=== PATIENT | female | born 1970 | race Caucasian/White ===

== ENCOUNTER 2022-11-05 11:02 | Emergency (ER) | payer OTHER, SELFPAY ==
[2022-11-05 11:03] VITALS: BP 196/99; PULSE 92; RESP 18; TEMP 36.4; O2SAT 97; BMI 34.9
--- NOTE | 2022-11-05 11:55 | CT_ITS ---
INDICATION: abdominal pain X 5 DAYS EXAMINATION: CT ABDOMEN AND PELVIS WITH CONTRAST - CT Abdomen And Pelvis W/ Contrast Injection TECHNIQUE: Helically acquired images were obtained of the abdomen and pelvis following IV contrast. A radiation dose optimization technique was used for this scan. IV Contrast dosage and agent: 100 cc of [id number]-370 Oral contrast: None. COMPARISON: None. FINDINGS: LOWER CHEST: Lung bases are clear. No cardiomegaly or pericardial effusion. LIVER: The liver is diffusely low in attenuation consistent with fatty infiltration. There is hepatomegaly. GALLBLADDER AND BILIARY TREE: There are surgical clips within the gallbladder fossa consistent with prior cholecystectomy. No intra- or extrahepatic biliary ductal dilation. PANCREAS: No focal cystic or solid mass. SPLEEN: Normal size without focal cystic or solid mass. ADRENAL GLANDS: No nodules. KIDNEYS AND URETERS: Normal renal size and position. There is a nonobstructing 11 mm left renal calculus. No hydronephrosis. PERITONEUM: No ascites or free air. No other fluid collection. BOWEL: No stomach or bowel distension. No focal inflammatory change. There are surgical clips within the right lower quadrant suggestive of prior cholecystectomy. LYMPH NODES: No enlarged mesenteric or retroperitoneal lymph nodes. VESSELS: Aorta is non-dilated. URINARY BLADDER: Unremarkable. REPRODUCTIVE ORGANS: No pelvic masses. ABDOMINAL WALL: No discrete abdominal or pelvic wall hernia. BONES: There are degenerative changes of the lumbar spine. There is a levoscoliosis of the thoracolumbar spine. CT/Abdomen/Pelvis W IV Cont ONLY IMPRESSION: Fatty infiltration of the liver associated with hepatomegaly. Nonobstructing 11 mm left renal calculus. Electronically Signed: Shanel Montano MD at 12:37 EST ,
[2022-11-05 12:16] LABS: Absolute Lymphocyte Count 3.76 X10^3/uL (0.83-4.51); Basophil# 0.04 X10^3/uL; Basophil% 0.4 % (0-1); Eosinophil# 0.26 X10^3/uL; Eosinophils% 2.4 % (0-5); Hematocrit 43.1 % (37-47); Hemoglobin 14.4 g/dL (12.0-15.0); Lymphocyte # 3.76 X10^3/ul (0.83-4.51); Mean Corp Hgb Conc 33.4 g/dL (32-36); Mean Corpuscular Hgb 29.3 pg (27.0-32.0); Mean Corpuscular Volume 87.8 fL (81-99); Mean Platelet Vol. 9.5 fl (6.2-12.0); Monocyte# 0.65 X10^3/uL; Monocyte% 6.1 % (0-10); NRBC Flagged by Analyzer 0 % (0-5); Neutrophil # 5.99 X10^3/uL (2.7-7.7); Neutrophil % 55.7 % (47-70); Platelet Count 476 K/mm3 (150-450); RBC Distribution Width CV 12.9 % (11.6-14.6); RBC Distribution Width SD 41.8 fl (35.1-43.9); Red Blood Count 4.91 M/mm3 (4.2-5.4); White Blood Count 10.7 K/mm3 (4.4-11.0)
[2022-11-05] MEDS: Mag Hydrox/Al Hydrox/Simeth 30 ML UDC PO (12:27)
[2022-11-05] MEDS: Dicyclomine 10 MG Capsule 20 MG PO (12:27)
[2022-11-05 12:34] LABS: ALB/GLOB Ratio 1.1 RATIO (0.9-2.4); AST(SGOT) 27 U/L (15-37); Alanine Aminotransfer ALT/SGPT 46 U/L (13-56); Albumin, Serum 4.4 g/dL (3.2-5.0); Alkaline Phosphatase 71 U/L (45-117); Anion Gap 7 (5-15); BUN 10 mg/dL (7-18); BUN/Creat Ratio 16.1 RATIO (10-20); Chloride 106 mmol/L (98-107); Creatinine, Serum 0.62 mg/dL (0.55-1.02); EST Glomerular Filtration Rate 107 mL/min (>60); Est Glom Filt Rate - Afr Amer 129 mL/min (>60); Estimated Creatinine Clearance 102.05 ml/min; Globulin 4.1 g/dL (2.2-4.2); Glucose 125 mg/dL (74-106); Lipase 259 U/L (73-393); Protein, Total 8.5 g/dL (6.4-8.2); Sodium Level 139 mmol/L (136-145)
--- NOTE | 2022-11-05 12:49 | EX.ED.DYSGE1 ---
HPI <ERIC Morales - Last Filed: 11/05/22 13:40> History of Present Illness Chief Complaint: Abd Pain Narrative Narrative: Patient is a 52-year-old female with history of anxiety, depression, hypertension, diabetes, GERD who presents to the emerged department with 5 days of generalized abdominal pain. Patient's the pain comes and goes. She states is all started after she had fried pork chops, fried potatoes. Patient is the pain is worse at nighttime. She feels bloated, has increased gas. She denies any vomiting. Denies any fever or chills. Patient says the pain in her lower abdomen can sometimes stretch across the abdomen, around the umbilical area. She does state to have black stools however she did take Pepto-Bismol every night this week. Patient denies any other blood in stool or vomit. PFSH <ERIC Morales - Last Filed: 11/05/22 13:40> [facility] Medical History Acute sinusitis, unspecified Home Medications desvenlafaxine succinate 25 mg tablet,extended release 24 hr 25 mg PO 03/26/21 [History Last Taken Unknown] desvenlafaxine succinate 50 mg tablet,extended release 24 hr 50 mg PO 03/26/21 [History Last Taken Unknown] lisinopril 20 mg tablet 20 mg PO 03/26/21 [History Last Taken Unknown] metformin 1,000 mg tablet 1,000 mg PO 03/26/21 [History Last Taken Unknown] multivit with xlmcmjyx-jvng-TL-lutein 8 mg iron-400 mcg-300 mcg tablet (Centrum Silver Women) 1 tab PO DAILY 03/26/21 [History Last Taken Unknown] pantoprazole 40 mg tablet,delayed release 40 mg PO 03/26/21 [History Last Taken Unknown] dicyclomine 20 mg tablet 20 mg PO TID #20 tabs 11/05/22 [Rx Last Taken Unknown] ondansetron 4 mg disintegrating tablet 4 mg PO Q8H PRN PRN Nausea #10 tabs 11/05/22 [Rx Last Taken Unknown] Allergy/AdvReac Type Severity Reaction Status Date / Time acetaminophen Allergy anxiety Verified 11/05/22 11:05 [From Darvocet-N] levofloxacin [From Levaquin] Allergy unknown Verified 11/05/22 11:05 moxifloxacin [From Avelox] Allergy flu-like Verified 11/05/22 11:05 symptoms propoxyphene Allergy anxiety Verified 11/05/22 11:05 [From Darvocet-N] Family History Other Diabetes Heart disease Social History Smoking Status: Never smoker alcohol intake: never ROS <ERIC Morales - Last Filed: 11/05/22 13:40> ROS ED ROS Narrative Constitutional: Negative for fever, chills, weight loss, weakness Eyes: Negative for vision loss, vision change, double vision ENT: Negative for any sore throat, ear pain, congestion Cardiovascular: Negative for any chest pain, tightness, palpitations Respiratory: Negative for any cough, sputum production, hemoptysis, dyspnea, dyspnea on exertion, orthopnea Gastrointestinal: Negative for any avomiting, diarrhea, constipation, blood in stool, blood in vomit. Positive for abdominal pain, cramping, bloating, nausea : Negative for any urinary frequency, dysuria, retention, blood in urine Muscle skeletal: Negative for any muscle joint pain, stiffness, myalgias, arthralgias, neck pain, back pain Neurological: Negative for any headache, syncope, numbness or tingling, dizziness Skin: Negative for any rashes, lumps, itching, abrasions, lacerations Psychiatric: Negative for any depression, anxiety, stress, suicidal ideation, homicidal ideation Hematologic: Negative for any easy bruising, excessive bruising, easy bleeding Allergies: Negative for any eczema, hives, rash EXAM <ERIC Morales - Last Filed: 11/05/22 13:40> Physical Exam Narrative Exam Narrative: Vital signs reviewed. HEET: Head normocephalic atraumatic, TMs clear bilaterally. Posterior pharynx is clear, moist mucous membranes. Nares clear bilaterally. Pupils are equal round reactive to light. Negative for any hematoma, septal hematoma. Neck: Supple with no lymphadenopathy or tenderness. No signs of meningismus, negative jolt sign. Cardiac: Regular rate and rhythm no murmurs gallops or rubs, equal peripheral pulses bilaterally. Respiratory: Lungs clear to auscultation bilaterally. No chest tenderness. Abdomen: Soft, nontender, nondistended. No abdominal bruit or pulsatile masses. No hepatosplenomegaly Extremities: No peripheral edema, no signs of gross trauma or deformity. Active full range of motion of all extremities. Neuro: Cranial nerves II through XII intact, no focal neurological deficits. Skin: Clean dry and intact with no rash, purpura, petechiae, vesicles or pustules. Backs/flank: No CVA tenderness, no midline spinal tenderness, no deformity. Psych: Normal mood and affect. No SI, HI or acute psychosis. Const Vital Signs: 11/05/22 11:03 Temperature 97.5 F L Temperature Source Temporal Pulse Rate 92 Respiratory Rate 18 Blood Pressure 196/99 H Blood Pressure Mean 131 Pulse Ox 97 Oxygen Delivery Method Room Air Positive well nourished and well developed General Appearance ED: well developed HEENT Reports moist mucous membranes and dry mucous membranes Mouth ED: Yes dry mucous membranes Mouth: dry mucous membranes <Dr. Red Castrejon MD - Last Filed: 11/05/22 13:35> Physical Exam Const Vital Signs: 11/05/22 11:03 Temperature 97.5 F L Temperature Source Temporal Pulse Rate 92 Respiratory Rate 18 Blood Pressure 196/99 H Blood Pressure Mean 131 Pulse Ox 97 Oxygen Delivery Method Room Air MDM <ERIC Moralse - Last Filed: 11/05/22 13:40> MDM Lab Data Labs: Laboratory Results - last 24 hr 11/05/22 11/05/22 11:15 11:15 WBC 10.7 RBC 4.91 Hgb 14.4 Hct 43.1 MCV 87.8 MCH 29.3 MCHC 33.4 RDW Std Deviation 41.8 RDW Coeff of Brennan 12.9 Plt Count 476 H MPV 9.5 Immature Gran % (Auto) 0.400 Neut % (Auto) 55.7 Lymph % (Auto) 35.0 [place] % (Auto) 6.1 Eos % (Auto) 2.4 Baso % (Auto) 0.4 Absolute Neuts (auto) 6.0 Absolute Lymphs (auto) 3.76 Nucleated RBC % 0 Sodium 139 Potassium 4.0 Chloride 106 Carbon Dioxide 26.0 Anion Gap 7 BUN 10 Creatinine 0.62 Estim Creat Clear Calc 102.05 Est GFR (MDRD) Af Amer 129 Est GFR (MDRD) Non-Af 107 BUN/Creatinine Ratio 16.1 Glucose 125 H Calcium 10.0 Total Bilirubin 0.40 AST 27 ALT 46 Alkaline Phosphatase 71 Total Protein 8.5 H Albumin 4.4 Globulin 4.1 Albumin/Globulin Ratio 1.1 Lipase 259 Radiography Diagnostic Testing: Clinical Impression(s) from Imaging Studies Abdomen/Pelvis CT 11/05/22 11:55 IMPRESSION: Fatty infiltration of the liver associated with hepatomegaly. Nonobstructing 11 mm left renal calculus. Electronically Signed: Shanel Montano MD at 12:37 EST , Treatment and Re-Evaluation Narrative: All radiologic examinations were read, reviewed by the emergency department attending. From these reads, a plan of care will be put in place. Patient's generalized well-appearing, patient's slightly hypertensive however she states that this has happened before secondary to her being nervous. Patient states to have a slight headache, she is concerned because she did start taking Ambien 2 weeks ago and she is not sure if this is a side effect. Patient did have a full work-up for abdominal pain, concerning for any acute appendicitis, hernia, diverticulitis. Patient's physical examination of her abdomen was grossly unremarkable. Negative for any Chase sign. Patient's laboratory studies showed a normal CBC, chemistries were unremarkable, lipase was within normal limits. Patient CT scan of the abdomen pelvis with IV contrast showed hepatomegaly however an axial finding of nonobstructing 11 mm left renal calculus. Patient was offered analgesia, however she states that at this time her pain was under control, she denies any nausea or vomiting. Patient was given GI cocktail as well as p.o. Bentyl. On reassessment, the patient was feeling much better. Patient's vital signs normalized. Patient will be diagnosed with abdominal pain, uncertain etiology. Patient does have an umbilical hernia, she will see the surgeon of her choice. We on her discharge instructions. I was able speak to the patient's who is also at bedside. Patient is happy with the plan of care, she will be given Zofran, Bentyl for home. She instructed return for any worsening symptoms. <Dr. Red Castrejon MD - Last Filed: 11/05/22 13:35> [facility] Narrative Medical decision making narrative: I have personally performed a face to face assessment of the patient and have reviewed the MARIZOL Note. I performed a substantive portion of the visit including all aspects of the following. My parker findings include: History is [52 female complaining of periumbilical abdominal discomfort. Is been intermittent for some time. She has had a prior cholecystectomy and appendectomy. Prior hernia repair. Hysterectomy. Pain comes and goes. No nausea or vomiting. No dysuria. No fever.] Exam is [well-appearing middle-aged female. Vital signs stable afebrile. H EENT exam unremarkable. Lungs clear. Heart regular rhythm no murmur. Abdomen soft, nondistended, minimally tender. No peritoneal signs. She laid flat in bed she has a periumbilical or umbilical hernia that spontaneously resolves. It is neither incarcerated or strangulated. Biard she has no peritoneal signs. She has a prior scar from having umbilical hernia repair. Moving all 4 extremities. Nontender no edema. Neurologic exam normal.] Medical Decision Making [evaluated this patient with her [employer]. She has paramedical abdominal pain. CBC, CMP are unremarkable. CT shows incidental kidney stone in the left kidney. Clinically I think this is a recurrent umbilical hernia. She wants to follow-up with Dr. Inocente bullard of general surgery.] Other additions or changes: [None] Lab Data Attestation: I reviewed the patient's lab results. Lab results narrative: CBC unremarkable. CMP unremarkable. Lipase normal at 259. Labs: Laboratory Results - last 24 hr 11/05/22 11/05/22 11:15 11:15 WBC 10.7 RBC 4.91 Hgb 14.4 Hct 43.1 MCV 87.8 MCH 29.3 MCHC 33.4 RDW Std Deviation 41.8 RDW Coeff of Brennan 12.9 Plt Count 476 H MPV 9.5 Immature Gran % (Auto) 0.400 Neut % (Auto) 55.7 Lymph % (Auto) 35.0 [place] % (Auto) 6.1 Eos % (Auto) 2.4 Baso % (Auto) 0.4 Absolute Neuts (auto) 6.0 Absolute Lymphs (auto) 3.76 Nucleated RBC % 0 Sodium 139 Potassium 4.0 Chloride 106 Carbon Dioxide 26.0 Anion Gap 7 BUN 10 Creatinine 0.62 Estim Creat Clear Calc 102.05 Est GFR (MDRD) Af Amer 129 Est GFR (MDRD) Non-Af 107 BUN/Creatinine Ratio 16.1 Glucose 125 H Calcium 10.0 Total Bilirubin 0.40 AST 27 ALT 46 Alkaline Phosphatase 71 Total Protein 8.5 H Albumin 4.4 Globulin 4.1 Albumin/Globulin Ratio 1.1 Lipase 259 Radiography Diagnostic Testing: Clinical Impression(s) from Imaging Studies Abdomen/Pelvis CT 11/05/22 11:55 IMPRESSION: Fatty infiltration of the liver associated with hepatomegaly. Nonobstructing 11 mm left renal calculus. Electronically Signed: Shanel Montano MD at 12:37 EST , Discharge Plan Triage Chief Complaint: Abd Pain ED Midlevel Provider: Evan Francis ED Provider: Red Castrejon Dx/Rx/DC Orders Clinical Impression: Abdominal pain, Hernia, umbilical Instructions: Abdominal Pain, ED Hernia (Adult) Prescriptions: New dicyclomine 20 mg tablet 20 mg PO TID Qty: 20 0RF ondansetron 4 mg tablet,disintegrating 4 mg PO Q8H PRN PRN (Reason: Nausea) Qty: 10 0RF No Action desvenlafaxine succinate 25 mg tablet extended release 24 hr 25 mg PO Label Comments: TAKE 1 TABLET BY MOUTH ONCE DAILY WITH A 50 MG TABLET desvenlafaxine succinate 50 mg tablet extended release 24 hr 50 mg PO Label Comments: TAKE 1 TABLET BY MOUTH ONCE DAILY pantoprazole 40 mg tablet,delayed release (DR/EC) 40 mg PO lisinopril 20 mg tablet 20 mg PO Label Comments: TAKE 1 TABLET BY MOUTH ONCE DAILY metformin 1,000 mg tablet 1,000 mg PO Label Comments: TAKE 1 TABLET BY MOUTH TWICE DAILY Centrum Silver Women 8 mg iron-400 mcg-300 mcg tablet 1 tab PO DAILY Primary Care Provider: Jose Celestin Referrals: Inocente Saab MD [Med Staff - Active Staff] - Jose Celestin MD [Primary Care Provider] - Activity Restrictions/Additional Instructions: Please keep a food diary to see if you are sensitive any foods. Please follow-up with your PCP. Follow-up with surgery. Disposition Disposition: Home, Self Care
== END 2022-11-05 14:14 | disposition home or self-care (01) ==
PROVIDERS: Nurse Practitioner; Emergency Provider Emergency Medicine; PCP Family Medicine; Visit Provider Emergency Medicine
DX: K42.9 Umbilical hernia without obstruction or gangrene (principal); E11.9 Type 2 diabetes mellitus without complications; N20.0 Calculus of kidney; I10 Essential (primary) hypertension; Z90.49 Acquired absence of other specified parts of digestive tract; Z79.84 Long term (current) use of oral hypoglycemic drugs; Z79.899 Other long term (current) drug therapy
CPT/HCPCS: 74177; 80053; 83690; 85025; 99284; Q9967; A4216

== ENCOUNTER 2022-12-23 12:49 | Day surgery (SDC) | payer OTHER, SELFPAY ==
--- NOTE | 2022-12-23 12:54 | RAD_ITS ---
HISTORY: PRE-OP. TECHNIQUE: XR Abdomen 1 View. COMPARISON: CT 11/05/2022. FINDINGS: BOWEL GAS PATTERN: No dilated small bowel loops identified. Moderate stool throughout the colon. Right lower quadrant surgical clips. FREE AIR: Not assessed on supine view. CALCIFICATIONS: Pelvic phleboliths observed. 7 mm left upper pole calculus again seen. BONES: Mild scoliosis again noted. RAD/Abdomen Single View IMPRESSION: Left nephrolithiasis. Electronically Signed: Maylin Barker MD at 12:58 EDT ,
[2022-12-23 13:24] VITALS: BP 120/72; PULSE 90; RESP 16; TEMP 36.1; O2SAT 96; BMI 34.6
[2022-12-23] MEDS: Lactated Ringers 1,000 ML 15 ML IV (13:28)
[2022-12-23 13:55] LABS: Bedside Glucose 116 mg/dL (74-106)
[2022-12-23] MEDS: Cefazolin 2 GM in 0.9% Normal Saline 100 ML IV (15:53)
--- NOTE | 2022-12-23 16:30 | PCM.HP.STD ---
HPI - General General Chief Complaint: Left kidney stone HPI Narrative RUBA PORTILLO, is a 52 F who presents for a left extracorporeal shockwave lithotripsy [facility] Medical History (Updated 12/23/22 @ 16:[address] Jose Luis Cheung MD) Acid reflux Acute insomnia Acute sinusitis, unspecified Anxiety Depression Diabetes Elevated liver enzymes Gastric reflux Gastritis Hiatal hernia High cholesterol History of hiatal hernia HTN (hypertension) Kidney stone MRSA infection NAFLD (nonalcoholic fatty liver disease) Post-menopausal Restless legs Wears glasses Home Medications desvenlafaxine succinate 50 mg tablet,extended release 24 hr 100 mg PO DAILY 03/26/21 [History Last Taken Unknown] lisinopril 20 mg tablet 20 mg PO DAILY 03/26/21 [History Last Taken Unknown] metformin 1,000 mg tablet 1,000 mg PO BID 03/26/21 [History Last Taken Unknown] multivit with nlikxstj-dssj-YR-lutein 8 mg iron-400 mcg-300 mcg tablet (Centrum Silver Women) 1 tab PO DAILY 03/26/21 [History Last Taken Unknown] pantoprazole 40 mg tablet,delayed release 40 mg PO DAILY 03/26/21 [History Last Taken Unknown] atorvastatin 20 mg tablet 20 mg PO QHS 11/15/22 [History Last Taken Unknown] loratadine 10 mg tablet (Claritin) 10 mg PO DAILY 11/15/22 [History Last Taken Unknown] oxycodone 5 mg capsule 5 mg PO Q6H PRN pain 7 days #14 caps 12/23/22 [Rx Last Taken Unknown] Allergy/AdvReac Type Severity Reaction Status Date / Time acetaminophen Allergy anxiety Verified 12/16/22 08:21 [From Darvocet-N] levofloxacin [From Levaquin] Allergy unknown Verified 12/16/22 08:21 moxifloxacin [From Avelox] Allergy flu-like Verified 12/16/22 08:21 symptoms propoxyphene Allergy anxiety Verified 12/16/22 08:21 [From Darvocet-N] Family History Father Diabetes Heart disease Hypertension Kidney disease CVA (cerebral vascular accident) Mother Cancer bladder Thyroid disorder Brother Hypertension Surgical History H/O umbilical hernia repair H/O ventral hernia repair History of tonsillectomy S/P appendectomy S/P section S/P hysterectomy S/P laparoscopic cholecystectomy S/P sinus surgery Social History Smoking Status: Never smoker alcohol intake: never Vital Signs Vital Signs Vital Signs: 12/23/22 13:24 12/23/22 13:24 Temperature 96.9 F L Temperature Source Temporal Pulse Rate 90 Respiratory Rate 16 Respiratory Pattern Normal Blood Pressure 120/72 Blood Pressure Mean 88 Blood Pressure Source Monitor Blood Pressure Position Semi-Fowlers Blood Pressure Location Right Arm Pulse Ox 96 Oxygen Delivery Method Room Air Weight Weight: 100.2 kg Body Mass Index (BMI) 34.6 Results Lab / Micro Data Labs: Laboratory Results - last 24 hr 12/23/22 13:19: POC Glucose 116 H
--- NOTE | 2022-12-23 16:31 | DCINST_ITS ---
Discharge Instructions Diet Discharge Diet: No restrictions Dressing / Incision Call your doctor if your incision/area has: Continuous Slow Oozing, Increased Pain/ Swelling, Increased Redness and Foul Smelling Discharge Call your doctor if you observe: Fever of 101 or Higher, Numbness or Tingling, Shortness of breath, Dizziness, Calf discomfort and Uncontrolled pain Follow Up Care Please Follow Up With: Jose Luis Cheung MD Test Results: Test results from this visit will be discussed in further detail at your follow- up appointment, if applicable. Discharge Plan Admission Primary Reason for Your Visit: left ESWL Attending Provider: Jose Luis Cheung Primary Care Provider: oJse Celestin Discharge Orders/Prescriptions Prescriptions: New oxycodone 5 mg capsule 5 mg PO Q6H PRN (Reason: pain) 7 Days Qty: 14 0RF Continued desvenlafaxine succinate 50 mg tablet extended release 24 hr 100 mg PO DAILY Label Comments: TAKE 1 TABLET BY MOUTH ONCE DAILY pantoprazole 40 mg tablet,delayed release (DR/EC) 40 mg PO DAILY lisinopril 20 mg tablet 20 mg PO DAILY Label Comments: TAKE 1 TABLET BY MOUTH ONCE DAILY metformin 1,000 mg tablet 1,000 mg PO BID Label Comments: TAKE 1 TABLET BY MOUTH TWICE DAILY Centrum Silver Women 8 mg iron-400 mcg-300 mcg tablet 1 tab PO DAILY atorvastatin 20 mg tablet 20 mg PO QHS loratadine [Claritin] 10 mg tablet 10 mg PO DAILY Referrals / Follow Up: Jose Celestin MD [Primary Care Provider] - Disposition Disposition (needs filled in before D/C Order can be placed): Home, Self Care
--- NOTE | 2022-12-23 16:31 | PCM.OPRPT ---
Report of Operation Date of Procedure: 12/23/22 Pre-Operative Diagnosis: Left kidney stone Post-Operative Diagnosis: Same Surgery/Procedure Performed:: Left extracorporeal shockwave lithotripsy Description of Surgical Findings:: Patient presents to the hospital for treatment of a kidney stone with shockwave lithotripsy. In the preoperative area and x-ray was done to confirm the location of the stone. The x-ray was reviewed and the stone location was reviewed. In the preoperative setting I spoke with the patient regarding the treatment of the stone how the treatment would be conducted and the expectations after surgery. The patient understands there is a risk of bleeding and infection. Also discussed the very rare risk of hematoma or damage to the kidney. We also discussed the risk that the shockwave machine will fail to break the stone adequately and that the patient may need other surgical procedures. We also discussed the possibility that the patient may need a stent after the procedure. After reviewing the procedure with the patient, the patient is signed the consent form all the patient's questions were addressed and was taken back to the operating room for treatment of a kidney stone. Patient was taken back to the operating room, patient was identified by the nursing staff, we identified the side of the treatment and the patient side of treatment had been marked by my initials. The patient underwent general anesthetic and was placed supine on the lithotripter table. We then used fluoroscopy to identify the stone on the Left side. We then positioned the patient under the lithotripter and we used triangulation technique to identify the location of the stone and then we made sure that the stone was engaged in the F2 focal point of F2 Donier lithoprior machine. Once the patient was positioned appropriately and the stone was identified and placed in the F2 focal point of the lithotripter machine we then proceeded with shockwave lithotripsy. In the beginning the shockwave was delivered at a rate of 90 shocks per minute, we monitor the EKG for any ectopy. The power was slowly increased to 5 kV and subsequently at the 7 kV. We then proceeded with the treatment we move the therapy had around during the treatment to make sure the stone stayed in the F2 focal point during the entire treatment and after 3000 shockwaves were delivered to the stone under fluoroscopic guidance the treatment was completed. The patient was given instructions to call the office to make an a follow-up appointment with an xray to evaluate the success of the treatment, pateint understands that its possible the stones may need another procedure.At this point the patient's anesthetic was reversed patient was extubated and taken back to the PACU in stable condition. Surgeon: Jose Luis Cheung Type of Anesthesia: General Drains: none Admit VTE Documentation VTE Present on Admission: No VTE Mechan Device Prophylaxis: SCD's VTE Pharm Prophylaxis ordered?: No
[2022-12-23 16:37] VITALS: BP 120/72; BP 122/72; PULSE 114; RESP 16; TEMP 36.3; O2SAT 94
[2022-12-23 16:45] VITALS: BP 111/66; BP 120/72; PULSE 104; RESP 16; O2SAT 94
[2022-12-23 17:00] VITALS: BP 108/66; BP 120/72; PULSE 92; RESP 16; TEMP 36.6; O2SAT 95
[2022-12-23 18:10] VITALS: BP 120/72; BP 126/86; PULSE 83; RESP 18; TEMP 36.3; O2SAT 98
== END 2022-12-23 18:18 | disposition home or self-care (01) ==
LOC: SDC 12:52 → AC 12:53
PROVIDERS: PCP Family Medicine; Referring Provider Urology; Visit Provider Urology
PROC: (CPT 50590; principal; 2022-12-23 14:50)
DX: N20.0 Calculus of kidney (principal); E11.9 Type 2 diabetes mellitus without complications; I10 Essential (primary) hypertension; E78.00 Pure hypercholesterolemia, unspecified; K21.9 Gastro-esophageal reflux disease without esophagitis; Z79.84 Long term (current) use of oral hypoglycemic drugs; Z79.899 Other long term (current) drug therapy
CPT/HCPCS: 00873; 74018; 82962; J7120; J2405

== ENCOUNTER → 2023-01-18 | Outpatient (CLI) | payer OTHER, SELFPAY ==
--- NOTE | 2023-01-18 09:35 | RAD_ITS ---
INDICATION: KIDNEY STONE EXAMINATION/TECHNIQUE: X-RAY - XR Abdomen 1 View COMPARISON: Abdominal x-ray 12/23/2022, CT abdomen and pelvis 11/05/2022. FINDINGS: The bowel gas pattern is normal. There is no bowel obstruction. The approximately 8 mm calculus at the upper pole left kidney is very faintly visualized and appears grossly unchanged. There is a large amount of overlying stool and bowel gas. Phleboliths in the pelvis. Surgical clips right upper abdomen. RAD/Abdomen Single View IMPRESSION: Left renal calculus faintly visualized and likely unchanged. Electronically Signed: Rachana Neil MD at 6:56 EDT ,
== END | disposition home or self-care (01) ==
LOC: RAD 09:31
PROVIDERS: PCP Family Medicine; Referring Provider Urology; Visit Provider Urology
DX: N20.0 Calculus of kidney (principal)
CPT/HCPCS: 74018

== ENCOUNTER → 2023-02-10 | Outpatient (CLI) | payer OTHER, SELFPAY ==
[2023-02-10 10:36] LABS: Absolute Lymphocyte Count 2.95 X10^3/uL (0.83-4.51); Absolute Neutrophil Count 3.5 X10^3/uL (2.0-7.7); Basophil# 0.03 X10^3/uL; Basophil% 0.4 % (0-1); Eosinophil# 0.56 X10^3/uL; Eosinophils% 7.5 % (0-5); Hematocrit 43.2 % (37-47); Hemoglobin 14.2 g/dL (12.0-15.0); Lymphocyte # 2.95 X10^3/ul (0.83-4.51); Lymphocyte % 39.8 % (19-41); Mean Corp Hgb Conc 32.9 g/dL (32-36); Mean Corpuscular Hgb 29.3 pg (27.0-32.0); Mean Corpuscular Volume 89.3 fL (81-99); Mean Platelet Vol. 9.2 fl (6.2-12.0); Monocyte# 0.36 X10^3/uL; Monocyte% 4.9 % (0-10); NRBC Flagged by Analyzer 0 % (0-5); Neutrophil # 3.51 X10^3/uL (2.7-7.7); Neutrophil % 47.3 % (47-70); Platelet Count 421 K/mm3 (150-450); RBC Distribution Width CV 12.5 % (11.6-14.6); RBC Distribution Width SD 40.9 fl (35.1-43.9); Red Blood Count 4.84 M/mm3 (4.2-5.4); White Blood Count 7.4 K/mm3 (4.4-11.0)
[2023-02-10 10:40] LABS: Erythrocyte Sedimentation Rate 22 mm/hr (0-30)
[2023-02-10 11:14] LABS: ALB/GLOB Ratio 1.1 RATIO (0.9-2.4); AST(SGOT) 26 U/L (15-37); Alanine Aminotransfer ALT/SGPT 42 U/L (13-56); Albumin, Serum 4.3 g/dL (3.2-5.0); Alkaline Phosphatase 67 U/L (45-117); Anion Gap 7 (5-15); BUN 9 mg/dL (7-18); BUN/Creat Ratio 13.7 RATIO (10-20); CRP < 2.90 mg/L (0.0-3.0); Calcium,Total 9.2 mg/dL (8.5-10.1); Chloride 106 mmol/L (98-107); Creatinine, Serum 0.66 mg/dL (0.55-1.02); EST Glomerular Filtration Rate 100 mL/min (>60); Est Glom Filt Rate - Afr Amer 121 mL/min (>60); Globulin 3.9 g/dL (2.2-4.2); Glucose 99 mg/dL (74-106); Potassium 3.7 mmol/L (3.5-5.1); Protein, Total 8.2 g/dL (6.4-8.2); Sodium Level 139 mmol/L (136-145)
[2023-02-13 15:08] LABS: Anti-Centromere B Ab <0.2 AI (0.0-0.9); Anti-Chromatin <0.2 AI (0.0-0.9); Anti-Jo <0.2 AI (0.0-0.9); Anti-Scleroderma-70 AB <0.2 AI (0.0-0.9); Anti-dsDNA Ab <1 IU/mL (0-9); Cytoplasmic Ab (C-ANCA) <1:20 titer (Neg:<1:20); Endomysial Antibody IgA Negative (Negative); Immunoglobulin A 229 mg/dL (87-352); Perinuclear Ab (P-ANCA) <1:20 titer (Neg:<1:20); RNP Ab 0.3 AI (0.0-0.9); SJOGREN'S Anti-SS-A test < 0.2 AI (0.0-0.9); SJOGREN'S Anti-SS-B test < 0.2 AI (0.0-0.9); Smith Ab <0.2 AI (0.0-0.9); t-Transglutaminase IgA <2 U/mL (0-3)
== END | disposition home or self-care (01) ==
LOC: LAB 09:49
PROVIDERS: PCP Family Medicine; Referring Provider Nurse Practitioner Adult Health; Visit Provider Nurse Practitioner Adult Health
DX: K21.9 Gastro-esophageal reflux disease without esophagitis (principal); K76.0 Fatty (change of) liver, not elsewhere classified; R11.2 Nausea with vomiting, unspecified; R14.0 Abdominal distension (gaseous)
CPT/HCPCS: 36415; 80053; 82784; 83516; 85025; 85652; 86140; 86225; 86235; 86255; 86256

== ENCOUNTER → 2023-02-13 | Outpatient (CLI) | payer OTHER, SELFPAY ==
[2023-02-16 22:07] LABS: Pancreatic Elastase, Fecal 436 (>200)
== END | disposition home or self-care (01) ==
LOC: LABSPEC 11:51
PROVIDERS: PCP Family Medicine; Referring Provider Nurse Practitioner Adult Health; Visit Provider Nurse Practitioner Adult Health
DX: R11.0 Nausea (principal); R11.2 Nausea with vomiting, unspecified
CPT/HCPCS: 82653

== ENCOUNTER → 2023-02-16 | Outpatient (CLI) | payer OTHER, SELFPAY ==
--- NOTE | 2023-02-16 09:51 | US_ITS ---
STUDY: ABDOMINAL ULTRASOUND - ELASTOGRAPHY REASON FOR VISIT: Female, 52 years old. Fatty infiltration of liver. TECHNIQUE: Liver stiffness measurements were obtained on a [employer] RS 85 ultrasound machine using a CA 1-7 probe following the SRU guidelines. 3 measurements were obtained using a 2-D-SWE method. TheIQR/M was 24 % suggesting a quality data set. TECHNICAL QUALITY: Adequate. COMPARISON: None. FINDINGS: Liver: There is no demonstrated mass lesion. Median liver stiffness measured 8.4 kPa. Abdomen: There is no demonstrated mass lesion. US/Elastography Parenchyma/Organ IMPRESSION: Liver stiffness measures 8.4 kPa compatible with F2-F3 (Mild to moderate liver fibrosis) Metavir score. Electronically Signed: Aldair Almazan MD at 9:42 EDT ,
--- NOTE | 2023-02-16 09:51 | US_ITS ---
STUDY: ABDOMINAL ULTRASOUND - RIGHT UPPER QUADRANT REASON FOR VISIT: Female, 52 years old fatty liver, n/v/bloating -- RUQ TECHNIQUE: Ultrasound evaluation of the right upper quadrant was performed with real-time and static whiteside-scale imaging. TECHNICAL QUALITY: Adequate. COMPARISON: None. FINDINGS: Liver: The liver measures 16.2 cm. There is increased echogenicity consistent with fatty infiltration. The bile ducts are within normal limits. There is hepatic color flow. The direction of portal flow is hepatopetal. There is no demonstrated mass lesion. Gallbladder: The patient is status post cholecystectomy. Common Bile Duct (C.B.D.): The common bile duct measures 6.9 mm. Pancreas: Normal size of the head, body and tail of the pancreas. There is increased echogenicity of the pancreas. There is no demonstrated pancreatic mass or cyst. Right Kidney: Normal size of the right kidney. The right kidney measures 12.6 cm x 5.6 cm x 4.3 cm. Normal renal cortex. The right cortex measures 1.1 cm. There is no demonstrated renal mass or cyst. There is no right hydronephrosis. US/Abdomen Limited IMPRESSION: Fatty infiltration of the liver. Status post cholecystectomy. Electronically Signed: Aldair Almazan MD at 9:37 EDT ,
== END | disposition home or self-care (01) ==
LOC: US 09:50
PROVIDERS: PCP Family Medicine; Referring Provider Nurse Practitioner Adult Health; Visit Provider Nurse Practitioner Adult Health
DX: K76.0 Fatty (change of) liver, not elsewhere classified (principal); R11.2 Nausea with vomiting, unspecified; K21.9 Gastro-esophageal reflux disease without esophagitis
CPT/HCPCS: 76705; 76981

== ENCOUNTER → 2023-03-03 | Outpatient (CLI) | payer OTHER, SELFPAY ==
[2023-03-03 11:44] LABS: Prothrombin Time (Protime)PT. 12.8 SECONDS (11.7-14.9)
[2023-03-03 11:55] LABS: Ammonia < 10.0 umol/L (11-32)
[2023-03-03 11:59] LABS: Ferritin 108 ng/mL (8-252); LDH 217 U/L (84-246)
[2023-03-03 12:23] LABS: HIV - WCH Non-Reactive (Nonreactive)
[2023-03-04 17:07] LABS: Anti-Mitochondrial AB <20.0 Units (0.0-20.0)
== END | disposition home or self-care (01) ==
LOC: LAB 11:09
PROVIDERS: PCP Family Medicine; Referring Provider Nurse Practitioner Adult Health; Visit Provider Nurse Practitioner Adult Health
DX: K76.0 Fatty (change of) liver, not elsewhere classified (principal)
CPT/HCPCS: 36415; 80074; 82105; 82140; 82164; 82390; 82525; 82728; 83010; 83516; 83615; 85610; 86703

== ENCOUNTER 2023-04-27 06:40 | Day surgery (SDC) | payer OTHER, SELFPAY ==
[2023-04-27 07:07] VITALS: BP 118/82; PULSE 92; RESP 18; TEMP 36.7; O2SAT 96; BMI 31.7
[2023-04-27] MEDS: Lactated Ringers 1,000 ML 15 ML IV (07:11)
[2023-04-27 07:31] LABS: Bedside Glucose 119 mg/dL (74-106)
--- NOTE | 2023-04-27 07:45 | EGD_PTH ---
PATIENT: RUBA PORTILLO LOC: EN U#:[id number] AGE/SX: 53/F ROOM: RE04/27/[address]: Dr. Mehdi Mcwilliams DO : 1970 BED: DIS: 04/27/2023 SPEC #: [id number] RECD: 04/27/23 12:57 STATUS: CELIO PEDRO #: [id number] ALEISHA: 04/27/23 07:[address]: Mehdi Mcwilliams DEPT: SURGICAL PATHOLOGY RECD BY: Naomie Jacobs ENTERED: 04/27/23 13:37 SP TYPE: EGD [facility] DR: Dr. Jose Celestin MD Tissues: Esophagus, NOS Procedures: Surgery Specimen Level IV HEADER OPERATION: EGD ([facility] [place]), biopsy PRE-OP DIAGNOSIS: Nausea, vomiting, fatty liver, gastric reflux, bloating, upper abdominal pain TISSUE SUBMITTED: Random esophagus biopsy MICROSCOPIC DIAGNOSIS Esophagus, random biopsy: Fragments of squamous epithelium with changes consistent with eosinophilic esophagitis. See comment. SRINIVAS:humberto 04/28/2023 COMMENT Increased number of eosinophils (up to 20 per high power field) are noted consistent with eosinophilic esophagitis. Correlation with clinical, endoscopic findings and appropriate follow up are necessary. MICROSCOPIC DESCRIPTION Slides are reviewed. GROSS DESCRIPTION Received in fixative is one container labeled with the patient's name and designated random esophagus biopsy. The specimen consists of multiple irregular fragments of light olivera soft tissue that in aggregate measure 1.0 x 0.3 x 0.1 cm. The specimen is totally submitted in one cassette. / SRINIVAS:humberto 04/27/2023 TC:5 CPT: 72418
--- NOTE | 2023-04-27 08:08 | HP.PCM_ITS ---
History and Physical Date of Admission: 04/27/23 Chief Complaint: abd pain, fatty liver Details: RUBA PORTILLO, is a 52 F who presents to the office today to establish with GI for episodes of abdominal pain, gas, bloating, vomiting that wake her up, then diarrhea in the morning. Started in 08/2023, first time was sudden vomiting at work. Next time occurred 4 nights in a row, went to [facility] ED on ED 11/05/22. CT showed fatty liver w/ hepatomegaly. Thinks the abd pain is due to gas, better with simethicone. Lots of belching. Pepto bismol helps. Feels relief after vomiting. Had more heartburn at onset. Now more bothered by egg burps. Worse with greasy foods, spicy foods, soda. Had 4 episodes in 12/2022--had both vomiting and diarrhea then. No hematemesis, hematochezia, melena. She reports fatigue. Started semaglutide at the end of 10/2022, now is constipated, taking fiber gummies and stool softener. Has decreased appetite, gets full more quickly. Has lost 13 lbs. 12/2018 colonoscopy: normal 12/2018 egd: hiatal hernia, gastritis, bilious staining in the stomach, esophagitis; she has been on pantoprazole 40 mg daily since then ROS Const Constitutional: Positive for fatigue ENT ENT: No difficulty swallowing Gastro GI: Positive for abdominal pain, bloating, change in bowel habits, constipation, excessive flatus, nausea/dyspepsia and vomiting; No belching, change in stool character, coffee ground emesis, cramping, diarrhea, heartburn, difficulty swallowing, feeling full early, incontinent of stools, Vomiting blood/hematemesis, Blood in stool, loose stools, Black,tarry stools, pain with swallowing or other Musc Musculoskeletal: No joint pain Skin Skin: No yellowing of the eye or itchy eyes Psych Psychiatric: Positive for anxiety and No depression Endo Endocrine: Positive for fatigue Aller/Imm Allergy/Immunologic: No itchy eyes Yao/Lymp Hematologic/Lymphatic: No easy bleeding or easy bruising Exam Const General: cooperative and comfortable Nutritional Appearance: obese Orientation: alert, awake and oriented x3 HENMT Head: normal to inspection Eyes Sclera: sclerae normal Resp Effort & Inspection: normal respiratory effort GI Inspection: normal to inspection Palpation: soft, no hepatosplenomegaly, no masses and tender in the epigastrum Skin General: no rashes or lesions noted Psych Mood: euthymic mood Quality Reporting Tobacco Screening ([facility] 138) Smoking Status: Never smoker Assessment and Plan Assessment and Plan (1) Nausea and vomiting: Status: Chronic Plan: 52 yr old female with episodic abd pain/gas/bloat/vomiting/diarrhea, acid reflux, fatty liver DDx includes EPI, PUD, H pylori, gastritis, bile reflux, gastroparesis Continue PPI Trial of one wk of doxycycline for SIBO type sxs EGD Labs including fecal elastase RUQ US and liver elastography Depending on degree of liver stiffness may get more labs (2) Fatty liver: Status: Chronic (3) Gastric reflux: Status: Chronic (4) Bloating: Status: Chronic (5) Upper abdominal pain: Status: Chronic Orders: Orders Abdomen Limited Today K21.9 - Gastro-esophageal reflux disease without esophagitis, K76.0 - Fatty (change of) liver, not elsewhere classified, R11.2 - Nausea with vomiting, unspecified Elastography Parenchyma/Organ Today K21.9 - Gastro-esophageal reflux disease without esophagitis, K76.0 - Fatty (change of) liver, not elsewhere classified, R11.2 - Nausea with vomiting, unspecified CBC W/Diff, Automated Today K21.9 - Gastro-esophageal reflux disease without esophagitis, K76.0 - Fatty (change of) liver, not elsewhere classified, R11.2 - Nausea with vomiting, unspecified, R14.0 - Abdominal distension (gaseous) Comprehensive Metabolic Profil Today K21.9 - Gastro-esophageal reflux disease without esophagitis, K76.0 - Fatty (change of) liver, not elsewhere classified, R11.2 - Nausea with vomiting, unspecified, R14.0 - Abdominal distension (gaseous) CRP Today K21.9 - Gastro-esophageal reflux disease without esophagitis, K76.0 - Fatty (change of) liver, not elsewhere classified, R11.2 - Nausea with vomiting, unspecified, R14.0 - Abdominal distension (gaseous) Erythrocyte Sed Rate Today K21.9 - Gastro-esophageal reflux disease without esophagitis, K76.0 - Fatty (change of) liver, not elsewhere classified, R11.2 - Nausea with vomiting, unspecified, R14.0 - Abdominal distension (gaseous) Celiac Disease Profile Today K21.9 - Gastro-esophageal reflux disease without esophagitis, K76.0 - Fatty (change of) liver, not elsewhere classified, R11.2 - Nausea with vomiting, unspecified, R14.0 - Abdominal distension (gaseous) DOLLY Comprehensive Panel Today K21.9 - Gastro-esophageal reflux disease without e sophagitis, K76.0 - Fatty (change of) liver, not elsewhere classified, R11.2 - Nausea with vomiting, unspecified, R14.0 - Abdominal distension (gaseous) ANCA Today K21.9 - Gastro-esophageal reflux disease without esophagitis, K76.0 - Fatty (change of) liver, not elsewhere classified, R11.2 - Nausea with vomiting, unspecified, R14.0 - Abdominal distension (gaseous) Pancreatic Elastase, Fecal Today R10.10 - Upper abdominal pain, unspecified, R11.2 - Nausea with vomiting, unspecified Medications: New doxycycline hyclate 100 mg PO BID 14 caps 0RF Discontinued oxycodone Discontinued Reason: Pt no longer taking 5 mg PO Q6H 7 days PRN 14 caps 0RF pain N20.0 - Calculus of kidney oxycodone-acetaminophen 5-325 mg (Endocet) Discontinued Reason: Order Completed 1 TAB PO Q6H 7 days PRN 20 tabs 0RF pain N20.0 - Calculus of kidney I have examined the patient and the H&P has been reviewed. There are no clinical changes since date of exam.
[2023-04-27 08:25] VITALS: BP 110/68; BP 118/82; PULSE 86; RESP 18; TEMP 36.8; O2SAT 94
--- NOTE | 2023-04-27 08:26 | OP.CCLET_ITS ---
04/27/2023 Jose Celestin [address] [place] [address] [place] [address] Re : Upper GI endoscopy procedure for Staci Thomas Dear Dr. Celestin This procedure was performed on April. My impressions and recommendations are as follows: Impressions : - Esophageal mucosal changes suggestive of eosinophilic esophagitis. Biopsied. - A large amount of a phytobezoar in the stomach. - No gross lesions in the first portion of the duodenum. Recommendations : - Discharge patient to home. - Resume previous diet. - Continue present medications. - Gastric emptying study My findings are described in the full procedure note, which is enclosed. If I can be of further assistance, please feel free to contact me at . Sincerely, Mehdi Mcwilliams, 04/27/2023 8:25:20 AM This report has been signed electronically.
--- NOTE | 2023-04-27 08:26 | OP.EGD_ITS ---
Patient Name: Staci Thomas Procedure Date: 04/27/2023 8:07 AM Date of : 1970 Age: 53 Procedure: Upper GI endoscopy Indications: Epigastric abdominal pain, Dyspepsia, Heartburn Providers: Mehdi Mcwilliams DO Referring MD: Mehdi Mcwilliams DO Medicines: Monitored Anesthesia Care Patient Profile: This is a 53 year old female. Refer to note in patient chart for documentation of history and physical. Patient has symptoms of chronic epigastric abdominal pain, chronic dyspepsia and chronic nausea. Complications: No immediate complications. Procedure: Pre-Anesthesia Assessment: - Prior to the procedure, a History and Physical was performed, and patient medications and allergies were reviewed. The risks and benefits of the procedure and the sedation options and risks were discussed with the patient. All questions were answered and informed consent was obtained. Patient identification and proposed procedure were verified by the physician in the pre-procedure area. Mental Status Examination: alert and oriented. Airway Examination: normal oropharyngeal airway and neck mobility. Respiratory Examination: clear to auscultation. CV Examination: normal. Prophylactic Antibiotics: The patient does not require prophylactic antibiotics. Prior Anticoagulants: The patient has taken no previous anticoagulant or antiplatelet agents. ASA Grade Assessment: II - A patient with mild systemic disease. After reviewing the risks and benefits, the patient was deemed in satisfactory condition to undergo the procedure. The anesthesia plan was to use monitored anesthesia care (MAC). Immediately prior to administration of medications, the patient was re-assessed for adequacy to receive sedatives. The heart rate, respiratory rate, oxygen saturations, blood pressure, adequacy of pulmonary ventilation, and response to care were monitored throughout the procedure. The physical status of the patient was re-assessed after the procedure. After obtaining informed consent, the endoscope was passed under direct vision. Throughout the procedure, the patient's blood pressure, pulse, and oxygen saturations were monitored continuously. The Endoscope was introduced through the mouth, and advanced to the second part of duodenum. The upper GI endoscopy was accomplished without difficulty. The patient tolerated the procedure well. Scope In: 8:16:00 AM Scope Out: 8:18:35 AM Total Procedure Duration Time 0 hours 2 minutes 35 seconds Findings: Mucosal changes including ringed esophagus, longitudinal furrows and small-caliber esophagus were found in the proximal esophagus, in the mid esophagus and in the distal esophagus. Biopsies were obtained from the proximal and distal esophagus with cold forceps for histology of suspected eosinophilic esophagitis. Verification of patient identification for the specimen was done. Estimated blood loss was minimal. A large amount of a phytobezoar was found in the gastric body. No gross lesions were noted in the first portion of the duodenum. Impression: - Esophageal mucosal changes suggestive of eosinophilic esophagitis. Biopsied. - A large amount of a phytobezoar in the stomach. - No gross lesions in the first portion of the duodenum. Recommendation: - Discharge patient to home. - Resume previous diet. - Continue present medications. - Gastric emptying study Procedure Code(s): --- Professional --- 02828, Esophagogastroduodenoscopy, flexible, transoral; with biopsy, single or multiple CPT copyright 2017 [employer]. All rights reserved. The codes documented in this report are preliminary and upon plant utilities engineer review may be revised to meet current compliance requirements. Mehdi Mcwilliams DO 04/27/2023 8:25:20 AM This report has been signed electronically. Number of Addenda: 0 Note Initiated On: 04/27/2023 8:07 AM
[2023-04-27 08:30] VITALS: BP 102/69; BP 118/82; PULSE 83; RESP 18; O2SAT 95
[2023-04-27 08:35] VITALS: BP 104/66; BP 118/82; PULSE 86; RESP 18; O2SAT 92
[2023-04-27 08:40] VITALS: BP 105/69; BP 118/82; PULSE 77; RESP 18; TEMP 36.8; O2SAT 93
[2023-04-27 08:57] VITALS: BP 118/82
--- NOTE | 2023-04-27 10:07 | SUR.PHASEII ---
called and left a message for the pt abou the gastric emptying study that dr jain ordered for her to have done outpatient.
== END 2023-04-27 09:22 | disposition home or self-care (01) ==
LOC: EN 06:40 → AC 06:44
PROVIDERS: PCP Family Medicine; Referring Provider Internal Medicine Gastroenterology; Visit Provider Internal Medicine Gastroenterology
PROC: 0DJ08ZZ Inspection of Upper Intestinal Tract, Via Natural or Artificial Opening Endoscopic (ICD-10-PCS; CPT 43235; principal; 2023-04-27 07:40)
DX: K21.00 Gastro-esophageal reflux disease with esophagitis, without bleeding (principal); E11.9 Type 2 diabetes mellitus without complications; K76.0 Fatty (change of) liver, not elsewhere classified; G89.29 Other chronic pain; R14.0 Abdominal distension (gaseous); E66.9 Obesity, unspecified; Z68.31 Body mass index [BMI] 31.0-31.9, adult; I10 Essential (primary) hypertension; E78.00 Pure hypercholesterolemia, unspecified; Z90.49 Acquired absence of other specified parts of digestive tract; Z79.85 Long-term (current) use of injectable non-insulin antidiabetic drugs; Z79.899 Other long term (current) drug therapy
CPT/HCPCS: 43239; 82962; 88305; J7120; J2405

== ENCOUNTER → 2023-05-08 | Outpatient (CLI) | payer OTHER, SELFPAY ==
[2023-05-08 13:14] LABS: Mucous, Urine 0 SEEN /hpf (<or=2+); Squamous Epithelial Cells - UA 0 SEEN /hpf (5-10)
[2023-05-08 15:06] LABS: Color, Urine Yellow (Yellow); Glucose, Dipstick Normal (Normal); Ketone-Dipstick 5 mg/dl (Negative); Leukocyte Esterase-Dipstick 500 /ul (Negative); Nitrite-Dipstick Negative (Negative); Occult Blood-Urine 50 /ul (Negative); Protein-Dipstick 30 mg/dl (Negative); Urine Bilirubin Dipstick Negative (Negative); Urine Clarity Sl. Cloudy (Clear); Urine Urobilinogen Normal (Normal); Urine pH 6.5 (5.0 - 8.0)
[2023-05-08 15:15] LABS: Bacteria 1+ /hpf (None Seen); Red Blood Cells-Urine 0-5 SEEN /hpf (0-5); White Blood Cells 25-50 SEEN /hpf (0-5)
== END | disposition home or self-care (01) ==
PROVIDERS: PCP Family Medicine; Referring Provider Nurse Practitioner Family; Visit Provider Nurse Practitioner Family
DX: R30.0 Dysuria (principal)
CPT/HCPCS: 81001; 87077; 87086; 87088; 87186

== ENCOUNTER → 2023-05-11 | Outpatient (CLI) | payer OTHER, SELFPAY ==
--- NOTE | 2023-05-11 11:37 | NM_ITS ---
CLINICAL: 53-year-old female with history of abdominal pain and nausea. SEMI-SOLID PHASE 99m Tc SULFUR COLLOID GASTRIC EMPTYING STUDY COMPARISON: None available FINDINGS: The patient was administered 1.0 mCi of 99m Tc sulfur colloid mixed with oatmeal and consumed per os. Image acquisitions in the anterior-posterior projections were obtained for 60 minutes. There is prompt visualization of the stomach. There is no gastroesophageal reflux identified. The T ? raw data emptying was calculated to be 32.05 minutes, (Normal: 12-56 minutes). NM/Gastric Emptying Study IMPRESSION: 1. NORMAL 99m Tc sulfur colloid semi-solid phase (oatmeal) gastric emptying imaging examination. A. There is normal and preserved semi-solid phase gastric emptying compared to normal controls. (Serafin et al, J Nucl Med Tech 38: 186, 2010). Electronically Signed: David Haley, at 22:37 EDT ,
== END | disposition home or self-care (01) ==
LOC: NM 11:37
PROVIDERS: PCP Family Medicine; Referring Provider Internal Medicine Gastroenterology; Visit Provider Internal Medicine Gastroenterology
DX: R10.9 Unspecified abdominal pain (principal); R11.0 Nausea
CPT/HCPCS: 78264; A9541

== ENCOUNTER → 2023-05-23 | Outpatient (CLI) | payer OTHER, SELFPAY ==
[2023-05-27 00:06] LABS: Beef <0.10 kU/L (Class 0); Chocolate <0.10 kU/L (Class 0); Corn <0.10 kU/L (Class 0); Egg, Whole <0.10 kU/L (Class 0); Milk (Cow) <0.10 kU/L (Class 0); Peanut <0.10 kU/L (Class 0); Pork <0.10 kU/L (Class 0); Soybean <0.10 kU/L (Class 0); Wheat <0.10 kU/L (Class 0)
== END | disposition home or self-care (01) ==
LOC: LAB 14:00
PROVIDERS: PCP Family Medicine; Referring Provider Internal Medicine Gastroenterology; Visit Provider Internal Medicine Gastroenterology
DX: K20.0 Eosinophilic esophagitis (principal)
CPT/HCPCS: 36415; 86003; 86005

== ENCOUNTER → 2023-07-11 | Outpatient (CLI) | payer OTHER, SELFPAY ==
--- NOTE | 2023-07-11 09:13 | US_ITS ---
STUDY: ABDOMINAL ULTRASOUND - RIGHT UPPER QUADRANT REASON FOR VISIT: Female, 53 years old fatty liver TECHNIQUE: Ultrasound evaluation of the right upper quadrant was performed with real-time and static whiteside-scale imaging. TECHNICAL QUALITY: Adequate. COMPARISON: Comparison is made with prior study dated February 16, 2023. FINDINGS: Liver: The liver measures 15.8 cm. There is increased echogenicity consistent with fatty infiltration. The bile ducts are within normal limits. There is hepatic color flow. The direction of portal flow is hepatopetal. There is no demonstrated mass lesion. Gallbladder: The patient is status post cholecystectomy. Common Bile Duct (C.B.D.): The common bile duct measures 5.8 mm. Pancreas: Normal size of the head, body and tail of the pancreas. There is increased echogenicity of the pancreas. There is no demonstrated pancreatic mass or cyst. Right Kidney: Normal size of the right kidney. The right kidney measures 12.6 cm x 4.9 cm x 4 cm. Normal renal cortex. The right cortex measures 1.3 cm. There is no demonstrated renal mass or cyst. There is no right hydronephrosis. IMPRESSION: Fatty infiltration of the liver. Electronically Signed: Aldair Almazan MD at 9:58 EDT , STUDY: ABDOMINAL ULTRASOUND - ELASTOGRAPHY REASON FOR VISIT: Female, 53 years old. Fatty infiltration of the liver. TECHNIQUE: Liver stiffness measurements were obtained on a [employer] 85 ultrasound machine using a CA 1-7 probe following the SRU guidelines. 3 measurements were obtained using a 2-D-SWE method. TheIQR/M was 18% suggesting a quality data set. TECHNICAL QUALITY: Adequate. COMPARISON: Comparison is made with prior study dated February 16, 2023. FINDINGS: Liver: There is no demonstrated mass lesion. Median liver stiffness measured 8.4 kPa. Abdomen: There is no demonstrated mass lesion. US/Elastography Parenchyma/Organ IMPRESSION: Liver stiffness measures 8.4 kPa compatible with F2-F3 (Mild to moderate liver fibrosis) Metavir score. Electronically Signed: Aldair Almazan MD at 10:00 EDT ,
--- NOTE | 2023-07-11 09:18 | US_ITS ---
STUDY: ABDOMINAL ULTRASOUND - RIGHT UPPER QUADRANT REASON FOR VISIT: Female, 53 years old fatty liver TECHNIQUE: Ultrasound evaluation of the right upper quadrant was performed with real-time and static whiteside-scale imaging. TECHNICAL QUALITY: Adequate. COMPARISON: Comparison is made with prior study dated February 16, 2023. FINDINGS: Liver: The liver measures 15.8 cm. There is increased echogenicity consistent with fatty infiltration. The bile ducts are within normal limits. There is hepatic color flow. The direction of portal flow is hepatopetal. There is no demonstrated mass lesion. Gallbladder: The patient is status post cholecystectomy. Common Bile Duct (C.B.D.): The common bile duct measures 5.8 mm. Pancreas: Normal size of the head, body and tail of the pancreas. There is increased echogenicity of the pancreas. There is no demonstrated pancreatic mass or cyst. Right Kidney: Normal size of the right kidney. The right kidney measures 12.6 cm x 4.9 cm x 4 cm. Normal renal cortex. The right cortex measures 1.3 cm. There is no demonstrated renal mass or cyst. There is no right hydronephrosis. IMPRESSION: Fatty infiltration of the liver. Electronically Signed: Aldair Almazan MD at 9:58 EDT , STUDY: ABDOMINAL ULTRASOUND - ELASTOGRAPHY REASON FOR VISIT: Female, 53 years old. Fatty infiltration of the liver. TECHNIQUE: Liver stiffness measurements were obtained on a [employer] 85 ultrasound machine using a CA 1-7 probe following the SRU guidelines. 3 measurements were obtained using a 2-D-SWE method. TheIQR/M was 18% suggesting a quality data set. TECHNICAL QUALITY: Adequate. COMPARISON: Comparison is made with prior study dated February 16, 2023. FINDINGS: Liver: There is no demonstrated mass lesion. Median liver stiffness measured 8.4 kPa. Abdomen: There is no demonstrated mass lesion. US/Abdomen Limited IMPRESSION: Liver stiffness measures 8.4 kPa compatible with F2-F3 (Mild to moderate liver fibrosis) Metavir score. Electronically Signed: Aldair Almazan MD at 10:00 EDT ,
== END | disposition home or self-care (01) ==
LOC: US 09:11
PROVIDERS: PCP Family Medicine; Referring Provider Internal Medicine Gastroenterology; Visit Provider Internal Medicine Gastroenterology
DX: K20.0 Eosinophilic esophagitis (principal); K76.0 Fatty (change of) liver, not elsewhere classified
CPT/HCPCS: 76705; 76981

== ENCOUNTER → 2024-03-12 | Outpatient (CLI) | payer OTHER, SELFPAY ==
--- NOTE | 2024-03-12 10:04 | US_ITS ---
STUDY: ABDOMINAL ULTRASOUND - RIGHT UPPER QUADRANT; ELASTOGRAPHY REASON FOR VISIT: Female, 53 years old. Fatty infiltration of the liver. NAFL DRigo TECHNIQUE: Ultrasound evaluation of the right upper quadrant was performed with real-time and static whiteside-scale imaging. Point quantification shear wave elastography was performed ([employer]). TECHNICAL QUALITY: Adequate. COMPARISON: Comparison is made with prior study July 11, 2023. FINDINGS: Liver: The liver measures 17.1 cm. There is increased echogenicity consistent with fatty infiltration. The bile ducts are within normal limits. There is hepatic color flow. The direction of portal flow is hepatopetal. There is no demonstrated mass lesion. Median liver stiffness measured 7.9 kPa. Gallbladder: The patient is status post cholecystectomy. Common Bile Duct (C.B.D.): The common bile duct measures 8 mm. Pancreas: There is normal echogenicity of the visualized pancreas. There is no demonstrated pancreatic mass or cyst. Right Kidney: Normal size of the right kidney. The right kidney measures 12 cm x 4.9 cm x 4.6 cm. Normal renal cortex. The right cortex measures 1.1 cm. There is no demonstrated renal mass or cyst. There is no right hydronephrosis. US/ABD Limited w/ Elastography IMPRESSION: 1. Liver stiffness measures 7.9 kPa compatible with F2-F3 (Mild to moderate liver fibrosis) Metavir score. 2. Fatty infiltration of the liver. Electronically Signed: Aldair Almazan MD at 13:37 EDT ,
[2024-03-12 11:37] LABS: Absolute Lymphocyte Count 3.01 X10^3/uL (0.83-4.51); Absolute Neutrophil Count 2.9 X10^3/uL (2.0-7.7); Basophil# 0.04 X10^3/uL; Basophil% 0.6 % (0-1); Eosinophil# 0.31 X10^3/uL; Eosinophils% 4.7 % (0-5); Hematocrit 41.4 % (37-47); Hemoglobin 13.2 g/dL (12.0-15.0); Lymphocyte # 3.01 X10^3/ul (0.83-4.51); Lymphocyte % 45.6 % (19-41); Mean Corp Hgb Conc 31.9 g/dL (32-36); Mean Corpuscular Hgb 28.8 pg (27.0-32.0); Mean Corpuscular Volume 90.2 fL (81-99); Mean Platelet Vol. 9.1 fl (6.2-12.0); Monocyte# 0.37 X10^3/uL; Monocyte% 5.6 % (0-10); NRBC Flagged by Analyzer 0 % (0-5); Neutrophil # 2.85 X10^3/uL (2.7-7.7); Neutrophil % 43.2 % (47-70); Platelet Count 414 K/mm3 (150-450); RBC Distribution Width SD 42.3 fl (35.1-43.9); Red Blood Count 4.59 M/mm3 (4.2-5.4); White Blood Count 6.6 K/mm3 (4.4-11.0)
[2024-03-12 11:44] LABS: Prothrombin Time (Protime)PT. 13.2 SECONDS (11.7-14.9)
[2024-03-12 12:08] LABS: ALB/GLOB Ratio 1.1 RATIO (0.9-2.4); AST(SGOT) 18 U/L (15-37); Alanine Aminotransfer ALT/SGPT 23 U/L (13-56); Albumin, Serum 4.1 g/dL (3.2-5.0); Alkaline Phosphatase 56 U/L (45-117); Anion Gap 4 (5-15); BUN 10 mg/dL (7-18); BUN/Creat Ratio 14.9 RATIO (10-20); Calcium,Total 9.6 mg/dL (8.5-10.1); Chloride 105 mmol/L (98-107); Creatinine, Serum 0.67 mg/dL (0.55-1.02); EST Glomerular Filtration Rate 97 mL/min (>60); Est Glom Filt Rate - Afr Amer 118 mL/min (>60); Globulin 3.7 g/dL (2.2-4.2); Glucose 101 mg/dL (74-106); Potassium 4.5 mmol/L (3.5-5.1); Protein, Total 7.8 g/dL (6.4-8.2); Sodium Level 138 mmol/L (136-145)
== END | disposition home or self-care (01) ==
PROVIDERS: PCP Family Medicine; Referring Provider Internal Medicine Gastroenterology; Visit Provider Internal Medicine Gastroenterology
DX: K76.0 Fatty (change of) liver, not elsewhere classified (principal); R11.2 Nausea with vomiting, unspecified
CPT/HCPCS: 36415; 76705; 76981; 80053; 85025; 85610

== ENCOUNTER → 2024-06-10 | Outpatient (CLI) | payer OTHER, SELFPAY | END | disposition home or self-care (01) | PROVIDERS: PCP Family Medicine; Referring Provider Nurse Practitioner Family; Visit Provider Nurse Practitioner Family | DX: R30.0 Dysuria (principal) | CPT/HCPCS: 87086; 87088; 87186 ==

== ENCOUNTER → 2024-08-27 | Outpatient (CLI) | payer OTHER, SELFPAY ==
--- NOTE | 2024-08-27 09:00 | US_ITS ---
STUDY: ABDOMINAL ULTRASOUND - RIGHT UPPER QUADRANT; ELASTOGRAPHY REASON FOR VISIT: Female, 54 years old. Fatty infiltration of the liver. TECHNIQUE: Ultrasound evaluation of the right upper quadrant was performed with real-time and static whiteside-scale imaging. Point quantification shear wave elastography was performed ([employer]). TECHNICAL QUALITY: Adequate. COMPARISON: Comparison is made with prior study dated March 12, 2024. FINDINGS: Liver: The liver measures 15.4 cm. There is increased echogenicity consistent with fatty infiltration. The bile ducts are within normal limits. There is hepatic color flow. The direction of portal flow is hepatopetal. There is no demonstrated mass lesion. Median liver stiffness measured 8.5 kPa. Gallbladder: The patient is status post cholecystectomy. Common Bile Duct (C.B.D.): The common bile duct measures 7 mm. Pancreas: There is normal echogenicity of the visualized pancreas. There is no demonstrated pancreatic mass or cyst. Right Kidney: Normal size of the right kidney. The right kidney measures 11.5 cm x 5.5 cm x 3.6 cm. Normal renal cortex. The right cortex measures 1.2 cm. There is no demonstrated renal mass or cyst. There is no right hydronephrosis. US/ABD Limited w/ Elastography IMPRESSION: 1. Liver stiffness measures 8.5 kPa compatible with F2-F3 (Mild to moderate liver fibrosis) Metavir score. 2. Fatty infiltration of liver. 3. Status post cholecystectomy. Electronically Signed: Aldair Almazan MD at 14:08 EST ,
== END | disposition home or self-care (01) ==
PROVIDERS: PCP Family Medicine; Referring Provider Internal Medicine Gastroenterology; Visit Provider Internal Medicine Gastroenterology
DX: K76.0 Fatty (change of) liver, not elsewhere classified (principal)
CPT/HCPCS: 76705; 76981

== ENCOUNTER 2025-03-05 20:18 | Emergency (ER) | payer OTHER, SELFPAY ==
[2025-03-05 20:20] VITALS: BP 121/91; PULSE 94; RESP 18; TEMP 36.6; O2SAT 98
--- NOTE | 2025-03-05 20:22 | EKG12_ITS ---
Test Reason : N/V Blood Pressure : */* mmHG Vent. Rate : 80 BPM Atrial Rate : 80 BPM P-R Int : 138 ms QRS Dur : 88 ms QT Int : 370 ms P-R-T Axes : 60 64 67 degrees QTcB Int : 426 ms Normal sinus rhythm Normal ECG Confirmed by Segundo Jett ([id number]), television news video editor MACK ZELAYA ([id number]) on 03/06/2025 10:19:32 AM Referred By: Confirmed By: Segundo Jett
[2025-03-05 21:20] VITALS: O2SAT 100
[2025-03-05 21:28] VITALS: BMI 28.0
[2025-03-05 21:54] LABS: Absolute Lymphocyte Count 2.02 X10^3/uL (0.83-4.51); Basophil# 0.03 X10^3/uL; Basophil% 0.3 % (0-1); Eosinophil# 0.06 X10^3/uL; Eosinophils% 0.6 % (0-5); Hematocrit 41.2 % (37-47); Hemoglobin 13.7 g/dL (12.0-15.0); Lymphocyte # 2.02 X10^3/ul (0.83-4.51); Mean Corp Hgb Conc 33.3 g/dL (32-36); Mean Corpuscular Hgb 29.5 pg (27.0-32.0); Mean Corpuscular Volume 88.6 fL (81-99); Mean Platelet Vol. 9.1 fl (6.2-12.0); Monocyte# 0.48 X10^3/uL; Monocyte% 4.5 % (0-10); NRBC Flagged by Analyzer 0 % (0-5); Neutrophil # 7.98 X10^3/uL (2.7-7.7); Neutrophil % 75.2 % (47-70); Platelet Count 448 K/mm3 (150-450); RBC Distribution Width CV 12.3 % (11.6-14.6); RBC Distribution Width SD 39.4 fl (35.1-43.9); Red Blood Count 4.65 M/mm3 (4.2-5.4); White Blood Count 10.6 K/mm3 (4.4-11.0)
--- NOTE | 2025-03-05 22:09 | EDS_ITS ---
HPI History of Present Illness Chief Complaint: Dizziness Narrative Narrative: 54-year-old female past medical history of hypertension, hypercholesterolemia, prediabetes on semaglutide for a year and a half recently increased her dose, presents with lightheadedness that she has had intermittently for the last week. She states that it started last , approximately 7 days ago. On Monday, 4 days ago she was dizzy, then again on Monday. Early this morning at around midnight she experienced near syncope, and lightheadedness. No prodromal chest pain. She also started having nausea and vomiting. She has vomited at least 7 times today without any blood in her emesis. No diarrhea. No abdominal pain. She states that her lightheadedness is getting worse. [facility] Medical History Wears glasses MRSA infection Post-menopausal Depression Restless legs History of hiatal hernia Gastric reflux Elevated liver enzymes Kidney stone Gastritis Hiatal hernia Acute insomnia Anxiety NAFLD (nonalcoholic fatty liver disease) Diabetes Acid reflux HTN (hypertension) High cholesterol Acute sinusitis, unspecified Home Medications ?Medication ?Instructions ?Recorded ?Last Taken ?Type desvenlafaxine succinate 50 mg 100 mg PO DAILY 1 Unknown History tablet,extended release 24 hr lisinopril 20 mg tablet 20 mg PO DAILY 03/26/21 Unkn own History yahbomel-quwv-epja 8 mg-folic 400 1 tab PO DAILY 03/26 Unknown History mcg-K 50 mcg-lutein 300 mcg tablet (Centrum Silver Women) atorvastatin 20 mg tablet 20 mg PO QHS 11/15/22 Unknow n History loratadine 10 mg tablet (Claritin) 10 mg PO DAILY 10/27 10/17 Unknown History pantoprazole 40 mg tablet,delayed 40 mg PO BID #60 tab s 05/19/23 Unknown Rx release metformin 1,000 mg tablet 1,000 mg PO BID 12/15/23 Unk nown History ursodiol 250 mg tablet 250 mg PO BID #120 tabs 09/26 12/17 Unknown Rx semaglutide 2.5 mg/mL subcutaneous mg subcut QWEEK 09/18 Unknown History solution Allergy/AdvReac Type Severity Reaction Status Date / Time levofloxacin (From Levaquin) Allergy unknown Verified 03/05/25 20:20 moxifloxacin (From Avelox) Allergy flu-like Verified 03/05/25 20:20 symptoms propoxyphene (From Allergy anxiety Verified 03/05/25 20:20 Darvocet-N) Family History Father Diabetes Heart disease Hypertension Kidney disease CVA (cerebral vascular accident) Mother Cancer bladder Thyroid disorder Brother Hypertension Surgical History Hx of lithotripsy S/P hysterectomy S/P sinus surgery History of tonsillectomy H/O ventral hernia repair S/P appendectomy S/P laparoscopic cholecystectomy H/O umbilical hernia repair S/P section Social History Smoking Status: Never smoker alcohol intake: never ROS ROS ED ROS Narrative Review of systems positive for lightheadedness, nausea and vomiting. No fevers or chills. No abdominal pain. No diarrhea. Mild headache. No paresthesias, no exacerbating or alleviating factors. EXAM Physical Exam Narrative Exam Narrative: Afebrile. Vital signs noted. Nontoxic-appearing. Cardiovascular examination reveals a regular rate and rhythm. Lungs are clear to auscultation bilaterally. Abdomen is soft and nontender without guarding or rebound. Positive bowel sounds. Neurological examination is nonfocal, nonlateralizing. Awake, alert, oriented x 3. Const Vital Signs: 03/05/25 20:20 03/05/25 21:20 03/05/25 22:23 Temperature 97.9 F Temperature Source Oral Pulse Rate 94 Pulse Rate [Lying] 78 Pulse Rate [Sitting (for 1 minute prior to obtaining)] 74 Pulse Rate [Standing (for 1 minute prior to obtaining)] 91 Respiratory Rate 18 Blood Pressure 121/91 H Blood Pressure [Lying] 129/77 H Blood Pressure [Sitting (for 1 minute prior to obtaining)] 143/88 H Blood Pressure [Standing (for 1 minute prior to obtaining)] 134/95 H Blood Pressure Mean 101 Blood Pressure Mean [Lying] 94 Blood Pressure Mean [Sitting (for 1 minute prior to obtaining)] 106 Blood Pressure Mean [Standing (for 1 minute prior to obtaining)] 108 Pulse Ox 98 100 Oxygen Delivery Method Room Air Room Air 03/05/25 22:23 03/06/25 00:00 Temperature Temperature Source Pulse Rate 72 85 Pulse Rate [Lying] Pulse Rate [Sitting (for 1 minute prior to obtaining)] Pulse Rate [Standing (for 1 minute prior to obtaining)] Respiratory Rate 17 15 Blood Pressure 129/77 H 131/83 H Blood Pressure [Lying] Blood Pressure [Sitting (for 1 minute prior to obtaining)] Blood Pressure [Standing (for 1 minute prior to obtaining)] Blood Pressure Mean 94 99 Blood Pressure Mean [Lying] Blood Pressure Mean [Sitting (for 1 minute prior to obtaining)] Blood Pressure Mean [Standing (for 1 minute prior to obtaining)] Pulse Ox 99 100 Oxygen Delivery Method Room Air Room Air MDM MDM MDM Narrative Medical decision making narrative: Differential diagnosis includes but not limited to pancreatitis versus intravascular volume depletion versus dehydration. I have low suspicion for TIA or stroke based on the history and physical as it does not support this. Additionally she has been lightheaded all week. EKG was obtained and interpreted by myself independently as normal sinus rhythm at 80 bpm without ectopy or acute ST changes. No STEMI. Patient was bolused IV fluids and orthostatics obtained. Basic laboratory work was obtained per protocol. I did add a lipase because of her vomiting but she has a nontender abdomen. She may also be having side effects from her semaglutide injection as she recently upped the dosage. She states that she had had symptoms like these previously, but not as bad especially with the nausea and vomiting. I reviewed her laboratory work and she has normal white count of 10.6 with hemoglobin 13.7, hematocrit 41.2, platelet count 448. Anion gap slightly elevated at 16 which I think is nonspecific, glucose 123, BUN of 15 and creatinine low at 0.63, no profound dehydration. Lipase normal 36 so I doubt p ancreatitis. Sodium and potassium and chloride are normal. P.o. glucose of 95. Her orthostatics were negative, but she was symptomatic especially when lying flat to sitting up. She states that she told the RN her headache resolved, but now it returned. She will be bolused 500 mL and given Zofran and meclizine and a p.o. challenge. She states that she still have a headache, and when she went to sit up was dizzy but it improved as she ambulated. I obtained a CT of the brain and reviewed the radiology report, there is no acute process. Upon repeat examination, she still states that she has a headache. I do not feel that she requires observation or admission after discussion with the patient and her family. I feel she can follow-up with her primary care provider. This may be more side effects from semaglutide. Return instructions to the emergency department were reviewed. Disposition is discharged home in stable condition. History & Record Review Discussion w/independent historian: Patient and Family Lab Data Attestation: I reviewed the patient's lab results. Labs: Laboratory Results - last 24 hr 03/05/25 03/05/25 21:41 23:05 WBC 10.6 RBC 4.65 Hgb 13.7 Hct 41.2 MCV 88.6 MCH 29.5 MCHC 33.3 RDW Std Deviation 39.4 RDW Coeff of Brennan 12.3 Plt Count 448 MPV 9.1 Immature Gran % (Auto) 0.400 Neut % (Auto) 75.2 H Lymph % (Auto) 19.0 [place] % (Auto) 4.5 Eos % (Auto) 0.6 Baso % (Auto) 0.3 Absolute Neuts (auto) 8.0 H Absolute Lymphs (auto) 2.02 Nucleated RBC % 0 Sodium 142 Potassium 3.8 Chloride 102 Carbon Dioxide 23.7 Anion Gap 16 H BUN 15 Creatinine 0.63 L Estim Creat Clear Calc 110.73 Est GFR (MDRD) Non-Af 105 BUN/Creatinine Ratio 23.5 H Glucose 123 H Calcium 10.2 Lipase 36 POC Glucose 95 Radiography Diagnostic Testing: Clinical Impression(s) from Imaging Studies Brain CT 03/06/25 00:31 IMPRESSION: Normal unenhanced CT scan of the brain. Mild chronic mucosal inflammatory changes of the ethmoid air cells. [facility] Discharge Plan Triage Chief Complaint: Dizziness Other Complaint: Nausea/Vomiting ED Provider: Tutu Clifford Dx/Rx/DC Orders Clinical Impression: Lightheadedness, Headache, Nausea and vomiting Instructions: ED Dizziness, Uncertain Cause, ED Pain, Acute, Uncertain Cause, ED Near-Fainting, Uncertain Cause, ED Vomiting (Adult) Prescriptions: No Action desvenlafaxine succinate 50 mg tablet extended release 24 hr 100 mg PO DAILY Patient Comments: TAKE 1 TABLET BY MOUTH ONCE DAILY lisinopril 20 mg tablet 20 mg PO DAILY Patient Comments: TAKE 1 TABLET BY MOUTH ONCE DAILY Edy Silver Women 8 mg iron-400 mcg-300 mcg tablet 1 tab PO DAILY atorvastatin 20 mg tablet 20 mg PO QHS loratadine [Claritin] 10 mg tablet 10 mg PO DAILY metformin 1,000 mg tablet 1,000 mg PO BID semaglutide 2.5 mg/mL solution subcut QWEEK Rx Instructions: 100units pantoprazole 40 mg tablet,delayed release (DR/EC) 40 mg PO BID Qty: 60 2RF ursodiol 250 mg tablet 250 mg PO BID Qty: 120 2RF Primary Care Provider: Jose Celestin Referrals: Jose Celestin MD [Primary Care Provider] - 3-5 Days if not improving Activity Restrictions/Additional Instructions: Sit up and stand up slowly. Drink plenty of oral fluids. Return with new or worsening symptoms. Print Language: Tamazight Disposition Disposition: Home, Self Care
[2025-03-05 22:13] LABS: Anion Gap 16 (5-15); BUN 15 mg/dL (4-19); BUN/Creat Ratio 23.5 RATIO (10-20); Calcium,Total 10.2 mg/dL (7.6-11.0); Carbon Dioxide 23.7 mmol/L (21.0-32.0); Chloride 102 mmol/L (98-108); Creatinine, Serum 0.63 mg/dL (0.70-1.20); EST Glomerular Filtration Rate 105 (>60); Estimated Creatinine Clearance 110.73 ml/min (50-250); Glucose 123 mg/dL (70-99); Potassium 3.8 mmol/L (3.3-5.1); Sodium Level 142 mmol/L (133-145)
[2025-03-05] MEDS: 0.9% Normal Saline (1000mL) 1,000 ML 999 ML IV (22:22)
[2025-03-05 22:23] VITALS: BP 129/77; BP 134/95; BP 143/88; PULSE 72; PULSE 74; PULSE 78; PULSE 91; RESP 17; O2SAT 99
--- OUTSIDE RECORDS SUMMARY | 2025-03-05 22:26 | XMS RPT_ITS | CCD ---
Author Organization [facility] Providers Care Franchise Consultant Name Role Phone Dr. Pollo Bobo Primary Care Provider Dr. Pollo Bobo Referring Provider Dr. Inocente Saab Attending Provider [phone] Brenda BLISTER PACK OPERATOR, BLISTER PACK OPERATOR-C Zoraida Steen Attending Provider Dr. Pollo Bobo Primary Care Provider Dr. Pollo Bobo Referring Provider Dr. Mehdi Mcwilliams Attending Provider Dr. Mehdi Mcwilliams Referring Provider FriendDr. Harding Other Provider Olvin BLISTER PACK OPERATOR, BLISTER PACK OPERATOR-C Pollo Villanueva Attending Provider Dr. Pollo Bobo Primary Care Provider Dr. Pollo Bobo Referring Provider Pollo Bobo MD Unavailable Dr. Mehdi Mcwilliams Unavailable Skye GUO, Dr. Amaya ([facility]) Unavailable Physical Therapy, Hernando Baez Unavailable Dr. Neil Marquez MD Unavailable Dr. Ramin Lamas MD Unavailable Mayte Fortune MD Unavailable Sal PAULN, Angi Unavailable Matias Wise MD Unavailable Evelina PAULN, Rajwinder Unavailable Unavailable Rajan PAULN, Maya Smith Unavailable Unavailable Florence WILSNO, Chela Cassidy Unavailable Mariaa Linares Unavailable Unavailable Justin WILSON, Elissa Pineda Unavailable Alicia PRICE ANALYST, Maribel Cam Unavailable Unavailab Arlin Estevez Unavailable Unavailable Vess PRICE ANALYST, Laureano L Unavailable Unavailable Wengerd PRICE ANALYST, Tabitha Unavailable Unavailabl e Chastity PRICE ANALYST, Debra N Unavailable Unavaila ble Zaugg PRICE ANALYST, Heike Unavailable Unavailable Unavailable Unavailable POLLO BOBO Attending Unavailable VACCARIELLO, POLLO Admitting Unavailable VACCARIELLO, POLLO Primary Care Unavailable VACCARIELLO, POLLO Consulting Unavailable PROVIDER, UNKNOWN Consulting Unavailable PROVIDER, UNKNOWN Consulting Unavailable PROVIDER, UNKNOWN Consulting Unavailable VACCUGO, POLLO Attending Unavailable VACCARIDIANA, POLLO Admitting Unavailable VACCARIELLO, POLLO Primary Care Unavailable VACCARIDIANA, POLLO Consulting Unavailable PROVIDER, UNKNOWN Consulting Unavailable PROVIDER, UNKNOWN Consulting Unavailable PROVIDER, UNKNOWN Consulting Unavailable Unavailable Unavailable Dr. Pollo Bobo MD Primary Care Provider Dr. Pollo Bobo MD Referring Provider Friend DO, Dr. Harding Attending Provider Ramon Gonzalez Attending Provider [phone] Vaccirmaello, Pollo Primary Care Unavailable FriendMehdi Referring Unavailable FriendMehdi Attending Unavailable Vaccariello, Pollo Primary Care Unavailable Vaccariello, Pollo Referring Unavailable Ramon Gonzalez Attending Unavailable FriendMehdi Attending Unavailable Vaccariello, Pollo Primary Care Unavailable Vaccariello, Pollo Referring Unavailable FriendMehdi Attending Unavailable Vaccariello, Pollo Primary Care Unavailable Vaccariello, Pollo Referring Unavailable FriendMehdi Attending Unavailable Vaccariello, Pollo Primary Care Unavailable Friend, Mehdi Referring Unavailable Roof BLISTER PACK OPERATOR, Pollo Villanueva Attending Unavailable Vaccariello, Pollo Primary Care Unavailable Vaccariello, Pollo Referring Unavailable Vaccariello, Pollo Primary Care Unavailable Vaccariello, Pollo Referring Unavailable Friend, Mehdi Attending Unavailable Roof BLISTER PACK OPERATOR, Pollo Villanueva Referring Unavailable Roof BLISTER PACK OPERATOR, Pollo Villanueva Attending Unavailable Vaccariello, Pollo Primary Care Unavailable Allergies Allergy Classification Reported Allergen(s) Allergy Type Date of Onset Reaction(s) Facility acetaminophen / propoxyphene (2 sources) acetaminophen / [facility]yphene [facility] [employer] NSAIDs (2 sources) Etodolac Drug Allergy [facility] [employer] Quinolones (antibiotic) (4 sources) moxifloxacin Drug Allergy [facility], [employer] (1 source) Acetaminophen Drug Allergy 3 anxiety [facility] (20 sources) levoFLOXacin Drug Allergy 3 unknown [facility] (20 sources) moxifloxacin Drug Allergy 3 flu-like symptoms [facility] (12 sources) Propoxyphene Drug Allergy 3 anxiety [facility] (20 sources) acetaminophen / propoxyphene Drug Allergy [place] [employer] [facility] [employer] (20 sources) Etodolac Drug [facility]ergy [facility] [employer] [facility], [employer] (20 sources) Demerol *ANALGESICS - OPIOID* [place] [employer] [facility] [employer], [employer] (1 source) Iodine Drug Allergy [facility] (1 source) levoFLOXacin Drug Allergy [facility] (1 source) Meperidine Drug Allergy [facility] (1 source) moxifloxacin Drug Allergy [facility] (1 source) Propoxyphene Drug Allergy [facility] (1 source) levoFLOXacin Drug Allergy 4 [facility] (1 source) moxifloxacin Drug Allergy 4 [facility] (1 source) Propoxyphene Drug Allergy 4 [facility] Medications Current Medications Medication Drug Class(es) Dates Sig (Normalized) Sig (Original) alpha Tocopherol (3 sources) vitamin E ; 900units daily amoxicillin 500 mg oral tablet (20 sources) Penicillin-class Antibacterial Start: 02-04-2025 take 1 tablet by mouth three times daily Amoxicillin 500 mg tablet Active 500 mg PO THREE TIMES A DAY February 04, 2025 12:00am Start: 08-15-2023 End: 08-25-2023 take 1 capsule by mouth three times daily Amoxicillin 500 mg capsule Discontinued 500 mg PO THREE TIMES A DAY 30 August 15, 2023 1:00am August 24, 2023 1:00am August 25, 2023 1:05am Start: 03-26-2021 End: 04-05-2021 take 2 capsules by mouth twice daily Amoxicillin 500 mg capsule Discontinued 1000 mg PO TWICE A DAY 40 March 26, 2021 12:00am April 04, 2021 12:00am April 05, 2021 12:01am Start: 03-26-2021 End: 04-05-2021 take 1000 mg by mouth twice daily Amoxicillin Discontinued 1000 MG PO TWICE A DAY 40 March 26, 2021 12:00am April 05, 2021 12:01am Start: 09-01-2018 End: 09-20-2018 take 1 tablet by mouth twice daily Amoxicillin 875 MG Oral Tablet ; 1 (one) Tablet bid for 0 days Quantity: 20 {Tablet} Refills: 0 Ordered: 20-Sep-2018 ASHVIN Huang Start: 01-Sep-2018 End: 20-Sep-2018 Status: Inactive Start: 01-26-2016 End: 02-05-2016 take 2 tablets by mouth once daily AMOXICILLIN, 500MG (Oral Tablet) ; 2 (two) Tablet once daily for 10 days Quantity: 20 {Tablet} Refills: 0 Ordered: 26-Jan-2016 Start: 26-Jan-2016 End: 05-Feb-2016 Status: Inactive atorvastatin 20 mg oral tablet (20 sources) HMG-CoA Reductase Inhibitor Start: 11-15-2022 atorvastatin 20 mg tablet ; 1 (one) Tablet daily for 0 days Quantity: 90 {Tablet} Refills: 3 Ordered: 25-Apr-2024 MD Pollo Bobo Start: 25-Apr-2024 24 hr desvenlafaxine succinate 100 mg extended release oral tablet (20 sources) Serotonin and Norepinephrine Reuptake Inhibitor Start: 02-12-2024 desvenlafaxine succinate ER 100 mg tablet,extended release 24 hr ; 1 (one) Tablet daily for 0 days Quantity: 90 {Tablet} Refills: 3 Ordered: 05-Sep-2024 ASHVIN Huang Start: 05-Sep-2024 Start: 08-10-2023 desvenlafaxine succinate ER 100 mg tablet,extended release 24 hr ; 1 (one) Tablet daily for 0 days Quantity: 90 {Tablet} Refills: 1 Ordered: 10-Aug-2023 MD Pollo Bobo Start: 10-Aug-2023 Start: 03-26-2021 take 1 tablet by bakari th once daily Desvenlafaxine Succinate 50 mg tablet extended release 24 hr Active 100 mg PO DAILY March 26, 2021 12:00am Start: 03-26-2021 End: 11-15-2022 take 1 tablet by mouth once daily Pristiq 25 MG Oral Tablet Extended Release 24 Hour ; 1 (one) Tablet daily with a 50mg tablet for 0 days Quantity: 30 {Tablet} Refills: 5 Ordered: 11-Aug-2021 MD Pollo Bobo Start: 02-Aug-2021 End: 11-Aug-2021 Status: Inactive Start: 03-26-2021 End: 11-15-2022 take 1 tablet by mouth every twenty-four hours Desvenlafaxine Succinate 25 mg tablet extended release 24 hr Discontinued 25 mg PO March 26, 2021 12:00am November 15, 2022 2:13pm Start: 02-08-2021 End: 08-11-2021 take 1 tablet by mouth once daily Pristiq 50 MG Oral Tablet Extended Release 24 Hour ; 1 (one) Tablet ER 24HR daily for 0 days Quantity: 90 {Tablet} Refills: 3 Ordered: 11-Aug-2021 MD Pollo Bobo Start: 08-Feb-2021 End: 11-Aug-2021 Status: Inactive doxycycline hyclate 100 mg oral capsule (16 sources) Tetracycline-class Drug Start: 02-10-2023 take 100 mg by mouth twice daily Doxycycline Hyclate Active 100 MG PO TWICE A DAY February 10, 2023 12:00am Start: 11-12-2021 End: 11-22-2021 take 1 capsule by mouth twice daily Doxycycline Hyclate 100 mg capsule Discontinued 100 mg PO TWICE A DAY 14 07November 12, 2021 1:00am November 21, 2021 1:00am November 22, 2021 1:03am lisinopril 20 mg oral tablet (20 sources) Angiotensin Converting Enzyme Inhibitor Start: 03-26-2021 lisinopriL 20 mg tablet ; 1 (one) Tablet daily for 0 days Quantity: 90 {Tablet} Refills: 3 Ordered: 05-Sep-2024 ASHVIN Huang Angi Start: 05-Sep-2024 loratadine 10 mg oral tablet (20 sources) Start: 11-15-2022 take 1 tablet by mouth once daily Loratadine (Claritin) 10 mg tablet Active 10 mg PO DAILY November 15, 2022 1:00am Claritin metFORMIN hydrochloride 1000 mg oral tablet (20 sources) Biguanide Start: 07-05-2023 metFORMIN 1,00 0 mg tablet ; 1 (one) Tablet bid for 0 days Quantity: 180 {Tablet} Refills: 3 Ordered: 18-Jul-2024 MD Pollo Bobo Start: 18-Jul-2024 Start: 03-26-2021 take 1000 mg by mout h twice daily Metformin Active 1000 MG PO TWICE A DAY March 26, 2021 12:00am MULTIPLE VITAMINS (Oral Tablet) (20 sources) take 1 tablet by mouth once daily MULTIPLE VITAMINS (Oral Tablet) ; 1 daily Frtlrxis-Drv-Tmli-Fa-Lut ein (Centrum Silver Women) 8 mg iron-400 mcg-300 mcg tablet (6 sources) Start: 03-26-2021 take 1 tablet by mouth once daily Cveygiit-Soa-Diks-Fa-Orquidea tein (Centrum Silver Women) 8 mg iron-400 mcg-300 mcg tablet Active 1 TABLET PO DAILY March 26, 2021 12:00am Start: 03-26-2021 take 1 tablet by bakari th once daily Akfwmger-Rwy-Rsqu-Fa-Lutein (Centrum Cathryn feroz Women) 8 mg iron-400 mcg-300 mcg tablet Active 1 TABLET PO DAILY March 25, 2021 11:00pm Ohkrdlbo-Mcb-Jfhj-Fa-Vit K-L ut (Centrum Silver Women) 8 mg iron-400 mcg-300 mcg tablet (6 sources) Start: 03-26-2021 Avrisigm-Pkj-L monse-Fa-Vit K-Lut (Centrum Silver Women) 8 mg iron-400 mcg-300 mcg tablet Active 1 {tbl} PO DAILY March 26, 2021 12:00am Start: 03-26-2021 take 1 tablet by bakari th once daily Jrlscvzh-Cfd-Lypd-Fa-Vit K-Lut (Centrum Silver Women) 8 mg iron-400 mcg-300 mcg tablet Active 1 TABLET PO DAILY March 26, 2021 12:00am ondansetron 4 mg disintegrating oral tablet (1 source) Serotonin-3 Receptor Antagonist Start: 11-05-2022 take 4 mg by mouth every eight hours as needed Ondansetron Active 4 MG PO EVERY 8 HOURS NEEDED November 05, 2022 12:00am pantoprazole 40 mg delayed release oral tablet (20 sources) Proton Pump Inhibitor Start: 02-06-2025 pantoprazole 40 mg tablet,delayed release ; 1 (one) Tablet daily for 0 days Quantity: 90 {Tablet} Refills: 1 Ordered: 06-Feb-2025 MD Pollo Bobo Start: 06-Feb-2025 Start: 08-19-2024 pantoprazole 4 0 mg tablet,delayed release ; 1 (one) Tablet daily for 0 days Quantity: 90 {Tablet} Refills: 1 Ordered: 19-Aug-2024 MD Pollo Bobo Start: 19-Aug-2024 Start: 08-10-2023 pantoprazole 4 0 mg tablet,delayed release ; 1 (one) Tablet daily for 0 days Quantity: 90 {Tablet} Refills: 1 Ordered: 12-Feb-2024 MD Pollo Bobo Start: 12-Feb-2024 Start: 05-19-2023 take 1 tablet by bakari twice daily Pantoprazole 40 mg tablet,delayed release (DR/EC) Active 40 mg PO TWICE A DAY 60 May 19, 2023 2:07pm Start: 03-26-2021 End: 05-19-2023 take 1 tablet by mouth once daily Pantoprazole 40 mg tablet,delayed release (DR/EC) Discontinued 40 mg PO DAILY March 26, 2021 12:00am May 19, 2023 2:09pm Saccharomyces boulardii (20 sources) Probiotic semaglutide (3 sources) semaglutide (sariah ght loss) Comments: compounding pharmacy Comment on above: compounding pharmacy semaglutide (weight loss) 1 mg/0.5 mL subcutaneous pen injector (20 sources) Start: 025 inject 1 mL by subcutaneous injection every week semaglutide (weight loss) 1 mg/0.5 mL subcutaneous pen injector ; 1mg milligrams per week for 0 days Quantity: 2 {Each} Refills: 3 Ordered: 19-Dec-2024 MD Pollo Bobo Start: 19-Dec-2024 Comments: Substitute: Semaglutide/Cyanoco balamine 1mg/0.5mg per mL patient to give1 mg weekly dispense 2 2.5 ml vialsok to convert mg to ML per protocol Start: 08-16-2024 inject 0.75 mg by subcutaneous injection every week semaglutide (weight loss) 1 mg/0.5 mL subcutaneous pen injector ; 75 milligrams per week for 0 days Quantity: 2 {Each} Refills: 3 Ordered: 16-Aug-2024 MD Pollo Bobo Start: 16-Aug-2024 Comments: Substitute: Semaglutide/Cyanocobalamine 1mg/0.5mg per mL patient to give 0.75mg weekly dispense 2 2.5 ml vialsok to convert mg to ML per protocol Start: 04-05-2024 inject 0.75 mg by subcutaneous injection every week, then inject 1 mL by subcutaneous injection once semaglutide (weight loss) 1 mg/0.5 mL subcutaneous pen injector ; 75 milligrams per week for 0 days Quantity: 4 {Each} Refills: 3 Ordered: 05-Apr-2024 MD Pollo Bobo Start: 05-Apr-2024 Comments: Substitute: Semaglutide/Cyanocobalamine 1mg/0.5mg per mL patient to give 0.75mg weekly 1ml vialok to convert mg to ML per protocol Start: 03-14-2024 semaglutide (w eight loss) 1 mg/0.5 mL subcutaneous pen injector ; 18 units per week for 0 days Quantity: 3 {Each} Refills: 3 Ordered: 14-Mar-2024 MD Pollo Bobo Start: 14-Mar-2024 Comments: Substitute: Semaglutide/Cyanocobalamine 1mg/0.5mg per mL patient to give 0.8ml weekly 1ml vial Start: 03-13-2024 inject 1 mL by subcutaneous injection every week, then inject 0.8 mL by subcutaneous injection every week semaglutide (weight loss) 1 mg/0.5 mL subcutaneous pen injector ; 18 units per week for 0 days Quantity: 3 {Each} Refills: 3 Ordered: 13-Mar-2024 MD Pollo Bobo Start: 13-Mar-2024 Comments: Substitute: Semaglutide/Cyanocobalamine 1mg/0.5mg per mL patient to give 0.8ml weekly Start: 02-29-2024 inject 1 mL by subcutaneous injection every week, then inject 0.8 mL by subcutaneous injection every week semaglutide (weight loss) 1 mg/0.5 mL subcutaneous pen injector ; 18 units per week for 0 days Quantity: 3 {Each} Refills: 3 Ordered: 29-Feb-2024 HUMBERTO HuangN Angi Start: 29-Feb-2024 Comments: Substitute: Semaglutide/Cyanocobalamine 1mg/0.5mg per mL OR 5mg/0.5mg per mL, patient to give 0.8ml weekly Comment on above: Substitute: Semaglutide/Cyanocobalamine 1mg/0.5mg per mL OR 5mg/0.5mg per mL, patient to give 0.8ml weekly Substitute: Semaglut tahir/Cyanocobalamine 1mg/0.5mg per mL patient to give 0.8ml weekly Substitute: Semaglut tahir/Cyanocobalamine 1mg/0.5mg per mL patient to give 0.8ml weekly 1ml vial Substitute: Semaglut tahir/Cyanocobalamine 1mg/0.5mg per mL patient to give 0.75mg weekly 1ml vialok to convert mg to ML per protocol Substitute: Semaglut tahir/Cyanocobalamine 1mg/0.5mg per mL patient to give 0.75mg weekly dispense 2 2.5 ml vialsok to convert mg to ML per protocol Substitute: Semaglut tahir/Cyanocobalamine 1mg/0.5mg per mL patient to give1 mg weekly dispense 2 2.5 ml vialsok to convert mg to ML per protocol ursodiol 250 mg oral tablet (4 sources) Bile Acid Start: 025 take 1 tablet by mouth twice daily Ursodiol 250 mg tablet Active 250 mg PO TWICE A DAY October 17, 2024 1:00am Completed/Discontinued Medications Medication Drug Class(es) Dates Sig (Normalized) Sig (Original) acetaminophen 325 mg / oxyCODONE hydrochloride 5 mg oral tablet (10 sources) Opioid Agonist Start: 12-25-2022 End: 02-10-2023 Oxycodone-Acetami nophen (Endocet) 5-325 mg tablet Discontinued 1 {tbl} PO EVERY 6 HOURS as needed for pain 20 December 25, 2022 February 10, 2023 9:10am [id number] 200 actuat albuterol 0.09 mg/actuat metered dose inhaler (20 sources) beta2-Adrenergic Agonist Start: 07-11-2016 End: 02-12-2018 take 2 puff(s) by inhalation every four to six hours as needed Ventolin HFA 108 (90 Base) MCG/ACT Inhalation Aerosol Solution ; 2 (two) puffs puffs every 4-6 hours as needed for 0 days Quantity: 1 {Inhaler} Refills: 0 Ordered: 12-Feb-2018 ASHVIN Huang Start: 11-Jul-2016 End: 12-Feb-2018 Status: Inactive Comments: Medication taken as needed. Comment on above: Medication taken as needed. ALPRAZolam 1 mg oral tablet (20 sources) Benzodiazepine Start: 05-05-2016 End: 02-07-2019 take 0.5-1 tablets by mouth three times daily as needed Xanax 1 MG Oral Tablet ; 1/2 to 1 Tablet three times daily, as needed for 0 days Quantity: 60 {Tablet} Refills: 3 Ordered: 07-Feb-2019 ASHVIN Monzon Start: 05-May-2016 End: 07-Feb-2019 Status: Inactive Comments: Medication taken as needed. oarrs 11/23/15 Comment on above: Medication taken as needed. oarrs 11/23/15 amoxicillin 875 mg / clavulanate 125 mg oral tablet (20 sources) Penicillin-class Antibacterial Start: 08-31-2021 End: 09-10-2021 Amoxicillin-Pot Clavulanate (Augmentin) 875-125 mg tablet Discontinued 1 {tbl} PO Q12H 14 07August 31, 2021 1:00am September 09, 2021 1:00am September 10, 2021 1:02am Start: 04-02-2021 End: 04-12-2021 Amoxicillin-Pot Clavulanate (Augmentin) 875-125 mg tablet Discontinued 1 {tbl} PO Q12H 14 07April 02, 2021 12:00am April 11, 2021 12:00am April 12, 2021 12:01am Start: 09-20-2018 End: 10-10-2018 take 1 tablet by mouth twice daily Amoxicillin-Pot Clavulanate 875-125 MG Oral Tablet ; 1 (one) Tablet two times daily for 0 days Quantity: 20 {Tablet} Refills: 0 Ordered: 10-Oct-2018 ASHVIN Huang Start: 20-Sep-2018 End: 10-Oct-2018 Status: Inactive Start: 03-17-2015 End: 06-11-2015 take 1 tablet by mouth twice daily AUGMENTIN, 875-125MG (Oral Tablet) ; 1 Tablet bid for 0 days Quantity: 20 {Tablet} Refills: 0 Ordered: 11-Jun-2015 ASHVIN Monzon Laureano L Start: 17-Mar-2015 End: 11-Jun-2015 Status: Inactive azithromycin 250 mg oral tablet (20 sources) Macrolide Antimicrobial Start: 06-21-2019 End: 10-24-2019 Zithromax Z-Beau 250 MG Oral Tablet ; 2 (two) Tabs day one, then one daily for 4 days for 0 days Quantity: 1 {Package} Refills: 0 Ordered: 24-Oct-2019 ASHVIN Huang Start: 21-Jun-2019 End: 24-Oct-2019 Status: Inactive Calcium Carbonate (20 sources) Calcium Status: Inactive cephalexin 500 mg oral capsule (20 sources) Cephalosporin Antibacterial Start: 10-19-2017 End: 11-10-2017 take 1 capsule by mouth three times daily Cephalexin 500 MG Oral Capsule ; 1 Capsule three times daily for 0 days Quantity: 30 {Capsule} Refills: 0 Ordered: 10-Nov-2017 ASHVIN Huang Start: 19-Oct-2017 End: 10-Nov-2017 Status: Inactive citalopram 10 mg oral tablet (20 sources) Serotonin Reuptake Inhibitor Start: 10-24-2012 End: 11-28-2012 take 1 tablet by mouth once daily CELEXA, 10MG (Oral Tablet) ; 1 Tablet daily for 0 days Quantity: 90 {Tablet} Refills: 1 Ordered: 28-Nov-2012 ASHVIN Huang Start: 24-Oct-2012 End: 28-Nov-2012 Status: Inactive Comments: wm Comment on above: wm codeine phosphate 2 mg/ml / promethazine hydrochloride 1.25 mg/ml oral solution (20 sources) Opioid Agonist, Phenothiazine Start: 09-06-2013 End: 07-08-2014 PROMETHAZINE-CODE INE, 6.25-10MG/5ML (Oral Syrup) ; 1-2 teaspoon(s) qhs for 0 days Quantity: 120 {Milliliter} Refills: 1 Ordered: 08-Jul-2014 ASHVIN Huang Start: 06-Sep-2013 End: 08-Jul-2014 Status: Inactive desipramine hydrochloride 50 mg oral tablet (20 sources) Tricyclic Antidepressant Start: 08-22-2022 End: 10-10-2022 take 1 tablet by mouth once daily at bedtime Desipramine HCl 50 MG Oral Tablet ; 1 (one) Tablet qhs for 0 days Quantity: 30 {Tablet} Refills: 5 Ordered: 10-Oct-2022 ASHVIN Huang Start: 22-Aug-2022 End: 10-Oct-2022 Status: Discontinued dicyclomine hydrochloride 20 mg oral tablet (20 sources) Anticholinergic Start: 11-07-2022 End: 04-14-2023 dicyclomine 20 mg tablet ; 1 Tablet three times daily for 7 days Quantity: 21 {Tablet} Refills: 1 Ordered: 14-Apr-2023 ASHVIN Huang Start: 07-Nov-2022 End: 14-Apr-2023 Status: Inactive Start: 11-05-2022 take 20 mg by mouth three times daily Dicyclomine Active 20 MG PO THREE TIMES A DAY November 05, 2022 12:00am escitalopram 20 mg oral tablet (20 sources) Serotonin Reuptake Inhibitor Start: 04-25-2013 End: 07-05-2013 take 1 tablet by mouth once daily LEXAPRO, 20MG (Oral Tablet) ; 1 Tablet daily for 0 days Quantity: 30 {Tablet} Refills: 3 Ordered: 05-Jul-2013 ASHVIN Huang Start: 25-Apr-2013 End: 05-Jul-2013 Status: Inactive Start: 11-28-2012 End: 06-18-2013 take 1 tablet by mouth once daily LEXAPRO, 10MG (Oral Tablet) ; 1 Tablet daily for 0 days Quantity: 30 {Tablet} Refills: 3 Ordered: 18-Jun-2013 ASHVIN Huang Start: 28-Nov-2012 End: 18-Jun-2013 Status: Inactive famotidine 20 mg oral tablet (20 sources) Histamine-2 Receptor Antagonist take 1 tablet by mouth once daily before mealtime Pepcid AC Maximum Strength 20 MG Oral Tablet ; 1 daily (20 MG) Status: Inactive FLUoxetine 20 mg oral capsule (20 sources) Serotonin Reuptake Inhibitor Start: 3 End: 3 FLUoxetine 20 mg capsule ; 1 (one) capsule daily for 0 days Quantity: 90 {Capsule} Refills: 3 Ordered: 10-Aug-2023 ASHVIN Huang Start: 05-Jul-2023 End: 10-Aug-2023 Status: Discontinued Start: 08-12-2015 End: 07-11-2016 take 1 capsule by mouth once daily FLUoxetine HCl 20 MG Oral Capsule ; 1 Capsule daily for 0 days Quantity: 30 {Capsule} Refills: 11 Ordered: 11-Jul-2016 ASHVIN León Start: 12-Aug-2015 End: 11-Jul-2016 Status: Inactive furosemide 20 mg oral tablet (20 sources) Loop Diuretic Start: 12-24-2014 End: 01-26-2016 take 1 tablet by mouth once daily LASIX, 20MG (Oral Tablet) ; 1 Tablet daily for 0 days Quantity: 30 {Tablet} Refills: 5 Ordered: 26-Jan-2016 ASHVIN Haywood Start: 24-Dec-2014 End: 26-Jan-2016 Status: Inactive methylPREDNISolone 4 mg oral tablet (12 sources) Corticosteroid Start: 04-02-2021 End: 04-07-2021 take 1 tablet by mouth once Methylprednisolone (Medrol (Beau)) 4 mg tablets,dose pack Discontinued 4 mg PO per package directions 21 April 02, 2021 12:00am April 06, 2021 12:00am April 07, 2021 12:01am nitrofurantoin, macrocrystals 25 mg / nitrofurantoin, monohydrate 75 mg oral capsule (6 sources) Nitrofuran Antibacterial Start: 06-09-2024 End: 06-16-2024 take 1 capsule by mouth every twelve hours at mealtime Nitrofurantoin Monohyd/M-Cryst (Macrobid) 100 mg capsule Discontinued 100 mg PO Q12H 14 7 June 09, 2024 1:33pm June 15, 2024 12:00am June 16, 2024 12:05am must administer with a meal/food Start: 05-07-2023 End: 05-14-2023 take 1 capsule by mouth every twelve hours at mealtime Nitrofurantoin Monohyd/M-Cryst (Macrobid) 100 mg capsule Discontinued 100 mg PO Q12H 14 7 May 07, 2023 12:00am May 13, 2023 12:00am May 14, 2023 12:03am must administer with a meal/food omeprazole 40 mg delayed release oral capsule (20 sources) Proton Pump Inhibitor Start: 08-10-2020 End: 02-10-2021 take 1 capsule by mouth once daily Omeprazole 40 MG Oral Capsule Delayed Release ; 1 (one) Capsule daily for 0 days Quantity: 30 {Capsule} Refills: 5 Ordered: 10-Feb-2021 ASHVIN Huang Start: 10-Aug-2020 End: 10-Feb-2021 Status: Inactive oxyCODONE hydrochloride 5 mg oral capsule (11 sources) Opioid Agonist Start: 12-23-2022 End: 02-10-2023 take 1 capsule by mouth every six hours as needed for pain Oxycodone 5 mg capsule Discontinued 5 mg PO EVERY 6 HOURS as needed for pain 14 7 December 23, 2022 February 10, 2023 9:10am phenazopyridine hydrochloride 100 mg oral tablet (6 sources) Start: 06-09-2024 End: 06-12-2024 take 1 tablet by mouth three times daily as needed for pain Phenazopyridine (Pyridium) 100 mg tablet Discontinued 100 mg PO THREE TIMES A DAY as needed for pain 9 3 June 09, 2024 1:33pm June 11, 2024 12:00am June 12, 2024 12:04am Start: 05-07-2023 End: 12-15-2023 take 1 tablet by mouth three times daily as needed for pain Phenazopyridine (Pyridium) 100 mg tablet Discontinued 100 mg PO THREE TIMES A DAY as needed for pain 14 May 07, 2023 12:00am December 15, 2023 2:54pm Semaglutide (6 sources) Start: 04-24-2023 End: 05-07-2023 Semaglutide (Ozempic) 0.25 m g or 0.5 mg (2 mg/3 mL) pen injector Discontinued 0.25 mg SC EVERY WEEK April 24, 2023 12:00am May 07, 2023 1:41pm for 4 weeks Start: 04-24-2023 End: 05-07-2023 Semaglutide (Ozempic) 0.25 m g or 0.5 mg (2 mg/3 mL) pen injector Discontinued 0.25 MG SC EVERY WEEK April 24, 2023 12:00am May 07, 2023 1:41pm for 4 weeks Start: 04-24-2023 Semaglutide (O zempic) 0.25 mg or 0.5 mg (2 mg/3 mL) pen injector Active 0.25 MG SC EVERY WEEK April 24, 2023 12:00am for 4 weeks semaglutide (weight loss) 2.4 mg/0.75 mL subcutaneous pen injector (20 sources) Start: 03-09-2023 End: 07-05-2023 semaglutide (weight loss) 2.4 mg/0.75 mL subcutaneous pen injector ; for 0 days Refills: 0 Ordered: 05-Jul-2023 MD Pollo Bobo Start: 09-Mar-2023 End: 05-Jul-2023 Status: Inactive Comments: 2.65/ml 80 units titrating to 100units from compounding pharmacy Comment on above: 2.65/ml 80 units tit rating to 100units from compounding pharmacy sertraline 50 mg oral tablet (20 sources) Serotonin Reuptake Inhibitor Start: 07-16-2012 End: 10-24-2012 take 1 tablet by mouth once daily SERTRALINE HCL, 50MG (Oral Tablet) ; 1 Tablet daily for 0 days Quantity: 30 {Tablet} Refills: 4 Ordered: 24-Oct-2012 ASHVIN Huang Start: 16-Jul-2012 End: 24-Oct-2012 Status: Inactive sucralfate 1000 mg oral tablet (20 sources) Aluminum Complex Start: 08-22-2022 End: 04-14-2023 sucralfate 1 gram tablet ; 1 (one) Tablet qid for 0 days Quantity: 120 {Tablet} Refills: 3 Ordered: 14-Apr-2023 ASHVIN Huang Start: 22-Aug-2022 End: 14-Apr-2023 Status: Inactive sulfamethoxazole 800 mg / trimethoprim 160 mg oral tablet (20 sources) Dihydrofolate Reductase Inhibitor Antibacterial, Sulfonamide Antimicrobial Start: 09-17-2012 End: 10-01-2012 take 1 tablet by mouth twice daily BACTRIM DS, 800-160MG (Oral Tablet) ; 1 Tab two times daily for 14 days Quantity: 28 {Tab} Refills: 0 Ordered: 17-Sep-2012 STEVE Henriquez Start: 17-Sep-2012 End: 01-Oct-2012 Status: Inactive terconazole 8 mg/ml vaginal cream (20 sources) Azole Antifungal Start: 06-11-2015 End: 01-26-2016 TERCONAZOLE, 0.8% (Vaginal Cream) ; 1 (one) Applicatorful qhs x 3 for 0 days Quantity: 30 {Gram} Refills: 0 Ordered: 26-Jan-2016 ASHVIN Haywood Start: 11-Jun-2015 End: 26-Jan-2016 Status: Inactive zolpidem tartrate 5 mg oral tablet (20 sources) gamma-Aminobutyric Acid-ergic Agonist Start: 10-10-2022 End: 04-14-2023 Ambien 5 mg tablet ; 1 (one) Tablet qhs prn for 0 days Quantity: 30 {Tablet} Refills: 1 Ordered: 14-Apr-2023 ASHVIN Huang Start: 10-Oct-2022 End: 14-Apr-2023 Status: Inactive Start: 05-27-2011 End: 06-29-2012 take 1 tablet by mouth once daily at bedtime as needed AMBIEN, 10MG (Oral Tablet) ; 1 Tablet qhs, prn for 0 days Quantity: 30 {Tablet} Refills: 3 Ordered: 29-Jun-2012 ASHVIN Huang Start: 27-May-2011 End: 29-Jun-2012 Status: Inactive Problems Active Problems Problem Classification Problem Date Documented Da te Episodic/Chronic Abdominal hernia (20 sources) Umbilical hernia; Translations: [Umbilical hernia without obstruction or gangrene] 11-05-2022 Episodic Comment on above: going to Dr Carr tta Abdominal pain (20 sources) Abdominal pain; Translations: [Unspecified abdominal pain] 11-05-2022 Episodic Adjustment disorders (20 sources) Mixed anxiety and depressive disorder; Translations: [Adjustment disorder with mixed anxiety and depressed mood] 08-25-2023 Chronic Administrative/social admission (20 sources) Issue of repeat prescriptions 03-17-2015 Episodic Anxiety disorders (20 sources) Anxiety; Translations: [Anxiety disorder, unspecified] 08-25-2023 Chronic Comment on above: desvenlafaxine Calculus of urinary tract (20 sources) Kidney stone; Translations: [Calculus of kidney] 12-23-2022 Episodic Comment on above: 11 non onbstructing stone left side Chronic obstructive pulmonary disease and bronchiectasis (20 sources) Bronchitis; Translations: [Bronchitis, not specified as acute or chronic] 07-11-2016 Episodic Diabetes mellitus with complications (20 sources) Type 2 diabetes mellitus; Translations: [Type 2 diabetes mellitus with other specified complication] 08-25-2023 Chronic Comment on above: HLD HLD on metformin Diabetes mellitus without complication (20 sources) Diabetes mellitus; Translations: [Type 2 diabetes mellitus without complications] 11-15-2022 Chronic Comment on above: metformin Diabetes mellitus without complication (20 sources) Prediabetes; Translations: [Prediabetes] 07-02-2019 Episodic Disorders of lipid metabolism (20 sources) Hypercholesterolemia; Translations: [Pure hypercholesterolemia, unspecified] 11-15-2022 Chronic Comment on above: atorvastatin Esophageal disorders (20 sources) Gastroesophageal reflux disease; Translations: [Gastro-esophageal reflux disease without esophagitis] 11-15-2022 Chronic Essential hypertension (20 sources) Hypertensive disorder; Translations: [Essential (primary) hypertension] 12-16-2022 Chronic Comment on above: lisinopril CONTROLLED ON MED Gastritis and duodenitis (20 sources) Gastritis; Translations: [Gastritis, unspecified, without bleeding] 08-25-2023 Episodic Comment on above: pantoprazole Headache; including migraine (12 sources) Headache; Translations: [Headache] 08-31-2021 Episodic Immunizations and screening for infectious disease (20 sources) Requires diphtheria, tetanus and pertussis vaccination; Translations: [Encounter for immunization] 11-13-2017 Episodic Nausea and vomiting (20 sources) Nausea and vomiting; Translations: [Nausea with vomiting, unspecified] 02-10-2023 Episodic Other aftercare (20 sources) Post-discharge follow-up; Translations: [Encounter for follow-up examination after completed treatment for conditions other than malignant neoplasm] 11-18-2022 Episodic Other aftercare (20 sources) Drug indicated; Translations: [Other overlock operator (current) drug therapy] 2011 Episodic Other circulatory disease (20 sources) Elevated blood-pressure reading without diagnosis of hypertension; Translations: [Elevated blood-pressure reading, without diagnosis of hypertension] 11-13-2017 Episodic Other connective tissue disease (11 sources) Diastasis recti; Translations: [Separation of muscle (nontraumatic), other site] 11-15-2022 Episodic Other connective tissue disease (4 sources) Separation of muscle (nontraumatic), other site; Translations: [Diastasis of muscle] 11-15-2022 Episodic Other connective tissue disease (20 sources) Lateral epicondylitis of right humerus; Translations: [Lateral epicondylitis, right elbow] 09-16-2016 Episodic Other female genital disorders (20 sources) Pruritus of vagina; Translations: [Other specified noninflammatory disorders of vagina] 06-11-2015 Episodic Other gastrointestinal disorders (11 sources) Abdominal bloating; Translations: [Abdominal distension (gaseous)] 02-10-2023 Episodic Other gastrointestinal disorders (8 sources) Abdominal distension (gaseous); Translations: [Flatulence, eructation, and gas pain] 02-10-2023 Episodic Other liver diseases (20 sources) Steatosis of liver; Translations: [Fatty (change of) liver, not elsewhere classified] 02-10-2023 Chronic Comment on above: seen on 11/05/22 CT s can Friend Other liver diseases (20 sources) Fatty (change of) liver, not elsewhere classified; Translations: [Other chronic nonalcoholic liver disease] Onset: 02-10-2023 Chronic Other liver diseases (20 sources) Elevated liver enzymes level; Translations: [Abnormal levels of other serum enzymes] 08-25-2023 Episodic Other non-traumatic joint disorders (20 sources) Hip pain; Translations: [Pain in left hip] 06-11-2015 Episodic Other non-traumatic joint disorders (20 sources) Pain in elbow; Translations: [Pain in left elbow] 10-02-2012 Episodic Other nutritional; endocrine; and metabolic disorders (20 sources) Body mass index 30+ - obesity; Translations: [Obesity, unspecified] 08-25-2023 Chronic Other nutritional; endocrine; and metabolic disorders (17 sources) Overweight in adulthood with body mass index of 25 or more but less than 30; Translations: [Body mass index (BMI) 29.0-29.9, adult] 09-05-2024 Episodic Other screening for suspected conditions (not mental disorders or infectious disease) (20 sources) Patient encounter status; Translations: [Encounter for other screening for malignant neoplasm of breast] 04-08-2020 Episodic Other skin disorders (20 sources) Actinic keratosis; Translations: [Actinic keratosis] 09-16-2016 Episodic Other skin disorders (20 sources) Other symptoms involving skin and integumentary tissues 04-25-2013 Episodic Other upper respiratory infections (20 sources) Sinusitis; Translations: [Chronic sinusitis, unspecified] 06-21-2019 Chronic Other upper respiratory infections (20 sources) Acute sinusitis; Translations: [Acute sinusitis, unspecified] 04-02-2021 Episodic Residual codes; unclassified (10 sources) Past history of procedure; Translations: [Other specified postprocedural states] 02-10-2023 Episodic Residual codes; unclassified (20 sources) Vaccination not done; Translations: [Immunization not carried out for unspecified reason] 08-25-2023 Episodic Residual codes; unclassified (20 sources) History of hernia repair; Translations: [Other specified postprocedural states] 08-25-2023 Episodic Residual codes; unclassified (20 sources) Up-to-date with immunizations; Translations: [Personal history of other drug therapy] 08-25-2023 Episodic Residual codes; unclassified (20 sources) Influenza vaccination declined; Translations: [Immunization not carried out because of patient refusal] 08-25-2023 Episodic Residual codes; unclassified (20 sources) Insomnia; Translations: [Insomnia, unspecified] 08-25-2023 Episodic Residual codes; unclassified (20 sources) Non-smoker; Translations: [Other specified health status] 08-25-2023 Episodic Residual codes; unclassified (20 sources) Cancer cervix screening - not needed; Translations: [Procedure and treatment not carried out for other reasons] 08-25-2023 Episodic Residual codes; unclassified (20 sources) Edema; Translations: [Edema, unspecified] 04-25-2013 Episodic Spondylosis; intervertebral disc disorders; other back problems (20 sources) Low back pain; Translations: [Lumbago] 06-11-2015 Episodic Sprains and strains (20 sources) Strain of knee; Translations: [Strain of unspecified muscle(s) and tendon(s) at lower leg level, right leg, initial encounter] 06-10-2021 Episodic Superficial injury; contusion (20 sources) Insect bite, nonvenomous, of elbow, forearm, and wrist, infected 09-12-2012 Episodic Unclassified (20 sources) deliveries 10-10-2022 Comment on above: 2. Unclassified (20 sources) Number of Children 10-10-2022 Comment on above: 2. Unclassified (20 sources) Number of Pregnancies 10-10-2022 Comment on above: 2. Unclassified (20 sources) Follow up for multiple chronic conditions - The patient is here for follow-up of diabetes (pre), obesity, depression and other condition(s) (anxiety). The patient always takes the prescribed medications. No side effects noted. The patient has an active lifestyle but no regular exercise program. The patient's out of office blood pressure checks occur occasionally. Note for Multiple chronic conditions follow-up: -She was asking to wean off Pristiq and go back on Prozac. She tried it for a few weeks and decided she needed to continue Pristiq. She had side effects from Prozac. She states Ozempic injections caused parastalsis as a side effect earlier this year. She has resumed them and no side effects so far. 08-25-2023 Unclassified (20 sources) Follow up for multiple chronic conditions - The patient is here for follow-up of diabetes (pre), obesity, depression and other condition(s) (anxiety). The patient always takes the prescribed medications. No side effects noted. The patient has an active lifestyle but no regular exercise program. The patient's out of office blood pressure checks occur occasionally. Note for Multiple chronic conditions follow-up: -She is asking to wean off Pristiq and go back on Prozac.She states Ozempic injections caused parastalsis as a side effect. 07-05-2023 Unclassified (20 sources) Follow up for multiple chronic conditions - The patient is here for follow-up of diabetes (pre), obesity, depression and other condition(s) (anxiety). The patient always takes the prescribed medications. No side effects noted. The patient has an active lifestyle but no regular exercise program. The patient's out of office blood pressure checks occur occasionally. The patient states that weight is unchanged. 04-14-2023 Unclassified (20 sources) Follow up for multiple chronic conditions - The patient is here for follow-up of diabetes (pre), obesity, depression and other condition(s) (anxiety). The patient always takes the prescribed medications. No side effects noted. The patient has an active lifestyle but no regular exercise program. The patient's out of office blood pressure checks occur occasionally. The patient states that weight has decreased and in general mood has improved. 03-09-2023 Unclassified (20 sources) Well adult female - The patient feels well with minor complaints, has decreased energy level and is sleeping poorly. The patient takes supplemental vitamins. The patient exercises 3 - 4 times per week. The patient sleeps 8 hours per night. Note for Well adult female: -Declines flu vaccine. 10-10-2022 Unclassified (20 sources) [ADDITIONAL REASON] Follow up for multiple chronic conditions - The patient is here for follow-up of diabetes (pre), obesity, depression and other condition(s) (anxiety). The patient always takes the prescribed medications. No side effects noted. The patient has an active lifestyle but no regular exercise program. The patient's out of office blood pressure checks occur occasionally. The patient states that in general mood has improved. 10-10-2022 Unclassified (20 sources) Follow up for multiple chronic conditions - The patient is here for follow-up of diabetes (pre), obesity, depression and other condition(s) (anxiety). The patient always takes the prescribed medications. No side effects noted. The patient has an active lifestyle but no regular exercise program. The patient's out of office blood pressure checks occur occasionally. The patient states that in general mood has improved. 02-09-2022 Unclassified (20 sources) Well adult female - The patient feels well with no complaints, has good energy level and is sleeping well. The patient takes supplemental vitamins. The patient exercises 3 - 4 times per week. The patient sleeps 8 hours per night. Note for Well adult female: -Declines flu vaccine. 08-11-2021 Unclassified (20 sources) [ADDITIONAL REASON] Follow up for multiple chronic conditions - The patient is here for follow-up of diabetes (pre), obesity, depression and other condition(s) (anxiety). The patient always takes the prescribed medications. No side effects noted. The patient has an active lifestyle but no regular exercise program. The patient's out of office blood pressure checks occur occasionally (recent home reading 119 systolic). The patient states that in general mood has improved. 08-11-2021 Unclassified (20 sources) Follow up for multiple chronic conditions - The patient is here for follow-up of diabetes (pre), obesity, depression and other condition(s) (anxiety). The patient always takes the prescribed medications. No side effects noted. The patient has an active lifestyle but no regular exercise program. The patient's out of office blood pressure checks occur occasionally (recent home reading 119 systolic). The patient states that in general mood has improved. Note for Multiple chronic conditions follow-up: -States she is feeling better and sleeping better since bp is controlled.She has returned to work at [employer]. 02-08-2021 Unclassified (20 sources) [ADDITIONAL REASON] Abdominal pain - The onset of the abdominal pain has been gradual and has been occurring in a persistent pattern for months. The course has been increasing. The pain is described as a moderate burning and dull ache. The pain is located in the right upper quadrant. Note for Abdominal pain: -Thinks she has scar tissue from surgeries in 1986. 08-10-2020 Unclassified (20 sources) [ADDITIONAL REASON] Follow up for multiple chronic conditions - The patient is here for follow-up of diabetes (pre), obesity, depression and other condition(s) (anxiety). The patient always takes the prescribed medications. No side effects noted. The patient has an active lifestyle but no regular exercise program. The patient's out of office blood pressure checks occur occasionally (recent home reading 119 systolic). The patient states that in general mood has improved. Note for Multiple chronic conditions follow-up: -States she is feeling better and sleeping better since bp is controlled. 08-10-2020 Unclassified (20 sources) Follow up for multiple chronic conditions - The patient is here for follow-up of diabetes (pre), obesity, depression and other condition(s) (anxiety). The patient always takes the prescribed medications. No side effects noted. The patient has an active lifestyle but no regular exercise program. The patient's out of office blood pressure checks occur occasionally (recent home reading 119 systolic). The patient states that in general mood has improved. Note for Multiple chronic conditions follow-up: -States she is feeling better and sleeping better since bp is controlled. 04-08-2020 Unclassified (20 sources) Follow up for multiple chronic conditions - The patient is here for follow-up of diabetes (pre), obesity, depression and other condition(s) (anxiety). The patient always takes the prescribed medications. No side effects noted. The patient has an active lifestyle but no regular exercise program. The patient's out of office blood pressure checks occur occasionally. The patient states that in general mood has improved. Note for Multiple chronic conditions follow-up: -She feels she needs to start bp med now. 10-24-2019 Unclassified (20 sources) Follow up for multiple chronic conditions - The patient is here for follow-up of diabetes (pre), obesity, depression and other condition(s) (anxiety). The patient always takes the prescribed medications. No side effects noted. The patient has an active lifestyle but no regular exercise program. The patient's out of office blood pressure checks occur occasionally. The patient states that weight has increased and in general mood has improved. 07-02-2019 Unclassified (20 sources) Well adult female - The patient feels well with no complaints, has good energy level and is sleeping well. The patient takes supplemental vitamins. The patient exercises 3 - 4 times per week. The patient sleeps 8 hours per night. Note for Well adult female: -Recent derm visitContinues with Dr Lamas and will have endoscopy and colonoscopy next week. 01-17-2019 Unclassified (20 sources) [ADDITIONAL REASON] Follow up for multiple chronic conditions - The patient is here for follow-up of diabetes (pre), obesity, depression and other condition(s) (anxiety). The patient always takes the prescribed medications. No side effects noted. The patient has an active lifestyle but no regular exercise program. The patient's out of office blood pressure checks occur occasionally. The patient states that weight is unchanged and in general mood has improved. 01-17-2019 Unclassified (20 sources) Follow up for multiple chronic conditions - The patient is here for follow-up of diabetes (pre), obesity, depression and other condition(s) (anxiety). The patient always takes the prescribed medications. No side effects noted. The patient has an active lifestyle but no regular exercise program. The patient's out of office blood pressure checks occur occasionally. The patient states that weight is unchanged and in general mood has improved. Note for Multiple chronic conditions follow-up: -Declines flu vaccine. 07-02-2018 Unclassified (20 sources) Follow up for multiple chronic conditions - The patient is here for follow-up of diabetes (pre), obesity, depression and other condition(s) (anxiety). The patient always takes the prescribed medications. No side effects noted. The patient has an active lifestyle but no regular exercise program (is planning to join [employer]). The patient's out of office blood pressure checks occur occasionally. The patient states that weight is unchanged and in general mood has improved. Note for Multiple chronic conditions follow-up: -Pristiq is working well for her. She needs the Xanax rarely. Tolerates the metformin well. She plans to visit the eye dr wren. Had derm visit in December and is going to have annual skin survey with Dr Marquez. Uses [id number]. 02-12-2018 Unclassified (20 sources) Follow up for multiple chronic conditions - The patient is here for follow-up of diabetes (pre), obesity, depression and other condition(s) (anxiety). The patient always takes the prescribed medications. No side effects noted. The patient engages in regular exercise program 1-3 times per week. The patient's out of office blood pressure checks occur occasionally. The patient states that depression has worsened. Note for Multiple chronic conditions follow-up: -Pristiq is working well for her. She needs the Xanax rarely. Tolerates the metformin well. Declines flu vaccine. 08-14-2017 Unclassified (20 sources) Follow up for multiple chronic conditions - The patient is here for follow-up of depression and other condition(s) (anxiety). The patient always takes the prescribed medications. No side effects noted. The patient engages in regular exercise program 1-3 times per week. The patient's glucose levels are monitored several time(s) per day (has own monitor ). The patient states that depression has worsened. Note for Multiple chronic conditions follow-up: -Pristiq is working well for her. She needs the Xanax rarely. Tolerates the metformin well. Home fasting glucoses reported at 105 and 2 hr pp often 120. 05-17-2017 Unclassified (20 sources) Follow up for multiple chronic conditions - The patient is here for follow-up of depression and other condition(s) (anxiety). The patient always takes the prescribed medications. No side effects noted. The patient engages in regular exercise program 1-3 times per week. The patient's glucose levels are monitored several time(s) per day (has own monitor ). The patient states that depression has worsened. Note for Multiple chronic conditions follow-up: -Pristiq is working well for her. She needs the Xanax rarely. Tolerates the metformin well. 01-09-2017 Unclassified (20 sources) Follow up for multiple chronic conditions - The patient is here for follow-up of depression and other condition(s) (anxiety). The patient always takes the prescribed medications. No side effects noted. The patient states that depression has worsened. Note for Multiple chronic conditions follow-up: -She would like to try Pristiq. 05-13-2016 Unclassified (20 sources) Follow up for multiple chronic conditions - The patient is here for follow-up of depression and other condition(s) (anxiety). The patient always takes the prescribed medications. No side effects noted. The patient engages in regular exercise program 3-5 times per week. The patient states that weight has decreased and in general mood has improved. The patient states that the disease has moderate impact on relationships. 09-11-2014 Unclassified (20 sources) Follow up for multiple chronic conditions - The patient is here for follow-up of depression. The patient always takes the prescribed medications. No side effects noted (just weaned off of lexapro onto fluoxetine. Tolerating well so far.). The patient has an active lifestyle but no regular exercise program. Note for Multiple chronic conditions follow-up: -Her grandfather just and she has that this weekend. 07-05-2013 Unclassified (20 sources) Follow up for multiple chronic conditions - The patient is here for follow-up of depression. The patient always takes the prescribed medications. Side effects noted (constipation, abdominal bloating). The patient has an active lifestyle but no regular exercise program. Note for Multiple chronic conditions follow-up: -Cites she is under stress right now. Raising 2 teens alone is tough. Working at [employer] is hard. Her parents both have worsening health issues. She takes Xanax at times and also wants to report that on her rx given last fall she had 2 refills that were unused and in December when she asked for refill. 01-23-2013 Unclassified (4 sources) [ADDITIONAL REASON] Well adult female - The patient feels well with minor complaints, has decreased energy level and is sleeping poorly. The patient takes supplemental vitamins. The patient exercises 3 - 4 times per week. The patient sleeps 8 hours per night. Note for Well adult female: -Declines flu vaccine. 10-10-2022 Unclassified (20 sources) [ADDITIONAL REASON] Well adult female - The patient feels well with no complaints, has good energy level and is sleeping well. The patient takes supplemental vitamins. The patient exercises 3 - 4 times per week. The patient sleeps 8 hours per night. Note for Well adult female: -Declines flu vaccine. 08-10-2020 Unclassified (20 sources) Follow up for multiple chronic conditions - The patient is here for follow-up of diabetes (pre), obesity, depression and other condition(s) (anxiety). The patient always takes the prescribed medications. No side effects noted. The patient has an active lifestyle but no regular exercise program. The patient's out of office blood pressure checks occur occasionally. Note for Multiple chronic conditions follow-up: -Recent urology follow up showed small kidney stones. Dr Mcwilliams will do a liver ultrasound. Zenon is not giving side effects. 01-18-2024 Unclassified (8 sources) Follow up for multiple chronic conditions - The patient is here for follow-up of diabetes (pre), obesity, depression and other condition(s) (anxiety). The patient always takes the prescribed medications. No side effects noted. The patient has an active lifestyle but no regular exercise program. The patient's out of office blood pressure checks occur occasionally (recent home reading 119 systolic). The patient states that in general mood has improved. 08-11-2021 Unclassified (9 sources) Follow up for multiple chronic conditions - The patient is here for follow-up of diabetes (pre), obesity, depression and other condition(s) (anxiety). The patient always takes the prescribed medications. No side effects noted. The patient has an active lifestyle but no regular exercise program. The patient's out of office blood pressure checks occur occasionally. The patient states that weight is unchanged and in general mood has improved. 01-17-2019 Unclassified (9 sources) [ADDITIONAL REASON] Well adult female - The patient feels well with no complaints, has good energy level and is sleeping well. The patient takes supplemental vitamins. The patient exercises 3 - 4 times per week. The patient sleeps 8 hours per night. Note for Well adult female: -Recent derm visitContinues with Dr Lamas and will have endoscopy and colonoscopy next week. 01-17-2019 Unclassified (5 sources) Abdominal pain - The onset of the abdominal pain has been gradual and has been occurring in a persistent pattern for months. The course has been increasing. The pain is described as a moderate burning and dull ache. The pain is located in the right upper quadrant. Note for Abdominal pain: -Thinks she has scar tissue from surgeries in 1986. 08-10-2020 Unclassified (20 sources) Follow up for multiple chronic conditions - The patient is here for follow-up of diabetes (pre), obesity, depression and other condition(s) (anxiety). The patient always takes the prescribed medications. No side effects noted. The patient has an active lifestyle but no regular exercise program. The patient's out of office blood pressure checks occur occasionally. Note for Multiple chronic conditions follow-up: -Will see Dr Mcwilliams in 04-25-2024 Unclassified (1 source) [ADDITIONAL REASON] Follow up for multiple chronic conditions - The patient is here for follow-up of diabetes (pre), obesity, depression and other condition(s) (anxiety). The patient always takes the prescribed medications. No side effects noted. The patient has an active lifestyle but no regular exercise program. The patient's out of office blood pressure checks occur occasionally. 09-05-2024 Unclassified (6 sources) Well adult female - The patient feels well with no complaints, has good energy level and is sleeping well. The patient takes supplemental vitamins. The patient does not exercise. The patient sleeps 8 hours per night. Note for Well adult female: -Declines flu vaccine. 09-05-2024 Unclassified (6 sources) [ADDITIONAL REASON] Follow up for multiple chronic conditions - The patient is here for follow-up of diabetes (pre), obesity, depression and other condition(s) (anxiety). The patient always takes the prescribed medications. No side effects noted. The patient has an active lifestyle but no regular exercise program. The patient's glucose levels are monitored several time(s) per week and out of office blood pressure checks occur frequently. 09-05-2024 Unclassified (4 sources) Follow up for multiple chronic conditions - The patient is here for follow-up of diabetes (pre), obesity, depression and other condition(s) (anxiety). The patient always takes the prescribed medications. No side effects noted. The patient has an active lifestyle but no regular exercise program. The patient's glucose levels are monitored several time(s) per week and out of office blood pressure checks occur frequently. 09-05-2024 Unclassified (1 source) [ADDITIONAL REASON] Well adult female - The patient feels well with no complaints, has good energy level and is sleeping well. The patient takes supplemental vitamins. The patient does not exercise. The patient sleeps 8 hours per night. Note for Well adult female: -Declines flu vaccine. 09-05-2024 Urinary tract infections (9 sources) Urinary tract infectious disease; Translations: [Urinary tract infection, site not specified] 05-07-2023 Episodic Past or Other Problems Problem Classification Problem Date Documented Date Episodic/Chronic Genitourinary symptoms and ill-defined conditions (1 source) Dysuria; Translations: [Dysuria] Onset: Episodic Mood disorders (20 sources) Mood disorders 08-22-2022 Unclassified (20 sources) Follow up from hospital stay - Name of Hospital: [facility]. Date of Admission: 11/05/22. Note for Follow up from hospital stay: -Evaluated for abdominal pain. Found to have suspected reoccuring umbilical hernia treated with dicyclomine and referral to general surgery. She also had incidental finding of nonobstructing kidney stone on left side and a fatty liver infiltration.She saw the surgeon and he said the CT showed no hernia but she has diastasis recti. 11-18-2022 Unclassified (20 sources) Follow up from hospital stay - Name of Hospital: [facility]. Date of Admission: 11/05/22. Note for Follow up from hospital stay: -Evaluated for abdominal pain. Found to have suspected reoccuring umbilical hernia treated with dicyclomine and referral to general surgery. She also had incidental finding of nonobstructing kidney stone on left side and a fatty liver infiltration. 11-16-2022 Unclassified (20 sources) [ADDITIONAL REASON] Abdominal pain - Note for Abdominal pain: -gastritis seems worse. Has some nausea and a 2 week episode of constipation. Asking to increase meds. 08-22-2022 Unclassified (20 sources) Knee pain - The onset of the knee pain has been sudden and has been occurring in a persistent pattern for 1 week. The knee pain is moderate in the right knee. The knee pain is characterized as a sharp stabbing. The knee pain is described as being located in the entire knee. The knee pain is aggravated by physical activity and prolonged standing. The knee pain is relieved by rest. Note for Knee pain: -thought it was sciatica at first. Has a lump behind the knee. Some swelling in the leg. 06-10-2021 Unclassified (20 sources) Follow up diagnostic procedure results - Diagnostic tests performed on : (01/21/2019) include other (endoscopy with Dr.Leon Lamas). Current symptoms include other (heartburn). Note for Diagnostic procedure results follow-up: patient had a colonoscopy and endoscopy. Was advised that she has a hiatal hernia, esophagitis, and gastritis and to followup with her family doctor for medicationshe has been using OTC Pepcid AC maximum strength and continues with heartburn. 02-07-2019 Unclassified (20 sources) Abdominal pain - The onset of the abdominal pain has been sudden and has been occurring in a persistent pattern for 5 days. The pain is described as a mild dull ache and pressure sensation. The pain is located in the periumbilical area. Note for Abdominal pain: -Noticed discomfort while working out on an ab workout machine with 10lbs weight. She felt a tugging sensation and after she sat up she felt like her abdomen was bloated. She continues to have discomfort and some increased heartburn. Her repairs were in 1995 and 2000. 11-19-2018 Unclassified (20 sources) Cold Symptoms - Symptoms include nasal congestion, scratchy throat, productive cough and general malaise, but do not include fever. The onset was gradual 10 day(s) ago. The symptoms occur constantly. The patient describes this as worsening. The patient is not currently being treated for this problem. Risk factors do not include smoking. Medical history includes recurrent sinusitis. 09-01-2018 Unclassified (20 sources) Well adult female - The patient feels well with no complaints, has good energy level and is sleeping well. The patient takes supplemental vitamins. The patient does not exercise. The patient sleeps 8 hours per night. 11-13-2017 Unclassified (20 sources) Cold Symptoms - Symptoms include sneezing, nasal congestion, non-purulent sputum, ear fullness (mainly right ear.), sore throat, dry cough, wheezing (slightly SOB and wheezing which just started yesterday. PO 97%.), general malaise, headache and facial pain, but do not include fever (but ran low grade when first started. Highest 99.2). The onset was gradual 1 week(s) ago. The patient describes this as worsening. Current treatment includes non-prescription cold medication (Saline nasal spray, Afrin, Sudafed and Ibuprofen and VICKS under nose.). Risk factors do not include smoking. Note for Upper respiratory infection: No one else at home sick. reviewed by [facility] 09-23-2016 Unclassified (20 sources) Well adult female - The patient feels well with no complaints, has good energy level and is sleeping well. The patient takes supplemental vitamins. The patient does not exercise. The patient sleeps 6 hours per night. 09-16-2016 Unclassified (20 sources) [ADDITIONAL REASON] Arm pain - The pain is in the right arm. The onset of the pain has been gradual and has been occurring in a persistent pattern for months. The course has been constant. The pain is described as moderate. Note for Pain: -Tried BenGay and ibuprofen. Reports some weakness. 09-16-2016 Unclassified (20 sources) [ADDITIONAL REASON] Skin lesion - The skin lesion appeared gradually and has been occurring for months. It has been increasing in size. The lesion is characterized as crusty and raised above the skin. The lesion is located on the face. 09-16-2016 Unclassified (20 sources) Cold Symptoms - Symptoms include nasal congestion, runny nose, ear fullness, sore throat, dry cough, productive cough, general malaise, headache and facial pain. The onset was gradual 3 week(s) ago. The symptoms occur constantly. The patient describes this as moderate in severity and worsening. Current treatment includes non-prescription cold medication, cough suppressants and NSAIDs. Risk factors do not include smoking. The patient has not been exposed to secondhand smoke. Medical history includes seasonal allergies. Note for Upper respiratory infection: Patient was seen 5 weeks ago by Elissa Anderson PA-C and was treated with Zithromax and an inhaler. Symptoms improved, but have since returned and worsened in the past week. 08-13-2016 Unclassified (20 sources) Cold Symptoms - Symptoms include productive cough (yellow; chest congestion), fever (never checked but felt feverish) and headache, but do not include nasal congestion, runny nose, ear pain, sore throat, chills or general malaise. The onset was gradual week(s) ago (wk and half). The symptoms occur constantly. The patient describes this as moderate in severity and unchanged. Current treatment includes non-prescription cold medication and acetaminophen (this am). Medical history includes seasonal allergies, recurrent sinusitis and tonsillectomy, but patient denies history of recurrent strep pharyngitis, asthma or recurrent ear infections. Note for Upper respiratory infection: Initially started with sinus symptoms/allergies - was taking advil cold and sinus, elevating head of bed, and taking cough drops. + exp at work. Symptoms moved into chest and now having chest tightness and some wheezing. 07-11-2016 Unclassified (20 sources) Cold Symptoms - Symptoms include sore throat, fever, chills, general malaise and headache, but do not include nasal congestion, runny nose, ear pain or dry cough. The onset was gradual 4 day(s) ago. The symptoms occur constantly. The patient describes this as moderate in severity and worsening. Current treatment includes rest, allergy medications, acetaminophen and NSAIDs. Risk factors do not include smoking. The patient has not been exposed to secondhand smoke. Medical history includes seasonal allergies and tonsillectomy. 01-26-2016 Unclassified (20 sources) low back pain - started in left hip on Monday, no known injury, lower abdominal cramping. Started with symptoms similar to a yeast infection and treated with 3 days of OTC med. She has some burning with urination, some vaginal itching. 06-11-2015 Unclassified (20 sources) Cold Symptoms - Symptoms include nasal congestion (with PND), scratchy throat, dry cough (at night), general malaise (swollen glands), headache and facial pain (teeth hurt). The onset was gradual 1 week(s) ago. The symptoms occur constantly. The patient describes this as moderate in severity. Current treatment includes non-prescription cold medication (Advil cold & sinus), cough suppressants (phenergan with codeine), an oral decongestant and saline nasal spray/drops. Risk factors do not include smoking. Medical history includes seasonal allergies and recurrent sinusitis. 09-06-2013 Unclassified (20 sources) high blood pressure, headache, vertigo and swelling - Pt is here today for elevated blood pressure, vertigo, nausea x 1-2 days. Blood pressure yesterday at work was 172/92. Pt also c/o bilateral feet and lower leg edema x 2-3 weeks. Pt also c/o insomnia for several weeks and uses xanax at hs which sometimes helps. Pt. has had increased stress recently with the of her father and a long time pet. Pt. has cut down on salt intake and is exercising daily. No c/o s.o.b. with swelling. Also has new random bruising 04-25-2013 Unclassified (20 sources) re-check mrsa of elbow - Patient was treated with bactrim for mrsa of the left elbow. After 10 days of the atb, she was having a rash on her chest, flushing, tunnel vision and her heart would race. Medication d/c due to possible reaction. Was advised to watch the area and report if it worsened or didn't get better. She has felt fatigued, her arm is sore again and so is the elbow where mrsa is at. No drainage from the area and she has not noted a fever. But just isn't feeling well and wants to be sure infection cleared up and no further atb needed.Has been keeping elbow wrapped to limit exposure. 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 No cold or cough symptoms. 10-02-2012 Unclassified (20 sources) bug bite - states that she was in bed and felt a bite - she looked and found at black, larger than usualy stink bug of sorts but it had red dots all over the back - son killed for her. However area has been increasing in pain, redness, and warmth - no drainage; this occurred 4 days agoAfebrile, but is generally feeling ill today 09-12-2012 Unclassified (20 sources) Well adult female - The patient feels well with minor complaints (weight changes, appetite changes, depression, anxiety, trouble sleeping, increased stress, increased urinary frequency, urinary dribbling. ), has good energy level and is sleeping poorly. Most recent Pap smear : (vaginal cuff 2010). Date of last mammogram : (2008). Date of most recent influenza vaccine : (declines flu vaccine). Last Tetanus booster: Date: (td in 2004, considering tdap booster). The patient takes supplemental vitamins. 06-29-2012 Unclassified (20 sources) [ADDITIONAL REASON] Cold Symptoms - Symptoms include nasal congestion, scratchy throat, dry cough and general malaise, but do not include ear pain or fever. The onset was gradual 1 week(s) ago. The symptoms occur constantly. The patient describes this as worsening. Current treatment includes allergy medications. Risk factors do not include smoking. The patient has been exposed to an individual with similar symptoms. Medical history includes seasonal allergies and asthma. Note for Upper respiratory infection: This note has been reviewed and approved in it's entirety by me. 06-29-2012 Unclassified (20 sources) Cold Symptoms - Symptoms include nasal congestion, runny nose, purulent discharge, sore throat, productive cough, fever, general malaise, headache and facial pain, but do not include sneezing, ear pain, wheezing or chills. The onset was gradual 10 day(s) ago. The symptoms occur constantly. The patient describes this as moderate in severity. Current treatment includes non-prescription cold medication, acetaminophen and NSAIDs. The patient has been exposed to an individual with an upper respiratory infection. Medical History includes seasonal allergies, recurrent sinusitis and tonsillectomyPatient denies history of recurrent strep pharyngitis, asthma or recurrent ear infections. Note for Cold Symptoms: Pt c/o teeth pain 09-01-2011 Unclassified (20 sources) Well adult female - The patient feels well with minor complaints, has good energy level and is sleeping poorly (uses xanax). Last Tetanus booster: Date: (td 2004). The patient has a balanced diet and takes supplemental vitamins. Patient sleeps 7 hours per night. 05-29-2011 Unclassified (20 sources) Cold Symptoms - Symptoms include sneezing, nasal congestion, scratchy throat, hoarseness, productive cough, fever (low grade), general malaise, headache and facial pain, but do not include ear pain. The onset was gradual 2 week(s) ago. The patient describes this as moderate in severity and worsening. Current treatment includes rest and cough suppressants. Risk factors do not include smoking. The patient has not been exposed to none. Medical History dose not include seasonal allergies or recurrent sinusitis. 06-28-2010 Unclassified (9 sources) Cold Symptoms - Symptoms include nasal congestion, scratchy throat, dry cough and general malaise, but do not include ear pain or fever. The onset was gradual 1 week(s) ago. The symptoms occur constantly. The patient describes this as worsening. Current treatment includes allergy medications. Risk factors do not include smoking. The patient has been exposed to an individual with similar symptoms. Medical history includes seasonal allergies and asthma. Note for Upper respiratory infection: This note has been reviewed and approved in it's entirety by me. 06-29-2012 Unclassified (9 sources) [ADDITIONAL REASON] Well adult female - The patient feels well with minor complaints (weight changes, appetite changes, depression, anxiety, trouble sleeping, increased stress, increased urinary frequency, urinary dribbling. ), has good energy level and is sleeping poorly. Most recent Pap smear : (vaginal cuff 2010). Date of last mammogram : (2008). Date of most recent influenza vaccine : (declines flu vaccine). Last Tetanus booster: Date: (td in 2004, considering tdap booster). The patient takes supplemental vitamins. 06-29-2012 Unclassified (6 sources) Skin lesion - The skin lesion appeared gradually and has been occurring for months. It has been increasing in size. The lesion is characterized as crusty and raised above the skin. The lesion is located on the face. 09-16-2016 Unclassified (8 sources) [ADDITIONAL REASON] Well adult female - The patient feels well with no complaints, has good energy level and is sleeping well. The patient takes supplemental vitamins. The patient does not exercise. The patient sleeps 6 hours per night. 09-16-2016 Unclassified (11 sources) Abdominal pain - Note for Abdominal pain: -gastritis seems worse. Has some nausea and a 2 week episode of constipation. Asking to increase meds. 08-22-2022 Unclassified (2 sources) Arm pain - The pain is in the right arm. The onset of the pain has been gradual and has been occurring in a persistent pattern for months. The course has been constant. The pain is described as moderate. Note for Pain: -Tried BenGay and ibuprofen. Reports some weakness. 09-16-2016 Results Test Name Value Interpretation Reference Range Facility Urgent Care Visit Reporton 0 02-04-2025 Urgent Care Visit Report [facility] [address] , [address] [place] [address] OFFICE VISIT Date of Service: 02/04/25 MR#: [id number] Acct: [id number] Name: STACI PORTILLO Rep #: [id number] : 1970 Provider: ALEC Driver Age/Sex: 54/F Location: [email or web address] Status: Signed Intake Vital Signs 06/09/24 13:21 02/04/25 11:21 Height 5 ft 7 in Weight: 190 lb BMI 29.7 BP 123/84 H 124/68 H Blood Pressure Location Lt brachial Position Sitting Sitting Respiration 14 Pulse 81 78 Pulse Source Monitor Temp 98.2 F 98.1 F Temp Source Temporal Oral Pulse Oximetry (%) 98 98 Oxygen Delivery Method room air room air Intake Visit Reasons: CONGESTION/COUGH Accompanied by: Self Allergies levofloxacin (From Levaquin) Allergy (Verified 06/09/24 13:10) unknown moxifloxacin (From Avelox) Allergy (Verified 06/09/24 13:10) flu-like symptoms propoxyphene (From Darvocet-N) Allergy (Verified 06/09/24 13:10) anxiety Nurse's Note: Patient has congestion, cough and yesterday she was coughing up thick mucus. Patient states this has been going on for 2 weeks. Patient states she is also tired. [facility] Medical History Wears glasses MRSA infection Post-menopausal Depression Restless legs History of hiatal hernia Gastric reflux Elevated liver enzymes Kidney stone Gastritis Hiatal hernia Acute insomnia Anxiety NAFLD (nonalcoholic fatty liver disease) Diabetes Acid reflux HTN (hypertension) High cholesterol Acute sinusitis, unspecified Surgical History Hx of lithotripsy S/P hysterectomy S/P sinus surgery History of tonsillectomy H/O ventral hernia repair S/P appendectomy S/P laparoscopic cholecystectomy H/O umbilical hernia repair S/P section Family History Father Diabetes Heart disease Hypertension Kidney disease CVA (cerebral vascular accident) Mother Cancer bladder Thyroid disorder Brother Hypertension Social History Smoking Status: Never smoker alcohol intake: never HPI HPI Details: STACI PORTILLO, is a 54 F who presents to the office today [facility] with progressively worsening right facial pressure/congestion - with new purulent postnasal drip and nausea (over the last 72 hours) - with symptoms beginning day after returning home from vacation from [place] 2 weeks ago. No complaints of chills, myalgias, fatigue, runny nose, or nausea/vomiting/diarrhe a. No complaints of chest pain/shortness of breath/dyspnea on exertion. No close contacts with similar complaints. Nonsmoker. No other associated symptoms and no other alleviating/aggravating factors. ROS Const Constitutional: No other (as above) Exam Const General: cooperative, healthy appearing and no acute distress Nutritional Appearance: average body habitus Orientation: alert, awake and oriented x3 HENMT Head: normal to inspection Ears: hearing grossly normal bilaterally, external ears normal, TM's normal bilaterally and EAC's normal Nose: external nose normal, nares normal, septum normal and no nasal discharge Face and sinus: normal facial exam, right maxillary sinus palpable tender (with right maxillary fullness to palpation) and face symmetric Mouth: oral mucosae normal, lip normal, tongue normal and oropharynx normal Throat: posterior oropharynx normal, tonsils normal, uvula midline and postnasal drainage (Purulent) Eyes General: appearance normal, both eyes and all related structures Neck Neck: normal visual inspection, full ROM, no meningeal signs, supple and lymphadenopathy (R>L anterior cervical lymph node swelling/tender to palpation) Neck mass: No Thyroid: thyroid normal Chest Chest palpation inspection: normal inspection of the chest Resp Effort Inspection: normal respiratory effort and able to speak in complete sentences Auscultation: Bilateral: Clear to Auscultation Cardio Palpation: normal PMI Rate: regular rate Rhythm: regular rhythm Heart Sounds: S1 normal, S2 normal, no gallops, no murmurs and no rubs Pulses: radial pulses present GI Inspection: normal to inspection Skin General: no rashes or lesions noted Neuro General: patient alert, patient awake and patient oriented x3 Cognition: normal cognition Speech: speech normal Psych Appearance: grossly normal Mental Status: mental status grossly normal Mood: congruent mood Affect: normal affect Speech and Movement: speech and movement normal Attitude: cooperative Diagnoses Acute maxillary sinusitis, unspecified J01.00 Assessment an (more content not included)... Normal [facility] - Hematology and Cell countson 12-19-2024 HbA1c (Bld) [Mass fraction] 5.5 % Normal 4.6 - 7.1 % [facility], [facility].; [facility] Gastroenterology Visit Repor ton 10-10-2024 Gastroenterology Visit Report [place] [facility] Gastroenterology [address] [place] [address] OFFICE VISIT Date of Service: 10/10/24 MR#: [id number] Acct: [id number] Name: STACI PORTILLO Yasemin Rep #: [id number] : 1970 Provider: Mehdi Mcwilliams DO Age/Sex: 54/F [place] [facility] Status: Signed Intake Vital Signs 06/09/24 13:21 Height 5 ft 7 in Weight: 190 lb BMI 29.7 BP 123/84 H Blood Pressure Location Lt brachial Position Sitting Respiration 14 Pulse 81 Pulse Source Monitor Temp 98.2 F Temp Source Temporal Pulse Oximetry (%) 98 Oxygen Delivery Method room air Intake Visit Reasons: Go over results Chief Complaint: SINUS INFECTION Allergies levofloxacin (From Levaquin) Allergy (Verified 06/09/24 13:10) unknown moxifloxacin (From Avelox) Allergy (Verified 06/09/24 13:10) flu-like symptoms propoxyphene (From Darvocet-N) Allergy (Verified 06/09/24 13:10) anxiety Medications ???Medication ???Instructions ???Recorded ???Confirmed ???Type desvenlafaxine succinate 50 mg 100 mg PO DAILY 03/26/21 10/10/24 History tablet,extended release 24 hr lisinopril 20 mg tablet 20 mg PO DAILY 03/26/21 10/10/24 History flkqlmgu-ewjm-lpjf 8 mg-folic 400 1 tab PO DAILY 03/26/21 10/10/24 History mcg-K 50 mcg-lutein 300 mcg tablet (Centrum Silver Women) atorvastatin 20 mg tablet 20 mg PO QHS 11/15/22 10/10/24 History loratadine 10 mg tablet (Claritin) 10 mg PO DAILY 11/15/22 10/10/24 History pantoprazole 40 mg tablet,delayed 40 mg PO BID #60 tabs 05/19/23 10/10/24 Rx release metformin 1,000 mg tablet 1,000 mg PO BID 12/15/23 10/10/24 History PFSH Medical History Wears glasses MRSA infection Post-menopausal Depression Restless legs History of hiatal hernia Gastric reflux Elevated liver enzymes Kidney stone Gastritis Hiatal hernia Acute insomnia Anxiety NAFLD (nonalcoholic fatty liver disease) Diabetes Acid reflux HTN (hypertension) High cholesterol Acute sinusitis, unspecified Surgical History Hx of lithotripsy S/P hysterectomy S/P sinus surgery History of tonsillectomy H/O ventral hernia repair S/P appendectomy S/P laparoscopic cholecystectomy H/O umbilical hernia repair S/P section Family History Father Diabetes Heart disease Hypertension Kidney disease CVA (cerebral vascular accident) Mother Cancer bladder Thyroid disorder Brother Hypertension Social History Smoking Status: Never smoker alcohol intake: never HPI HPI Chief Complaint: SINUS INFECTION Details: STACI PORTILLO, is a 54 F who presents to the office today for follow up. Prior workup: ? Colonoscopy [facility] 01.21.19 advanced past IC junction without visual abnormality. ? EGD [facility] 09.09.20 hiatal hernia; bilious staining; gastritis. *BGI established 02.10.23 with abdominal pain, gas, bloating and emesis that wake her from sleep with morning loose stools. BM run toward constipation since start of semaglutide . Start doxycycline. ? Biochemical 02.10.23 ESR, CMP, CRP, ANCA, DOLLY comp, celiac without pertinent abnormality ? Stool elastase WNL ? US/elastography 02.16.23 hepatic measurement 16.2 with fatty infiltration, stiffness 8.4kPa; increased pancreatic echogenicity; s/p cholecystectomy ? Biochemical 03.03.23 AFP, ammonia, CAMRYN, AMA, ASM, coag, ceruloplasmin, copper, ferritin, haptoglobin, hepatitis, HIV, LDH without pertinent abnormality ? EGD 04.27.23 mucosal changes of EOE, eosinophils >20/field; large phytobezoar of gastric body. ? GET 05.04.23 32.05 minutes (12-56) Contact 05.17.23 with results. Recommend RAST. Still having dysphagia; increase PPI to BID ? Biochemical RAST WNL OV 06.23.23 symptoms have resolved with stop of semaglutide and particular attention to food. ? US/elastography 07.13.23 hepatic measurement 15.8cm with fatty infiltration, stiffness 8.4kPa Contact, VM 08.04.23 with results; reports RUQ discomfort every few months. OV 12.15.23 No acute concerns. Continued dietary changes and exercise with improvement. Lost 25 lb over last 6 months. US and elastography 03.16.24 hepatic measurement 17.1cm with fatty infiltrati (more content not included)... Normal [facility] - Chemistry and C hemistry - challengeon 08-29-2024 Albumin [Mass/Vol] 4.5 g/dL Normal 3.6 - 5.1 g/dL [facility], [facility].; [place] [employer] [facility], [facility]. Albumin/Globulin [Mass ratio] 1.7 {ratio} Normal 1.0 - 2.5 [facility], [facility].; [place] [employer], [employer]. ALP [Catalytic activity/Vol] 43 U/L Normal 37 - 153 U/L [facility].; [place] [employer], [employer]. ALT [Catalytic activity/Vol] 10 U/L Normal 6 - 29 U/L [place] [employer] [facility].; [place] [employer], [employer]. AST [Catalytic activity/Vol] 13 U/L Normal 10 - 35 U/L [place] [employer] [facility], [facility].; [employer], [employer]. Bilirubin [Mass/Vol] 0.4 mg/dL Normal 0.2 - 1 .2 mg/dL [place] [employer] [facility], [facility].; [place] [employer], [employer]. Calcium [Mass/Vol] 9.6 mg/dL Normal 8.6 - 10. 4 mg/dL [place] [employer] [facility], [facility].; [place] [employer], [employer]. Chloride [Moles/Vol] 102 mmol/L Normal 98 - 11 0 mmol/L [facility], [facility].; [employer], [employer]. Cholesterol [Mass/Vol] 179 mg/dL Normal [facility], [facility].; [place] [employer] Cholesterol in HDL [Mass/Vol] 60 mg/dL Normal [place] [employer] [facility], [facility].; [place] [employer], [employer]. Cholesterol in LDL [Mass/Vol] 96 mg/dL Normal [place] [employer].; [place] [employer], [employer]. CO2 [Moles/Vol] 29 mmol/L Normal 20 - 32 mmol/L [facility].; [place] [employer] [facility], [facility]. Creatinine (U) [Mass/Vol] 177 mg/dL Normal 20 - 275 mg/dL [facility].; [place] [employer] [facility], [facility]. Creatinine [Mass/Vol] 0.58 mg/dL Normal 0.50 - 1.03 mg/dL [facility].; [facility], [facility]. GFR/1.73 sq M.predicted among non-blacks MDRD (S/P/Bld) [Vol rate/Area] 107 mL/min/{1.73_m2} Normal [facility].; [place] [employer] [facility], [facility]. Glucose [Mass/Vol] 91 mg/dL Normal 65 - 99 mg/dL [facility].; [place] [employer], [facility]. Potassium [Moles/Vol] 4.3 mmol/L Normal 3.5 - 5.3 mmol/L [facility].; [place] [employer], [employer]. Protein [Mass/Vol] 7.2 g/dL Normal 6.1 - 8.1 g/dL [facility].; [place] [employer], [employer]. Sodium [Moles/Vol] 139 mmol/L Normal 135 - 146 mmol/L [facility].; [place] [employer], [employer]. Triglyceride [Mass/Vol] 131 mg/dL Normal [facility].; [place] [employer], [facility]. Urea nitrogen [Mass/Vol] 9 mg/dL Normal 7 - 25 mg/dL [facility].; [place] [employer]. Laboratory - Hematology and Cell countson 08-29-2024 Basophils (Bld) [#/Vol] 0.058 10*3/uL Normal 0 - 200 {cells/uL} [place] [employer] [facility].; [place] [employer], [employer]. Basophils/100 WBC (Bld) 0.9 % Normal [facility].; [place] [employer], [employer]. Eosinophils (Bld) [#/Vol] 0.41 10*3/uL Normal 15 - 500 {cells/uL} [place] [employer].; [place] [employer]. Eosinophils/100 WBC (Bld) 6.4 % Normal [facility].; [place] [employer], [facility]. Erythrocyte distribution width (RBC) [Ratio] 12.5 % Normal 11.0 - 15.0 % [facility].; [place] [employer] [facility], [facility]. HbA1c (Bld) [Mass fraction] 5.6 % Normal [facility].; [place] [employer], [facility]. Hematocrit (Bld) [Volume fraction] 40.5 % Normal 35.0 - 45.0 % [facility].; [place] [employer], [facility]. Hemoglobin (Bld) [Mass/Vol] 13.4 g/dL Normal 11.7 - 15.5 g/dL [facility].; [place] [employer], [facility]. Lymphocytes (Bld) [#/Vol] 2.707 10*3/uL Normal 850 - 3900 {cells/uL} [facility].; [place] [employer], [facility]. Lymphocytes/100 WBC (Bld) 42.3 % Normal [facility].; [place] [employer] [facility]. MCH (RBC) [Entitic mass] 29.5 pg Normal 27.0 - 33.0 pg [place] [employer] [facility].; [place] [employer], [facility]. MCHC (RBC) [Mass/Vol] 33.1 g/dL Normal 32.0 - 36.0 g/dL [facility].; [place] [employer], [facility]. MCV (RBC) [Entitic vol] 89.2 fL Normal 80.0 - 100.0 fL [place] [employer] [facility].; [place] [employer] [facility]. Monocytes (Bld) [#/Vol] 0.339 10*3/uL Normal 200 - 950 {cells/uL} [place] [employer] [facility].; [place] [employer], [facility]. Monocytes/100 WBC (Bld) 5.3 % Normal [facility].; [place] [employer], [facility]. Neutrophils (Bld) [#/Vol] 2.886 10*3/uL Normal 1500 - 7800 {cells/uL} [place] [employer], [facility].; [place] [employer], [employer]. Neutrophils/100 WBC (Bld) 45.1 % Normal [place] [employer] [facility].; [facility]. Platelet mean volume (Bld) [Entitic vol] 9.5 fL Normal 7.5 - 12.5 fL [place] [employer] [facility].; [place] [employer] [facility]. Platelets (Bld) [#/Vol] 431 10*3/uL Abnormal 140 - 400 [facility].; [place] [employer]. RBC (Bld) [#/Vol] 4.54 10*6/uL Normal 3.80 - 5.1 0 {Million/uL} [place] [employer] [facility].; [place] [employer]. WBC (Bld) [#/Vol] 6.4 10*3/uL Normal 3.8 - 10.8 [place] [employer].; [place] [employer] No Panel Informationon 08-29 ALBUMIN, URINE 2.2 mg/dL Normal [facility].; [place] [employer] [facility]. ALBUMIN/CREATININE RATIO, RANDOM URINE 12 {mg/g_creat} Normal [facility].; [place] [employer]. BUN/CREATININE RATIO SEE NOTE: Normal 6 - 22 [facility].; [place] [employer]. CHOL/HDLC RATIO 3.0 Normal [place] [employer] [facility].; [place] [employer]. GLOBULIN 2.7 Normal 1.9 - 3.[address] [place] [employer] [address].; [place] [employer]. NON HDL CHOLESTEROL 119 Normal [facility] [employer] [facility].; [employer]. ABD Limited w/ Elastographyo n 08-27-2024 ABD Limited w/ Elastography [facility] Imaging Services [address] [place] [id number] ABD Limited w/ Elastography MR#: [id number] Acct: [id number] Name: STACI PORTILLO Rep #: [id number] : 1970 F 54 From: Aldair wolfe MD PCP: Dr. Pollo Bobo MD Status: REG CL Study: ABD Limited w/ Elastography Date of Exam: 12/16 Exam# [id number] Ordering Dr: [place] [id number] STUDY: ABDOMINAL ULTRASOUND - RIGHT UPPER QUADRANT; ELASTOGRAPHY REASON FOR VISIT: Female, 54 years old. Fatty infiltration of the liver. TECHNIQUE: Ultrasound evaluation of the right upper quadrant was performed with real-time and static whiteside-scale imaging. Point quantification shear wave elastography was performed ([employer]). TECHNICAL QUALITY: Adequate. COMPARISON: Comparison is made with prior study dated March 12, 2024. FINDINGS: Liver: The liver measures 15.4 cm. There is increased echogenicity consistent with fatty infiltration. The bile ducts are within normal limits. There is hepatic color flow. The direction of portal flow is hepatopetal. There is no demonstrated mass lesion. Median liver stiffness measured 8.5 kPa. Gallbladder: The patient is status post cholecystectomy. Common Bile Duct (C.B.D.): The common bile duct measures 7 mm. Pancreas: There is normal echogenicity of the visualized pancreas. There is no demonstrated pancreatic mass or cyst. Right Kidney: Normal size of the right kidney. The right kidney measures 11.5 cm x 5.5 cm x 3.6 cm. Normal renal cortex. The right cortex measures 1.2 cm. There is no demonstrated renal mass or cyst. There is no right hydronephrosis. US/ABD Limited w/ Elastography IMPRESSION: 1. Liver stiffness measures 8.5 kPa compatible with F2-F3 (Mild to moderate liver fibrosis) Metavir score. 2. Fatty infiltration of liver. 3. Status post cholecystectomy. Electronically Signed: Aldair Almazan MD at 14:08 EST , CC: Dr. Pollo Bobo MD; Mehdi Mcwilliams, Sat Tutor: Signed Normal [facility] Urine Cultureon 06-12-2024 [facility] Presumptive E. coli [place] Count >100,000 Presumptive E. coli: REACTION Ampicillin Islt ITZEL 8 S Ampicillin+Sulbac Islt ITZEL <=2 S ceFAZolin Islt ITZEL <=4 S Cefepime Islt ITZEL <=0.12 S cefTRIAXone Islt ITZEL <=0.25 S Ciprofloxacin Islt ITZEL <=0.25 S Ertapenem Islt ITZEL <=0.12 S B-Lactamase Extended Susc Islt NEG Gentamicin Islt ITZEL <=1 S Imipenem Islt ITZEL <=0.25 S levoFLOXacin Islt ITZEL <=0.12 S Nitrofurantoin Islt ITZEL <=16 S Pip+Tazo Islt ITZEL <=4 S Tobramycin Islt ITZEL <=1 S TMP SMX Islt ITZEL <=20 S Normal [facility] Comment on above: Performed By: #### M [id number] #### [facility] [address] [place], [address] Urgent Care Visit Reporton 0 06-09-2024 Urgent Care Visit Report [facility] [address], [address] [place], [place] [address] OFFICE VISIT Date of Service: 06/09/24 MR#: [id number] Acct: [id number] Name: STACI PORTILLO Rep #: [id number] : 1970 Provider: ERIC edwards Age/Sex: 54/F Location[place] [facility] Status: Signed Intake Vital Signs 08/15/23 09:28 06/09/24 13:21 Height 5 ft 7 in 5 ft 7 in Weight: 201 lb 190 lb BMI 31.4 29.7 BP 134/87 H 123/84 H Blood Pressure Location Lt brachial Lt brachial Position Sitting Sitting Respiration 16 14 Pulse 94 81 Pulse Source Monitor Monitor Temp 98.2 F 98.2 F Temp Source Temporal Temporal Pulse Oximetry (%) 95 98 Oxygen Delivery Method room air room air Intake Visit Reasons: CONCERN FOR UTI 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 Is patient in pain?: No Allergies levofloxacin (From Levaquin) Allergy (Verified 06/09/24 13:10) unknown moxifloxacin (From Avelox) Allergy (Verified 06/09/24 13:10) flu-like symptoms propoxyphene (From Darvocet-N) Allergy (Verified 06/09/24 13:10) anxiety Medications ???Medication ???Instructions ???Recorded ???Confirmed ???Type desvenlafaxine succinate 50 mg 100 mg PO DAILY 03/26/21 06/09/24 History tablet,extended release 24 hr lisinopril 20 mg tablet 20 mg PO DAILY 03/26/21 06/09/24 History buqmdxph-hzjo-xpwj 8 mg-folic 400 1 tab PO DAILY 03/26/21 06/09/24 History mcg-K 50 mcg-lutein 300 mcg tablet (Centrum Silver Women) atorvastatin 20 mg tablet 20 mg PO QHS 11/15/22 06/09/24 History loratadine 10 mg tablet (Claritin) 10 mg PO DAILY 11/15/22 06/09/24 History pantoprazole 40 mg tablet,delayed 40 mg PO BID #60 tabs 05/19/23 06/09/24 Rx release metformin 1,000 mg tablet 1,000 mg PO BID 12/15/23 06/09/24 History nitrofurantoin 100 mg PO Q12H 7 days #14 caps 06/09/24 06/09/24 Rx monohydrate/macrocrysta ls 100 mg capsule (Macrobid) phenazopyridine 100 mg tablet 100 mg PO TID PRN pain 3 days #9 06/09/24 06/09/24 Rx (Pyridium) tabs Nurse's Note: States she is having urinary frequency, and dysuria. Started about a week ago. Thinks it's getting a little worse. States she started to feel a little nauseated last night. Has been using ibuprofen which didn't help much. Doesn't get them too frequentl. [facility] Medical History Wears glasses MRSA infection Post-menopausal Depression Restless legs History of hiatal hernia Gastric reflux Elevated liver enzymes Kidney stone Gastritis Hiatal hernia Acute insomnia Anxiety NAFLD (nonalcoholic fatty liver disease) Diabetes Acid reflux HTN (hypertension) High cholesterol Acute sinusitis, unspecified Surgical History Hx of lithotripsy S/P hysterectomy S/P sinus surgery History of tonsillectomy H/O ventral hernia repair S/P appendectomy S/P laparoscopic cholecystectomy H/O umbilical hernia repair S/P section Family History Father Diabetes Heart disease Hypertension Kidney disease CVA (cerebral vascular accident) Mother Cancer bladder Thyroid disorder Brother Hypertension Social History Smoking Status: Never smoker alcohol intake: never HPI HPI Details: STACI PORTILLO, is a 54 F who presents to the office today for concerns for possible urinary tract infection. She states over the last week she has noted urinary frequency and dysuria. She feels this to be worsening. She does acknowledge some nausea last evening. She has been using ibuprofen to assist, with little relief. ROS Const Constitutional: No body ache, chills, excessive sweating, fatigue, fever(s), frequent falls, headache(s), snoring, weakness, sleep problems or change in appetite Eyes Eyes: No blurry vision, change in vision, eye pain or Light sensitivity ENT ENT: No abnormal hearing, ear or mastoid pain, tinnitus, nasal congestion, headache(s), neck pain or sore throat Resp Respiratory: No cough, shortness of breath, snoring or wheezing Cardio Cardiology: No chest pain at rest, chest pain with exertion, excessive sweating, shortness of breath, dyspnea on exertion, lightheadedness, orthopnea or palpitations Gastro GI: No abdominal pain, change in bowel habits, constipation, cramping, diarrhea, nausea/dyspepsia or vomiting Genitourinary-Female: Positive for burning urination, painful urination and urinary frequency; No urinary incontinence, abnormal vaginal bleeding or pelvic pain Musc Musculoskeletal: No abnormal gait, joint pain, back pain, limited range of motion, neck pain or numbness Skin Skin: No dry skin, redness, lesions, itch (more content not included)... Normal [facility] Gastroenterology Visit Repor ton 06-04-2024 Gastroenterology Visit Report [place] [facility] Gastroenterology [address] [place] [address] OFFICE VISIT Date of Service: 06/04/24 MR#: [id number] Acct: [id number] Name: STACI PORTILLO Rep #: [id number] : 1970 Provider: Mehdi Mcwilliams DO Age/Sex: 54/F [place] [facility] Status: Signed Intake Vital Signs 08/15/23 09:28 Height 5 ft 7 in Weight: 201 lb BMI 31.4 BP 134/87 H Blood Pressure Location Lt brachial Position Sitting Respiration 16 Pulse 94 Pulse Source Monitor Temp 98.2 F Temp Source Temporal Pulse Oximetry (%) 95 Oxygen Delivery Method room air Intake Visit Reasons: 6 M FU Allergies levofloxacin (From Levaquin) Allergy (Verified 12/15/23 14:54) unknown moxifloxacin (From Avelox) Allergy (Verified 12/15/23 14:54) flu-like symptoms propoxyphene (From Darvocet-N) Allergy (Verified 12/15/23 14:54) anxiety Medications ???Medication ???Instructions ???Recorded ???Confirmed ???Type desvenlafaxine succinate 50 mg 100 mg PO DAILY 03/26/21 06/04/24 History tablet,extended release 24 hr lisinopril 20 mg tablet 20 mg PO DAILY 03/26/21 06/04/24 History avsylybb-wppd-ljct 8 mg-folic 400 1 tab PO DAILY 03/26/21 06/04/24 History mcg-K 50 mcg-lutein 300 mcg tablet (Centrum Silver Women) atorvastatin 20 mg tablet 20 mg PO QHS 11/15/22 06/04/24 History loratadine 10 mg tablet (Claritin) 10 mg PO DAILY 11/15/22 06/04/24 History pantoprazole 40 mg tablet,delayed 40 mg PO BID #60 tabs 05/19/23 06/04/24 Rx release metformin 1,000 mg tablet 1,000 mg PO BID 12/15/23 06/04/24 History PFSH Medical History Acid reflux Acute insomnia Acute sinusitis, unspecified Anxiety Depression Diabetes Elevated liver enzymes Gastric reflux Gastritis Hiatal hernia High cholesterol History of hiatal hernia HTN (hypertension) Kidney stone MRSA infection NAFLD (nonalcoholic fatty liver disease) Post-menopausal Restless legs Wears glasses Surgical History H/O umbilical hernia repair H/O ventral hernia repair History of tonsillectomy Hx of lithotripsy S/P appendectomy S/P section S/P hysterectomy S/P laparoscopic cholecystectomy S/P sinus surgery Family History Father Diabetes Heart disease Hypertension Kidney disease CVA (cerebral vascular accident) Mother Cancer bladder Thyroid disorder Brother Hypertension Social History Smoking Status: Never smoker alcohol intake: never HPI HPI Details: STACI PORTILLO, is a 54 F who presents to the office today for follow up. Prior workup: ? Colonoscopy [facility] 01.21.19 advanced past IC junction without visual abnormality. ? EGD [facility] 09.09.20 hiatal hernia; bilious staining; gastritis. *BGI established 02.10.23 with abdominal pain, gas, bloating and emesis that wake her from sleep with morning loose stools. BM run toward constipation since start of semaglutide . Start doxycycline. ? Biochemical 02.10.23 ESR, CMP, CRP, ANCA, DOLLY comp, celiac without pertinent abnormality ? Stool elastase WNL ? US/elastography 02.16.23 hepatic measurement 16.2 with fatty infiltration, stiffness 8.4kPa; increased pancreatic echogenicity; s/p cholecystectomy ? Biochemical 03.03.23 AFP, ammonia, CAMRYN, AMA, ASM, coag, ceruloplasmin, copper, ferritin, haptoglobin, hepatitis, HIV, LDH without pertinent abnormality ? EGD 04.27.23 mucosal changes of EOE, eosinophils >20/field; large phytobezoar of gastric body. ? GET 05.04.23 32.05 minutes (12-56) Contact 05.17.23 with results. Recommend RAST. Still having dysphagia; increase PPI to BID ? Biochemical RAST WNL OV 06.23.23 symptoms have resolved with stop of semaglutide and particular attention to food. ? US/elastography 07.13.23 hepatic measurement 15.8cm with fatty infiltration, stiffness 8.4kPa Contact, 08.04.23 with results; reports RUQ discomfort every few months. OV 12.15.23 No acute concerns. Continued dietary changes and exercise with improvement. Lost 25 lb over last 6 months. US and elastography 03.16.24 hepatic measurement 17.1cm with fatty infiltration, stiffness measures 7.9kPa. OV 06.04.24 pt reports that she is feeling well overall and denies GI symptoms of concern (more content not included)... Normal [facility] - Hematology and Cell countson 04-25-2024 HbA1c (Bld) [Mass fraction] 5.6 % Normal 4.6 - 7.1 % [facility] ABD Limited w/ Elastographyo n 03-12-2024 ABD Limited w/ Elastography [facility] Imaging Services [address] [place] [address] ABD Limited w/ Elastography MR#: [id number] Acct: [id number] Name: STACI PORTILLO Rep #: [id number] : 1970 F 53 From: Aldair wolfe MD PCP: Dr. Pollo Bobo MD Status: REG CLI Study: ABD Limited w/ Elastography Date of Exam: 02/23 05/18 Exam# [id number] Ordering Dr: [place] [id number] STUDY: ABDOMINAL ULTRASOUND - RIGHT UPPER QUADRANT; ELASTOGRAPHY REASON FOR VISIT: Female, 53 years old. Fatty infiltration of the liver. NAFL D. TECHNIQUE: Ultrasound evaluation of the right upper quadrant was performed with real-time and static whiteside-scale imaging. Point quantification shear wave elastography was performed ([employer]). TECHNICAL QUALITY: Adequate. COMPARISON: Comparison is made with prior study July 11, 2023. FINDINGS: Liver: The liver measures 17.1 cm. There is increased echogenicity consistent with fatty infiltration. The bile ducts are within normal limits. There is hepatic color flow. The direction of portal flow is hepatopetal. There is no demonstrated mass lesion. Median liver stiffness measured 7.9 kPa. Gallbladder: The patient is status post cholecystectomy. Common Bile Duct (C.B.D.): The common bile duct measures 8 mm. Pancreas: There is normal echogenicity of the visualized pancreas. There is no demonstrated pancreatic mass or cyst. Right Kidney: Normal size of the right kidney. The right kidney measures 12 cm x 4.9 cm x 4.6 cm. Normal renal cortex. The right cortex measures 1.1 cm. There is no demonstrated renal mass or cyst. There is no right hydronephrosis. US/ABD Limited w/ Elastography IMPRESSION: 1. Liver stiffness measures 7.9 kPa compatible with F2-F3 (Mild to moderate liver fibrosis) Metavir score. 2. Fatty infiltration of the liver. Electronically Signed: Aldair Almazan MD at 13:37 EDT , CC: Dr. Pollo Bobo MD; Mehdi Mcwilliams, Sat Tutor: Signed Normal [facility] CBC W/Diff, Automatedon 02-23 Absolute Lymph 3.01 X10 3/uL Normal 0.83-4.51 [facility] Comment on above: Performed By: #### L 300.3900, L100.0100, L500.4050 #### [facility] [address] [place], [address] Absolute Neut 2.9 X10 3/uL Normal 2.0-7.7 [facility] Comment on above: Performed By: #### L 300.3900, L100.0100, L500.4050 #### [facility] [address] [place], [address] Basophils/100 WBC (Bld) 0.6 % Normal 0-1 [facility] Comment on above: Performed By: #### L 300.3900, L100.0100, L500.4050 #### [facility] [address] [place], [address] Eosinophils/100 WBC (Bld) 4.7 % Normal 0-5 [facility] Comment on above: Performed By: #### L 300.3900, L100.0100, L500.4050 #### [facility] [address] [place], [address] Erythrocyte distribution width (RBC) [Ratio] 13.0 % Normal 11.6-14.6 [facility] Comment on above: Performed By: #### L 300.3900, L100.0100, L500.4050 #### [facility] [address] [place], [address] Hematocrit (Bld) [Volume fraction] 41.4 % Normal 37-47 [facility] Comment on above: Performed By: #### L 300.3900, L100.0100, L500.4050 #### [facility] [address] [place], [address] Hemoglobin (Bld) [Mass/Vol] 13.2 g/dL Normal 12.0-15.0 [facility] Comment on above: Performed By: #### L 300.3900, L100.0100, L500.4050 #### [facility] [address] [place], [address] IG% 0.300 Normal 0.0-0.9 [facility] Comment on above: Result Comment: IG% - Immature Granulocytes (promyelocytes, myelocytes and metamyelocytes) > 1% indicates that a LEFT SHIFT is Present. Performed By: #### L 300.3900, L100.0100, L500.4050 #### [facility] [address] [place], [address] Lymphocytes/100 WBC (Bld) 45.6 % High 19-41 [facility] Comment on above: Performed By: #### L 300.3900, L100.0100, L500.4050 #### [facility] [address] [place], [address] MCH (RBC) [Entitic mass] 28.8 pg Normal 27.0-32.0 [facility] Comment on above: Performed By: #### L 300.3900, L100.0100, L500.4050 #### [facility] [address] [place], [address] MCHC (RBC) [Mass/Vol] 31.9 g/dL Low 32-36 [facility] Comment on above: Performed By: #### L 300.3900, L100.0100, L500.4050 #### [facility] [address] [place], [address] MCV (RBC) [Entitic vol] 90.2 fL Normal 81-99 [facility] Comment on above: Performed By: #### L 300.3900, L100.0100, L500.4050 #### [facility] [address] [place], [address] Monocytes/100 WBC (Bld) 5.6 % Normal 0-10 [facility] Comment on above: Performed By: #### L 300.3900, L100.0100, L500.4050 #### [facility] [address] [place], [address] Neutrophils/100 WBC (Bld) 43.2 % Low 47-70 [facility] Comment on above: Performed By: #### L 300.3900, L100.0100, L500.4050 #### [facility] [address] [place], [address] Nucleated RBC (Bld) [#/Vol] 0 10*3/uL Normal 0-5 [facility] Comment on above: Performed By: #### L 300.3900, L100.0100, L500.4050 #### [facility] [address] [place], [address] Platelet mean volume (Bld) [Entitic vol] 9.1 fL Normal 6.2-12.0 [facility] Comment on above: Performed By: #### L 300.3900, L100.0100, L500.4050 #### [facility] [address] [place], [address] Platelets (Bld) [#/Vol] 414 10*3/uL Normal 150-450 [facility] Comment on above: Performed By: #### L 300.3900, L100.0100, L500.4050 #### [facility] [address] [place], [address] RBC (Bld) [#/Vol] 4.59 10*6/uL Normal 4.2-5.4 [facility] Comment on above: Performed By: #### L 300.3900, L100.0100, L500.4050 #### [facility] [address] [place], [address] RDW SD 42.3 fl Normal 35.1-43.9 [facility] Comment on above: Performed By: #### L 300.3900, L100.0100, L500.4050 #### [facility] [address] [place], [address] WBC (Bld) [#/Vol] 6.6 10*3/uL Normal 4.4-11.0 [facility] Comment on above: Performed By: #### L 300.3900, L100.0100, L500.4050 #### [facility] [address] [place], [address] Comprehensive Metabolic Prof [facility] 03-12-2024 Albumin [Mass/Vol] 4.1 g/dL Normal 3.2-5.0 [facility] Comment on above: Order Comment: Fatty liver, N/V, change of fatty liver Performed By: #### L 300.3900, L100.0100, L500.4050 #### [facility] [address] [place], [address] Albumin/Globulin [Mass ratio] 1.1 {ratio} Normal 0.9-2.4 [facility] Comment on above: Order Comment: Fatty liver, N/V, change of fatty liver Performed By: #### L 300.3900, L100.0100, L500.4050 #### [facility] [address] [place], [address] ALK P 56 U/L Normal 45-117 [facility] Comment on above: Order Comment: Fatty liver, N/V, change of fatty liver Performed By: #### L 300.3900, L100.0100, L500.4050 #### [facility] [address] [place], [address] ALT [Catalytic activity/Vol] 23 U/L Normal 13-56 [facility] Comment on above: Order Comment: Fatty liver, N/V, change of fatty liver Performed By: #### L 300.3900, L100.0100, L500.4050 #### [facility] [address] [place], [address] AST [Catalytic activity/Vol] 18 U/L Normal 15-37 [facility] Comment on above: Order Comment: Fatty liver, N/V, change of fatty liver Performed By: #### L 300.3900, L100.0100, L500.4050 #### [facility] [address] [place], [address] Bilirubin [Mass/Vol] 0.40 mg/dL Normal 0.20-1.00 [facility] Comment on above: Order Comment: Fatty liver, N/V, change of fatty liver Result Comment: For patients on eltrombopag therapy, use of Dimension Howard TBIL is not recommended. Performed By: #### L 300.3900, L100.0100, L500.4050 #### [facility] [address] [place], [address] BUN/CRE 14.9 RATIO Normal 10-20 [facility] Comment on above: Order Comment: Fatty liver, N/V, change of fatty liver Performed By: #### L 300.3900, L100.0100, L500.4050 #### [facility] [address] [place], [address] CA,Total 9.6 mg/dL Normal 8.5-10.1 [facility] Comment on above: Order Comment: Fatty liver, N/V, change of fatty liver Performed By: #### L 300.3900, L100.0100, L500.4050 #### [facility] [address] [place], [address] Chloride [Moles/Vol] 105 mmol/L Normal 98-107 [facility] Comment on above: Order Comment: Fatty liver, N/V, change of fatty liver Performed By: #### L 300.3900, L100.0100, L500.4050 #### [facility] [address] [place], [address] CO2 [Moles/Vol] 29.0 mmol/L Normal 21.0-32.0 [facility] Comment on above: Order Comment: Fatty liver, N/V, change of fatty liver Performed By: #### L 300.3900, L100.0100, L500.4050 #### [facility] [address] [place], [address] Creatinine [Mass/Vol] 0.67 mg/dL Normal 0.55-1.02 [facility] Comment on above: Order Comment: Fatty liver, N/V, change of fatty liver Result Comment: The validity of the calculated GFR GFRAA in patients over 70 years has not been determined. Clinical correlation is essential. Performed By: #### L 300.3900, L100.0100, L500.4050 #### [facility] [address] [place], [address] EST GFR - AA 118 mL/min Normal >60 [facility] Comment on above: Order Comment: Fatty liver, N/V, change of fatty liver Result Comment: Afri can Jamaican GFR Calc Performed By: #### L 300.3900, L100.0100, L500.4050 #### [facility] [address] [place], [address] GAP 4 Low 5-15 [facility] Comment on above: Order Comment: Fatty liver, N/V, change of fatty liver Performed By: #### L 300.3900, L100.0100, L500.4050 #### [facility] [address] [place], [address] GFR/1.73 sq M.predicted among non-blacks MDRD (S/P/Bld) [Vol rate/Area] 97 mL/min/{1.73_m2} Normal >60 [facility] Comment on above: Order Comment: Fatty liver, N/V, change of fatty liver Result Comment: Non- GFR Calc Performed By: #### L 300.3900, L100.0100, L500.4050 #### [facility] [address] [place], [address] Globulin (S) [Mass/Vol] 3.7 g/dL Normal 2.2-4.2 [facility] Comment on above: Order Comment: Fatty liver, N/V, change of fatty liver Performed By: #### L 300.3900, L100.0100, L500.4050 #### [facility] [address] [place], [address] Glucose [Mass/Vol] 101 mg/dL Normal 74-106 [facility] Comment on above: Order Comment: Fatty liver, N/V, change of fatty liver Result Comment: Fast ing Glucose result from 100 to 125 mg/dL suggests IMPAIRED HOMEOSTASIS per A.D.A. criteria. Performed By: #### L 300.3900, L100.0100, L500.4050 #### [facility] [address] [place], [address] Potassium [Moles/Vol] 4.5 mmol/L Normal 3.5-5.1 [facility] Comment on above: Order Comment: Fatty liver, N/V, change of fatty liver Performed By: #### L 300.3900, L100.0100, L500.4050 #### [facility] [address] [place], [address] Sodium [Moles/Vol] 138 mmol/L Normal 136-145 [facility] Comment on above: Order Comment: Fatty liver, N/V, change of fatty liver Performed By: #### L 300.3900, L100.0100, L500.4050 #### [facility] [address] [place], [address] T PROT 7.8 g/dL Normal 6.4-8.2 [facility] Comment on above: Order Comment: Fatty liver, N/V, change of fatty liver Performed By: #### L 300.3900, L100.0100, L500.4050 #### [facility] [address] [place], [address] Urea nitrogen [Mass/Vol] 10 mg/dL Normal -18 [facility] Comment on above: Order Comment: Fatty liver, N/V, change of fatty liver Performed By: #### L 300.3900, L100.0100, L500.4050 #### [facility] [address] [place], [address] Prothrombin Time w/INRon INR Coag (PPP) [Relative time] 1.0 {INR} Normal [facility] Comment on above: Performed By: #### L 300.3900, L100.0100, L500.4050 #### [facility] [address] [place], [address] PT Coag (PPP) [Time] 13.2 s Normal 11.7-14.9 [facility] Comment on above: Performed By: #### L 300.3900, L100.0100, L500.4050 #### [facility] [place], [address] Laboratory - Hematology and Cell countson 01-18-2024 HbA1c (Bld) [Mass fraction] 5.5 % Normal 4.6 - 7.1 % [facility] 3D MAMM DIGITAL LT SPOT VIEW Son 12-06-2023 3D MAMM DIGITAL LT SPOT VIEWS [address] [address] Patient: STACI PORTILLO Phone#: : 1970 Age: 53 Gender: F Pt. Type: Out Account: [id number] Location: Ordering: POLLO BOBO Exam Date: 12/06/2023/10:11 Family Phys: Charge Code: [id number] Physician: Alger Order #: [id number] Dose#: PROCEDURE: LEFT BREAST SPOT/MAG TOMOSYNTHESIS MAMMOGRAM WITH CAD COMPARISON: [facility], BILAT SCREENING, 08/06/2020, 16:57. [facility], 3D BILAT SCREEN, 11/28/2023, 14:16. INDICATIONS: Abnormal mammogram. BREAST COMPOSITION: Scattered areas fibroglandular density. FINDINGS: DIAGNOSTIC CATEGORY 1--NEGATIVE: LEFT BREAST: No significant suspicious finding. Described area of asymmetry is resolved. RECOMMENDATIONS: ROUTINE MAMMOGRAM AND CLINICAL EVALUATION IN 12 MONTHS. PLEASE NOTE: A NORMAL MAMMOGRAM DOES NOT EXCLUDE THE POSSIBILITY OF BREAST CANCER. A CLINICALLY SUSPICIOUS PALPABLE LUMP SHOULD BE BIOPSIED. THIS FACILITY UTILIZES A REMINDER SYSTEM TO ENSURE THAT ALL PATIENTS RECEIVE REMINDER LETTERS FOR APPOINTMENTS. THIS INCLUDES REMINDERS FOR ROUTINE MAMMOGRAMS, DIAGNOSITC MAMMOGRAMS, OR OTHER BREAST IMAGING INTERVENTIONS WHEN APPROPRIATE. THIS PATIENT WILL BE PLACED IN THE APPROPRIATE REMINDER SYSTEM. Dictated by: Marley Pearce MD on 12/06/2023 at 17:11 Approved by: Marley Pearce MD on 12/06/2023 at 17:13 Normal [facility] 3D MAMM BILAT SCREENon 11-27 3D MAMM BILAT SCREEN [place] [address] Patient: STACI PORTILLO Phone#: : 1970 Age: 53 Gender: F Pt. Type: Out Account: [id number] Location: Ordering: POLLO BOBO Exam Date: 11/28/2023/14:16 Family Phys: Charge Code: [id number] Physician: Alger Order #: [id number] Dose#: PROCEDURE: BILATERAL SCREENING BREAST TOMOSYNTHESIS MAMMOGRAM WITH CAD COMPARISON: [facility], BILAT SCREENING, 12/17/2018, 16:22. [facility], BILAT SCREENING, 08/06/2020, 16:57. INDICATIONS: SCREENING BREAST COMPOSITION: Scattered areas fibroglandular density. FINDINGS: DIAGNOSTIC CATEGORY 0--INCOMPLETE: NEED ADDITIONAL IMAGING EVALUATION. RIGHT BREAST: No significant suspicious finding. No significant change has occurred. LEFT BREAST: ASYMMETRY visible on only the cc view, located in the central breast, at the mid-breast depth, with size of approximately 15 x 25 mm. Additional spot compression views will be obtained. RECOMMENDATIONS: ADDITIONAL MAMMOGRAPHIC VIEWS REQUIRED: LEFT BREAST --We will call the patient back for additional views and issue an addendum report. PLEASE NOTE: A NORMAL MAMMOGRAM DOES NOT EXCLUDE THE POSSIBILITY OF BREAST CANCER. A CLINICALLY SUSPICIOUS PALPABLE LUMP SHOULD BE BIOPSIED. THIS FACILITY UTILIZES A REMINDER SYSTEM TO ENSURE THAT ALL PATIENTS RECEIVE REMINDER LETTERS FOR APPOINTMENTS. THIS INCLUDES REMINDERS FOR ROUTINE MAMMOGRAMS, DIAGNOSITC MAMMOGRAMS, OR OTHER BREAST IMAGING INTERVENTIONS WHEN APPROPRIATE. THIS PATIENT WILL BE PLACED IN THE APPROPRIATE REMINDER SYSTEM. Dictated by: Marley Pearce MD on 11/28/2023 at 17:11 Approved by: Marley Pearce MD on 11/28/2023 at 17:16 Normal [facility] ALBUMIN, RANDOM URINE W/CREA Sincere 08-28-2023 ALBUMIN, URINE 0.7 mg/dL Normal See Note: [facility] Comment on above: Result Comment: Refe rensiva Range: Reference Range Not established Performed By: #### 6 517 #### [facility] [address], [address] [place] [address] Passenger Rate Clerk: Toro Olivo MD ALBUMIN/CREATININE RATIO, RANDOM URINE 5 mcg/mg creat Normal <30 [facility] Comment on above: Result Comment: The ADA defines abnormalities in albumin excretion as follows: Albuminuria Category Result (mcg/mg creatinine) Normal to Mildly increased <30 Moderately increased 30-299 Severely increased > OR = 300 The ADA recommends that at least two of three specimens collected within a 3-6 month period be abnormal before considering a patient to be within a diagnostic category. Performed By: #### 6 517 #### [facility] [address], [address] [place] [address] Passenger Rate Clerk: Toro Olivo MD Creatinine (U) [Mass/Vol] 144 mg/dL Normal 20-275 [facility] Comment on above: Performed By: #### 6 517 #### [facility] [address], [address] [place] [address] Passenger Rate Clerk: Toro Olivo MD Laboratory - Chemistry and C hemistry - challengeon 08-25-2023 Creatinine (U) [Mass/Vol] 144 mg/dL Normal 20 - 275 mg/dL [facility], [facility] [employer] No Panel Informationon 08-25 ALBUMIN, URINE 0.7 mg/dL Normal [facility], [facility] [employer] ALBUMIN/CREATININE RATIO, RANDOM URINE 5 Normal [facility], [facility] [employer] Laboratory - Hematology and Cell countson 07-05-2023 HbA1c (Bld) [Mass fraction] 6.4 % Normal 4.6 - 7.1 % [employer], [facility] [employer] Chocolate RASTOrdered By: Ra delta Mcwilliams on 05-23-2023 Chocolate IgE Qn (S) <0.10 kU/L Class 0 os [facility] Comment on above: Performed at: [address] [id number] Director: Lynda Arroyo MD, Phone: [phone] Laboratory - Miscellaneous t estsOrdered By: Mehdi Mcwilliams on 05-23-2023 Service comment (Unsp spec) [Interp] Comment . [facility] Comment on above: Levels of Specific I gE Class Description of Class ----- < 0.10 0 Negative 0.10 - 0.31 0/I Equivocal/Low 0.32 - 0.55 I Low 0.56 - 1.40 II Moderate 1.41 - 3.90 III High 3.91 - 19.00 IV Very High 19.01 - 100.00 V Very High >100.00 Very High No Panel InformationOrdered By: Mehdi Mcwilliams on 05-23-2023 [employer] Allergens (RAST) Negative . [facility] Comment on above: Allergens in this mi x are: Blue mussel Fish [place] Shrimp Tuna Serum beef IgE antibody assa y (units/volume)Ordered By: Mehdi Mcwilliams on 05-23-2023 Beef IgE Qn (S) <0.10 kU/L Class 0 [facility] Serum corn IgE antibody assa y (units/volume)Ordered By: Mehdi Mcwilliams on 05-23-2023 [place]lin IgE Qn (S) <0.10 kU/L Class 0 [facility] Serum cow milk IgE antibody assay (units/volume)Ordered By: Mehdi Mcwilliams on 05-23-2023 Cow milk IgE Qn (S) <0.10 kU/L Class 0 [facility] Serum peanut IgE antibody as say (units/volume)Ordered By: Mehdi Mcwilliams on 05-23-2023 Peanut IgE Qn (S) <0.10 kU/L Class 0 [facility] Serum pork IgE antibody assa y (units/volume)Ordered By: Mehdi Mcwilliams on 05-23-2023 Pork IgE Qn (S) <0.10 kU/L Class 0 [facility] Serum soybean IgE antibody a ssay (units/volume)Ordered By: Mehdi Mcwilliams on 05-23-2023 Soybean IgE Qn (S) <0.10 kU/L Class 0 [facility] Serum wheat IgE antibody ass ay (units/volume)Ordered By: Mehdi Mcwilliams on 05-23-2023 Wheat IgE Qn (S) <0.10 kU/L Class 0 [facility] Serum whole egg IgE antibody assay (units/volume)Ordered By: Mehdi Mcwilliams on 05-23-2023 Whole Egg IgE Qn (S) <0.10 kU/L Class 0 [facility] Basophil percentageOrdered B y: Pollo Bah on 05-07-2023 Basophil percentage 25-50 SEEN /hpf 0-5 [facility] Bilirubin Test strip Ql (U)O rdered By: Pollo Bah on 05-07-2023 Bilirubin Ql (U) Negative Negative [facility] Culture, urineOrdered By: Myra Bah on 05-07-2023 Bacteria identified Cx Nom (U) Citrobacter koseri [facility] Ketones Test strip Ql (U)Ord ered By: Pollo Bah on 05-07-2023 Ketones Ql (U) 5 mg/dl Negative [facility] Laboratory - Chemistry and C hemistry - challengeon 05-07-2023 Bilirubin Ql (U) Negative [facility] Glucose Ql (U) Negative [facility] Ketones Ql (U) Negative [facility] pH (U) 6.0 [pH] [facility] Specific gravity (U) [Rel density] 1.015 [facility] Urobilinogen (U) [Mass/Vol] 0.6457022 mg/dL [facility] Laboratory - Hematology and Cell countson 05-07-2023 Hemoglobin Ql (U) Moderate [facility] Laboratory - Specimen inform ationon 05-07-2023 Clarity (U) Cloudy [facility] Color (U) YELLOW [facility] Laboratory - Urinalysison Nitrite Ql (U) Negative [facility] Protein Ql (U) Trace [facility] [facility] M[facility] LM Ql (Urine sed)Order ed By: Pollo Bah on 05-07-2023 Mucus Ql (Urine sed) 0 SEEN /hpf [facility] Nitrite Test strip Ql (U)Ord ered By: Pollo Bah on 05-07-2023 Nitrite Ql (U) Negative Negative [facility] No Panel Informationon 08-13 -2023 Urine Leukocytes Positive [facility] Urine Non-Hemolyzed Blood Negative [facility] Protein Test strip Ql (U)Ord ered By: Pollo Bah on 05-07-2023 Protein Ql (U) 30 mg/dl Negative [facility] Squamous epithelial cells de tection in urine sediment by light microscopyOrdered By: Pollo aBh on 05-07-2023 Epithelial cells.squamous LM Ql (Urine sed) 0 SEEN /hpf 5-10 [facility] Urine blood detectionOrdered By: Pollo Bah on 05-07-2023 RBC Ql (U) 50 /ul Negative [facility] RBC Ql (U) 0-5 SEEN /hpf 0-5 [facility] Urine clarityOrdered By: Reji Bah on 05-07-2023 Clarity (U) Sl. Cloudy Clear [facility] Urine color determinationOrd ered By: Pollo Bah on 05-07-2023 Color (U) Yellow Yellow [facility] Urine glucose detectionOrder ed By: Pollo Bah on 05-07-2023 Glucose Ql (U) Normal mg/dl Normal [facility] Urine leukocyte esterase det ection by dipstickOrdered By: Pollo Bah on 05-07-2023 Leukocyte esterase Test strip Ql (U) 500 /ul Negative [facility] Urine pHOrdered By: Pollo edwards on 05-07-2023 pH (U) 6.5 [pH] 5.0 - 8.0 [facility] Urine sediment bacteria coun t by microscopy (number/high power field)Ordered By: Pollo Bah on 05-07-2023 Bacteria LM.HPF (Urine sed) [#/Area] 1 /[HPF] None Seen [facility] Urine specific gravity measu rementOrdered By: Pollo Bah on 05-07-2023 Specific gravity (U) [Rel density] 1.010 1.002-1.030 [facility] Urobilinogen Auto test strip Ql (U)Ordered By: Pollo Bah on 05-07-2023 Urobilinogen Ql (U) Normal mg/dl Normal [facility] Glucose Glucometer (BldC) [M ass/Vol]Ordered By: Mehdi Mcwilliams on 04-27-2023 Glucose [Mass/Vol] 119 mg/dL 74-106 [facility] Comment on above: MANAGEMENT OF PATIEN T CARE PER NURSING PROTOCOL Laboratory - Hematology and Cell countson 03-09-2023 HbA1c (Bld) [Mass fraction] 5.8 % Normal 4.6 - 7.1 % [facility] Basophil percentageOrdered B y: Zoraida Gutierrez on 03-03-2023 Basophil percentage < 10.0 umol/L 11-32 [facility] LDH [Catalytic activity/Vol] 217 U/L 84-246 [facility] HIV 1 and HIV-2 antibody ass ay with HIV-1 p24 antigen detectionOrdered By: Zoraida Gutierrez on 03-03-2023 HIV 1+2 Ab+HIV1 p24 Ag IA Ql Non-Reactive Nonreactive [facility] INR in Blood by Coagulation assayOrdered By: Zoraida Gutierrez on 03-03-2023 INR Coag (Bld) [Relative time] 1.0 {INR} [facility] Laboratory - CoagulationOrde red By: Zoraida Gutierrez on 03-03-2023 PT Coag (PPP) [Time] 12.8 s 11.7-14.9 [facility] No Panel InformationOrdered By: Zoraida Guteirrez on 03-03-2023 Ceruloplasmin See comment [facility] Comment on above: TEST RESULTS LIMITSC eruloplasmin 28.5 mg/dL 19.0-39.0 TESTING PERFORMED AT [facility]. ORIGINAL REPORT ON FILE IN LAB CONTAINS ADDITIONAL TEST SITE INFORMATION. Haptoglobin See comment [facility] Comment on above: TEST RESULTS LIMITSH aptoglobin 186 mg/dL 33-346 TESTING PERFORMED AT [facility]. ORIGINAL REPORT ON FILE IN LAB CONTAINS ADDITIONAL TEST SITE INFORMATION. Hepatitis A IgM Antibody See comment [facility] Comment on above: TEST RESULTS LIMITSH ep A Ab, IgM Negative NegativeHBsAg Screen Negative NegativeHep B Core Ab, IgM Negative NegativeHCV Ab Non Reactive Non ReactiveInterpretation: Not infected with HCV unless early or acute infection issuspected (which may be delayed in an immunocompromisedindividual), or other evidence exists to indicate HCV infection. TESTING PERFORMED AT [facility]. ORIGINAL REPORT ON FILE IN LAB CONTAINS ADDITIONAL TEST SITE INFORMATION. Hepatitis B Core IgM Antibody Not Reportable [facility] Hepatitis C Antibody (EIA) Not Reportable [facility] Serum mitochondria antibody detectionOrdered By: Zroaida Gutierrez on 03-03-2023 Mitochondria Ab Ql (S) <20.0 Units 0.0-20.0 [facility] Comment on above: Negative 0.0 - 20.0 Equivocal 20.1 - 24.9 Positive >24.9Mitochondrial (M2) Antibodies are found in 90-96% ofpatients with primary biliary cirrhosis.Performed at: [address] [id number] Director: Doug Suarez PhD, Phone: [phone] Serum or plasma actin IgG an tibody assay (units/volume)Ordered By: Zoraida Gutierrez on 03-03-2023 Actin IgG Qn See comment [facility] Comment on above: TEST RESULTS LIMITSA ctin (Smooth Muscle)Antibody 13 Units 0-19 Negative 0 - 19 Weak positive 20 - 30 Moderate to strong positive >30 Actin Antibodies are found in 52-85% of patients with autoimmune hepatitis or chronic active hepatitis and in 22% of patients with primary biliary cirrhosis. TESTING PERFORMED AT [facility]. ORIGINAL REPORT ON FILE IN LAB CONTAINS ADDITIONAL TEST SITE INFORMATION. Serum or plasma [id number] protein tumor marker measurement (units/volume)Ordered By: Zoraida Gutierrez on 03-03-2023 AFP.tumor marker Qn See comment [facility] Comment on above: TEST RESULTS LIMITSA FP, Serum, Tumor Marker 2.4 ng/mL 0.0-9.2[facility] Electrochemiluminescence Immunoassay (ECLIA)Values obtained with different assay methods or kits cannot beused interchangeably. Results cannot be interpreted as absolute evidence of the presence or absence of malignant disease.This test is not interpretable in females. TESTING PERFORMED AT [facility]. ORIGINAL REPORT ON FILE IN LAB CONTAINS ADDITIONAL TEST SITE INFORMATION. Serum or plasma angiotensin converting enzyme measurement (enzymatic activity/volume)Ordered By: Zoraida Gutierrez on 03-03-2023 Angiotensin converting enzyme [Catalytic activity/Vol] See comment [facility] Comment on above: TEST RESULTS LIMITSA CE, Serum <15 U/L 14-82 [facility] ORIGINAL REPORT ON FILE IN LAB CONTAINS ADDITIONAL TEST SITE INFORMATION. Serum or plasma ferritin christopher surement (mass/volume)Ordered By: Zoraida Gutierrez on 03-03-2023 Ferritin [Mass/Vol] 108 ng/mL 8252 [facility] Serum or plasma hepatitis B virus surface antigen detection by immunoassayOrdered By: Zoraida Gutierrez on 03-03-2023 HBV surface Ag IA Ql Not Reportable [facility] Thin prep Papanicolaou smear with manual screeningOrdered By: Zoraida Gutierrez on 03-03-2023 Thin prep Papanicolaou smear with manual screening See comment [facility] Comment on above: TEST RESULTS LIMITSC opper, Serum or Plasma A, 123 ug/dL 80-158 TESTING PERFORMED AT [facility]. ORIGINAL REPORT ON FILE IN LAB CONTAINS ADDITIONAL TEST SITE INFORMATION. No Panel InformationOrdered By: Zoraida Gutierrez on 02-13-2023 Stool Pancreatic Elastase 436 >200 [facility] Comment on above: Result Units: ug [address] st./g Severe Pancreatic Insufficiency: <100 Moderate Pancreatic Insufficiency: 100 - 200 Normal: >200Performed at: [facility] [id number] Director: Lynda Arroyo MD, Phone: [phone] Absolute lymphocyte countOrd ered By: Zoraida Gutierrez on 02-10-2023 Lymphocytes Auto (Unsp spec) [#/Vol] 2.95 10*3/uL 0.83-4.51 [facility] Atypical perinuclear antineu trophil cytoplasmic antibodies measurementOrdered By: Zoraida Gutierrez on 02-10-2023 Neutrophil cytoplasmic Ab.perinuclear.atypical IF (S) [Titer] <1:20 titer Neg:<1:20 [facility] Comment on above: The atypical pANCA p attern has been observed in asignificant percentage of patients with ulcerative colitis,primary sclerosing cholangitis and autoimmune hepatitis.Performed at: [facility] [id number] Director: Doug Suarez PhD, Phone: [phone] Basophil percentageOrdered B y: Zoraida Gutierrez on 02-10-2023 Basophil percentage < 0.2 AI 0.0-0.9 [facility] Basophils/100 WBC (Bld) 0.4 % 0-1 [facility] Bilirubin [Mass/Vol] 0.20 mg/dL 0.20-1.00 [facility] Comment on above: For patients on eltr ombopag therapy, use of Dimension Howard TBIL is not recommended. Chloride [Moles/Vol] 106 mmol/L 98-107 [facility] Eosinophils/100 WBC (Bld) 7.5 % 0-5 [facility] Glucose [Mass/Vol] 99 mg/dL 74-106 [facility] Neutrophils (Bld) [#/Vol] 3.5 10*3/uL 2.0-7.7 [facility] Neutrophils/100 WBC (Bld) 47.3 % 47-70 [facility] Potassium [Moles/Vol] 3.7 mmol/L 3.5-5.1 [facility] Protein [Mass/Vol] 8.2 g/dL 6.4-8.2 [facility] Sodium [Moles/Vol] 139 mmol/L 136-145 [facility] WBC (Bld) [#/Vol] 7.4 10*3/uL 4.4-11.0 [facility] Blood erythrocytes count (nu mber/volume)Ordered By: Zoraida Gutierrez on 02-10-2023 RBC (Bld) [#/Vol] 4.84 10*6/uL 4.2-5.4 [facility] Blood hemoglobin measurement (mass/volume)Ordered By: Zoraida Gutierrez on 02-10-2023 Hemoglobin (Bld) [Mass/Vol] 14.2 g/dL 12.0-15.0 [facility] Blood lymphocytes/100 leukoc ytesOrdered By: Zoraida Gutierrez on 02-10-2023 Lymphocytes/100 WBC (Bld) 39.8 % 19-41 [facility] Blood monocytes/100 leukocyt esOrdered By: Zoraida Gutierrez on 02-10-2023 Monocytes/100 WBC (Bld) 4.9 % 0-10 [facility] Blood platelet mean volumeOr dered By: Zoraida Gutierrez on 02-10-2023 Platelet mean volume (Bld) [Entitic vol] 9.2 fL 6.2-12.0 [facility] Determination of erythrocyte mean corpuscular volume (MCV)Ordered By: Zoraida Gutierrez on 02-10-2023 MCV (RBC) [Entitic vol] 89.3 fL 81-99 [facility] Erythrocyte sedimentation ra teOrdered By: Zoraida Gutierrez on 02-10-2023 ESR (Bld) [Velocity] 22 mm/h 0-30 [facility] Hematocrit Auto (Bld) [Volum e fraction]Ordered By: Zoraida Gutierrez on 02-10-2023 Hematocrit (Bld) [Volume fraction] 43.2 % 37-47 [facility] Laboratory - Chemistry and C hemistry - challengeOrdered By: Zoraida Gutierrez on 02-10-2023 ALP [Catalytic activity/Vol] 67 U/L 45-117 [facility] ALT [Catalytic activity/Vol] 42 U/L 13-56 [facility] CO2 [Moles/Vol] 26.0 mmol/L 21.0-32.0 [facility] Globulin (S) [Mass/Vol] 3.9 g/dL 2.2-4.2 [facility] Urea nitrogen/Creatinine [Mass ratio] 13.7 mg/mg 10-20 [facility] Laboratory - Hematology and Cell countsOrdered By: Zoraida Gutierrez on 02-10-2023 Erythrocyte distribution width (RBC) [Entitic vol] 40.9 fL 35.1-43.9 [facility] Erythrocyte distribution width (RBC) [Ratio] 12.5 % 11.6-14.6 [facility] Immature granulocytes/100 WBC (Bld) 0.100 % 0.0-0.9 [facility] Comment on above: IG% - Immature Granu locytes (promyelocytes, myelocytes and metamyelocytes) > 1% indicates that a LEFT SHIFT is Present. MCH (RBC) [Entitic mass] 29.3 pg 27.0-32.0 [facility] Nucleated RBC/100 WBC (Bld) [Ratio] 0 % 0-5 [facility] MCHC Auto (RBC) [Mass/Vol]Or dered By: Zoraida Gutierrez on 02-10-2023 MCHC (RBC) [Mass/Vol] 32.9 g/dL 32-36 [facility] No Panel InformationOrdered By: Zoraida Gutierrez on 02-10-2023 Centromere B Antibody <0.2 AI 0.0-0.9 [facility] Endomysial IgA Antibody Negative Negative [facility] Estimated GFR (MDRD) Amer 121 mL/min >60 [facility] Comment on above: GFR Calc Estimated GFR (MDRD) Non-Af Amer 100 mL/min >60 [facility] Comment on above: Non- GFR Calc GAS METER MECHANIC Antibody 0.3 AI 0.0-0.9 [facility] Platelets bldOrdered By: Cindy Gutierrez on 02-10-2023 Platelets (Bld) [#/Vol] 421 10*3/uL 150-450 [facility] Serum DNA double strand anti body assay (units/volume)Ordered By: Zoraida Gutierrez on 02-10-2023 DNA double strand Ab Qn (S) [IU]/mL 0-9 [facility] Comment on above: Negative <5 Equivoca l 5 - 9 Positive >9 Serum IgA measurement (units /volume)Ordered By: Zoraida Gutierrez on 02-10-2023 IgA Qn (S) 229 mg/dL 87-352 [facility] Serum Myra-1 antibody assay (u nits/volume)Ordered By: Zoraida Gutierrez on 02-10-2023 Myra-1 extractable nuclear Ab Qn (S) <0.2 AI 0.0-0.9 [facility] Serum Scl-70 extractable nuc lear antibody assay (units/volume)Ordered By: Zoraida Gutierrez on 02-10-2023 SCL-70 extractable nuclear Ab Qn (S) <0.2 AI 0.0-0.9 [facility] Serum Meza extractable nucl ear antibody detectionOrdered By: Zoraida Gutierrez on 02-10-2023 Meza extractable nuclear Ab Ql (S) <0.2 AI 0.0-0.9 [facility] Serum classic neutrophil cyt oplasmic antibody assay (units/volume)Ordered By: Zoraida Gutierrez on 02-10-2023 Neutrophil cytoplasmic Ab.classic Qn (S) <1:20 titer Neg:<1:20 [facility] Serum or plasma C reactive p rotein measurement (mass/volume)Ordered By: Zoraida Gutierrez on 02-10-2023 CRP [Mass/Vol] mg/L 0.0-3.0 [facility] Comment on above: C-Reactive Protein ( CRP) provides useful information for thediagnosis, therapy and monitoring of inflammatory processesand associated diseases. For the evaluation of Relative Riskfor Cardiovascular Disease, a High Sensitivity CRP (HSCRP)should be ordered. Serum or plasma albumin nikunj urement (mass/volume)Ordered By: Zoraida Gutierrez on 02-10-2023 Albumin [Mass/Vol] 4.3 g/dL 3.2-5.0 [facility] Serum or plasma albumin/glob ulin mass ratioOrdered By: Zoraida Gutierrez on 02-10-2023 Albumin/Globulin [Mass ratio] 1.1 {ratio} 0.9-2.4 [facility] Serum or plasma calcium nikunj urement (mass/volume)Ordered By: Zoraida Gutierrez on 02-10-2023 Calcium [Mass/Vol] 9.2 mg/dL 8.5-10.1 [facility] Serum or plasma creatinine m easurement (mass/volume)Ordered By: Zoraida Gutierrez on 02-10-2023 Creatinine [Mass/Vol] 0.66 mg/dL 0.55-1.02 [facility] Comment on above: The validity of the calculated GFR & GFRAA in patients over 70 years has not been determined. Clinical correlation is essential. Serum or plasma urea nitroge n measurement (mass/volume)Ordered By: Zoraida Gutierrez on 02-10-2023 Urea nitrogen [Mass/Vol] 9 mg/dL 04-11 [facility] Serum perinuclear neutrophil cytoplasmic antibody titer by immunofluorescenceOrdered By: Zoraida Gutierrez on 02-10-2023 Neutrophil cytoplasmic Ab.perinuclear IF (S) [Titer] <1:20 titer Neg:<1:20 [facility] Comment on above: The presence of posi tive fluorescence exhibiting P-ANCA orC-ANCA patterns alone is not specific for the diagnosis ofWegener's Granulomatosis (WG) or microscopic polyangiitis.Decisions about treatment should not be based solely onANCA IFA results. The International ANCA Group Consensusrecommends follow up testing of positive sera with both DC-3 and MPO-ANCA enzyme immunoassays. As many as 5% serumsamples are positive only by EIA. Ref. AM J Clin Amupqa4952;111:507-513. Serum tissue transglutaminas e IgA antibody assay (units/volume)Ordered By: Zoraida Gutierrez on 02-10-2023 tTG IgA Qn (S) <2 U/mL 0-3 [facility] Comment on above: Negative 0 - 3 Weak Positive 4 - 10 Positive >10 Tissue Transglutaminase (tTG) has been identified as the endomysial antigen. Studies have demonstr- ated that endomysial IgA antibodies have over 99% specificity for gluten sensitive enteropathy. Thin prep Papanicolaou smear with manual screeningOrdered By: Zoraida Gutierrez on 02-10-2023 Thin prep Papanicolaou smear with manual screening 26 U/L 15-37 [facility] Thin prep Papanicolaou smear with manual screening 7 5-15 [facility] Glucose Glucometer (BldC) [M ass/Vol]Ordered By: Dr. Cheung on 03-31-2023 Glucose [Mass/Vol] 116 mg/dL 74-106 [facility] Comment on above: MANAGEMENT OF PATIEN T CARE PER NURSING PROTOCOL Absolute lymphocyte countOrd ered By: Evan Francis on 11-05-2022 Lymphocytes Auto (Unsp spec) [#/Vol] 3.76 10*3/uL 0.83-4.51 [facility] Basophil percentageOrdered B y: Evan Francis on 11-05-2022 Basophils/100 WBC (Bld) 0.4 % 0-1 [facility] Bilirubin [Mass/Vol] 0.40 mg/dL 0.20-1.00 [facility] Comment on above: For patients on eltr ombopag therapy, use of Dimension Howard TBIL is not recommended. Chloride [Moles/Vol] 106 mmol/L 98-107 [facility] Eosinophils/100 WBC (Bld) 2.4 % 0-5 [facility] Glucose [Mass/Vol] 125 mg/dL 74-106 [facility] Comment on above: Fasting Glucose resu lt from 100 to 125 mg/dL suggests IMPAIRED HOMEOSTASIS per A.D.A. criteria. Neutrophils (Bld) [#/Vol] 6.0 10*3/uL 2.0-7.7 [facility] Neutrophils/100 WBC (Bld) 55.7 % 47-70 [facility] Potassium [Moles/Vol] 4.0 mmol/L 3.5-5.1 [facility] Protein [Mass/Vol] 8.5 g/dL 6.4-8.2 [facility] Sodium [Moles/Vol] 139 mmol/L 136-145 [facility] WBC (Bld) [#/Vol] 10.7 10*3/uL 4.4-11.0 [facility] Blood erythrocytes count (nu mber/volume)Ordered By: Evan Francis on 11-05-2022 RBC (Bld) [#/Vol] 4.91 10*6/uL 4.2-5.4 [facility] Blood hemoglobin measurement (mass/volume)Ordered By: Evan Francis on 11-05-2022 Hemoglobin (Bld) [Mass/Vol] 14.4 g/dL 12.0-15.0 [facility] Blood lymphocytes/100 leukoc ytesOrdered By: Evan Francis on 11-05-2022 Lymphocytes/100 WBC (Bld) 35.0 % 19-41 [facility] Blood monocytes/100 leukocyt esOrdered By: Evan Francis on 11-05-2022 Monocytes/100 WBC (Bld) 6.1 % 0-10 [facility] Blood platelet mean volumeOr dered By: Evan Francis on 11-05-2022 Platelet mean volume (Bld) [Entitic vol] 9.5 fL 6.2-12.0 [facility] Determination of erythrocyte mean corpuscular volume (MCV)Ordered By: Evan Francis on 11-05-2022 MCV (RBC) [Entitic vol] 87.8 fL 81-99 [facility] Hematocrit Auto (Bld) [Volum e fraction]Ordered By: Evan Francis on 11-05-2022 Hematocrit (Bld) [Volume fraction] 43.1 % 37-47 [facility] Laboratory - Chemistry and C hemistry - challengeOrdered By: Evan Francis on 11-05-2022 ALP [Catalytic activity/Vol] 71 U/L 45-117 [facility] ALT [Catalytic activity/Vol] 46 U/L 13-56 [facility] CO2 [Moles/Vol] 26.0 mmol/L 21.0-32.0 [facility] Globulin (S) [Mass/Vol] 4.1 g/dL 2.2-4.2 [facility] Lipase [Catalytic activity/Vol] 259 U/L 73-393 [facility] Urea nitrogen/Creatinine [Mass ratio] 16.1 mg/mg 10-20 [facility] Laboratory - Hematology and Cell countsOrdered By: Evan Francis on 11-05-2022 Erythrocyte distribution width (RBC) [Entitic vol] 41.8 fL 35.1-43.9 [facility] Erythrocyte distribution width (RBC) [Ratio] 12.9 % 11.6-14.6 [facility] Immature granulocytes/100 WBC (Bld) 0.400 % 0.0-0.9 [facility] Comment on above: IG% - Immature Granu locytes (promyelocytes, myelocytes and metamyelocytes) > 1% indicates that a LEFT SHIFT is Present. MCH (RBC) [Entitic mass] 29.3 pg 27.0-32.0 [facility] Nucleated RBC/100 WBC (Bld) [Ratio] 0 % 0-5 [facility] MCHC Auto (RBC) [Mass/Vol]Or dered By: Evan Francis on 11-05-2022 MCHC (RBC) [Mass/Vol] 33.4 g/dL 32-36 [facility] No Panel InformationOrdered By: Evan Francis on 11-05-2022 Estimated Creatinine Clearance Calc 102.05 ml/min [facility] Estimated GFR (MDRD) Amer 129 mL/min >60 [facility] Comment on above: GFR Calc Estimated GFR (MDRD) Non-Af Amer 107 mL/min >60 [facility] Comment on above: Non- GFR Calc Platelets bldOrdered By: Estefany Francis on 11-05-2022 Platelets (Bld) [#/Vol] 476 10*3/uL 150-450 [facility] Serum or plasma albumin nikunj urement (mass/volume)Ordered By: Evan Francis on 11-05-2022 Albumin [Mass/Vol] 4.4 g/dL 3.2-5.0 [facility] Serum or plasma albumin/glob ulin mass ratioOrdered By: Evan Francis on 11-05-2022 Albumin/Globulin [Mass ratio] 1.1 {ratio} 0.9-2.4 [facility] Serum or plasma calcium nikunj urement (mass/volume)Ordered By: Evan Francis on 11-05-2022 Calcium [Mass/Vol] 10.0 mg/dL 8.5-10.1 [facility] Serum or plasma creatinine m easurement (mass/volume)Ordered By: Evan Francis on 11-05-2022 Creatinine [Mass/Vol] 0.62 mg/dL 0.55-1.02 [facility] Comment on above: The validity of the calculated GFR & GFRAA in patients over 70 years has not been determined. Clinical correlation is essential. Serum or plasma urea nitroge n measurement (mass/volume)Ordered By: Evan Francis on 11-05-2022 Urea nitrogen [Mass/Vol] 10 mg/dL 7-18 [facility] Thin prep Papanicolaou smear with manual screeningOrdered By: Evan Francis on 11-05-2022 Thin prep Papanicolaou smear with manual screening 27 U/L 15-37 [facility] Thin prep Papanicolaou smear with manual screening 7 5-15 [facility] CBC (INCLUDES DIFF/PLT)on Basophils (Bld) [#/Vol] 0.039 10*3/uL Normal 0-200 [facility] Comment on above: Performed By: #### 6 399, [id number] #### [facility] [address], [address] [place] [address] Passenger Rate Clerk: Toro Olivo MD Basophils/100 WBC (Bld) 0.5 % Normal [facility] Comment on above: Performed By: #### 6 399, [id number] #### [facility] [place] [address] Passenger Rate Clerk: Toro Olivo MD Eosinophils (Bld) [#/Vol] 0.162 10*3/uL Normal 15-500 [facility] Comment on above: Performed By: #### 6 399, [id number] #### [facility] [place] [address] Passenger Rate Clerk: Toro Olivo MD Eosinophils/100 WBC (Bld) 2.1 % Normal [facility] Comment on above: Performed By: #### 6 399, [id number] #### [facility] [place] [address] Passenger Rate Clerk: Toro Olivo MD Erythrocyte distribution width (RBC) [Ratio] 12.5 % Normal 11.0-15.0 [facility] Comment on above: Performed By: #### 6 399, [id number] #### [facility] [place] [address] Passenger Rate Clerk: Toro Olivo MD Hematocrit (Bld) [Volume fraction] 41.3 % Normal 35.0-45.0 [facility] Comment on above: Performed By: #### 6 399, [id number] #### [facility] [place] [address] Passenger Rate Clerk: Toro Olivo MD Hemoglobin (Bld) [Mass/Vol] 13.4 g/dL Normal 11.7-15.5 [facility] Comment on above: Performed By: #### 6 399, [id number] #### [facility] [place] [address] Passenger Rate Clerk: Toro Olivo MD Lymphocytes (Bld) [#/Vol] 2.995 10*3/uL Normal 850-3900 [facility] Comment on above: Performed By: #### 6 399, [id number] #### [facility] [place] [address] Passenger Rate Clerk: Toro Olivo MD Lymphocytes/100 WBC (Bld) 38.9 % Normal [facility] Comment on above: Performed By: #### 6 399, [id number] #### [facility] [place] [address] Passenger Rate Clerk: Toro Olivo MD MCH (RBC) [Entitic mass] 28.8 pg Normal 27.0-33.0 [facility] Comment on above: Performed By: #### 6 399, [id number] #### [facility] [place] [address] Passenger Rate Clerk: Toro Olivo MD MCHC (RBC) [Mass/Vol] 32.4 g/dL Normal 32.0-36.[address] [facility] Comment on above: Performed By: #### 6 399, [id number] #### [facility] [place] [address] Passenger Rate Clerk: Toro Olivo MD MCV (RBC) [Entitic vol] 88.8 fL Normal 80.0-100.0 [facility] Comment on above: Performed By: #### 6 399, [id number] #### [facility] [place] [address] Passenger Rate Clerk: Toro Olivo MD Monocytes (Bld) [#/Vol] 0.408 10*3/uL Normal 200-950 [facility] Comment on above: Performed By: #### 6 399, [id number] #### [facility] [place] [address] Passenger Rate Clerk: Toro Olivo MD Monocytes/100 WBC (Bld) 5.3 % Normal [facility] Comment on above: Performed By: #### 6 399, [id number] #### [facility] [place] [address] Passenger Rate Clerk: Toro Olivo MD Neutrophils (Bld) [#/Vol] 4.096 10*3/uL Normal 8009-9418 [facility] Comment on above: Performed By: #### 6 399, [id number] #### [facility] [place] [address] Passenger Rate Clerk: Toro Olivo MD Neutrophils/100 WBC (Bld) 53.2 % Normal [facility] Comment on above: Performed By: #### 6 399, [id number] #### [facility] [place] [address] Passenger Rate Clerk: Toro Olivo MD Platelet mean volume (Bld) [Entitic vol] 9.8 fL Normal 7.5-12.5 [facility] Comment on above: Performed By: #### 6 399, [id number] #### [facility] [place] [address] Passenger Rate Clerk: Toro Olivo MD Platelets (Bld) [#/Vol] 403 10*3/uL High 140-400 [facility] Comment on above: Performed By: #### 6 399, [id number] #### [facility] [place] [address] Passenger Rate Clerk: Toro Olivo MD RBC (Bld) [#/Vol] 4.65 10*6/uL Normal 3.80-5.10 [facility] Comment on above: Performed By: #### 6 399, [id number] #### [facility] [place] [address] Passenger Rate Clerk: Toro Olivo MD WBC (Bld) [#/Vol] 7.7 10*3/uL Normal 3.8-10.8 [facility] Comment on above: Performed By: #### 6 399, [id number] #### [facility] [place] [address] Passenger Rate Clerk: Toro Olivo MD [facility] 10-06-2022 Albumin [Mass/Vol] 4.5 g/dL Normal 3.6-5.1 [facility] Comment on above: Performed By: #### 6 399, [id number] #### [facility] [place] [address] Passenger Rate Clerk: Toro Olivo MD Albumin/Globulin [Mass ratio] 1.7 {ratio} Normal 1.0-2.5 [facility] Comment on above: Performed By: #### 6 399, [id number] #### [facility] [place] [address] Passenger Rate Clerk: Toro Olivo MD ALP [Catalytic activity/Vol] 61 U/L Normal 37-153 [facility] Comment on above: Performed By: #### 6 399, [id number] #### [facility] [place] [address] Passenger Rate Clerk: Toro Olivo MD ALT [Catalytic activity/Vol] 23 U/L Normal 6-29 [facility] Comment on above: Performed By: #### 6 399, [id number] #### [facility] [place] [address] Passenger Rate Clerk: Toro Olivo MD AST [Catalytic activity/Vol] 17 U/L Normal 10-35 [facility] Comment on above: Performed By: #### 6 399, [id number] #### [facility] [place] [address] Passenger Rate Clerk: Toro Olivo MD Bilirubin [Mass/Vol] 0.3 mg/dL Normal 0.2-1.2 [facility] Comment on above: Performed By: #### 6 399, [id number] #### [facility] [place] [address] Passenger Rate Clerk: Toro Olivo MD BUN/CREATININE RATIO NOT APPLICABLE Normal 6-22 [facility] Comment on above: Performed By: #### 6 399, 92982 #### [facility] [place] [address] Passenger Rate Clerk: Toro Olivo MD Calcium [Mass/Vol] 9.5 mg/dL Normal 8.6-10.4 [facility] Comment on above: Performed By: #### 6 399, 07186 #### [facility] [place] [address] Passenger Rate Clerk: Toro Olivo MD Chloride [Moles/Vol] 106 mmol/L Normal 98-110 [facility] Comment on above: Performed By: #### 6 399, [id number] #### [facility] [place] [address] Passenger Rate Clerk: Toro Olivo MD CO2 [Moles/Vol] 26 mmol/L Normal 20-32 [facility] Comment on above: Performed By: #### 6 399, 68296 #### [facility] [place] [address] Passenger Rate Clerk: Toro Olivo MD Creatinine [Mass/Vol] 0.59 mg/dL Normal 0.50-1.[address] [facility] [address] [facility] Comment on above: Performed By: #### 6 399, 85069 #### [facility] [place] [address] Passenger Rate Clerk: Toro Olivo MD GFR/1.73 sq M.predicted among non-blacks MDRD (S/P/Bld) [Vol rate/Area] 108 mL/min/{1.73_m2} Normal > OR = 60 [facility] Comment on above: Result Comment: The eGFR is based on the CKD-EPI 2020 equation. To calculate the new eGFR from a previous Creatinine or Cystatin C result, go to https://www.kidney.org/professionals/ kdoqi/gfr%5Fcalculator Performed By: #### 6 399, [id number] #### [facility] [address], [address] [place] [address] Passenger Rate Clerk: Toro Olivo MD Globulin (S) [Mass/Vol] 2.7 g/dL Normal 1.9-3.7 [facility] Comment on above: Performed By: #### 6 399, [id number] #### [facility] [address], [address] [place] [address] Passenger Rate Clerk: Toro Olivo MD Glucose [Mass/Vol] 128 mg/dL High 65-99 [facility] Comment on above: Result Comment: Fasting reference interval For someone without known diabetes, a glucose value >125 mg/dL indicates that they may have diabetes and this should be confirmed with a follow-up test. Performed By: #### 6 399, [id number] #### [facility] [address], [address] [place] [address] Passenger Rate Clerk: Toro Olivo MD Potassium [Moles/Vol] 4.6 mmol/L Normal 3.5-5.[address] [facility] Comment on above: Performed By: #### 6 399, 34194 #### [facility] [address], [address] [place] [address] Passenger Rate Clerk: Toro Olivo MD Protein [Mass/Vol] 7.2 g/dL Normal 6.1-8.1 [facility] Comment on above: Performed By: #### 6 399, 05892 #### [facility] [address], [address] [place] [address] Passenger Rate Clerk: Toro Olivo MD Sodium [Moles/Vol] 141 mmol/L Normal 135-146 [facility] Comment on above: Performed By: #### 6 399, 54425 #### [facility] [address], [address] [place] [address] Passenger Rate Clerk: Toro Olivo MD Urea nitrogen [Mass/Vol] 11 mg/dL Normal 7-25 [facility] Comment on above: Performed By: #### 6 813, [id number] #### [facility] [address] [facility], [address] [place] [address] Passenger Rate Clerk: Toro Olivo MD Laboratory - Chemistry and C hemistry - challengeon 10-05-2022 Albumin [Mass/Vol] 4.5 g/dL Normal 3.6 - 5.1 g/dL [place] [employer] [facility], [employer] Albumin/Globulin [Mass ratio] 1.7 {ratio} Normal 1.0 - 2.5 [place] [employer], [employer] ALP [Catalytic activity/Vol] 61 U/L Normal 37 - 153 U/L [place] [employer] ALT [Catalytic activity/Vol] 23 U/L Normal 6 - 29 U/L [employer] AST [Catalytic activity/Vol] 17 U/L Normal 10 - 35 U/L [employer], [employer] Bilirubin [Mass/Vol] 0.3 mg/dL Normal 0.2 - 1 .2 mg/dL [employer], [employer] Calcium [Mass/Vol] 9.5 mg/dL Normal 8.6 - 10. 4 mg/dL [employer] Chloride [Moles/Vol] 106 mmol/L Normal 98 - 11 0 mmol/L [employer] CO2 [Moles/Vol] 26 mmol/L Normal 20 - 32 mmol/L [employer], [employer] Creatinine [Mass/Vol] 0.59 mg/dL Normal 0.50 - 1.03 mg/dL [employer] GFR/1.73 sq M.predicted among non-blacks MDRD (S/P/Bld) [Vol rate/Area] 108 mL/min/{1.73_m2} Normal [employer] [facility] [employer] Glucose [Mass/Vol] 128 mg/dL Abnormal 65 - 99 mg/dL [facility].; [facility], [facility]. Potassium [Moles/Vol] 4.6 mmol/L Normal 3.5 - 5.3 mmol/L [facility].; [facility], [facility] Protein [Mass/Vol] 7.2 g/dL Normal 6.1 - 8.1 g/dL [facility].; [facility], [facility] Sodium [Moles/Vol] 141 mmol/L Normal 135 - 146 mmol/L [facility].; [facility] Urea nitrogen [Mass/Vol] 11 mg/dL Normal 7 - 25 mg/dL [facility].; [facility], [facility]. Laboratory - Hematology and Cell countson 10-05-2022 Basophils (Bld) [#/Vol] 0.039 10*3/uL Normal 0 - 200 {cells/uL} [facility].; [facility], [facility]. Basophils/100 WBC (Bld) 0.5 % Normal [facility].; [facility] Eosinophils (Bld) [#/Vol] 0.162 10*3/uL Normal 15 - 500 {cells/uL} [facility].; [facility]. Eosinophils/100 WBC (Bld) 2.1 % Normal [facility]; [place] [employer] [facility], [facility] Erythrocyte distribution width (RBC) [Ratio] 12.5 % Normal 11.0 - 15.0 % [facility].; [place] [employer] [facility]. Hematocrit (Bld) [Volume fraction] 41.3 % Normal 35.0 - 45.0 % [facility].; [place] [employer], [facility] Hemoglobin (Bld) [Mass/Vol] 13.4 g/dL Normal 11.7 - 15.5 g/dL [facility].; [facility], [facility] Lymphocytes (Bld) [#/Vol] 2.995 10*3/uL Normal 850 - 3900 {cells/uL} [facility].; [place] [employer], [facility]. Lymphocytes/100 WBC (Bld) 38.9 % Normal [facility].; [employer], [facility]. MCH (RBC) [Entitic mass] 28.8 pg Normal 27.0 - 33.0 pg [facility].; [place] [employer], [facility]. MCHC (RBC) [Mass/Vol] 32.4 g/dL Normal 32.0 - 36.0 g/dL [facility], [facility].; [place] [employer], [employer] MCV (RBC) [Entitic vol] 88.8 fL Normal 80.0 - 100.0 fL [facility].; [employer], [facility]. Monocytes (Bld) [#/Vol] 0.408 10*3/uL Normal 200 - 950 {cells/uL} [facility].; [place] [employer], [employer] Monocytes/100 WBC (Bld) 5.3 % Normal [facility].; [place] [employer], [facility]. Neutrophils (Bld) [#/Vol] 4.096 10*3/uL Normal 1500 - 7800 {cells/uL} [place] [employer] [facility].; [employer], [employer] Neutrophils/100 WBC (Bld) 53.2 % Normal [place] [employer] [facility].; [employer], [employer] Platelet mean volume (Bld) [Entitic vol] 9.8 fL Normal 7.5 - 12.5 fL [place] [employer] [facility].; [employer] Platelets (Bld) [#/Vol] 403 10*3/uL Abnormal 140 - [address] [place] [employer] [address].; [place] [employer] RBC (Bld) [#/Vol] 4.65 10*6/uL Normal 3.80 - 5.1 0 {Million/uL} [place] [employer] [facility].; [employer], [employer] WBC (Bld) [#/Vol] 7.7 10*3/uL Normal 3.8 - 10.8 [place] [employer], [employer] No Panel Informationon 10-05 BUN/CREATININE RATIO NOT APPLICABLE Normal 6 - 22 [facility].; [employer], [employer] GLOBULIN 2.7 Normal 1.9 - 3.7 [place] [employer].; [facility] Laboratory - Hematology and Cell countson 08-22-2022 HbA1c (Bld) [Mass fraction] 6.1 % Normal 4.6 - 7.1 % [facility].; [facility] Laboratory - Hematology and Cell countson 02-09-2022 HbA1c (Bld) [Mass fraction] 6.3 % Normal 4.6 - 7.1 % [facility].; [facility] Laboratory - Chemistry and C hemistry - challengeon 08-11-2021 Albumin/Creatinine DL <= 20 mg/L (U) [Mass ratio] mg/g Normal [facility]; [facility] Creatinine (U) [Mass/Vol] 50 mg/dL Normal [facility].; [facility] Laboratory - Hematology and Cell countson 08-11-2021 HbA1c (Bld) [Mass fraction] 6.3 % Normal 4.6 - 7.1 % [facility].; [place] [employer] [facility] Laboratory - Urinalysison Protein Ql (U) 10 mg/dL Normal [facility]; [place] [employer] [facility] Laboratory - Chemistry and C hemistry - challengeon 05-17-2021 Albumin [Mass/Vol] 4.7 g/dL Normal 3.6 - 5.1 g/dL [facility].; [place] [employer] [facility], [facility] Albumin/Globulin [Mass ratio] 1.7 {ratio} Normal 1.0 - 2.5 [facility].; [facility] ALP [Catalytic activity/Vol] 62 U/L Normal 37 - 153 U/L [facility].; [facility], [facility]. ALT [Catalytic activity/Vol] 24 U/L Normal 6 - 29 U/L [facility].; [facility], [facility]. AST [Catalytic activity/Vol] 19 U/L Normal 10 - 35 U/L [facility].; [place] [employer] [facility], [facility]. Bilirubin [Mass/Vol] 0.4 mg/dL Normal 0.2 - 1 .2 mg/dL [facility].; [facility] Bilirubin.indirect [Mass/Vol] 0.1 mg/dL Normal [facility]; [facility] Protein [Mass/Vol] 7.5 g/dL Normal 6.1 - 8.1 g/dL [facility]; [facility] No Panel Informationon 05-17 BILIRUBIN, INDIRECT 0.3 Normal 0.2 - 1.2 [facility]; [facility] GLOBULIN 2.8 Normal 1.9 - 3.7 [facility]; [facility] Laboratory - Hematology and Cell countson 02-08-2021 HbA1c (Bld) [Mass fraction] 6.2 % Normal 4.6 - 7.1 % [facility]; [facility], [facility] Laboratory - Chemistry and C hemistry - challengeon 11-16-2020 Albumin [Mass/Vol] 4.6 g/dL Normal 3.6 - 5.1 g/dL [facility]; [facility], [facility] Albumin/Globulin [Mass ratio] 2.1 {ratio} Normal 1.0 - 2.5 [facility]; [facility], [facility] ALP [Catalytic activity/Vol] 60 U/L Normal 37 - 153 U/L [facility]; [facility], [facility]. ALT [Catalytic activity/Vol] 32 U/L Abnormal 6 - 29 U/L [facility]; [facility], [facility]. AST [Catalytic activity/Vol] 25 U/L Normal 10 - 35 U/L [facility]; [facility], [facility] Bilirubin [Mass/Vol] 0.4 mg/dL Normal 0.2 - 1 .2 mg/dL [facility]; [facility], [facility] Calcium [Mass/Vol] 9.4 mg/dL Normal 8.6 - 10. 4 mg/dL [facility].; [facility], [facility]. Chloride [Moles/Vol] 105 mmol/L Normal 98 - 11 0 mmol/L [facility]; [facility], [facility] Cholesterol [Mass/Vol] 126 mg/dL Normal [facility]; [facility]. Cholesterol in HDL [Mass/Vol] 43 mg/dL Abnormal [facility].; [facility], [facility]. Cholesterol in LDL [Mass/Vol] 63 mg/dL Normal [facility], [facility].; [place] [employer] [facility], [facility]. CO2 [Moles/Vol] 28 mmol/L Normal 20 - 32 mmol/L [facility], [facility].; [facility], [facility]. Creatinine [Mass/Vol] 0.59 mg/dL Normal 0.50 - 1.05 mg/dL [facility].; [facility], [facility]. GFR/1.73 sq M.predicted among blacks MDRD (S/P/Bld) [Vol rate/Area] 123 mL/min/{1.73_m2} Normal [facility].; [place] [employer] [facility], [facility]. Glucose [Mass/Vol] 121 mg/dL Abnormal 65 - 99 mg/dL [facility].; [place] [employer] [facility], [facility]. Potassium [Moles/Vol] 4.6 mmol/L Normal 3.5 - 5.3 mmol/L [facility].; [place] [employer] [facility], [facility]. Protein [Mass/Vol] 6.8 g/dL Normal 6.1 - 8.1 g/dL [place] [employer] [facility].; [place] [employer], [employer] Sodium [Moles/Vol] 141 mmol/L Normal 135 - 146 mmol/L [facility], [facility].; [place] [employer], [employer]. Triglyceride [Mass/Vol] 121 mg/dL Normal [facility].; [place] [employer], [facility] Urea nitrogen [Mass/Vol] 11 mg/dL Normal 7 - 25 mg/dL [facility].; [employer], [facility] No Panel Informationon 11-16 BUN/CREATININE RATIO NOT APPLICABLE Normal - [facility].; [employer] CHOL/HDLC RATIO 2.9 Normal [facility].; [place] [employer] eGFR NON-AFR. [place] [address] [facility].; [place] [employer]. GLOBULIN 2.2 Normal 1.9 - 3.7 [facility].; [place] [employer] [facility]. NON HDL CHOLESTEROL 83 Normal [facility].; [facility], [facility] Laboratory - Chemistry and C hemistry - challengeon 08-10-2020 Albumin [Mass/Vol] 4.7 g/dL Normal 3.6 - 5.1 g/dL [facility]; [facility], [facility] Albumin/Globulin [Mass ratio] 1.5 {ratio} Normal 1.0 - 2.5 [facility].; [facility] ALP [Catalytic activity/Vol] 64 U/L Normal 37 - 153 U/L [facility].; [facility], [facility]. ALT [Catalytic activity/Vol] 37 U/L Abnormal 6 - 29 U/L [facility].; [facility], [facility]. AST [Catalytic activity/Vol] 27 U/L Normal 10 - 35 U/L [facility].; [facility], [facility] Bilirubin [Mass/Vol] 0.4 mg/dL Normal 0.2 - 1 .2 mg/dL [facility].; [place] [employer] [facility], [facility]. Calcium [Mass/Vol] 10.1 mg/dL Normal 8.6 - 10. 4 mg/dL [facility].; [place] [employer] [facility], [facility]. Chloride [Moles/Vol] 103 mmol/L Normal 98 - 11 0 mmol/L [facility].; [place] [employer] [facility], [facility]. Cholesterol [Mass/Vol] 198 mg/dL Normal [facility].; [facility], [facility] Cholesterol in HDL [Mass/Vol] 47 mg/dL Abnormal [facility].; [facility], [facility]. Cholesterol in LDL [Mass/Vol] 118 mg/dL Abnormal [facility].; [facility], [facility]. CO2 [Moles/Vol] 26 mmol/L Normal 20 - 32 mmol/L [facility].; [facility], [facility]. Creatinine [Mass/Vol] 0.60 mg/dL Normal 0.50 - 1.05 mg/dL [facility], [facility].; [place] [employer] [facility], [facility]. GFR/1.73 sq M.predicted among blacks MDRD (S/P/Bld) [Vol rate/Area] 122 mL/min/{1.73_m2} Normal [facility].; [facility], [facility] Glucose [Mass/Vol] 126 mg/dL Abnormal 65 - 99 mg/dL [facility].; [place] [employer] [facility], [facility] Potassium [Moles/Vol] 4.7 mmol/L Normal 3.5 - 5.3 mmol/L [facility].; [place] [employer] [facility], [facility] Protein [Mass/Vol] 7.8 g/dL Normal 6.1 - 8.1 g/dL [facility].; [place] [employer] [facility], [facility] Sodium [Moles/Vol] 138 mmol/L Normal 135 - 146 mmol/L [facility].; [place] [employer] [facility], [facility] Triglyceride [Mass/Vol] 213 mg/dL Abnormal [facility]; [place] [employer] [facility], [facility] Urea nitrogen [Mass/Vol] 12 mg/dL Normal 7 - 25 mg/dL [facility]; [place] [employer], [facility] Laboratory - Hematology and Cell countson 08-10-2020 HbA1c (Bld) [Mass fraction] 6.2 % Abnormal [facility]; [place] [employer] [facility] No Panel Informationon 08-10 BUN/CREATININE RATIO NOT APPLICABLE Normal 6 - 22 [facility]; [employer], [facility] CHOL/HDLC RATIO 4.2 Normal [facility]; [place] [employer], [facility] eGFR NON-AFR. [place] [address] [facility]; [place] [employer], [facility] GLOBULIN 3.1 Normal 1.9 - 3.7 [facility].; [place] [employer], [facility] NON HDL CHOLESTEROL 151 Abnormal [facility].; [employer], [facility] Laboratory - Hematology and Cell countson 04-08-2020 HbA1c (Bld) [Mass fraction] 6.1 % Normal 4.6 - 7.1 % [facility].; [place] [employer], [facility] Laboratory - Hematology and Cell countson 10-24-2019 HbA1c (Bld) [Mass fraction] 6.1 % Normal 4.6 - 7.1 % [facility].; [employer]. Laboratory - Hematology and Cell countson 07-02-2019 HbA1c (Bld) [Mass fraction] 5.9 % Normal 4.6 - 7.1 % [place] [employer].; [employer]. Laboratory - Chemistry and C hemistry - challengeon 06-29-2019 Calcium [Mass/Vol] 9.8 mg/dL Normal 8.6 - 10. 4 mg/dL [place] [employer].; [employer], [employer] Chloride [Moles/Vol] 101 mmol/L Normal 98 - 11 0 mmol/L [place] [employer].; [employer], [employer] Cholesterol [Mass/Vol] 190 mg/dL Normal [facility] [employer].; [employer], [employer] Cholesterol in HDL [Mass/Vol] 49 mg/dL Abnormal [employer].; [employer], [employer] Cholesterol in LDL [Mass/Vol] 109 mg/dL Abnormal 0 - 100 mg/dL [place] [employer].; [employer], [employer]. Cholesterol non HDL [Mass/Vol] 141 mg/dL Abnormal [employer] [facility].; [employer], [employer]. Cholesterol.total/Marie sterol in HDL [Mass ratio] 3.9 {ratio} Normal [employer].; [employer], [employer] CO2 [Moles/Vol] 25 mmol/L Normal 20 - 32 mmol/L [place] [employer], [employer].; [employer] Creatinine [Mass/Vol] 0.62 mg/dL Normal 0.50 - 1.05 mg/dL [employer], [employer].; [employer], [employer] GFR/1.73 sq M.predicted among blacks MDRD (S/P/Bld) [Vol rate/Area] 122 {ML/MIN/1.73M2} Normal [employer].; [employer] GFR/1.73 sq M.predicted MDRD (S/P/Bld) [Vol rate/Area] 105 {ML/MIN/1.73M2} Normal [employer].; [employer], [employer] Glucose [Mass/Vol] 115 mg/dL Abnormal 65 - 99 mg/dL [employer], [employer].; [facility], [facility]. Potassium [Moles/Vol] 4.5 mmol/L Normal 3.5 - 5.3 mmol/L [facility], [facility].; [facility], [facility]. Sodium [Moles/Vol] 137 mmol/L Normal 135 - 146 mmol/L [facility], [facility].; [facility], [facility]. Triglyceride [Mass/Vol] 201 mg/dL Abnormal H [facility].; [facility], [facility] Urea nitrogen [Mass/Vol] 13 mg/dL Normal 7 - 25 mg/dL [facility].; [facility], [facility] Urea nitrogen/Creatinine [Mass ratio] 21.3 mg/mg Normal 6 - 22 [facility].; [facility], [facility]. Laboratory - Hematology and Cell countson 01-17-2019 HbA1c (Bld) [Mass fraction] 5.8 % Normal 4.6 - 7.1 % [facility].; [facility], [facility] Laboratory - Hematology and Cell countson 07-02-2018 HbA1c (Bld) [Mass fraction] 5.5 % Normal 4.6 - 7.1 % [facility].; [place] [employer], [facility] Laboratory - Hematology and Cell countson 02-12-2018 HbA1c (Bld) [Mass fraction] 5.7 % Normal 4.6 - 7.1 % [facility].; [place] [employer], [employer]. Laboratoryon 01-14-2018 Lower GI hemoglobin IA Ql (Stl) Not detected Normal [facility].; [place] [employer] [facility], [facility] Laboratory - Chemistry and C hemistry - challengeon 11-09-2017 Anion gap [Moles/Vol] 11 mmol/L Normal 10 - 2 0 mmol/L [facility].; [place] [employer], [facility]. Work Phone: Basic metabolic 2000 panel BMP with eGFR Normal [facility].; [place] [employer] [facility], [facility] Work Phone: Calcium [Mass/Vol] 9.3 mg/dL Normal 8.6 - 10. 2 mg/dL [facility].; [place] [employer], [employer] Work Phone: Chloride [Moles/Vol] 105 mmol/L Normal 98 - 10 7 mmol/L [facility].; [facility]. Work Phone: Cholesterol [Mass/Vol] 162 mg/dL Normal 0 - 2 00 mg/dL [facility]; [facility] OrangeHyper[facility]. Work Phone: Cholesterol in HDL [Mass or moles/Vol] 42 mg/dL Normal 40 - 60 mg/dL [facility]; [facility] OrangeHyper[facility]. Work Phone: Cholesterol in LDL [Mass/Vol] 98 mg/dL Normal 0 - 129 mg/dL [facility]; [facility] OrangeHyper[facility]. Work Phone: Cholesterol.total/Marie sterol in HDL [Mass ratio] 3.9 {ratio} Normal 0.0 - 5.0 [facility]; [facility] Orange[facility] Work Phone: CO2 [Moles/Vol] 26.9 mmol/L Normal 21.0 - 31.0 mmol/L [facility]; [place] [employer] [facility]. Work Phone: Creatinine [Mass/Vol] 0.5 mg/dL Abnormal 0.6 - 1.2 mg/dL [facility]; [place] [employer] [facility]. Work Phone: GFR/1.73 sq M.predicted among blacks MDRD (S/P/Bld) [Vol rate/Area] mL/min/{1.73_m2} Normal 60 - 999 {ML/MINUTE} [facility].; [place] [employer] [facility]. Work Phone: GFR/1.73 sq M.predicted MDRD (S/P/Bld) [Vol rate/Area] mL/min/{1.73_m2} Normal 60 - 999 {ML/MINUTE} [facility].; [place] [employer] [facility]. Work Phone: Glucose [Mass/Vol] 113 mg/dL Abnormal 74 - 106 mg/dL [facility]; [facility] OrangeHyper[facility] Work Phone: Lipid 1996 panel LIPID PROFILE Normal [facility]; [facility] OrangeHyper[facility] Work Phone: Potassium [Moles/Vol] 4.0 mmol/L Normal 3.5 - 5.1 mmol/L [facility]; [facility] OrangeHyper[facility] Work Phone: Sodium [Moles/Vol] 139 mmol/L Normal 136 - 145 mmol/L [facility]; [place] [employer] [facility] Work Phone: Triglyceride [Mass/Vol] 109 mg/dL Normal 0 - 150 mg/dL [facility]; [place] [employer] [facility]Hyper[facility]. Work Phone: TSH Qn 3.35 m[IU]/L Normal 0.34 - 5.60 {uIU/ml} [facility]; [place] [employer] [facility] Work Phone: Urea nitrogen [Mass/Vol] 11 mg/dL Normal 6 - 20 mg/dL [facility]; [place] [employer]. Work Phone: Laboratory - Hematology and Cell countson 11-09-2017 HbA1c (Bld) [Mass fraction] 5.7 % Normal 4.4 - 6.4 % [facility]; [place] [employer] Work Phone: No Panel Informationon 11-09 AGE 47 {years} Normal [facility]; [place] [employer] Work Phone: Laboratory - Hematology and Cell countson 08-14-2017 HbA1c (Bld) [Mass fraction] 5.5 % Normal 4.6 - 7.1 % [facility]; [employer] Laboratory - Hematology and Cell countson 05-17-2017 HbA1c (Bld) [Mass fraction] 5.6 % Normal 4.6 - 7.1 % [facility]; [facility] OrangeHyper[facility] Laboratory - Cytologyon 08-26 Microscopic observation Cyto stain Nom (Cvx) Normal [facility]; [place] [employer] [facility] Laboratory - Hematology and Cell countson 09-16-2016 HbA1c (Bld) [Mass fraction] 5.6 % Normal 4.6 - 7.1 % [facility].; [facility] Laboratory - Chemistry and C hemistry - challengeon 09-11-2016 Anion gap [Moles/Vol] 12 mmol/L Normal 10 - 2 0 mmol/L [facility]; [place] [employer] [facility] Basic metabolic 2000 panel BMP with eGFR Normal [facility]; [facility], [facility] Calcium [Mass/Vol] 9.3 mg/dL Normal 8.6 - 10. 2 mg/dL [facility].; [place] [employer] [facility], [facility]. Chloride [Moles/Vol] 102 mmol/L Normal 98 - 10 7 mmol/L [facility].; [place] [employer], [employer]. Cholesterol [Mass/Vol] 181 mg/dL Normal 0 - 2 00 mg/dL [facility].; [place] [employer], [facility]. Cholesterol in HDL [Mass or moles/Vol] 46 mg/dL Normal 40 - 60 mg/dL [facility].; [place] [employer] [facility], [employer]. Cholesterol in LDL [Mass/Vol] 114 mg/dL Normal 0 - 129 mg/dL [facility].; [place] [employer], [employer]. Cholesterol.total/Marie sterol in HDL [Mass ratio] 3.9 {ratio} Normal 0.0 - 5.0 [facility].; [employer], [employer]. CO2 [Moles/Vol] 30.0 mmol/L Normal 21.0 - 31.0 mmol/L [facility].; [place] [employer], [employer]. Creatinine [Mass/Vol] 0.6 mg/dL Normal 0.6 - 1.2 mg/dL [facility], [facility].; [place] [employer], [facility]. GFR/1.73 sq M.predicted among blacks MDRD (S/P/Bld) [Vol rate/Area] mL/min/{1.73_m2} Normal 60 - 999 {ML/MINUTE} [facility].; [place] [employer] [facility]. GFR/1.73 sq M.predicted MDRD (S/P/Bld) [Vol rate/Area] mL/min/{1.73_m2} Normal 60 - 999 {ML/MINUTE} [facility].; [place] [employer] Glucose [Mass/Vol] 121 mg/dL Abnormal 74 - 106 mg/dL [facility]; [employer] Lipid 1996 panel LIPID PROFILE Normal [facility]; [place] [employer] [facility] Potassium [Moles/Vol] 4.1 mmol/L Normal 3.5 - 5.1 mmol/L [facility]; [place] [employer] Sodium [Moles/Vol] 140 mmol/L Normal 136 - 145 mmol/L [facility]; [place] [employer] Triglyceride [Mass/Vol] 103 mg/dL Normal 0 - 150 mg/dL [place] [employer] [facility]; [place] [employer]. TSH Qn 1.90 m[IU]/L Normal 0.34 - 5.60 {uIU/ml} [place] [employer] [facility]; [employer] Urea nitrogen [Mass/Vol] 10 mg/dL Normal 6 - 20 mg/dL [place] [employer] [facility]; [place] [employer] No Panel Informationon 09-11 AGE 46 {years} Normal [place] [employer] [facility]; [employer] [facility] Laboratory - Microbiology an d Antimicrobial susceptibilityon 01-26-2016 S. pyogenes Ag EIA Ql (Throat) Negative Normal [place] [employer]; [employer]. Laboratory - Chemistry and C hemistry - challengeon 06-11-2015 Bilirubin Ql (U) Negative Normal [place] [employer]; [employer] [facility] Ketones Ql (U) Negative Normal [place] [employer] [facility].; [employer]. pH (U) 7.5 [pH] Normal [place] [employer] [facility].; [employer] Specific gravity (U) [Rel density] 1.010 Normal [employer] [facility]; [employer] Urobilinogen Qn (U) 0.2 mg/dL Normal [facility].; [place] [employer]. Laboratory - Hematology and Cell countson 06-11-2015 Hemoglobin Ql (U) Negative Normal [facility].; [place] [employer]. Laboratory - Specimen inform ationon 06-11-2015 Appearance (U) Clear Normal [facility].; [employer] Color (U) yellow Normal [facility] OrangeHyper[facility].; [employer]. Laboratory - Urinalysison Glucose Test strip (U) [Mass/Vol] Negative Normal [facility].; [employer]. Leukocyte esterase Test strip Ql (U) Negative Normal [facility] OrangeHyper[facility].; [employer]. Nitrite Ql (U) Negative Normal [facility].; [employer]. Protein Ql (U) Negative Normal [facility] OrangeHyper[facility].; [employer]. Laboratory - Chemistry and C hemistry - challengeon 04-25-2013 Albumin [Mass/Vol] 4.8 g/dL Normal 3.6 - 5.1 g/dL [facility].; [employer]. Albumin/Globulin [Mass ratio] 1.7 {ratio} Normal 1.0 - 2.5 [facility].; [employer]. ALP [Catalytic activity/Vol] 40 U/L Normal 33 - 115 U/L [facility].; [place] [employer]. ALT [Catalytic activity/Vol] 21 U/L Normal 6 - 29 U/L [facility].; [employer], [employer]. AST [Catalytic activity/Vol] 16 U/L Normal 10 - 30 U/L [place] [employer] [facility].; [facility]. Bilirubin [Mass/Vol] 0.4 mg/dL Normal 0.2 - 1 .2 mg/dL [place] [employer] [facility].; [employer], [employer]. Calcium [Mass/Vol] 9.9 mg/dL Normal 8.6 - 10. 2 mg/dL [place] [employer] [facility].; [employer]. Chloride [Moles/Vol] 101 mmol/L Normal 98 - 11 0 mmol/L [facility].; [facility]. CO2 [Moles/Vol] 24 mmol/L Normal 19 - 30 mmol/L [facility].; [facility], [facility]. Creatinine [Mass/Vol] 0.66 mg/dL Normal 0.50 - 1.10 mg/dL [facility], [facility].; [facility], [facility]. GFR/1.73 sq M.predicted among blacks MDRD (S/P/Bld) [Vol rate/Area] 125 {ML/MIN/1.73M2} Normal [facility], [facility].; [facility], [facility]. GFR/1.73 sq M.predicted MDRD (S/P/Bld) [Vol rate/Area] 107 {ML/MIN/1.73M2} Normal [facility], [facility].; [place] [employer] [facility], [facility]. Globulin (S) [Mass/Vol] 2.9 g/dL Normal 1.9 - 3.7 g/dL [facility].; [place] [employer] [facility], [facility]. Glucose [Mass/Vol] 131 mg/dL Abnormal 65 - 99 mg/dL [facility], [facility].; [place] [employer] [facility], [facility]. Potassium [Moles/Vol] 4.1 mmol/L Normal 3.5 - 5.3 mmol/L [facility], [facility].; [place] [employer] [facility], [facility]. Protein [Mass/Vol] 7.7 g/dL Normal 6.1 - 8.1 g/dL [facility], [facility].; [place] [employer] [facility], [facility]. Sodium [Moles/Vol] 138 mmol/L Normal 135 - 146 mmol/L [facility].; [place] [employer], [facility]. TSH Qn 1.17 m[IU]/L Normal 0.40 - 4.50 {mIU/L} [facility], [facility].; [place] [employer] [facility], [facility]. Urea nitrogen [Mass/Vol] 9 mg/dL Normal 7 - 25 mg/dL [facility], [facility].; [place] [employer], [facility] Urea nitrogen/Creatinine [Mass ratio] 14.1 mg/mg Normal 6 - 22 [facility].; [place] [employer], [facility]. Laboratory - Hematology and Cell countson 04-25-2013 Basophils (Bld) [#/Vol] 30 {Cells}/uL Normal 0 - 200 {Cells}/uL [facility].; [place] [employer] [facility]. Basophils/100 WBC (Bld) 0 % Normal 0 - 2 % [facility].; [facility], [facility] Eosinophils (Bld) [#/Vol] 280 {Cells}/uL Normal 15 - 500 {Cells}/uL [facility].; [facility], [facility] Eosinophils/100 WBC (Bld) 3 % Normal 0 - 8 % [facility].; [place] [employer] [facility] Erythrocyte distribution width (RBC) [Ratio] 12.9 % Normal 11.0 - 15.0 % [facility].; [place] [employer] [facility], [facility] Hematocrit (Bld) [Volume fraction] 41.0 % Normal 35.0 - 45.0 % [facility], [facility].; [place] [employer] [facility], [facility] Hemoglobin (Bld) [Mass/Vol] 13.5 g/dL Normal 11.7 - 15.5 g/dL [facility].; [place] [employer], [facility]. Lymphocytes (Bld) [#/Vol] 3150 {Cells}/uL Normal 850 - 3900 {Cells}/uL [facility].; [place] [employer], [facility]. Lymphocytes/100 WBC (Bld) 31 % Normal 15 - 49 % [facility].; [place] [employer], [facility]. MCH (RBC) [Entitic mass] 30.1 pg Normal 27.0 - 33.0 PG [facility].; [place] [employer], [facility]. MCHC (RBC) [Mass/Vol] 32.8 g/dL Normal 32.0 - 36.0 g/dL [facility].; [place] [employer], [facility]. MCV (RBC) [Entitic vol] 91.7 fL Normal 80.0 - 100.0 fL [place] [employer] [facility].; [place] [employer], [facility]. Monocytes (Bld) [#/Vol] 420 {Cells}/uL Normal 20 0 - 950 {Cells}/uL [facility].; [place] [employer], [employer]. Monocytes/100 WBC (Bld) 4 % Normal 0 - 13 % H [facility]; [facility] Neutrophils (Bld) [#/Vol] 6430 {Cells}/uL Normal 1500 - 7800 {Cells}/uL [facility]; [facility] Neutrophils/100 WBC (Bld) 62 % Normal 38 - 80 % [facility]; [facility] Platelets (Bld) [#/Vol] 361 10*3/uL Normal 140 - 400 10*3/uL [facility]; [facility] RBC (Bld) [#/Vol] 4.48 10*6/uL Normal 3.80 - 5.1 0 10*6/uL [facility]; [facility]. WBC (Bld) [#/Vol] 10.3 10*3/uL Normal 3.8 - 10.8 10*3/uL [facility] [facility] [place] [employer] [facility] Laboratory - Microbiology an d Antimicrobial susceptibilityon 09-12-2012 Bacteria identified Aer cx Nom (Unsp spec) Positive Abnormal [facility]; [place] [employer] [facility] - Chemistry and C hemistry - challengeon 06-29-2012 Bilirubin Ql (U) Negative Normal [facility]; [facility] Hemoglobin.gastrointest inal Ql (Stl) Negative Normal [facility]; [place] [employer] [facility] Ketones Ql (U) Negative Normal [facility]; [place] [employer] [facility] pH (U) 6.0 [pH] Normal 4.6 - 8.0 [facility]; [place] [employer] [facility] Specific gravity (U) [Rel density] 1.005 Normal 1.001 - 1.025 [facility]; [place] [employer] [facility] Laboratory - Hematology and Cell countson 06-29-2012 Hemoglobin Ql (U) Negative Normal [facility]; [employer]adoMissing[employer] [facility] Laboratory - Specimen inform ationon 06-29-2012 Appearance (U) clear Normal [facility]; [place] [employer] Color (U) yellow Normal [facility] OrangeHyper[facility].; [facility]. Laboratory - Urinalysison Glucose Test strip (U) [Mass/Vol] Negative Normal [facility].; [facility]. Leukocyte esterase Test strip Ql (U) Negative Normal [place] [employer] [facility] CampusHyper[facility].; [employer]ado[employer], [employer]. Nitrite Ql (U) Negative Normal [place] [employer].; [facility]. Protein Ql (U) Negative Normal [place] [employer].; [facility]. No Panel Informationon 06-29 UA - UROBILINOGEN 0.2 mg/dL Normal [place] [employer] [facility].; [facility]. Laboratory - Chemistry and C hemistry - challengeon 06-22-2012 Cholesterol [Mass/Vol] 151 mg/dL Normal 0 - 2 00 mg/dL [facility].; [facility]. Cholesterol in HDL [Mass/Vol] 43 mg/dL Normal 40 - 60 mg/dL [place] [employer] [facility].; [facility]. Cholesterol in LDL [Mass/Vol] 88 mg/dL Normal 50.0 - 130.0 mg/dL [place] [employer] [facility].; [facility]. Cholesterol in VLDL [Mass/Vol] - Normal [place] [employer].; [facility]. Cholesterol.total/Marie sterol in HDL [Mass ratio] 3.5 {ratio} Normal 0 - 5.0 [place] [employer].; [facility]. Glucose [Mass/Vol] 99 mg/dL Normal 40 - 100 mg/dL [place] [employer] [facility].; [facility]. Triglyceride [Mass/Vol] 101 mg/dL Normal 40 - 150 mg/dL [place] [employer].; [facility]. Laboratory - Chemistry and C hemistry - challengeon 05-27-2011 Bilirubin Ql (U) Negative Normal [place] [employer].; [facility]. Hemoglobin.gastrointest inal Ql (Stl) Negative Normal [place] [employer].; [facility]. Ketones Ql (U) 15 Normal [facility].; [employer], [employer]. pH (U) 5.5 [pH] Normal 4.6 - 8.0 [employer].; [employer]. Specific gravity (U) [Rel density] 1.020 Normal 1.001 - 1.025 [facility].; [employer]. Laboratory - Cytologyon Microscopic observation Cyto stain Nom (Cvx) SEE NOTE Normal [facility].; [employer]. Laboratory - Hematology and Cell countson 05-27-2011 Hemoglobin Ql (U) Negative Normal [facility].; [employer]. Laboratory - Microbiology an d Antimicrobial susceptibilityon 05-27-2011 C. trachomatis DNA MARCIANO+probe Ql (Unsp spec) Not detected Normal [employer].; [employer]. N. gonorrhoeae DNA MARCIANO+probe Ql (Unsp spec) Not detected Normal [facility].; [employer]. Laboratory - Specimen inform ationon 05-27-2011 Appearance (U) clear Normal [employer].; [employer]. Color (U) yellow Normal [employer].; [employer]. Laboratory - Urinalysison Glucose Test strip (U) [Mass/Vol] Negative Normal [employer].; [employer]. Leukocyte esterase Test strip Ql (U) Negative Normal [facility].; [employer]. Nitrite Ql (U) Negative Normal [employer].; [employer]. Protein Ql (U) Negative Normal [employer].; [employer]. No Panel Informationon 05-27 UA - UROBILINOGEN 0.2 mg/dL Normal [employer].; [employer]. Vital Signs Date Time Vital Sign Value Performing Clinician Facility 02-04-2025 11:21-0400 Body temperature 98.1 [degF] Dr. Pollo Bobo MD Work Phone: [facility] 02-04-2025 11:21-0400 Diastolic blood pressure 68 mm[Hg] Dr. Pollo Bobo MD Work Phone: [facility] 02-04-2025 11:21-0400 Heart rate 78 /min Dr. Pollo Bobo MD Work Phone: [facility] 02-04-2025 11:21-0400 SaO2% (BldA) [Mass fraction] 98 % Dr. Pollo Bobo MD Work Phone: [facility] 02-04-2025 11:21-0400 Systolic blood pressure 124 mm[Hg] Dr. Pollo Bobo MD Work Phone: [facility] 12-19-2024 15:13-0400 Body height 166.37 cm Angi Sal PRICE ANALYST Work Phone: [employer]; [employer]. 12-19-2024 15:13-0400 Body mass index (BMI) [Ratio] 29.83 kg/m2 Angi Sal PRICE ANALYST Work Phone: [employer]; [employer]. 12-19-2024 15:13-0400 Body surface area Derived from formula 1.91 m2 Angi Sal PRICE ANALYST Work Phone: [employer]; [employer]. 12-19-2024 15:13-0400 Body weight 82.56 kg Angi Sal PRICE ANALYST Work Phone: [employer].; [employer]. 12-19-2024 15:13-0400 Diastolic blood pressure 83 mm[Hg] Angi Sal PRICE ANALYST Work Phone: [employer].; [employer]. Comment on above: Patient Position: Sitting; Cuff Location : Left Arm; Cuff Size: Large 12-19-2024 15:13-0400 Heart rate 92 /min Angi Sal PRICE ANALYST Work Phone: [employer]; [employer]. Comment on above: Pattern: Regular 12-19-2024 15:13-0400 Systolic blood pressure 119 mm[Hg] Angi Sal PRICE ANALYST Work Phone: [facility].; [employer]. Comment on above: Patient Position: Sitting; Cuff Location : Left Arm; Cuff Size: Large 09-05-2024 10:33-0500 Body height 166.37 cm Angi Sal PRICE ANALYST Work Phone: [facility].; [employer]. 09-05-2024 10:33-0500 Body mass index (BMI) [Ratio] 29.83 kg/m2 Angi Sal PRICE ANALYST Work Phone: [facility].; [employer]. 09-05-2024 10:33-0500 Body surface area Derived from formula 1.91 m2 Angi Sal PRICE ANALYST Work Phone: [facility].; [employer]. 09-05-2024 10:33-0500 Body weight 82.56 kg Angi Denneyy PRICE ANALYST Work Phone: [facility].; [employer]. 09-05-2024 10:33-0500 Diastolic blood pressure 85 mm[Hg] Angi Sal PRICE ANALYST Work Phone: [facility].; [employer]. Comment on above: Patient Position: Sitting; Cuff Location : Left Arm; Cuff Size: Large 09-05-2024 10:33-0500 Heart rate 80 /min Angi Sal PRICE ANALYST Work Phone: [facility].; [employer]. Comment on above: Pattern: Regular 09-05-2024 10:33-0500 Systolic blood pressure 130 mm[Hg] Angi Sal PRICE ANALYST Work Phone: [facility].; [employer]. Comment on above: Patient Position: Sitting; Cuff Location : Left Arm; Cuff Size: Large 04-25-2024 14:35-0400 Body height 166.37 cm Angi Sal PRICE ANALYST Work Phone: [facility].; [employer]. 04-25-2024 14:35-0400 Body mass index (BMI) [Ratio] 29.33 kg/m2 Angi Sal PRICE ANALYST Work Phone: [facility].; [facility]. 04-25-2024 14:35-0400 Body surface area Derived from formula 1.9 m2 Angi Sal PRICE ANALYST Work Phone: [facility].; [facility]. 04-25-2024 14:35-0400 Body weight 81.19 kg Angi Sal PRICE ANALYST Work Phone: [employer].; [facility]. 04-25-2024 14:35-0400 Diastolic blood pressure 86 mm[Hg] Angi Sal PRICE ANALYST Work Phone: [employer]; [employer]. Comment on above: Patient Position: Sitting; Cuff Location : Left Arm; Cuff Size: Large 04-25-2024 14:35-0400 Heart rate 80 /min Angi Sal PRICE ANALYST Work Phone: [employer]; [employer]. Comment on above: Pattern: Regular 04-25-2024 14:35-0400 Systolic blood pressure 129 mm[Hg] Angi Sal PRICE ANALYST Work Phone: [facility]; [employer]. Comment on above: Patient Position: Sitting; Cuff Location : Left Arm; Cuff Size: Large 01-18-2024 14:33-0400 Body height 166.37 cm Angi Sal PRICE ANALYST Work Phone: [employer].; [employer]. 01-18-2024 14:33-0400 Body mass index (BMI) [Ratio] 29.99 kg/m2 Angi Sal PRICE ANALYST Work Phone: [employer].; [employer]. 01-18-2024 14:33-0400 Body surface area Derived from formula 1.92 m2 Angi Sal PRICE ANALYST Work Phone: [place] [employer] [facility] CampusHyper[facility].; [place] [employer]. 01-18-2024 14:33-0400 Body weight 83.01 kg Angijethro Denneyy PRICE ANALYST Work Phone: [place] [employer].; [place] [employer]. 01-18-2024 14:33-0400 Diastolic blood pressure 79 mm[Hg] Angi Denneyy PRICE ANALYST Work Phone: [place] [employer].; [facility]. Comment on above: Patient Position: Sitting; Cuff Location : Left Arm; Cuff Size: Standard 01-18-2024 14:33-0400 Heart rate 98 /min Angi Denneyy PRICE ANALYST Work Phone: [place] [employer].; [facility]. Comment on above: Pattern: Regular 01-18-2024 14:33-0400 Systolic blood pressure 110 mm[Hg] Angi Huang PRICE ANALYST Work Phone: [place] [employer].; [facility]. Comment on above: Patient Position: Sitting; Cuff Location : Left Arm; Cuff Size: Standard 08-25-2023 10:47-0500 Body height 166.37 cm Angi Huang LPN Work Phone: [place] [employer].; [facility]. 08-25-2023 10:47-0500 Body mass index (BMI) [Ratio] 33.43 kg/m2 Angi Denneyy PRICE ANALYST Work Phone: [place] [employer].; [place] [employer]. 08-25-2023 10:47-0500 Body surface area Derived from formula 2.01 m2 Angi Denneyy PRICE ANALYST Work Phone: [facility].; [facility]. 08-25-2023 10:47-0500 Body weight 92.53 kg Angi Huang PRICE ANALYST Work Phone: [facility].; [facility]. 08-25-2023 10:47-0500 Diastolic blood pressure 82 mm[Hg] Angi Sal PRICE ANALYST Work Phone: [facility].; [employer]. Comment on above: Patient Position: Sitting; Cuff Location : Left Arm; Cuff Size: Large 08-25-2023 10:47-0500 Heart rate 83 /min Angi Sal PRICE ANALYST Work Phone: [facility].; [employer]. Comment on above: Pattern: Regular 08-25-2023 10:47-0500 Systolic blood pressure 122 mm[Hg] Angi Sal PRICE ANALYST Work Phone: [facility].; [employer]. Comment on above: Patient Position: Sitting; Cuff Location : Left Arm; Cuff Size: Large 07-05-2023 10:57-0400 Body height 166.37 cm Angi Sal PRICE ANALYST Work Phone: [facility].; [facility]. 07-05-2023 10:57-0400 Body mass index (BMI) [Ratio] 34.74 kg/m2 Angi Sal PRICE ANALYST Work Phone: [facility].; [facility]. 07-05-2023 10:57-0400 Body surface area Derived from formula 2.04 m2 Angi Sal PRICE ANALYST Work Phone: [facility].; [facility]. 07-05-2023 10:57-0400 Body weight 96.16 kg Angi Sal PRICE ANALYST Work Phone: [facility].; [facility]. 07-05-2023 10:57-0400 Diastolic blood pressure 80 mm[Hg] Angi Sal PRICE ANALYST Work Phone: [facility].; [employer]. Comment on above: Patient Position: Sitting; Cuff Location : Left Arm; Cuff Size: Large 07-05-2023 10:57-0400 Heart rate 83 /min Angi Sal PRICE ANALYST Work Phone: [facility] OrangeHyper[facility].; [facility] OrangeHyperQuest. Comment on above: Pattern: Regular 07-05-2023 10:57-0400 Systolic blood pressure 141 mm[Hg] Angi Huang LPN Work Phone: [facility] OrangeHyper[facility].; [facility] OrangeHyperQuest. Comment on above: Patient Position: Sitting; Cuff Location : Left Arm; Cuff Size: Large 05-07-2023 13:41-0400 Body height 170.[address] Pollo Bobo Work Phone: [facility] 05-07-2023 13:41-0400 Body mass index (BMI) [Ratio] 31.3 kg/m2 Dr. Pollo Bobo Work Phone: [facility] 05-07-2023 13:41-0400 Body weight 90.[address] Pollo Bobo Work Phone: [facility] 05-07-2023 13:41-0400 Diastolic blood pressure 83 mm[Hg] Dr. Pollo Bobo Work Phone: [facility] 05-07-2023 13:41-0400 Heart rate 83 /min Dr. Pollo Bobo Work Phone: [facility] 05-07-2023 13:41-0400 Respiratory rate 16 /min Dr. Pollo Bobo Work Phone: [facility] 05-07-2023 13:41-0400 SaO2% (BldA) [Mass fraction] 97 % Dr. Pollo Bobo Work Phone: [facility] 05-07-2023 13:41-0400 Systolic blood pressure 135 mm[Hg] Dr. Pollo Bobo Work Phone: [facility] 04-27-2023 08:40-0400 Body temperature 98.3 [degF] Dr. Pollo Bobo Work Phone: [facility] 04-27-2023 08:40-0400 Diastolic blood pressure 69 mm[Hg] Dr. Pollo Bobo Work Phone: [facility] 04-27-2023 08:40-0400 Heart rate 77 /min Dr. Pollo Bobo Work Phone: [facility] 04-27-2023 08:40-0400 Respiratory rate 18 /min Dr. Pollo Bobo Work Phone: [facility] 04-27-2023 08:40-0400 SaO2% (BldA) [Mass fraction] 93 % Dr. Pollo Bobo Work Phone: [facility] 04-27-2023 08:40-0400 Systolic blood pressure 105 mm[Hg] Dr. Pollo Bobo Work Phone: [facility] 04-27-2023 07:07-0400 Body height 170.[address] Pollo Bobo Work Phone: [facility] 04-27-2023 07:07-0400 Body mass index (BMI) [Ratio] 31.7 kg/m2 Dr. Pollo Bobo Work Phone: [facility] 04-27-2023 07:07-0400 Body weight [address] Pollo Bobo Work Phone: [facility] 04-14-2023 14:31-0400 [facility] Work Phone: [facility] OrangeHyper[facility].; [facility]varadoMakieLab [facility] CampusA[facility]. 04-14-2023 14:31-0400 Body mass index (BMI) [Ratio] 33.92 kg/m2 [facility] PRICE ANALYST Work Phone: AlvaradoMakieLab [facility] CampusHyper[facility].; [facility]varadoMakieLab [facility] CampusA[facility]. 04-14-2023 14:31-0400 Body surface area Derived from formula 2.02 m2 [facility] PRICE ANALYST Work Phone: [facility]varadoMakieLab [facility] CampusHyper[facility].; [facility]. 04-14-2023 14:31-0400 Body weight 93.9 kg [facility] PRICE ANALYST Work Phone: [facility]varadoMakieLab [facility] CampusHyper[facility].; [facility]. 04-14-2023 14:31-0400 Diastolic blood pressure 81 mm[Hg] Angi Sal PRICE ANALYST Work Phone: [facility] [employer] [facility]. Comment on above: Patient Position: Sitting; Cuff Location : Left Arm; Cuff Size: Standard 04-14-2023 14:31-0400 Heart rate 76 /min Angi Sal PRICE ANALYST Work Phone: [place] [employer].; [employer]. Comment on above: Pattern: Regular 04-14-2023 14:31-0400 Systolic blood pressure 119 mm[Hg] Angi Sal PRICE ANALYST Work Phone: [place] [employer].; [employer]. Comment on above: Patient Position: Sitting; Cuff Location : Left Arm; Cuff Size: Standard 03-09-2023 13:39-0400 Body height 166.37 cm Angi Sal PRICE ANALYST Work Phone: [place] [employer].; [facility]. 03-09-2023 13:39-0400 Body mass index (BMI) [Ratio] 33.92 kg/m2 Angi Sal PRICE ANALYST Work Phone: [place] [employer].; [facility]. 03-09-2023 13:39-0400 Body surface area Derived from formula 2.02 m2 Angi Sal PRICE ANALYST Work Phone: [place] [employer].; [facility]. 03-09-2023 13:39-0400 Body weight 93.9 kg Angi Sal PRICE ANALYST Work Phone: [place] [employer].; [facility]. 03-09-2023 13:39-0400 Diastolic blood pressure 82 mm[Hg] Angi Sal PRICE ANALYST Work Phone: [facility].; [employer]. Comment on above: Patient Position: Sitting; Cuff Location : Left Arm; Cuff Size: Standard 03-09-2023 13:39-0400 Heart rate 80 /min Angi Huang LPN Work Phone: [facility] OrangeHyper[facility].; [facility] OrangeHyperQuest. Comment on above: Pattern: Regular 03-09-2023 13:39-0400 Systolic blood pressure 119 mm[Hg] Angi Huang PRICE ANALYST Work Phone: [facility] OrangeHyper[facility].; [employer] [facility] CenterHyper[facility]. Comment on above: Patient Position: Sitting; Cuff Location : Left Arm; Cuff Size: Standard 02-10-2023 08:41-0400 Body height 170.[address] Pollo Bobo Work Phone: 2(201)610-143942 [place] [address] 02-10-2023 08:41-0400 Body mass index (BMI) [Ratio] 33.5 kg/m2 Dr. Pollo Bobo Work Phone: 2(773)[phone] [place] [address] 02-10-2023 08:41-0400 Body weight 97.[address] Pollo Bobo Work Phone: 3(609)556-331242 [place] [address] 02-10-2023 08:41-0400 Diastolic blood pressure 87 mm[Hg] Dr. Pollo Bobo Work Phone: 5(173)824-530542 [place] [address] 02-10-2023 08:41-0400 Heart rate 87 /min Dr. Pollo Bobo Work Phone: [facility] 02-10-2023 08:41-0400 SaO2% (BldA) [Mass fraction] 96 % Dr. Pollo Bobo Work Phone: [facility] 02-10-2023 08:41-0400 Systolic blood pressure 149 mm[Hg] Dr. Pollo Bobo Work Phone: [facility] 12-23-2022 18:10-0400 Body temperature 97.3 [degF] Dr. Pollo Bobo Work Phone: [facility] 12-23-2022 18:10-0400 Diastolic blood pressure 86 mm[Hg] Dr. Pollo Bobo Work Phone: [facility] 12-23-2022 18:10-0400 Heart rate 83 /min Dr. Pollo Bobo Work Phone: [facility] 12-23-2022 18:10-0400 Respiratory rate 18 /min Dr. Pollo Bobo Work Phone: [facility] 12-23-2022 18:10-0400 SaO2% (BldA) [Mass fraction] 98 % Dr. Pollo Bobo Work Phone: [facility] 12-23-2022 18:10-0400 Systolic blood pressure 126 mm[Hg] Dr. Pollo Bobo Work Phone: [facility] 12-23-2022 13:24-0400 Body height 170.[address] Pollo Bobo Work Phone: [facility] 12-23-2022 13:24-0400 Body mass index (BMI) [Ratio] 34.6 kg/m2 Dr. Pollo Bobo Work Phone: [facility] 12-23-2022 13:24-0400 Body weight 100.[address] Pollo Bobo Work Phone: [facility] 11-18-2022 11:11-0500 Body height 166.37 cm Angi Sal PRICE ANALYST Work Phone: [facility]varadoMakieLab [facility] CampusHyper[facility].; [employer]. 11-18-2022 11:11-0500 Body mass index (BMI) [Ratio] 36.71 kg/m2 [facility] PRICE ANALYST Work Phone: [facility]; [facility]Missing[facility]. 11-18-2022 11:11-0500 Body surface area Derived from formula 2.09 m2 [employer] PRICE ANALYST Work Phone: [facility]; [employer]. 11-18-2022 11:11-0500 Body weight 101.61 kg Angi Sal PRICE ANALYST Work Phone: [facility]; [facility]. 11-18-2022 11:11-0500 Diastolic blood pressure 83 mm[Hg] Angi Sal PRICE ANALYST Work Phone: [facility] OrangeNew[facility]; [facility] Comment on above: Patient Position: Sitting; Cuff Location : Left Arm; Cuff Size: Standard 11-18-2022 11:11-0500 Heart rate 101 /min Angi Sal PRICE ANALYST Work Phone: [facility] [employer]; [employer] Comment on above: Pattern: Regular 11-18-2022 11:11-0500 Systolic blood pressure 133 mm[Hg] Angi Sal PRICE ANALYST Work Phone: [facility]; [employer] [facility] Comment on above: Patient Position: Sitting; Cuff Location : Left Arm; Cuff Size: Standard 11-15-2022 13:14-0500 Body mass index (BMI) [Ratio] 34.9 kg/m2 Dr. Pollo Bobo Work Phone: [facility] 11-15-2022 13:14-0500 Body weight 101.[address] Pollo Bobo Work Phone: [facility] 11-15-2022 13:14-0500 Diastolic blood pressure 81 mm[Hg] Dr. Pollo Bobo Work Phone: [facility] 11-15-2022 13:14-0500 Respiratory rate 18 /min Dr. Pollo Bobo Work Phone: [facility] 11-15-2022 13:14-0500 Systolic blood pressure 137 mm[Hg] Dr. Pollo Bobo Work Phone: [facility] 11-05-2022 11:03-0500 Body height 170.18 cm [facility] 11-05-2022 11:03-0500 Body mass index (BMI) [Ratio] 34.9 kg/m2 [facility] 11-05-2022 11:03-0500 Body temperature 97.5 [degF] [facility] 11-05-2022 11:03-0500 Body weight 101.15 kg [facility] 11-05-2022 11:03-0500 Diastolic blood pressure 99 mm[Hg] [facility] 11-05-2022 11:03-0500 Heart rate 92 /min [facility] 11-05-2022 11:03-0500 Respiratory rate 18 /min [facility] 11-05-2022 11:03-0500 SaO2% (BldA) [Mass fraction] 97 % [facility] 11-05-2022 11:03-0500 Systolic blood pressure 196 mm[Hg] [facility] 10-10-2022 14:16-0500 Body height 166.37 cm Angi Sal PRICE ANALYST Work Phone: [employer]; [employer]. 10-10-2022 14:16-0500 Body mass index (BMI) [Ratio] 37.04 kg/m2 Angi Sal PRICE ANALYST Work Phone: [employer]; [employer]. 10-10-2022 14:16-0500 Body surface area Derived from formula 2.1 m2 Angi Sal PRICE ANALYST Work Phone: [employer]; [employer]. 10-10-2022 14:16-0500 Body weight 102.51 kg Angi Sal PRICE ANALYST Work Phone: [employer]; [employer]. 10-10-2022 14:16-0500 Diastolic blood pressure 84 mm[Hg] Angi Sal PRICE ANALYST Work Phone: [employer].; [employer]. Comment on above: Patient Position: Sitting; Cuff Location : Left Arm; Cuff Size: Large 10-10-2022 14:16-0500 Heart rate 93 /min Angi Sal PRICE ANALYST Work Phone: [employer]; [employer]. Comment on above: Pattern: Regular 10-10-2022 14:16-0500 Systolic blood pressure 129 mm[Hg] Angi Sal PRICE ANALYST Work Phone: [facility]; [employer]. Comment on above: Patient Position: Sitting; Cuff Location : Left Arm; Cuff Size: Large 08-22-2022 15:57-0500 Body height 166.37 cm Angi Sal PRICE ANALYST Work Phone: [facility]; [employer]. 08-22-2022 15:57-0500 Body mass index (BMI) [Ratio] 36.71 kg/m2 Angi Sal PRICE ANALYST Work Phone: [facility].; [employer]. 08-22-2022 15:57-0500 Body surface area Derived from formula 2.09 m2 Angi Sal PRICE ANALYST Work Phone: [facility]; [employer]. 08-22-2022 15:57-0500 Body weight 101.61 kg Angi Sal PRICE ANALYST Work Phone: [facility]; [employer]. 08-22-2022 15:57-0500 Diastolic blood pressure 87 mm[Hg] Angi Sal PRICE ANALYST Work Phone: [facility]; [employer]. Comment on above: Patient Position: Sitting; Cuff Location : Left Arm; Cuff Size: Large 08-22-2022 15:57-0500 Heart rate 86 /min Angi Sal PRICE ANALYST Work Phone: [facility]; [employer]. Comment on above: Pattern: Regular 08-22-2022 15:57-0500 Systolic blood pressure 126 mm[Hg] Angi Sal PRICE ANALYST Work Phone: [facility]; [facility] [facility]. Comment on above: Patient Position: Sitting; Cuff Location : Left Arm; Cuff Size: Large 02-09-2022 14:48-0400 Body height 166.37 cm Pollo Bobo MD Work Phone: [facility]; [facility]. 02-09-2022 14:48-0400 Body mass index (BMI) [Ratio] 37.04 kg/m2 Pollo Bobo MD Work Phone: [facility]; [facility]. 02-09-2022 14:48-0400 Body surface area Derived from formula 2.1 m2 Pollo Bobo MD Work Phone: [facility]; [facility]. 02-09-2022 14:48-0400 Body weight 102.51 kg Pollo Bobo MD Work Phone: [facility]; [facility]. 02-09-2022 14:48-0400 Diastolic blood pressure 82 mm[Hg] Pollo Bobo MD Work Phone: [facility]; [facility]. Comment on above: Patient Position: Sitting; Cuff Location : Left Arm; Cuff Size: Large 02-09-2022 14:48-0400 Heart rate 83 /min Pollo Bobo MD Work Phone: [facility]; [facility]. Comment on above: Pattern: Regular 02-09-2022 14:48-0400 Systolic blood pressure 120 mm[Hg] Pollo Bobo MD Work Phone: [facility]; [facility]. Comment on above: Patient Position: Sitting; Cuff Location : Left Arm; Cuff Size: Large 08-11-2021 13:49-0500 Body height 166.37 cm [facility] Work Phone: [facility]; [facility]. 08-11-2021 13:49-0500 Body mass index (BMI) [Ratio] 37.53 kg/m2 [facility] Work Phone: [employer]; [facility]. 08-11-2021 13:49-0500 Body surface area Derived from formula 2.11 m2 Angi Sal PRICE ANALYST Work Phone: [facility].; [facility]. 08-11-2021 13:49-0500 Body weight 103.87 kg Angi Huang PRICE ANALYST Work Phone: [facility].; [facility]. 08-11-2021 13:49-0500 Diastolic blood pressure 90 mm[Hg] Angi Denneyy PRICE ANALYST Work Phone: [facility].; [facility]. Comment on above: Patient Position: Sitting; Cuff Location : Left Arm; Cuff Size: Large 08-11-2021 13:49-0500 Heart rate 91 /min Angi Huang LPN Work Phone: [facility]; [facility]. Comment on above: Pattern: Regular 08-11-2021 13:49-0500 Systolic blood pressure 136 mm[Hg] Angi Huang PRICE ANALYST Work Phone: [facility]; [facility]. Comment on above: Patient Position: Sitting; Cuff Location : Left Arm; Cuff Size: Large 06-10-2021 13:51-0400 Body height 166.37 cm Angi Huang LPN Work Phone: [facility].; [facility]. 06-10-2021 13:51-0400 Body mass index (BMI) [Ratio] 36.54 kg/m2 Angi Denneyy PRICE ANALYST Work Phone: [facility]; [facility]. 06-10-2021 13:51-0400 Body surface area Derived from formula 2.08 m2 Angi Denneyy PRICE ANALYST Work Phone: [facility].; [facility]. 06-10-2021 13:51-0400 Body weight 101.15 kg Angi Huang PRICE ANALYST Work Phone: [facility]; [facility]. 06-10-2021 13:51-0400 Diastolic blood pressure 83 mm[Hg] Angi Sal PRICE ANALYST Work Phone: [facility].; [facility]. Comment on above: Patient Position: Sitting; Cuff Location : Left Arm; Cuff Size: Large 06-10-2021 13:51-0400 Heart rate 97 /min Angi Sal PRICE ANALYST Work Phone: [facility].; [facility]. Comment on above: Pattern: Regular 06-10-2021 13:51-0400 Systolic blood pressure 136 mm[Hg] Angi Sal PRICE ANALYST Work Phone: [facility].; [facility]. Comment on above: Patient Position: Sitting; Cuff Location : Left Arm; Cuff Size: Large 02-08-2021 [id number] Body height 166.37 cm Angi Sal PRICE ANALYST Work Phone: [facility].; [facility]. 02-08-2021 10:21-0400 Body mass index (BMI) [Ratio] 37.04 kg/m2 Angi Sal PRICE ANALYST Work Phone: [facility].; [facility]. 02-08-2021 10:21-0400 Body surface area Derived from formula 2.1 m2 Angi Sal PRICE ANALYST Work Phone: [facility].; [facility]. 02-08-2021 10:21-0400 Body weight 102.51 kg Angi Sal PRICE ANALYST Work Phone: [facility].; [facility]. 02-08-2021 10:21-0400 Diastolic blood pressure 92 mm[Hg] Angi Sal PRICE ANALYST Work Phone: [facility].; [facility]. Comment on above: Patient Position: Sitting; Cuff Location : Right Arm; Cuff Size: Large 02-08-2021 10:21-0400 Heart rate 93 /min Angi Sal PRICE ANALYST Work Phone: [facility]; [facility]. Comment on above: Pattern: Regular 02-08-2021 10:21-0400 Systolic blood pressure 166 mm[Hg] Angi Sal PRICE ANALYST Work Phone: [facility]; [facility]. Comment on above: Patient Position: Sitting; Cuff Location : Right Arm; Cuff Size: Large 08-10-2020 09:44-0500 Body height 166.37 cm Angi Sal PRICE ANALYST Work Phone: [facility]; [facility]. 08-10-2020 09:44-0500 Body mass index (BMI) [Ratio] 36.71 kg/m2 Angi Sal PRICE ANALYST Work Phone: [facility].; [facility]. 08-10-2020 09:44-0500 Body surface area Derived from formula 2.09 m2 Angi Sal PRICE ANALYST Work Phone: [facility]; [facility]. 08-10-2020 09:44-0500 Body weight 101.61 kg Angi Sal PRICE ANALYST Work Phone: [facility].; [facility]. 08-10-2020 09:44-0500 Diastolic blood pressure 86 mm[Hg] Angi Sal PRICE ANALYST Work Phone: [facility]; [facility]. Comment on above: Patient Position: Sitting; Cuff Location : Left Arm; Cuff Size: Large 08-10-2020 09:44-0500 Heart rate 83 /min Angi Sal PRICE ANALYST Work Phone: [facility]; [facility]. Comment on above: Pattern: Regular 08-10-2020 09:44-0500 Systolic blood pressure 136 mm[Hg] Angi Sal PRICE ANALYST Work Phone: [facility]; [facility]. Comment on above: Patient Position: Sitting; Cuff Location : Left Arm; Cuff Size: Large 04-08-2020 15:23-0400 Body height 166.37 cm Angi Huang LPN Work Phone: [facility].; [facility]. 04-08-2020 15:23-0400 Body mass index (BMI) [Ratio] 36.54 kg/m2 Angi Huang PRICE ANALYST Work Phone: [facility].; [facility]. 04-08-2020 15:23-0400 Body surface area Derived from formula 2.08 m2 Angi Huang LPN Work Phone: [facility].; [facility]. 04-08-2020 15:23-0400 Body weight 101.15 kg Angi Huang LPN Work Phone: [facility].; [facility]. 04-08-2020 15:23-0400 Diastolic blood pressure 90 mm[Hg] Angi Huang LPN Work Phone: [facility].; [facility]. Comment on above: Patient Position: Sitting; Cuff Location : Left Arm; Cuff Size: Standard 04-08-2020 15:23-0400 Heart rate 97 /min Angi Huang LPN Work Phone: [facility].; [facility]. Comment on above: Pattern: Regular 04-08-2020 15:23-0400 Systolic blood pressure 138 mm[Hg] Angi Huang PRICE ANALYST Work Phone: [facility].; [facility]. Comment on above: Patient Position: Sitting; Cuff Location : Left Arm; Cuff Size: Standard 10-24-2019 15:18-0500 Body height 166.37 cm Angi Huang LPN Work Phone: [facility].; [facility]. 10-24-2019 15:18-0500 Body mass index (BMI) [Ratio] 35.89 kg/m2 Angi Denneyy PRICE ANALYST Work Phone: [facility].; [facility] 10-24-2019 15:18-0500 Body surface area Derived from formula 2.07 m2 Angijethro Denneyy PRICE ANALYST Work Phone: [facility].; [facility]. 10-24-2019 15:18-0500 Body weight 99.34 kg Angi Sal PRICE ANALYST Work Phone: [facility].; [facility] 10-24-2019 15:18-0500 Diastolic blood pressure 97 mm[Hg] Angi Sal PRICE ANALYST Work Phone: [facility].; [facility]. Comment on above: Patient Position: Sitting; Cuff Location : Left Arm; Cuff Size: Large 10-24-2019 15:18-0500 Heart rate 83 /min Angi Denneyy PRICE ANALYST Work Phone: [employer]; [facility]. Comment on above: Pattern: Regular 10-24-2019 15:18-0500 Systolic blood pressure 157 mm[Hg] Angi Denneyy PRICE ANALYST Work Phone: [facility].; [facility]. Comment on above: Patient Position: Sitting; Cuff Location : Left Arm; Cuff Size: Large 07-02-2019 15:08-0400 Body height 166.37 cm Angi Sal PRICE ANALYST Work Phone: [facility].; [facility] [employer] 07-02-2019 15:08-0400 Body mass index (BMI) [Ratio] 36.22 kg/m2 Angi Sal PRICE ANALYST Work Phone: [facility].; [facility] 07-02-2019 15:08-0400 Body surface area Derived from formula 2.08 m2 Angi Sal PRICE ANALYST Work Phone: [facility].; [facility] 07-02-2019 15:08-0400 Body weight 100.25 kg Angi Sal PRICE ANALYST Work Phone: [employer] [facility] 07-02-2019 15:08-0400 Diastolic blood pressure 90 mm[Hg] Angi Huang PRICE ANALYST Work Phone: [facility] [facility]. Comment on above: Patient Position: Sitting; Cuff Location : Left Arm; Cuff Size: Large 07-02-2019 15:08-0400 Heart rate 86 /min Angi Huang PRICE ANALYST Work Phone: [employer] [facility]. Comment on above: Pattern: Regular 07-02-2019 15:08-0400 Systolic blood pressure 160 mm[Hg] Angi Sal PRICE ANALYST Work Phone: [employer] [facility]. Comment on above: Patient Position: Sitting; Cuff Location : Left Arm; Cuff Size: Large 02-07-2019 15:27-0400 Body height 166.37 cm Neilee L Vess PRICE ANALYST [employer] [facility] 02-07-2019 15:27-0400 Body mass index (BMI) [Ratio] 35.07 kg/m2 Neilee L Vess PRICE ANALYST [facility] [facility]. 02-07-2019 15:27-0400 Body surface area Derived from formula 2.05 m2 Neilee L Vess PRICE ANALYST [employer] 02-07-2019 15:27-0400 Body weight 97.07 kg Neilee L Vess PRICE ANALYST [employer] [facility]. 02-07-2019 15:27-0400 Diastolic blood pressure 92 mm[Hg] Neilee L Vess PRICE ANALYST [employer] [facility]. Comment on above: Patient Position: Sitting; Cuff Location : Right Arm; Cuff Size: Standard 02-07-2019 15:27-0400 Heart rate 85 /min Neilee L Vess PRICE ANALYST [employer] [facility]. Comment on above: Pattern: Regular 02-07-2019 15:27-0400 Systolic blood pressure 146 mm[Hg] Neilee L Vess PRICE ANALYST [facility].; [facility]. Comment on above: Patient Position: Sitting; Cuff Location : Right Arm; Cuff Size: Standard 01-17-2019 14:15-0400 Body height 166.37 cm Angi Huang PRICE ANALYST Work Phone: [facility].; [facility] 01-17-2019 14:15-0400 Body mass index (BMI) [Ratio] 35.4 kg/m2 Angi Sal PRICE ANALYST Work Phone: [facility].; [facility] 01-17-2019 14:15-0400 Body surface area Derived from formula 2.06 m2 Angi Huang PRICE ANALYST Work Phone: [facility].; [facility] 01-17-2019 14:15-0400 Body weight 97.98 kg Angi Huang PRICE ANALYST Work Phone: [facility].; [facility] 01-17-2019 14:15-0400 Diastolic blood pressure 97 mm[Hg] Angi Denneyy PRICE ANALYST Work Phone: [facility].; [facility]. Comment on above: Patient Position: Sitting; Cuff Location : Left Arm; Cuff Size: Standard 01-17-2019 14:15-0400 Heart rate 85 /min Angi Huang PRICE ANALYST Work Phone: [employer]; [facility]. Comment on above: Pattern: Regular 01-17-2019 14:15-0400 Systolic blood pressure 148 mm[Hg] Angi Sal PRICE ANALYST Work Phone: [facility].; [facility]. Comment on above: Patient Position: Sitting; Cuff Location : Left Arm; Cuff Size: Standard 11-19-2018 16:25-0500 Body height 166.37 cm Angi Sal PRICE ANALYST Work Phone: [employer]; [facility]. 11-19-2018 16:25-0500 Body mass index (BMI) [Ratio] 35.89 kg/m2 Angi Sal PRICE ANALYST Work Phone: [facility].; [facility] 11-19-2018 16:25-0500 Body surface area Derived from formula 2.07 m2 Angi Sal PRICE ANALYST Work Phone: [facility].; [facility] [employer]. 11-19-2018 16:25-0500 Body weight 99.34 kg Angi Sal LPN Work Phone: [facility].; [facility] 11-19-2018 16:25-0500 Diastolic blood pressure 93 mm[Hg] Angi Sal LPN Work Phone: [facility].; [facility]. Comment on above: Patient Position: Sitting; Cuff Location : Left Arm; Cuff Size: Large 11-19-2018 16:25-0500 Heart rate 79 /min Angi Sal LPN Work Phone: [facility].; [facility]. Comment on above: Pattern: Regular 11-19-2018 16:25-0500 Systolic blood pressure 152 mm[Hg] Angi Huang LPN Work Phone: [facility].; [facility]. Comment on above: Patient Position: Sitting; Cuff Location : Left Arm; Cuff Size: Large 09-01-2018 09:07-0500 Body height 166.37 cm Angi Huang LPN Work Phone: [facility].; [facility] 09-01-2018 09:07-0500 Body mass index (BMI) [Ratio] 35.72 kg/m2 Angi Sal PRICE ANALYST Work Phone: [facility].; [facility] 09-01-2018 09:07-0500 Body surface area Derived from formula 2.06 m2 Angi Sal PRICE ANALYST Work Phone: [facility].; [facility] 09-01-2018 09:07-0500 Body temperature 98.5 [degF] Angi Denneyy PRICE ANALYST Work Phone: [facility].; [facility]. Comment on above: Method: Tympanic 09-01-2018 09:07-0500 Body weight 98.88 kg Angijethro Denneyy PRICE ANALYST Work Phone: [facility].; [facility] 09-01-2018 09:07-0500 Diastolic blood pressure 86 mm[Hg] Angi Sal PRICE ANALYST Work Phone: [facility].; [facility] [employer]. Comment on above: Patient Position: Sitting; Cuff Location : Left Arm; Cuff Size: Large 09-01-2018 09:07-0500 Heart rate 85 /min Angi Sal PRICE ANALYST Work Phone: [employer]; [facility]. Comment on above: Pattern: Regular 09-01-2018 09:07-0500 Systolic blood pressure 148 mm[Hg] Angi Sal PRICE ANALYST Work Phone: [facility].; [facility]. Comment on above: Patient Position: Sitting; Cuff Location : Left Arm; Cuff Size: Large 07-02-2018 15:52-0400 Body height 166.37 cm Angi Sal PRICE ANALYST Work Phone: [facility].; [facility] 07-02-2018 15:52-0400 Body mass index (BMI) [Ratio] 35.07 kg/m2 Angi Sal PRICE ANALYST Work Phone: [facility].; [facility] 07-02-2018 15:52-0400 Body surface area Derived from formula 2.05 m2 Angi Sal PRICE ANALYST Work Phone: [facility].; [facility]. 07-02-2018 15:52-0400 Body weight 97.07 kg Agni Sal PRICE ANALYST Work Phone: [facility].; [facility] 07-02-2018 15:52-0400 Diastolic blood pressure 90 mm[Hg] Angi Huang LPN Work Phone: [facility].; [facility]. Comment on above: Patient Position: Sitting; Cuff Location : Left Arm; Cuff Size: Large 07-02-2018 15:52-0400 Heart rate 83 /min Angi Huang LPN Work Phone: [facility].; [facility]. Comment on above: Pattern: Regular 07-02-2018 15:52-0400 Systolic blood pressure 142 mm[Hg] Angi Huang LPN Work Phone: [facility].; [facility] [employer]. Comment on above: Patient Position: Sitting; Cuff Location : Left Arm; Cuff Size: Large 02-12-2018 15:57-0400 Body height 166.37 cm Angi Huang LPN Work Phone: [facility].; [facility] 02-12-2018 15:57-0400 Body mass index (BMI) [Ratio] 34.41 kg/m2 Angi Huang LPN Work Phone: [facility].; [facility] [employer] 02-12-2018 15:57-0400 Body surface area Derived from formula 2.03 m2 Angi Huang LPN Work Phone: [facility].; [facility] [employer] 02-12-2018 15:57-0400 Body weight 95.26 kg Angi Huang LPN Work Phone: [facility].; [facility] [employer] 02-12-2018 15:57-0400 Diastolic blood pressure 92 mm[Hg] Angi Huang LPN Work Phone: [facility].; [facility]. Comment on above: Patient Position: Sitting; Cuff Location : Left Arm; Cuff Size: Large 02-12-2018 15:57-0400 Heart rate 77 /min Angi Sal PRICE ANALYST Work Phone: [facility].; [facility] [employer]. Comment on above: Pattern: Regular 02-12-2018 15:57-0400 Systolic blood pressure 147 mm[Hg] Angi Sal PRICE ANALYST Work Phone: [facility].; [facility]. Comment on above: Patient Position: Sitting; Cuff Location : Left Arm; Cuff Size: Large 11-13-2017 09:36-0500 Body height 166.37 cm Angi Sal PRICE ANALYST Work Phone: [facility].; [facility] [employer] 11-13-2017 09:36-0500 Body mass index (BMI) [Ratio] 34.41 kg/m2 Angi Sal PRICE ANALYST Work Phone: [facility].; [facility] [employer]. 11-13-2017 09:36-0500 Body surface area Derived from formula 2.03 m2 Angi Sal PRICE ANALYST Work Phone: [facility].; [facility]. 11-13-2017 09:36-0500 Body weight 95.26 kg Angi Sal PRICE ANALYST Work Phone: [facility].; [facility]. 11-13-2017 09:36-0500 Diastolic blood pressure 85 mm[Hg] Angi Sal PRICE ANALYST Work Phone: [facility].; [facility]. Comment on above: Patient Position: Sitting; Cuff Location : Left Arm; Cuff Size: Standard 11-13-2017 09:36-0500 Heart rate 75 /min Angi Sal PRICE ANALYST Work Phone: [facility].; [facility]. Comment on above: Pattern: Regular 11-13-2017 09:36-0500 Systolic blood pressure 137 mm[Hg] Angi Sal PRICE ANALYST Work Phone: [employer]; [facility]. Comment on above: Patient Position: Sitting; Cuff Location : Left Arm; Cuff Size: Standard 08-14-2017 15:36-0500 Body height 166.37 cm Angi Sal PRICE ANALYST Work Phone: [facility].; [facility] 08-14-2017 15:36-0500 Body mass index (BMI) [Ratio] 34.41 kg/m2 Angi Sal PRICE ANALYST Work Phone: [facility].; [facility]. 08-14-2017 15:36-0500 Body surface area Derived from formula 2.03 m2 Angi Sal PRICE ANALYST Work Phone: [employer]; [facility]. 08-14-2017 15:36-0500 Body weight 95.26 kg Angi Sal PRICE ANALYST Work Phone: [employer]; [facility]. 08-14-2017 15:36-0500 Diastolic blood pressure 86 mm[Hg] Angi Sal PRICE ANALYST Work Phone: [employer]; [facility]. Comment on above: Patient Position: Sitting; Cuff Location : Left Arm; Cuff Size: Standard 08-14-2017 15:36-0500 Heart rate 80 /min Angi Sal PRICE ANALYST Work Phone: [employer]; [facility]. Comment on above: Pattern: Regular 08-14-2017 15:36-0500 Systolic blood pressure 141 mm[Hg] Angi Sal PRICE ANALYST Work Phone: [employer]; [facility]. Comment on above: Patient Position: Sitting; Cuff Location : Left Arm; Cuff Size: Standard 05-17-2017 16:05-0400 Body height 166.37 cm Angi Sal PRICE ANALYST Work Phone: [employer]; [facility]. 05-17-2017 16:05-0400 Body mass index (BMI) [Ratio] 35.07 kg/m2 Angi Huang LPN Work Phone: [employer]; [facility]. 05-17-2017 16:05-0400 Body surface area Derived from formula 2.05 m2 Angi Huang LPN Work Phone: [facility].; [facility] [employer]. 05-17-2017 16:05-0400 Body weight 97.07 kg Angi Huang LPN Work Phone: [facility].; [facility]. 05-17-2017 16:05-0400 Diastolic blood pressure 85 mm[Hg] Angi Huang LPN Work Phone: [employer]; [facility]. Comment on above: Patient Position: Sitting; Cuff Location : Left Arm; Cuff Size: Large 05-17-2017 16:05-0400 Heart rate 74 /min Angi Huang LPN Work Phone: [employer]; [facility]. Comment on above: Pattern: Regular 05-17-2017 16:05-0400 Systolic blood pressure 139 mm[Hg] Angi Huang LPN Work Phone: [employer]; [facility]. Comment on above: Patient Position: Sitting; Cuff Location : Left Arm; Cuff Size: Large 01-09-2017 15:35-0400 Body height 166.37 cm Angi Huang LPN Work Phone: [employer]; [facility]. 01-09-2017 15:35-0400 Body mass index (BMI) [Ratio] 35.23 kg/m2 Angijethro Huang LPN Work Phone: [facility].; [facility] [employer] 01-09-2017 15:35-0400 Body surface area Derived from formula 2.05 m2 Angi Sal PRICE ANALYST Work Phone: [employer]; [facility]. 01-09-2017 15:35-0400 Body weight 97.52 kg Angi Huang LPN Work Phone: [facility].; [facility] [employer] 01-09-2017 15:35-0400 Diastolic blood pressure 93 mm[Hg] Angi Huang PRICE ANALYST Work Phone: [facility].; [facility] [employer]. Comment on above: Patient Position: Sitting; Cuff Location : Left Arm; Cuff Size: Standard 01-09-2017 15:35-0400 Heart rate 80 /min Angi Huang PRICE ANALYST Work Phone: [facility].; [facility]. Comment on above: Pattern: Regular 01-09-2017 15:35-0400 Systolic blood pressure 143 mm[Hg] Angi Huang PRICE ANALYST Work Phone: [facility].; [facility]. Comment on above: Patient Position: Sitting; Cuff Location : Left Arm; Cuff Size: Standard 09-23-2016 14:23-0500 Body temperature 97.4 [degF] Maya Tolentino PRICE ANALYST [facility].; [facility] 09-23-2016 14:23-0500 Body weight 98.88 kg Maya Tolentino LPN [facility].; [facility] 09-23-2016 14:23-0500 Diastolic blood pressure 84 mm[Hg] Maya Tolentino LPN [facility].; [facility]. Comment on above: Patient Position: Sitting; Cuff Location : Left Arm; Cuff Size: Standard 09-23-2016 14:23-0500 Heart rate 78 /min Maya Tolentino LPN [facility].; [facility]. Comment on above: Pattern: Regular 09-23-2016 14:23-0500 Systolic blood pressure 133 mm[Hg] Maya Tolentino LPN [employer] [facility]. Comment on above: Patient Position: Sitting; Cuff Location : Left Arm; Cuff Size: Standard 09-21-2016 11:46-0500 Body temperature 98.6 [degF] Pollo Bobo MD Work Phone: [employer]; [employer] Comment on above: Method: Tympanic 09-21-2016 11:46-0500 Diastolic blood pressure 84 mm[Hg] Pollo Bobo MD Work Phone: [employer]; [facility] [employer]. Comment on above: Patient Position: Sitting; Cuff Location : Right Arm; Cuff Size: Standard 09-21-2016 11:46-0500 Heart rate 76 /min Pollo Bobo MD Work Phone: [employer]; [employer] Comment on above: Pattern: Regular 09-21-2016 11:46-0500 Systolic blood pressure 134 mm[Hg] Pollo Bobo MD Work Phone: [employer]; [employer] Comment on above: Patient Position: Sitting; Cuff Location : Right Arm; Cuff Size: Standard 09-16-2016 15:45-0500 Diastolic blood pressure 94 mm[Hg] Angi Sal PRICE ANALYST Work Phone: [employer]; [facility] [employer]. Comment on above: Patient Position: Sitting; Cuff Location : Left Arm; Cuff Size: Standard 09-16-2016 15:45-0500 Systolic blood pressure 153 mm[Hg] Angi Sal PRICE ANALYST Work Phone: [employer]; [facility]. Comment on above: Patient Position: Sitting; Cuff Location : Left Arm; Cuff Size: Standard 09-16-2016 15:45-0500 Diastolic blood pressure 95 mm[Hg] Angi Sal PRICE ANALYST Work Phone: [employer]; [employer] Comment on above: Patient Position: Sitting; Cuff Location : Left Arm; Cuff Size: Standard 09-16-2016 15:45-0500 Systolic blood pressure 158 mm[Hg] Angi Sal PRICE ANALYST Work Phone: [employer]; [employer] Comment on above: Patient Position: Sitting; Cuff Location : Left Arm; Cuff Size: Standard 09-16-2016 14:56-0500 Body height 166.37 cm Angi Huang LPN Work Phone: [facility].; [facility] [employer] 09-16-2016 14:56-0500 Body mass index (BMI) [Ratio] 36.05 kg/m2 Angi Huang PRICE ANALYST Work Phone: [facility].; [employer]. 09-16-2016 14:56-0500 Body surface area Derived from formula 2.07 m2 Angi Sal PRICE ANALYST Work Phone: [employer].; [employer]. 09-16-2016 14:56-0500 Body weight 99.79 kg Angi Huang LPN Work Phone: [facility].; [employer] 09-16-2016 14:56-0500 Diastolic blood pressure 89 mm[Hg] Angi Huang PRICE ANALYST Work Phone: [employer].; [employer]. Comment on above: Patient Position: Sitting; Cuff Location : Left Arm; Cuff Size: Large 09-16-2016 14:56-0500 Heart rate 76 /min Angi Huang LPN Work Phone: [facility].; [employer]. Comment on above: Pattern: Regular 09-16-2016 14:56-0500 Systolic blood pressure 155 mm[Hg] Angi Huang PRICE ANALYST Work Phone: [facility].; [employer]. Comment on above: Patient Position: Sitting; Cuff Location : Left Arm; Cuff Size: Large 08-13-2016 09:07-0500 Body height 165.1 cm Debra Haywood LPN [employer] 08-13-2016 09:07-0500 Body mass index (BMI) [Ratio] 35.94 kg/m2 Debra Haywood PRICE ANALYST [facility] [employer] 08-13-2016 09:07-0500 Body surface area Derived from formula 2.04 m2 Debraneil Haywood LPN [facility] [employer] 08-13-2016 09:07-0500 Body temperature 98.1 [degF] Debra Thiago Haywood LPN [place] [employer] [facility] [employer]. Comment on above: Method: Tympanic 08-13-2016 09:07-0500 Body weight 97.98 kg Debra Haywood LPN [place] [employer] [facility] [employer] 08-13-2016 09:07-0500 Diastolic blood pressure 93 mm[Hg] Debraneil Haywood LPN [place] [employer] [facility] [employer], [employer]. Comment on above: Patient Position: Sitting; Cuff Location : Left Arm; Cuff Size: Large 08-13-2016 09:07-0500 Heart rate 80 /min Debra Haywood LPN [place] [employer] [facility], [employer]. Comment on above: Pattern: Regular 08-13-2016 09:07-0500 Systolic blood pressure 149 mm[Hg] Debra Thiago Haywood PRICE ANALYST [employer], [employer]. Comment on above: Patient Position: Sitting; Cuff Location : Left Arm; Cuff Size: Large 07-11-2016 11:32-0400 Body height 165.1 cm Tabitha León LPN [place] [employer] [facility], [employer]. 07-11-2016 11:32-0400 Body mass index (BMI) [Ratio] 35.44 kg/m2 Tabitha León LPN [employer]. 07-11-2016 11:32-0400 Body surface area Derived from formula 2.03 m2 Tabitha León LPN [employer] 07-11-2016 11:32-0400 Body temperature 98.9 [degF] Tabitha León LPN [employer]. Comment on above: Method: Tympanic 07-11-2016 11:32-0400 Body weight 96.62 kg Tabitha León ASHVIN [facility], [employer], [employer]. 07-11-2016 11:32-0400 Diastolic blood pressure 96 mm[Hg] Tabitha León ASHVIN [facility], [employer], [employer]. Comment on above: Patient Position: Sitting; Cuff Location : Left Arm; Cuff Size: Standard 07-11-2016 11:32-0400 Heart rate 82 /min Tabitha Corcorangillesliana PRICE ANALYST [place] [employer] [facility], [facility], [employer]. Comment on above: Pattern: Regular 07-11-2016 11:32-0400 Inhaled oxygen concentration 20 % Tabitha Werock [facility] [employer] [facility], [facility], [employer]. Comment on above: Room air 07-11-2016 11:32-0400 Inhaled oxygen concentration 21 % Tabitha Werock [facility] [employer]. Comment on above: Room air 07-11-2016 11:32-0400 SaO2% (BldA) [Mass fraction] 95 % Tabitha Calvillomoiliana [facility] [employer] [facility], [employer] 07-11-2016 11:32-0400 Systolic blood pressure 158 mm[Hg] Tabitha León PRICE ANALYST [place] [employer]. Comment on above: Patient Position: Sitting; Cuff Location : Left Arm; Cuff Size: Standard 05-05-2016 16:01-0400 Body weight 94.35 kg Angi Huang [facility] Work Phone: [employer], [employer]. 05-05-2016 16:01-0400 Diastolic blood pressure 89 mm[Hg] Angi Sal [facility] Work Phone: [employer] [employer]. Comment on above: Patient Position: Sitting; Cuff Location : Left Arm; Cuff Size: Standard 05-05-2016 16:01-0400 Heart rate 73 /min Angi Sal [facility] Work Phone: [facility] [facility], [employer]. Comment on above: Pattern: Regular 05-05-2016 16:01-0400 Systolic blood pressure 153 mm[Hg] Angi Huang LPN Work Phone: [facility], [employer]. Comment on above: Patient Position: Sitting; Cuff Location : Left Arm; Cuff Size: Standard 01-26-2016 10:09-0400 Body height 165.1 cm Debra Haywood LPN [place] [employer] [facility], [employer]. 01-26-2016 10:09-0400 Body mass index (BMI) [Ratio] 33.78 kg/m2 Debra Haywood LPN [facility], [employer] [facility]. 01-26-2016 10:09-0400 Body surface area Derived from formula 1.99 m2 eDbra Haywood LPN [place] [employer] [facility], [employer].; [employer]. 01-26-2016 10:09-0400 Body temperature 98.5 [degF] Debra Haywood LPN [facility] [facility], [employer].; [employer]. Comment on above: Method: Tympanic 01-26-2016 10:090400 Body weight 92.08 kg Debra Haywood LPN [place] [employer] [facility], [employer]. 01-26-2016 10:09-0400 Diastolic blood pressure 95 mm[Hg] Debra Haywood LPN [facility], [employer]. Comment on above: Patient Position: Sitting; Cuff Location : Left Arm; Cuff Size: Standard 01-26-2016 10:09-0400 Heart rate 74 /min Debra Haywood LPN [facility], [employer]. Comment on above: Pattern: Regular 01-26-2016 10:09-0400 Systolic blood pressure 140 mm[Hg] Debra Haywood LPN [employer], [employer]. Comment on above: Patient Position: Sitting; Cuff Location : Left Arm; Cuff Size: Standard 06-11-2015 16:05-0400 Body weight 88.45 kg Neilee L Vess PRICE ANALYST [employer], [employer]. 06-11-2015 16:05-0400 Diastolic blood pressure 90 mm[Hg] Neilee L Vess PRICE ANALYST [employer], [employer]. Comment on above: Patient Position: Sitting; Cuff Location : Right Arm; Cuff Size: Standard 06-11-2015 16:05-0400 Heart rate 81 /min Neilee L Vess PRICE ANALYST [employer]. Comment on above: Pattern: Regular 06-11-2015 16:05-0400 Systolic blood pressure 161 mm[Hg] Neilee L Vess PRICE ANALYST [employer].; [employer]. Comment on above: Patient Position: Sitting; Cuff Location : Right Arm; Cuff Size: Standard 09-11-2014 14:19-0500 Body weight 83.92 kg Neilee L Vess PRICE ANALYST [employer].; [employer]. 09-11-2014 14:19-0500 Diastolic blood pressure 89 mm[Hg] Neilee L Vess PRICE ANALYST [employer].; [employer]. Comment on above: Patient Position: Sitting; Cuff Location : Right Arm; Cuff Size: Standard 09-11-2014 14:19-0500 Heart rate 82 /min Neilee L Vess PRICE ANALYST [employer], [employer]. Comment on above: Pattern: Regular 09-11-2014 14:19-0500 Systolic blood pressure 154 mm[Hg] Neilee L Vess PRICE ANALYST [employer].; [employer]. Comment on above: Patient Position: Sitting; Cuff Location : Right Arm; Cuff Size: Standard 09-06-2013 13:26-0500 Body height 165.1 cm [facility] Work Phone: [employer]. 09-06-2013 13:26-0500 Body mass index (BMI) [Ratio] 31.48 kg/m2 [facility] Work Phone: [employer].; [employer]. 09-06-2013 13:26-0500 Body surface area Derived from formula 1.93 m2 Angi Huang LPN Work Phone: [employer].; [employer] 09-06-2013 13:26-0500 Body temperature 98.5 [degF] Angi Huang LPN Work Phone: [facility]; [employer]. Comment on above: Method: Tympanic 09-06-2013 13:26-0500 Body weight 85.82 kg Angi Huang LPN Work Phone: [employer].; [employer]. 09-06-2013 13:26-0500 Diastolic blood pressure 86 mm[Hg] Angi Huang LPN Work Phone: [employer]; [employer]. Comment on above: Patient Position: Sitting; Cuff Location : Left Arm; Cuff Size: Large 09-06-2013 13:26-0500 Heart rate 71 /min Angi Huang LPN Work Phone: [employer]; [employer]. Comment on above: Pattern: Regular 09-06-2013 13:26-0500 Systolic blood pressure 151 mm[Hg] Angi Huang LPN Work Phone: [employer]; [employer]. Comment on above: Patient Position: Sitting; Cuff Location : Left Arm; Cuff Size: Large 07-05-2013 14:31-0400 Body height 165.1 cm Angi Huang LPN Work Phone: [employer].; [employer] 07-05-2013 14:31-0400 Body mass index (BMI) [Ratio] 31.82 kg/m2 Angi Huang LPN Work Phone: [employer].; [employer]. 07-05-2013 14:31-0400 Body surface area Derived from formula 1.94 m2 Angi Huang LPN Work Phone: [facility].; [employer] 07-05-2013 14:31-0400 Body weight 86.73 kg Angi Huang LPN Work Phone: [facility].; [employer]. 07-05-2013 14:31-0400 Diastolic blood pressure 77 mm[Hg] Angi Huang LPN Work Phone: [facility].; [employer]. Comment on above: Patient Position: Sitting; Cuff Location : Left Arm; Cuff Size: Standard 07-05-2013 14:31-0400 Heart rate 70 /min Angi Huang LPN Work Phone: [facility]; [employer]. Comment on above: Pattern: Regular 07-05-2013 14:31-0400 Systolic blood pressure 123 mm[Hg] nAgi Huang LPN Work Phone: [facility]; [employer] Comment on above: Patient Position: Sitting; Cuff Location : Left Arm; Cuff Size: Standard 04-25-2013 15:03-0400 Body height 165.1 cm Pollo Bobo MD Work Phone: [facility]; [employer] 04-25-2013 15:03-0400 Body mass index (BMI) [Ratio] 32.48 kg/m2 Pollo Bobo MD Work Phone: [facility]; [employer] 04-25-2013 15:03-0400 Body surface area Derived from formula 1.96 m2 Pollo Bobo MD Work Phone: [facility]; [employer] 04-25-2013 15:03-0400 Body temperature 98.8 [degF] Pollo Bobo MD Work Phone: [employer]; [employer] Comment on above: Method: Tympanic 04-25-2013 15:03-0400 Body weight 88.54 kg Pollo Bobo MD Work Phone: [facility] [employer]. 04-25-2013 15:03-0400 Diastolic blood pressure 88 mm[Hg] Pollo Bobo MD Work Phone: [facility] [employer]. Comment on above: Patient Position: Sitting; Cuff Location : Left Arm; Cuff Size: Standard 04-25-2013 15:03-0400 Heart rate 89 /min Pollo Bobo MD Work Phone: [facility] [employer]. Comment on above: Pattern: Regular 04-25-2013 15:03-0400 Systolic blood pressure 142 mm[Hg] Pollo Bobo MD Work Phone: [facility] [employer]. Comment on above: Patient Position: Sitting; Cuff Location : Left Arm; Cuff Size: Standard 01-23-2013 15:25-0400 Body height 165.1 cm [facility] Work Phone: [facility] [employer]. 01-23-2013 15:25-0400 Body mass index (BMI) [Ratio] 33.61 kg/m2 [facility] Work Phone: [facility] [employer] 01-23-2013 15:25-0400 Body surface area Derived from formula 1.99 m2 [facility] Work Phone: [facility] [employer] [employer]. 01-23-2013 15:25-0400 Body weight 91.63 kg [facility] Work Phone: [place] [employer].; [employer]. 01-23-2013 15:25-0400 Diastolic blood pressure 88 mm[Hg] [facility] Work Phone: [place] [employer] [facility] [employer]. Comment on above: Patient Position: Sitting; Cuff Location : Left Arm; Cuff Size: Large 01-23-2013 15:25-0400 Heart rate 79 /min Angi Huang LPN Work Phone: [employer].; [employer]. Comment on above: Pattern: Regular 01-23-2013 15:25-0400 Systolic blood pressure 142 mm[Hg] Angi Huang PRICE ANALYST Work Phone: [employer].; [employer]. Comment on above: Patient Position: Sitting; Cuff Location : Left Arm; Cuff Size: Large 10-02-2012 15:47-0500 Body height 165.1 cm Pollo Bobo MD Work Phone: [employer].; [employer]. 10-02-2012 15:47-0500 Body mass index (BMI) [Ratio] 33.95 kg/m2 Pollo Bobo MD Work Phone: [employer].; [employer]. 10-02-2012 15:47-0500 Body surface area Derived from formula 1.99 m2 Pollo Bobo MD Work Phone: [employer].; [employer]. 10-02-2012 15:47-0500 Body weight 92.53 kg Pollo Bobo MD Work Phone: [employer].; [employer]. 10-02-2012 15:47-0500 Diastolic blood pressure 89 mm[Hg] Pollo Bobo MD Work Phone: [employer].; [employer]. Comment on above: Patient Position: Sitting; Cuff Location : Right Arm; Cuff Size: Large 10-02-2012 15:47-0500 Heart rate 68 /min Pollo Bobo MD Work Phone: [employer].; [employer]. Comment on above: Pattern: Regular 10-02-2012 15:47-0500 Systolic blood pressure 146 mm[Hg] Pollo Bobo MD Work Phone: [employer].; [employer]. Comment on above: Patient Position: Sitting; Cuff Location : Right Arm; Cuff Size: Large 06-29-2012 13:52-0400 Body height 165.1 cm Angi Denneyy PRICE ANALYST Work Phone: [place] [employer]; [employer]. 06-29-2012 13:52-0400 Body mass index (BMI) [Ratio] 33.95 kg/m2 Angi Denneyy PRICE ANALYST Work Phone: [facility]; [employer]. 06-29-2012 13:52-0400 Body surface area Derived from formula 1.99 m2 Angi Denneyy PRICE ANALYST Work Phone: [facility]; [employer]. 06-29-2012 13:52-0400 Body temperature 98.1 [degF] Angi Huang PRICE ANALYST Work Phone: [facility]; [employer]. Comment on above: Method: Tympanic 06-29-2012 13:52-0400 Body weight 92.53 kg Angi Denneyy PRICE ANALYST Work Phone: [facility]; [employer]. 06-29-2012 13:52-0400 Diastolic blood pressure 84 mm[Hg] Angi Denneyy PRICE ANALYST Work Phone: [facility]; [employer]. Comment on above: Patient Position: Sitting; Cuff Location : Left Arm; Cuff Size: Large 06-29-2012 13:52-0400 Heart rate 73 /min Angi Denneyy PRICE ANALYST Work Phone: [facility]; [employer]. Comment on above: Pattern: Regular 06-29-2012 13:52-0400 Systolic blood pressure 151 mm[Hg] Angi Sal PRICE ANALYST Work Phone: [facility]; [employer]. Comment on above: Patient Position: Sitting; Cuff Location : Left Arm; Cuff Size: Large 09-01-2011 14:54-0500 Body height 166.37 cm Pollo Bobo MD Work Phone: [employer]; [employer] 09-01-2011 14:54-0500 Body mass index (BMI) [Ratio] 35 kg/m2 Pollo Bobo MD Work Phone: [employer]; [employer] 09-01-2011 14:54-0500 Body surface area Derived from formula 2.05 m2 Pollo Bobo MD Work Phone: [employer]; [employer] 09-01-2011 14:54-0500 Body temperature 97 [degF] Pollo Bobo MD Work Phone: [employer]; [employer] Comment on above: Method: Tympanic 09-01-2011 14:54-0500 Body weight 96.89 kg Pollo Bobo MD Work Phone: [employer]; [employer] 09-01-2011 14:54-0500 Diastolic blood pressure 88 mm[Hg] Pollo Bobo MD Work Phone: [employer]; [employer]. Comment on above: Patient Position: Sitting; Cuff Location : Left Arm; Cuff Size: Standard 09-01-2011 14:54-0500 Heart rate 72 /min Pollo Bobo MD Work Phone: [employer]; [employer] Comment on above: Pattern: Regular 09-01-2011 14:54-0500 Systolic blood pressure 148 mm[Hg] Pollo Bobo MD Work Phone: [employer]; [employer] Comment on above: Patient Position: Sitting; Cuff Location : Left Arm; Cuff Size: Standard 05-27-2011 13:53-0400 Body height 166.37 cm Angi Huang ASHVIN Work Phone: [employer]; [employer] 05-27-2011 13:53-0400 Body mass index (BMI) [Ratio] 35.4 kg/m2 Angi Huang LPN Work Phone: [employer] [employer]. 05-27-2011 13:53-0400 Body surface area Derived from formula 2.06 m2 Angi Huang LPN Work Phone: [employer].; [employer]. 05-27-2011 13:53-0400 Body weight 97.98 kg Angi Huang LPN Work Phone: [employer].; [employer]. 05-27-2011 13:53-0400 Diastolic blood pressure 82 mm[Hg] Angi Huang LPN Work Phone: [employer] [facility].; [employer]. Comment on above: Patient Position: Sitting; Cuff Location : Left Arm; Cuff Size: Large 05-27-2011 13:53-0400 Heart rate 82 /min Angi Huang LPN Work Phone: [facility]; [employer]. Comment on above: Pattern: Regular 05-27-2011 13:53-0400 Systolic blood pressure 135 mm[Hg] Angi Huang LPN Work Phone: [facility]; [employer]. Comment on above: Patient Position: Sitting; Cuff Location : Left Arm; Cuff Size: Large 06-28-2010 10:17-0400 Body height 168.91 cm Angi Huang LPN Work Phone: [facility]; [employer]. 06-28-2010 10:17-0400 Body mass index (BMI) [Ratio] 36.73 kg/m2 Angi Huang LPN Work Phone: [facility].; [employer]. 06-28-2010 10:17-0400 Body surface area Derived from formula 2.14 m2 Angi Sal PRICE ANALYST Work Phone: [facility]; [employer]. 06-28-2010 10:170400 Body temperature 98.4 [degF] Angi Huang LPN Work Phone: [facility]; [employer]. Comment on above: Method: Tympanic 06-28-2010 10:170400 Body weight 104.78 kg Angi Huang LPN Work Phone: [facility]; [employer]. 06-28-2010 10:170400 Diastolic blood pressure 79 mm[Hg] Angi Huang PRICE ANALYST Work Phone: [facility].; [employer]. Comment on above: Patient Position: Sitting; Cuff Location : Left Arm; Cuff Size: Standard 06-28-2010 10:170400 Heart rate 75 /min Angi Sal PRICE ANALYST Work Phone: [facility]; [employer]. Comment on above: Pattern: Regular 06-28-2010 10:170400 Systolic blood pressure 131 mm[Hg] Angi Huang LPN Work Phone: [facility]; [employer]. Comment on above: Patient Position: Sitting; Cuff Location : Left Arm; Cuff Size: Standard Encounters Encounter Date Encounter Type Care Provider Facility Start: 02-04-2025 End: 02-04-2025 Patient encounter procedure Ramon [place]it[place] [facility] Work Phone: Start: 02-04-2025 End: 02-04-[address] Pollo Bobo MD Work Phone: [facility] Work Phone: Start: 12-19-2024 End: 12-19-2024 Office outpatient visit 25 minutes Pollo Bobo MD Work Phone: [facility] Start: 12-19-2024 Follow-up encounter Pollo raygoza MD Work Phone: [facility] Start: 11-29-2024 End: 11-29-2024 Historical Summary Pollo Bobo MD Work Phone: [employer] Start: 10-10-2024 End: 10-10-2024 Patient encounter procedure Mehdi [facility] Work Phone: Start: 10-10-2024 End: 10-10-2024 ambulatory Mehdi [place] Start: 09-05-2024 End: 09-05-2024 Patient encounter procedure Pollo Bobo MD Work Phone: [employer] Start: 09-05-2024 End: 09-05-2024 Physical examination Pollo Bobo MD Work Phone: [employer]; [employer] Start: 09-05-2024 Physical examination Angi Rodriguez miah LOCK Work Phone: [employer]; [employer] Start: 09-05-2024 Review Pollo conti MD Work Phone: [employer] Start: 09-03-2024 ambulatory [facility] Facility [facility] Start: 08-29-2024 End: 08-29-2024 Orders Pollo Bobo MD Work Phone: [employer] Start: 08-27-2024 End: 08-27-2024 ambulatory Mehdi [place] Facility:[facility] Start: 07-02-2024 End: 07-03-2024 Orders Pollo Bobo MD Work Phone: [employer] Start: 06-09-2024 End: 06-10-2024 ambulatory Pollo Bah NP Facility:[facility] Start: 06-04-2024 End: 06-04-2024 ambulatory Pollo Bobo [place] Start: 04-25-2024 End: 04-25-2024 Office outpatient visit 25 minutes Pollo Bobo MD Work Phone: [employer] Start: 04-25-2024 Follow-up encounter Pollo raygoza [facility] Start: 03-12-2024 End: 03-12-2024 ambulatory Pollo Bobo Facility:[facility] Start: 02-29-2024 End: 02-29-2024 Orders Pollo Bobo MD Work Phone: [facility] Start: 01-18-2024 End: 01-18-2024 Office outpatient visit 25 minutes Pollo Bobo MD Work Phone: [facility] Start: 12-06-2023 End: 12-06-2023 ambulatory [facility] Start: 11-28-2023 End: 11-28-2023 ambulatory [facility] Start: 08-28-2023 End: 08-28-2023 Historical Summary Pollo Bobo MD Work Phone: [facility] Start: 08-25-2023 End: 08-25-2023 Patient encounter procedure Pollo Bobo MD Work Phone: [facility] Start: 07-11-2023 End: 07-11-[address] Pollo Bobo Work Phone: [facility] Work Phone: Start: 07-11-2023 End: 07-11-[address] Pollo Bobo Work Phone: [facility] Work Phone: Start: 07-05-2023 End: 07-05-2023 Patient encounter procedure Pollo Bobo MD Work Phone: [facility] Start: 06-23-2023 End: 06-23-[address] Pollo Bobo Work Phone: [facility] Work Phone: Start: 05-23-2023 End: 05-23-[address] Pollo Bobo Work Phone: [facility] Work Phone: Start: 05-23-2023 End: 05-23-[address] Pollo Bobo Work Phone: [facility] Work Phone: Start: 05-11-2023 End: 05-11-[address] Pollo Bobo Work Phone: [facility] Work Phone: Start: 05-11-2023 End: 05-11-[address] Pollo Bobo Work Phone: [facility]-Nuclear Medicine, [facility] Work Phone: Start: 05-08-2023 End: 05-08-[address] Pollo Bobo Work Phone: [facility] Work Phone: Start: 05-08-2023 End: 05-08-[address] Pollo Bobo Work Phone: [facility]-Laboratory, Specimen Work Phone: Start: 05-07-2023 End: 05-07-[address] Pollo Bobo Work Phone: [facility] [place] Work Phone: Start: 04-27-2023 Non-patient / Non-visit Dr. Pollo Bobo Work Phone: [facility] [place] Start: 04-27-2023 End: 04-27-2023 Admission to same day surgery center Dr. Pollo Bobo Work Phone: [facility]-Endoscopy Work Phone: Start: 04-27-2023 End: 04-27-[address] Pollo Bobo Work Phone: [facility] Work Phone: Start: 04-14-2023 End: 04-14-2023 Patient encounter procedure Pollo Bobo MD Work Phone: [facility] Start: 03-09-2023 End: 03-09-2023 Patient encounter procedure Pollo Bobo MD Work Phone: [facility] Start: 03-03-2023 End: 03-03-[address] Pollo Bobo Work Phone: [facility] Work Phone: Start: 03-03-2023 End: 03-03-[address] Pollo Bobo Work Phone: [facility] Start: 02-24-2023 End: 02-24-2023 Historical Summary Pollo Bobo MD Work Phone: [facility] Start: 02-16-2023 End: 02-16-[address] Pollo Bobo Work Phone: [facility] Work Phone: Start: 02-16-2023 End: 02-16-[address] Pollo Bobo Work Phone: [facility] [place], [facility] Start: 02-13-2023 End: 02-13-[address] Pollo Bobo Work Phone: [facility] Work Phone: Start: 02-13-2023 End: 02-13-[address] Pollo Bobo Work Phone: [facility]-Laboratory, Specimen Start: 02-10-2023 End: 02-10-[address] Pollo Bobo Work Phone: [facility] Work Phone: Start: 02-10-2023 End: 02-10-[address] Pollo Bobo Work Phone: [facility] Start: 02-10-2023 End: 02-10-[address] Pollo Bobo Work Phone: [facility] Start: 01-18-2023 End: 01-18-[address] Pollo Bobo Work Phone: [facility] Start: 12-23-2022 End: 12-23-2022 Admission to same day surgery center Dr. Pollo Bobo Work Phone: [facility] Start: 12-23-2022 End: 12-23-[address] Pollo Bobo Work Phone: [facility] Work Phone: Start: 11-18-2022 End: 11-18-2022 Office outpatient visit 25 minutes Pollo Bobo MD Work Phone: [employer] Start: 11-18-2022 End: 11-18-2022 Telephone follow-up Pollo Bobo MD Work Phone: [employer] Start: 11-16-2022 End: 11-16-2022 Follow-up encounter Pollo oBbo MD Work Phone: [employer] Start: 11-15-2022 End: 11-15-[address] Pollo Bobo Work Phone: [facility] Start: 11-07-2022 End: 11-07-2022 Orders Pollo Bobo MD Work Phone: [employer] Start: 11-07-2022 End: 11-07-2022 Historical Summary Pollo Bobo MD Work Phone: [employer] Start: 11-05-2022 End: 11-05-2022 Emergency department patient visit [facility]-Emergency Department Start: 10-10-2022 End: 10-10-2022 Patient encounter procedure Pollo Bobo MD Work Phone: [employer] Start: 10-10-2022 End: 10-10-2022 Patient encounter status Angi Huang LPN Work Phone: [facility]; [employer] Start: 10-05-2022 End: 10-06-2022 Orders Pollo Bobo MD Work Phone: [facility] Start: 08-22-2022 End: 08-22-2022 Patient encounter procedure Pollo Bobo MD Work Phone: [facility] Start: 02-09-2022 End: 02-09-2022 Patient encounter procedure Pollo Bobo MD Work Phone: [facility] Start: 08-11-2021 End: 08-11-2021 Patient encounter procedure Pollo Bobo MD Work Phone: [employer] Start: 08-11-2021 End: 08-11-2021 Physical examination Pollo Bobo MD Work Phone: [employer]; [employer] Start: 06-10-2021 End: 06-10-2021 Patient encounter procedure Pollo Bobo MD Work Phone: [employer] Start: 05-20-2021 End: 05-20-2021 Orders Pollo Bobo MD Work Phone: [employer] Start: 05-17-2021 End: 05-17-2021 Orders Pollo Bobo MD Work Phone: [employer] Start: 02-10-2021 End: 02-10-2021 Orders Pollo Bobo MD Work Phone: [employer] Start: 02-08-2021 End: 02-08-2021 Patient encounter procedure Pollo Bobo MD Work Phone: [employer] Start: 11-16-2020 End: 11-16-2020 Orders Pollo Bobo MD Work Phone: [facility] Start: 08-18-2020 End: 08-19-2020 Orders Pollo Bobo MD Work Phone: [employer] Start: 08-10-2020 End: 08-10-2020 Patient encounter procedure Pollo Bobo MD Work Phone: [employer] Start: 08-10-2020 End: 08-10-2020 Patient encounter status Pollo Bobo MD Work Phone: [employer] Start: 04-08-2020 End: 04-08-2020 Office outpatient visit 15 minutes Pollo Bobo MD Work Phone: [employer] Start: 10-24-2019 End: 10-24-2019 Office outpatient visit 25 minutes Pollo Bobo MD Work Phone: [employer] Start: 07-02-2019 End: 07-02-2019 Office outpatient visit 15 minutes Pollo Bobo MD Work Phone: [employer] Start: 06-29-2019 End: 06-29-2019 Orders Pollo Bobo MD Work Phone: [employer] Start: 06-21-2019 End: 06-21-2019 Orders Pollo Bobo MD Work Phone: [employer] Start: 02-07-2019 End: 02-07-2019 Patient encounter procedure Pollo Bobo MD Work Phone: [employer] Start: 01-23-2019 End: 01-23-2019 Historical Summary Pollo Bobo MD Work Phone: [employer] Start: 01-17-2019 End: 01-17-2019 Patient encounter procedure Pollo Bobo MD Work Phone: [employer] Start: 01-17-2019 End: 01-17-2019 Patient encounter status Pollo Bobo MD Work Phone: [employer]; [employer]. Start: 11-19-2018 End: 11-19-2018 Patient encounter procedure Pollo Bobo MD Work Phone: [employer] Start: 10-10-2018 End: 10-10-2018 Orders Pollo Bobo MD Work Phone: [employer] Start: 09-01-2018 End: 09-01-2018 Patient encounter procedure Pollo Bobo MD Work Phone: [employer] Start: 07-02-2018 End: 07-02-2018 Patient encounter procedure Pollo Bobo MD Work Phone: [employer] Start: 05-14-2018 End: 05-14-2018 Historical Summary Pollo Bobo MD Work Phone: [employer] Start: 02-12-2018 End: 02-12-2018 Patient encounter procedure Pollo Bobo MD Work Phone: [employer] Start: 01-26-2018 End: 01-26-2018 Historical Summary Pollo Bobo MD Work Phone: [employer] Start: 11-13-2017 End: 11-13-2017 Historical Summary Pollo Bobo MD Work Phone: [employer] Start: 11-13-2017 End: 11-13-2017 Patient encounter procedure Pollo Bobo MD Work Phone: [employer] Start: 11-13-2017 End: 11-13-2017 Patient encounter status Pollo Bobo MD Work Phone: [employer]; [employer]. Start: 10-19-2017 End: 10-19-2017 Medication Pollo Bobo MD Work Phone: [employer]. Start: 09-26-2017 End: 09-28-2017 Orders Pollo Bobo MD Work Phone: [employer] Start: 08-14-2017 End: 08-14-2017 Patient encounter procedure Pollo Bobo MD Work Phone: [employer] Start: 05-17-2017 End: 05-17-2017 Patient encounter procedure Pollo Bobo MD Work Phone: [employer] Start: 05-16-2017 End: 05-16-2017 Historical Summary Pollo Bobo MD Work Phone: [employer] Start: 01-09-2017 End: 01-09-2017 Patient encounter procedure Pollo Bobo MD Work Phone: [employer] Start: 12-14-2016 End: 12-14-2016 Historical Summary Pollo Bobo MD Work Phone: [employer] Start: 09-23-2016 End: 09-23-2016 Office outpatient visit 15 minutes Pollo Bobo MD Work Phone: [employer] Start: 09-21-2016 End: 09-21-2016 Nursing evaluation of patient and report Pollo Bobo MD Work Phone: [employer] Start: 09-16-2016 End: 09-16-2016 Historical Summary Pollo Bobo MD Work Phone: [employer] Start: 09-16-2016 End: 09-16-2016 Patient encounter procedure Pollo Bobo MD Work Phone: [employer] Start: 09-16-2016 End: 09-16-2016 Patient encounter status Pollo Bobo MD Work Phone: [employer]; [employer] Start: 09-07-2016 End: 09-07-2016 Orders Pollo Bobo MD Work Phone: [employer] Start: 08-30-2016 End: 08-31-2016 Orders Pollo Bobo MD Work Phone: [employer] Start: 08-13-2016 End: 08-13-2016 Patient encounter procedure Pollo Bobo MD Work Phone: [employer] Start: 07-11-2016 End: 07-11-2016 Patient encounter procedure Pollo Bobo MD Work Phone: [employer] Start: 05-05-2016 End: 05-13-2016 Patient encounter procedure Pollo Bobo MD Work Phone: [employer] Start: 01-26-2016 End: 01-26-2016 Office outpatient visit 15 minutes Pollo Bobo MD Work Phone: [employer] Start: 06-11-2015 End: 06-11-2015 Patient encounter procedure Pollo Bobo MD Work Phone: [employer] Start: 03-17-2015 End: 03-17-2015 Medication Pollo Bobo MD Work Phone: [employer] Start: 02-25-2015 End: 02-25-2015 Orders Pollo Bobo MD Work Phone: [employer] Start: 09-11-2014 End: 09-11-2014 Patient encounter procedure Pollo Bobo MD Work Phone: [employer] Start: 08-20-2014 End: 08-20-2014 Orders Pollo Bobo MD Work Phone: [employer] Start: 07-08-2014 End: 07-08-2014 Historical Summary Pollo Bobo MD Work Phone: [employer] Start: 04-14-2014 End: 04-14-2014 Medication Pollo Bobo MD Work Phone: [employer] Start: 03-04-2014 End: 03-04-2014 Medication Pollo Bobo MD Work Phone: [employer] Start: 09-06-2013 End: 09-06-2013 Patient encounter procedure Pollo Bobo MD Work Phone: [employer] Start: 07-05-2013 End: 07-05-2013 Patient encounter procedure Pollo Bobo MD Work Phone: [employer] Start: 06-19-2013 End: 06-19-2013 Orders Pollo Bobo MD Work Phone: [facility]. Start: 04-25-2013 End: 04-25-2013 Patient encounter procedure Pollo Bobo MD Work Phone: [employer] Start: 01-23-2013 End: 01-23-2013 Patient encounter procedure Pollo Bobo MD Work Phone: [facility] Start: 11-28-2012 End: 11-28-2012 Medication Pollo Bobo MD Work Phone: [employer] Start: 10-02-2012 End: 10-02-2012 Patient encounter procedure Pollo Bobo MD Work Phone: [employer] Start: 09-17-2012 End: 09-17-2012 Medication Pollo Bobo MD Work Phone: [facility] Start: 09-12-2012 End: 09-12-2012 Patient encounter procedure Pollo Bobo MD Work Phone: [facility] Start: 07-16-2012 End: 07-16-2012 Medication Pollo Bobo MD Work Phone: [facility] Start: 07-10-2012 End: 07-10-2012 Medication Pollo Bobo MD Work Phone: [facility]. Start: 07-02-2012 End: 07-02-2012 Medication Pollo Bobo MD Work Phone: [facility] Start: 06-29-2012 End: 06-29-2012 Manual pelvic examination Pollo Bobo MD Work Phone: [facility]; [employer]. Start: 06-29-2012 End: 06-29-2012 Patient encounter procedure Pollo Bobo MD Work Phone: [facility] Start: 06-22-2012 End: 06-22-2012 Orders Pollo Bobo MD Work Phone: [employer] Start: 05-24-2012 End: 05-24-2012 Orders Pollo Bobo MD Work Phone: [employer] [facility] Start: 09-23-2011 End: 09-23-2011 Medication Pollo Bobo MD Work Phone: [facility] Start: 09-01-2011 End: 09-01-2011 Patient encounter procedure Pollo Bobo MD Work Phone: [facility] Start: 05-27-2011 End: 05-29-2011 Patient encounter procedure Pollo Bobo MD Work Phone: [facility] Start: 05-27-2011 End: 05-29-2011 Routine gynecological examination Pollo Bobo MD Work Phone: [employer]; [employer]. Start: 04-18-2011 End: 2011 Medication Pollo Bobo MD Work Phone: [employer] Start: 11-17-2010 End: 11-17-2010 Medication Pollo Bobo MD Work Phone: [facility] Start: 10-15-2010 End: 10-15-2010 Medication Pollo Bobo MD Work Phone: [employer] Start: 06-28-2010 End: 06-28-2010 Patient encounter procedure Pollo Bobo MD Work Phone: [employer] Procedures Date Procedure Procedure Detail Performing Clinician Start: 02-20-2025 End: 02-20-2025 Most Recent Endo Report Pollo Bobo MD Work Phone: Comment on above: no records Start: 11-29-2024 End: 11-29-2024 Most Recent Endo Report Pollo Bobo MD Work Phone: Comment on above: no Endocrinology records Start: 09-05-2024 End: 09-05-2024 Body mass index documented Pollo yoo MD Work Phone: Start: 09-05-2024 End: 09-05-2024 Depression screening Pollo Bobo MD Work Phone: Start: 09-05-2024 End: 09-05-2024 Docrev cur meds by ladi velasquez MD Work Phone: Start: 09-05-2024 End: 09-05-2024 Most recent diastolic blood pressure 80-89 mm hg Pollo Bobo MD Work Phone: Start: 09-05-2024 End: 09-05-2024 Most recent hemoglobin a1c level < 7.0% Pollo Bobo MD Work Phone: Start: 09-05-2024 End: 09-05-2024 Most recent systolic blood press 130-139mm hg Pollo Bobo MD Work Phone: Start: 09-05-2024 End: 09-05-2024 Negative microalbuminuria test result doc&rev Pollo Bobo MD Work Phone: Start: 09-05-2024 End: 09-05-2024 Pos clin depres scrn f/u doc Pollo velasquez MD Work Phone: Start: 09-05-2024 End: 09-05-2024 Scr dep neg, no plan reqd Pollo harris MD Work Phone: Start: 08-29-2024 End: 08-29-2024 Hemoglobin A1c/Hemoglobin.total in Blood Angi Huang PRICE ANALYST Work Phone: Comment on above: 5.6 Start: 08-29-2024 End: 08-29-2024 Lab findings surveillance Angi Davila PN Work Phone: Comment on above: 91 Start: 08-29-2024 End: 08-29-2024 Lipid panel results documented & reviewed Angi Huang PRICE ANALYST Work Phone: Comment on above: Normal. tc 179 hdl 60 ldl 96 trig 131 Start: 08-29-2024 End: 08-29-2024 uACR Angi Huang LPN Work Phone: Comment on above: Negative Finding. creatinine 177 albumin 2.2 ratio 12 Start: 06-27-2024 End: 06-27-2024 Examination of retina Angi Huang LPN Work Phone: Comment on above: Negative Finding. [facility] Start: 01-18-2024 End: 01-18-2024 Hemoglobin A1c/Hemoglobin.total in Blood Angi Huang LPN Work Phone: Comment on above: 5.5 Start: 01-18-2024 End: 01-18-2024 Most recent diastolic blood pressure < 80 mm hg Pollo Bobo MD Work Phone: Start: 01-18-2024 End: 01-18-2024 Most recent hemoglobin a1c level < 7.0% Pollo Bobo MD Work Phone: Start: 01-18-2024 End: 01-18-2024 Most recent systolic blood pressure <130 mm hg Pollo Bobo MD Work Phone: Start: 11-28-2023 End: 11-28-2023 Screening mammography Pollo Bobo MD Work Phone: Comment on above: Within Normal Limits. Results:. 04/2009 n eg, 09/28/16 neg/scattered fibroglandular densities benign appearing. density 25%, 11/07/17 neg. (mammo showed right assymetry, spot compression neg), 12/17/18 neg, 08/06/20 neg, 11/28/23 additional views needed Start: 08-25-2023 End: 08-25-2023 Most recent diastolic blood pressure < 80 mm hg Pollo Bobo MD Work Phone: Start: 08-25-2023 End: 08-25-2023 Most recent systolic blood pressure <130 mm hg Pollo Bobo MD Work Phone: Start: 08-25-2023 End: 11-29-2023 Screening mammography bi 2-view breast inc cad Pollo Bobo MD Work Phone: Start: 08-25-2023 End: 08-25-2023 [facility] Pollo Bobo MD Work Phone: Comment on above: Negative Finding. Start: 07-11-[address] Pollo Bobo Work Phone: Start: 07-11-[address] Pollo Bobo Work Phone: Start: 07-05-2023 End: 07-05-2023 Hemoglobin A1c/Hemoglobin.total in Blood [facility] Work Phone: Comment on above: 6.4 Start: 05-11-[address] empt[address] study Dr. Pollo Bobo Work Phone: Start: 05-07-[address] Pollo Bobo Work Phone: Start: 04-27-2023 End: 04-27-2023 Endoscopy [facility] Work Phone: Comment on above: gastritis, esophagitis, hiatal hernia Start: 04-27-[address] Pollo Bobo Work Phone: Start: 02-16-[address] Pollo Bobo Work Phone: Start: 02-16-[address] Pollo Bobo Work Phone: Start: 02-14-2023 End: 02-14-2023 liver elastography Pollo Bobo MD Work Phone: Comment on above: Abnormal. 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 Myra Bobo Work Phone: Start: 12-23-[address] Pollo Bobo Work Phone: Start: 12-23-2022 Diagnostic radiography of abdomen Dr. Myra Bobo Work Phone: Start: 11-05-2022 Computed tomography of abdomen and pelvis with intravenous contrast Start: 10-10-2022 End: 10-10-2022 Depression screening Pollo Bobo MD Work Phone: Start: 10-10-2022 End: 10-10-2022 Dilated retinal exam w/evidence of retinopathy Pollo Bobo MD Work Phone: Start: 10-10-2022 End: 10-10-2022 Docrev cur meds by ladi velasquez MD Work Phone: Start: 10-10-2022 End: 10-10-2022 Most recent diastolic blood pressure 80-89 mm hg Pollo Bobo MD Work Phone: Start: 10-10-2022 End: 10-10-2022 Most recent hemoglobin a1c level < 7.0% Pollo Bobo MD Work Phone: Start: 10-10-2022 End: 10-10-2022 Most recent systolic blood pressure <130 mm hg Pollo Bobo MD Work Phone: Start: 10-10-2022 End: 10-10-2022 Scr dep neg, no plan reqd Pollo harris MD Work Phone: Start: 10-05-2022 End: 10-05-2022 Lab findings surveillance Angi Sal Davila PN Work Phone: Comment on above: 128 Start: 08-22-2022 End: 08-22-2022 Flu imm no admin doc joseph Pollo condon MD Work Phone: Start: 06-25-2022 End: 06-25-2022 Examination of retina Angi Huang LPN Work Phone: Comment on above: Negative Finding. [facility] Start: 02-09-2022 End: 02-09-2022 Most recent diastol blood pres >/equal 90 mm hg Pollo Bobo MD Work Phone: Start: 02-09-2022 End: 02-09-2022 Most recent hemoglobin a1c level < 7.0% Pollo Bobo MD Work Phone: Start: 02-09-2022 End: 02-09-2022 Most recent systolic blood pres>/equal 140 mm hg Pollo Bobo MD Work Phone: Start: 08-11-2021 End: 08-11-2021 Depression screening Pollo Bobo MD Work Phone: Start: 08-11-2021 End: 08-11-2021 Docrev cur meds by elig clin Pollo velasquez MD Work Phone: Start: 08-11-2021 End: 08-11-2021 Flu imm no admin doc joseph Pollo condon MD Work Phone: Start: 08-11-2021 End: 08-11-2021 Most recent diastol blood pres >/equal 90 mm hg Pollo Bobo MD Work Phone: Start: 08-11-2021 End: 08-11-2021 Most recent hemoglobin a1c level < 7.0% Pollo Bobo MD Work Phone: Start: 08-11-2021 End: 08-11-2021 Most recent systolic blood press 130-139mm hg Pollo Bobo MD Work Phone: Start: 08-11-2021 End: 08-11-2021 Pos clin depres scrn f/u doc Pollo velasquez MD Work Phone: Start: 02-08-2021 End: 02-08-2021 Most recent diastol blood pres >/equal 90 mm hg Pollo Bobo MD Work Phone: Start: 02-08-2021 End: 02-08-2021 Most recent hemoglobin a1c level < 7.0% Pollo Bobo MD Work Phone: Start: 02-08-2021 End: 02-08-2021 Most recent systolic blood pres>/equal 140 mm hg Pollo Bobo MD Work Phone: Start: 11-17-2020 End: 11-17-2020 Lipid panel results documented & reviewed Angi Huang LPN Work Phone: Comment on above: Normal. tc 126 hdl 43 ldl 63 trig 121 Start: 08-10-2020 End: 08-10-2020 Depression screening Pollo Bobo MD Work Phone: Start: 08-10-2020 End: 08-10-2020 Docrev cur meds by ladi velasquez MD Work Phone: Start: 08-10-2020 End: 08-10-2020 Flu imm no admin doc josephyasemin condon MD Work Phone: Start: 08-10-2020 End: 08-10-2020 Most recent diastolic blood pressure 80-89 mm hg Pollo Bobo MD Work Phone: Start: 08-10-2020 End: 08-10-2020 Most recent systolic blood press 130-139mm hg Pollo Bobo MD Work Phone: Start: 08-10-2020 End: 08-10-2020 Scr dep neg, no plan reqd Pollo harris MD Work Phone: Start: 08-06-2020 End: 08-06-2020 Screening mammography Angi Huang LPN Work Phone: Comment on above: Within Normal Limits. 04/2009 neg, 09/28/16 neg/scattered fibroglandular densities benign appearing. density 25%, 11/07/17 neg. (mammo showed right assymetry, spot compression neg), 12/17/18 neg, 08/06/20 neg Start: 04-08-2020 End: 08-07-2020 Screening mammography bi 2-view breast inc cad Pollo Bobo MD Work Phone: Start: 07-02-2019 End: 07-02-2019 Flu imm no admin doc josephyasemin condon MD Work Phone: Start: 07-02-2019 End: 07-02-2019 Flu vaccine refused Angi Huang LPN Work Phone: Start: 01-21-2019 End: 01-21-2019 Endoscopy Angi Sal PRICE ANALYST Work Phone: Comment on above: gastritis, esophagitis, hiatal hernia Start: 01-21-2019 End: 01-21-2019 Screening colonoscopy Angi Huang LPN Work Phone: Comment on above: Normal. Dr Ramin Lamas Start: 01-17-2019 End: 01-17-2019 All Questionnaires Negative Angi Huang LPN Work Phone: Start: 01-17-2019 End: 01-17-2019 Depression screening Pollo Bobo MD Work Phone: Start: 01-17-2019 End: 01-17-2019 Most recent hemoglobin a1c level < 7.0% Pollo Bobo MD Work Phone: Start: 01-17-2019 End: 01-17-2019 Scr dep neg, no plan reqd Pollo harris MD Work Phone: Start: 11-19-2018 End: 12-18-2018 Screening mammography bi 2-view breast inc cad Pollo Bobo MD Work Phone: Start: 07-02-2018 End: 07-02-2018 Flu imm no admin doc joseph Pollo condon MD Work Phone: Start: 07-02-2018 End: 07-02-2018 Most recent hemoglobin a1c level < 7.0% Pollo Bobo MD Work Phone: Start: 02-12-2018 End: 02-12-2018 Body mass index documented Pollo yoo MD Work Phone: Start: 01-14-2018 End: 01-14-2018 Screening for malignant neoplasm of large intestine Angi Huang PRICE ANALYST Work Phone: Comment on above: 01/14/18 stool heme neg Start: 11-13-2017 End: 11-13-2017 Body mass index documented Pollo yoo MD Work Phone: Start: 11-13-2017 End: 11-13-2017 Current tobacco non-user cad cap copd pv dm Pollo Bobo MD Work Phone: Start: 11-13-2017 End: 11-13-2017 Docrev cur meds by ladi velasquez MD Work Phone: Start: 11-13-2017 End: 11-13-2017 Flu imm no admin doc joseph condon MD Work Phone: Start: 11-13-2017 End: 11-13-2017 Most recent diastolic blood pressure 80-89 mm hg Pollo Bobo MD Work Phone: Start: 11-13-2017 End: 11-13-2017 Most recent hemoglobin a1c level < 7.0% Pollo Bobo MD Work Phone: Start: 11-13-2017 End: 11-13-2017 Most recent systolic blood press 130-139mm hg Pollo Bobo MD Work Phone: Start: 09-26-2017 End: 11-08-2017 Screening mammography bi 2-view breast inc cad Pollo Bobo MD Work Phone: Start: 08-14-2017 End: 08-14-2017 Body mass index documented Pollo yoo MD Work Phone: Start: 08-14-2017 End: 08-14-2017 Dilated retinal exam w/evidence of retinopathy Pollo Bobo MD Work Phone: Start: 08-14-2017 End: 08-14-2017 Docrev cur meds by ladi velasquez MD Work Phone: Start: 08-14-2017 End: 08-14-2017 Flu imm no admin doc joseph condon MD Work Phone: Start: 08-14-2017 End: 08-14-2017 Most recent diastolic blood pressure 80-89 mm hg Pollo Bobo MD Work Phone: Start: 08-14-2017 End: 08-14-2017 Most recent hemoglobin a1c level < 7.0% Pollo Bobo MD Work Phone: Start: 08-14-2017 End: 08-14-2017 Most recent systolic blood pres>/equal 140 mm hg Pollo Bobo MD Work Phone: Start: 05-17-2017 End: 05-17-2017 Current tobacco non-user cad cap copd pv dm Pollo Bobo MD Work Phone: Start: 05-17-2017 End: 05-17-2017 Dilated retinal exam w/evidence of retinopathy Pollo Bobo MD Work Phone: Start: 05-17-2017 End: 05-17-2017 Docrev cur meds by ladi velasquez MD Work Phone: Start: 05-17-2017 End: 05-17-2017 Most recent diastolic blood pressure 80-89 mm hg Pollo Bobo MD Work Phone: Start: 05-17-2017 End: 05-17-2017 Most recent hemoglobin a1c level < 7.0% Pollo Bobo MD Work Phone: Start: 05-17-2017 End: 05-17-2017 Most recent systolic blood pres>/equal 140 mm hg Pollo Bobo MD Work Phone: Start: 05-17-2017 End: 05-17-2017 Body mass index documented Pollo yoo MD Work Phone: Start: 09-22-2016 End: 09-22-2016 Microscopic examination of cervical Papanicolaou smear Angi Huang LPN Work Phone: Comment on above: 05/2011 neg, 08/2016 neg(yeast) Start: 09-16-2016 End: 09-16-2016 Calc BMI abv up ayde f/u Pollo hraris MD Work Phone: Start: 09-16-2016 End: 09-16-2016 Current tobacco non-user cad cap copd pv dm Pollo Bobo MD Work Phone: Start: 09-16-2016 End: 09-16-2016 Docrev cur meds by ladi velasquez MD Work Phone: Start: 09-16-2016 End: 09-16-2016 Flu imm no admin doc joseph Pollo condon MD Work Phone: Start: 09-16-2016 End: 09-30-2016 Mammogram, screening Pollo Bobo MD Work Phone: Start: 09-16-2016 End: 09-16-2016 Screening mammography results doc&rev Pollo Bobo MD Work Phone: Abdominal hysterectomy Angi Sal PRICE ANA[employer]ST Work Phone: Comment on above: 2000, still has left ovary Abdominal hysterectomy Angi Sal PRICE ANALYST Work Phone: Comment on above: 2000, still has left ovary Appendectomy Angi Sal LP N Work Phone: Comment on above: 1986 Appendectomy Angi Sal LP N Work Phone: Comment on above: 1986 section Angi [place] y PRICE ANALYST Work Phone: Comment on above: 1997 section Angi [place] y PRICE ANALYST Work Phone: Comment on above: 1997 Cholecystectomy Angi Sal PRICE ANALYST Work Phone: Comment on above: 1986 Cholecystectomy Angi Sal PRICE ANALYST Work Phone: Comment on above: 1986 H/O: hysterectomy H/O: hysterectomy Angi Sal PRICE ANALYST Work Phone: Comment on above: one ovary remains H/O: hysterectomy H/O: hysterectomy Pollo Bobo MD Work Phone: H/O: hysterectomy H/O: hysterectomy Pollo Bobo MD Work Phone: H/O: hysterectomy H/O: hysterectomy Angi Sal PRICE ANALYST Work Phone: Comment on above: one ovary remains H/O: hysterectomy H/O: hysterectomy Angi Sal PRICE ANALYST Work Phone: Comment on above: one ovary remains H/O: hysterectomy H/O: hysterectomy Pollo Bobo MD Work Phone: H/O: hysterectomy H/O: hysterectomy Angi Sal PRICE ANALYST Work Phone: Comment on above: one ovary remains Tonsillectomy Angi Davila PN Work Phone: Comment on above: and sinus surgery, [email or web address] Tonsillectomy Angi Davila PN Work Phone: Comment on above: and sinus surgery, [email or web address] Plan of Treatment Date Care Activity Detail Author Start: 03-06-2025 [facility] Start: 12-05-2024 Patient encounter procedure Medical; [facility]TENDED RT[facility] - [facility] Start: 05-Dec-2024 14:50-04:00 MD Pollo Bobo [facility] Start: 09-05-2024 Patient encounter procedure Medical; PHYSICAL - [facility] Start: 05-Sep-2024 10:30-05:00 MD Pollo Bobo [facility] Start: 08-29-2024 Urine albumin quantitative [facility]. Start: 08-29-2024 Comprehensive metabolic [facility]. Start: 08-29-2024 Hemoglobin [facility]ylated a[facility]c [facility]. Start: 08-29-2024 Lipid panel [facility] Start: 08-29-2024 Blood count complete auto&auto difrntl wbc [facility]. Start: 08-29-2024 Nursing evaluation of patient and report [facility] Start: 04-25-2024 Patient encounter procedure Medical; EXTENDED RTN - 3 mo rtn [facility] Start: 25-Apr-2024 14:40-04:00 MD Pollo Bobo [facility] [facility]. Start: 01-18-2024 Patient encounter procedure Medical; EXTENDED RTN - [facility] Start: 18-Jan-2024 14:50-04:00 MD Pollo Bobo Appointment [facility] Start: 08-25-2023 Screening mammography bi 2-view breast inc cad Mammogram Bilateral Screening Digital w/CAD (82809) with 3D (tomosynthesis), bilateral ([id number]) Start: 25-Aug-2023 Intent [facility], [facility]. Start: 05-11-2023 Radionuclide gastric emptying study [facility] Start: 04-27-2023 Egd transoral biopsy single/multiple EGD BIOPSY SINGLE/MULTIPLE [facility] Start: 04-27-2023 Patient discharge [facility] Start: 02-16-2023 Ultrasonography of abdomen Abdomen Limited [facility] Start: 02-16-2023 Ultrasound elastography [facility] Start: 02-16-2023 US Abdomen limited [facility] Start: 12-23-2022 Ambulation without limitation [facility] Start: 12-23-2022 Medication education [facility] Start: 12-23-2022 Patient discharge [facility] Start: 12-23-2022 Taking patient vital signs [facility] Start: 12-23-2022 [facility] Start: 12-23-2022 Anes lithotrp xtrcorp shock wave w/o water bath ANESTH KIDNEY STONE DESTRUCT [facility] Start: 12-23-2022 Diagnostic radiography of abdomen Abdomen Single View [facility] Start: 12-23-2022 XR Abdomen Single view [facility] Start: 10-10-2022 Screening mammography bi 2-view breast inc cad Mammogram Bilateral Screening Digital w/CAD (90171) with 3D (tomosynthesis), bilateral ([id number]) Start: 10-Oct-2022 Intent [facility], [facility].; [facility], [facility]. Start: 08-11-2021 Screening mammography bi 2-view breast inc cad Mammogram Bilateral Screening Digital w/CAD ([id number]) with 3D (tomosynthesis), bilateral ([id number]) Start: 11-Aug-2021 Intent [facility], [facility].; [facility], [facility]. [id number]. tumor marker [Units/volume] in Serum or Plasma [facility] Angiotensin converti ng enzyme [Enzymatic activity/volume] in Serum or Plasma [facility] Bilirubin measuremen t, urine [facility] Ceruloplasmin [Mass/ volume] in Serum or Plasma [facility] Copper [Moles/volume ] in Serum or Plasma [facility] Haptoglobin [Mass/vo lume] in Serum or Plasma [facility] Hemoglobin [Presence ] in Urine [facility] Hepatitis A virus Ig M Ab [Presence] in Serum [facility] Hepatitis B core ant ibody measurement, IgM type [facility] Hepatitis B surface antigen measurement [facility] Hepatitis C antibody measurement [facility] Measurement of keton es in urine using dipstick [facility] Microscopic urinalysis [facility] Patient Education Abdominal Pain ED Hernia (Adult) [facility] Work Phone: Patient referral [facility] Work Phone: pH of Urine [facility] Radionuclide gastric emptying study [facility] Smooth muscle Ab [Pr esence] in Serum [facility] Specific gravity of Urine [facility] Urinalysis, blood, qualitative [facility] Urine dipstick for glucose [facility] Urine dipstick for leukocyte esterase [facility] Urine dipstick for nitrite [facility] Urine dipstick for protein [facility] Urine examination [facility] Urine microscopy: epithelial cells [facility] Urine Microscopy: wh ite cells [facility] Urobilinogen [Presen ce] in Urine [facility] Immunizations Immunization Date Immunization Notes Care Provider Conor daley 11-13-2017 tetanus toxoid, reduced diphtheria toxoid, and acellular pertussis vaccine, adsorbed Pollo Bobo MD Work Phone: [facility]; [facility]. Comment on above: Site: Left DeltoidVI S Given: * Tdap (Tetanus, Diphtheria, Pertussis) (11/18/14) 08-01-2005 tetanus and diphtheria toxoids, adsorbed, preservative free, for adult use (2 Lf of tetanus toxoid and 2 Lf of diphtheria toxoid) Pollo Bobo MD Work Phone: [employer]; [employer] NEGATED: Highlighted row has not occurred! influenza, injectable, quadrivalent, contains preservative Pollo Bobo MD Work Phone: [employer] Payers Date Payer Category Payer Self-pay [id number] Self-pay [id number] 2005 Unknown [id number] 1970 Unknown [id number] 2.16.8 [id number] 1970 Unknown [id number] 2.16.8 [id number] Unknown [employer] Unknown [id number] 2.16.8 [id number] Unknown [id number] 2.16.8 [id number] Unknown [id number] 2.16.8 [id number] Unknown [id number] 2.16.8 [id number] Unknown [id number] 2.16.8 [id number] Unknown [id number] 2.16.8 [id number] Unknown [id number] 2.16.8 [id number] Unknown [id number] 2.16.8 [id number] Social History Date Type Detail Facility Start: 11-05-2022 End: 06-23-2023 Tobacco smoking status OKIS Unknown if ever smoked [facility] Start: 1970 Sex Assigned At Female [facility] Alcohol Use: Alcohol Use: ; Occasional alcohol use. [facility] Caffeine Use Caffeine Use [facility].; [facility], [facility] Tobacco Use: Tobacco Use: ; N ever smoker. [facility].; [facility], [facility] Occasional alcohol use [facility], [facility] Work Phone: Start: 12-15-2023 Never smoked tobacco [facility] Goals Date Patient Goal Desired Activity /State Mental Status Date Assessment Result Facility 04-27-2023 Cognitive function Level Of Cons ciousness Awake;Drowsy [facility] Work Phone: 12-23-2022 Cognitive function Voice/Name [facility] Work Phone: Clinical Notes 12-23-2022 to 02-04-2025 Note Date & Type Note Facility 02-04-2025 Progress note [facility] 02-04-2025 Progress note Note Date/Time February 04, 2025 11:37am [facility] [address], [address] [place] [address] OFFICE VISIT Date of Service: 02/04/25 MR#: [id number] Acct: [id number] Name: STACI PORTILLO Rep #: [id number] : 1970 Provider: ALEC Driver Age/Sex: 54/F Location: [facility] Status: Signed Intake Vital Signs 06/09/24 13:21 02/04/25 11:21 Height 5 ft 7 in Weight: 190 lb BMI 29.7 BP 123/84 H 124/68 H Blood Pressure Location Lt brachial Position Sitting Sitting Respiration 14 Pulse 81 78 Pulse Source Monitor Temp 98.2 F 98.1 F Temp Source Temporal Oral Pulse Oximetry (%) 98 98 Oxygen Delivery Method room air room air Intake Visit Reasons: CONGESTION/COUGH Accompanied by: Self Allergies levofloxacin (From Levaquin) Allergy (Verified 06/09/24 13:10) unknown moxifloxacin (From Avelox) Allergy (Verified 06/09/24 13:10) flu-like symptoms propoxyphene (From Darvocet-N) Allergy (Verified 06/09/24 13:10) anxiety Nurse's Note: Patient has congestion, cough and yesterday she was coughing up thick mucus. Patient states this has been going on for 2 weeks. Patient states she is also tired. [facility] Medical History Wears glasses MRSA infection Post-menopausal Depression Restless legs History of hiatal hernia Gastric reflux Elevated liver enzymes Kidney stone Gastritis Hiatal hernia Acute insomnia Anxiety NAFLD (nonalcoholic fatty liver disease) Diabetes Acid reflux HTN (hypertension) High cholesterol Acute sinusitis, unspecified Surgical History Hx of lithotripsy S/P hysterectomy S/P sinus surgery History of tonsillectomy H/O ventral hernia repair S/P appendectomy S/P laparoscopic cholecystectomy H/O umbilical hernia repair S/P section Family History Father Diabetes Heart disease Hypertension Kidney disease CVA (cerebral vascular accident) Mother Cancer bladder Thyroid disorder Brother Hypertension Social History Smoking Status: Never smoker alcohol intake: never HPI HPI Details: STACI PORTILLO, is a 54 F who presents to the office today for [facility] with progressively worsening right facial pressure/congestion - with new purulent postnasal drip and nausea (over the last72 hours) - with symptoms beginning day after returning home from vacation from [place] ~2 weeks ago. No complaints of chills, myalgias, fatigue, runny nose, ornausea/vomiting/diarrhea. No complaints of chest pain/shortness of breath/dyspnea on exertion. No close contacts with similar complaints. Nonsmoker. No other associated symptoms and no other alleviating/aggravating factors. ROS Const Constitutional: No other (as above) Exam Const General: cooperative, healthy appearing and no acute distress Nutritional Appearance: average body habitus Orientation: alert, awake and oriented x3 HENMT Head: normal to inspection Ears: hearing grossly normal bilaterally, external ears normal, TM's normal bilaterally and EAC's normal Nose: external nose normal, nares normal, septum normal and no nasal discharge Face and sinus: normal facial exam, right maxillary sinus palpable tender (withright maxillary fullness to palpation) and face symmetric Mouth: oral mucosae normal, lip normal, tongue normal and oropharynx normal Throat: posterior oropharynx normal, tonsils normal, uvula midline and postnasal drainage (Purulent) Eyes General: appearance normal, both eyes and all related structures Neck Neck: normal visual inspection, full ROM, no meningeal signs, supple and lymphadenopathy (R>L anterior cervical lymph node swelling/tender to palpation) Neck mass: No Thyroid: thyroid normal Chest Chest palpation & inspection: normal inspection of the chest Resp Effort & Inspection: normal respiratory effort and able to speak in complete sentences Auscultation: Bilateral: Clear to Auscultation Cardio Palpation: normal PMI Rate: regular rate Rhythm: regular rhythm Heart Sounds: S1 normal, S2 normal, no gallops, no murmurs and no rubs Pulses: radial pulses present GI Inspection: normal to inspection Skin General: no rashes or lesions noted Neuro General: patient alert, patient awake and patient oriented x3 Cognition: normal cognition Speech: speech normal Psych Appearance: grossly normal Mental Status: mental status grossly normal Mood: congruent mood Affect: normal affect Speech and Movement: speech and movement normal Attitude: cooperative Diagnoses Acute maxillary sinusitis, unspecified J01.00 Assessment and Plan Assessment and Plan (1) Acute maxillary sinusitis, unspecified: Status: Acute Plan: Amoxicillin as prescribed today. Supportive measures as instructed today. Declined work excuse upon offering. Follow-up with PCP in 3 to 5 days should symptoms not improve, sooner should symptoms worsen or any other concerns develop. Patient states acknowledging understanding all the above. Coding Level of Care Code Off vis,est,level 3 Assessment and Plan Assessment and Plan Medications: New amoxicillin 500 mg PO TID 30 tabs 0RF 02/04/25 1137 <Electronically signed by Ramon MICHAEL> Date _ Ramon MICHAEL Cosigner Signature: Date (if applicable) CC: ~ [facility] Work Phone: 1(351) 292-940801-16-2025 Evaluation note* Diagnosis Onset Date Resolution Status Admit Date Eosinophilic esophagitis acute October 10, 2024 3:14pm Bloating chronic October 10, 2024 3:14pm Fatty liver chronic October 10, 2024 3:14pm Gastric reflux chronic October 102024 3:14pm Nausea and vomiting chronic Janua 2024 3:14pm [facility] Work Phone: 1(789) 275-266608-03-2023 Procedure [facility] 04-27-2023 Procedure [facility] December 23, 2022 4:31pm Note Date/Time December 23, 2022 4:3 1pm [facility] Medical Records Department [address] [place] [address] Instructions for Home/Discharge Instructions 12/23/22 1631 MR#: [id number] Acct: [id number] Name: STACI PORTILLO Rep #:[id number] : 1970 52 From: Jose Luis Cheung MD PCP: Dr. Pollo Bobo MD Status:R [facility] Discharge Instructions Diet Discharge Diet: No restrictions Dressing / Incision Call your doctor if your incision/area has: Continuous Slow Oozing, Increased Pain/ Swelling, Increased Redness and Foul Smelling Discharge Call your doctor if you observe: Fever of 101 or Higher, Numbness or Tingling, Shortness of breath, Dizziness, Calf discomfort and Uncontrolled pain Follow Up Care Please Follow Up With: Jose Luis Cheung MD Test Results: Test results from this visit will be discussed in further detail at your follow- up appointment, if applicable. Discharge Plan Admission Primary Reason for Your Visit: left ESWL Attending Provider: Jose Luis Cheung Primary Care Provider: Pollo Bobo Discharge Orders/Prescriptions Prescriptions: New oxycodone 5 mg capsule 5 mg PO Q6H PRN (Reason: pain) 7 Days Qty: 14 0RF Continued desvenlafaxine succinate 50 mg tablet extended release 24 hr 100 mg PO DAILY Label Comments: TAKE 1 TABLET BY MOUTH ONCE DAILY pantoprazole 40 mg tablet,delayed release (DR/EC) 40 mg PO DAILY lisinopril 20 mg tablet 20 mg PO DAILY Label Comments: TAKE 1 TABLET BY MOUTH ONCE DAILY metformin 1,000 mg tablet 1,000 mg PO BID Label Comments: TAKE 1 TABLET BY MOUTH TWICE DAILY Centrum Silver Women 8 mg iron-400 mcg-300 mcg tablet 1 tab PO DAILY atorvastatin 20 mg tablet 20 mg PO QHS loratadine [Claritin] 10 mg tablet 10 mg PO DAILY Referrals / Follow Up: Pollo Bobo MD [Primary Care Provider] - Disposition Disposition (needs filled in before D/C Order can be placed): Home, Self Care 12/23/22 1631<Electronically signed by Jose Luis Cheung MD>Jose Luis Cheung MD CC: Dr. Pollo Bobo MD ~ Signed [facility] Work Phone: Evaluation noteNo assessment information available [facility] Work Phone: Evaluation note* Diagnosis Onset Date Resolution Status Diastasis of rectus abdominis acute [facility] Work Phone: Evaluation note* Diagnosis Onset Date Resolution Status Diastasis of rectus abdominis acute Bloating chronic Fatty liver chronic Gastric reflux chronic Nausea and vomiting chronic Upper abdominal pain [facility] Work Phone: Evaluation note* Diagnosis Onset Date Resolution Status Bloating chronic Fatty liver chronic Gastric reflux chronic Nausea and vomiting chronic Upper abdominal pain chronic [facility] Work Phone: Evaluation note* Diagnosis Onset Date Resolution Status Bloating chronic Fatty liver chronic Gastric reflux chronic Nausea and vomiting chronic Upper abdominal pain chronic UTI (urinary tract infection) acute [facility] Work Phone: Evaluation note* Diagnosis Onset Date Resolution Status UTI (urinary tract infection) acute Fatty liver chronic Nausea and vomiting chronic [facility] Work Phone: History and physical note Author Dr. Cheung [facility] December 23, 2022 4:31pm Note Date/Time December 23, 2022 4:3 1pm [facility] Medical Records Department [address] [place] [address] History & Physical Exam 12/23/22 1630 MR#: [id number] Acct: [id number] Name: STACI PORTILLO Rep #:[id number] : 1970 52 From: Jose Luis Cheung MD PCP: Dr. Pollo Bobo MD Status:R [facility] Location: [place] [address] HPI - General General Chief Complaint: Left kidney stone HPI Narrative STACI PORTILLO, is a 52 F who presents for a left extracorporeal shockwave lithotripsy [facility] Medical History (Updated 12/23/22 @ 16:[address] Jose Luis Cheung MD) Acid reflux Acute insomnia Acute sinusitis, unspecified Anxiety Depression Diabetes Elevated liver enzymes Gastric reflux Gastritis Hiatal hernia High cholesterol History of hiatal hernia HTN (hypertension) Kidney stone MRSA infection NAFLD (nonalcoholic fatty liver disease) Post-menopausal Restless legs Wears glasses Home Medications desvenlafaxine succinate 50 mg tablet,extended release 24 hr 100 mg PO DAILY 03/26/21 [History Last Taken Unknown] lisinopril 20 mg tablet 20 mg PO DAILY 03/26/21 [History Last Taken Unknown] metformin 1,000 mg tablet 1,000 mg PO BID 03/26/21 [History Last Taken Unknown] multivit with [id number]-RO-lutein 8 mg iron-400 mcg-300 mcg tablet (Centrum Silver Women) 1 tab PO DAILY 03/26/21 [History Last Taken Unknown] pantoprazole 40 mg tablet,delayed release 40 mg PO DAILY 03/26/21 [History Last Taken Unknown] atorvastatin 20 mg tablet 20 mg PO QHS 11/15/22 [History Last Taken Unknown] loratadine 10 mg tablet (Claritin) 10 mg PO DAILY 11/15/22 [History Last Taken Unknown] oxycodone 5 mg capsule 5 mg PO Q6H PRN pain 7 days #14 caps 12/23/22 [Rx Last Taken Unknown] Allergy/AdvReac Type Severity Reaction Status Date / Time acetaminophen Allergy anxiety Verified 12/16/22 08:21 [From Darvocet-N] levofloxacin [From Levaquin] Allergy unknown Verified 12/16/22 08:21 moxifloxacin [From Avelox] Allergy flu-like Verified 12/16/22 08:21 symptoms propoxyphene Allergy anxiety Verified 12/16/22 08:21 [From Rileyt-N] Family History Father Diabetes Heart disease Hypertension Kidney disease CVA (cerebral vascular accident) Mother Cancer bladder Thyroid disorder Brother Hypertension Surgical History H/O umbilical hernia repair H/O ventral hernia repair History of tonsillectomy S/P appendectomy S/P section S/P hysterectomy S/P laparoscopic cholecystectomy S/P sinus surgery Social History Smoking Status: Never smoker alcohol intake: never Vital Signs Vital Signs Vital Signs: 12/23/22 13:24 12/23/22 13:24 Temperature 96.9 F L Temperature Source Temporal Pulse Rate 90 Respiratory Rate 16 Respiratory Pattern Normal Blood Pressure 120/72 Blood Pressure Mean 88 Blood Pressure Source Monitor Blood Pressure Position Semi-Fowlers Blood Pressure Location Right Arm Pulse Ox 96 Oxygen Delivery Method Room Air Weight Weight: 100.2 kg Body Mass Index (BMI) 34.6 Results Lab / Micro Data Labs: Laboratory Results - last 24 hr 12/23/22 13:19: POC Glucose 116 H 12/23/22 1631 <Electronically signed by Jose Luis Cheung MD> Cosigner Signature (if applicable): CC: Dr. Pollo Bobo MD; Dr. Jose Luis Cheung MD~ Signed [facility] Work Phone: History and physical note Author Mehdi Friend [facility] April 27, 2023 8:08am Note Date/Time April 27, 2023 8:0 8am [facility] Medical Records Department [address] [place] [address] History & Physical Exam 04/27/23 0808 MR#: [id number] Acct: [id number] Name: STACI PORTILLO Rep #:[id number] : 1970 53 From: Mehdi Mcwilliams DO PCP: Dr. Pollo Bobo MD Status:R [facility] Location: [place] [address] History and Physical Date of Admission: 04/27/23 Chief Complaint: abd pain, fatty liver Details: STACI PORTILLO, is a 52 F who presents to the office today to establish with GI for episodes of abdominal pain, gas, bloating, vomiting that wake her up, then diarrhea in the morning. Started in 08/2023, first time was sudden vomiting at work. Next time occurred 4 nights in a row, went to [facility] ED on ED 11/05/22. CT showed fatty liver w/ hepatomegaly. Thinks the abd pain is due to gas, better with simethicone. Lots of belching. Pepto bismol helps. Feels relief after vomiting. Had more heartburn at onset. Now more bothered by egg burps. Worse with greasy foods, spicy foods, soda. Had 4 episodes in 12/2022--had both vomiting and diarrhea then. No hematemesis, hematochezia, melena. She reports fatigue. Started semaglutide at the end of 10/2022, now is constipated, taking fiber gummies and stool softener. Has decreased appetite, gets full more quickly. Has lost 13 lbs. 12/2018 colonoscopy: normal 12/2018 egd: hiatal hernia, gastritis, bilious staining in the stomach, esophagitis; she has been on pantoprazole 40 mg daily since then ROS Const Constitutional: Positive for fatigue ENT ENT: No difficulty swallowing Gastro GI: Positive for abdominal pain, bloating, change in bowel habits, constipation,excessive flatus, nausea/dyspepsia and vomiting; No belching, change in stool character, coffee ground emesis, cramping, diarrhea, heartburn, difficulty swallowing, feeling full early, incontinent of stools, Vomiting blood/hematemesis, Blood in stool, loose stools, Black,tarry stools, pain with swallowing or other Musc Musculoskeletal: No joint pain Skin Skin: No yellowing of the eye or itchy eyes Psych Psychiatric: Positive for anxiety and No depression Endo Endocrine: Positive for fatigue Aller/Imm Allergy/Immunologic: No itchy eyes Yao/Lymp Hematologic/Lymphatic: No easy bleeding or easy bruising Exam Const General: cooperative and comfortable Nutritional Appearance: obese Orientation: alert, awake and oriented x3 HENMT Head: normal to inspection Eyes Sclera: sclerae normal Resp Effort & Inspection: normal respiratory effort GI Inspection: normal to inspection Palpation: soft, no hepatosplenomegaly, no masses and tender in the epigastrum Skin General: no rashes or lesions noted Psych Mood: euthymic mood Quality Reporting Tobacco Screening ([facility] 138) Smoking Status: Never smoker Assessment and Plan Assessment and Plan (1) Nausea and vomiting: Status: Chronic Plan: 52 yr old female with episodic abd pain/gas/bloat/vomiting/diarrhea, acid reflux, fatty liver DDx includes EPI, PUD, H pylori, gastritis, bile reflux, gastroparesis Continue PPI Trial of one wk of doxycycline for SIBO type sxs EGD Labs including fecal elastase RUQ US and liver elastography Depending on degree of liver stiffness may get more labs (2) Fatty liver: Status: Chronic (3) Gastric reflux: Status: Chronic (4) Bloating: Status: Chronic (5) Upper abdominal pain: Status: Chronic Orders: Orders Abdomen Limited Today K21.9 - Gastro-esophageal reflux disease without esophagitis, K76.0 - Fatty (change of) liver, not elsewhere classified, R11.2 - Nausea with vomiting, unspecified Elastography Parenchyma/Organ Today K21.9 - Gastro-esophageal reflux disease without esophagitis, K76.0 - Fatty (change of) liver, not elsewhere classified, R11.2 - Nausea with vomiting, unspecified CBC W/Diff, Automated Today K21.9 - Gastro-esophageal reflux disease without esophagitis, K76.0 - Fatty (change of) liver, not elsewhere classified, R11.2 - Nausea with vomiting, unspecified, R14.0 - Abdominal distension (gaseous) Comprehensive Metabolic Profil Today K21.9 - Gastro-esophageal reflux disease without esophagitis, K76.0 - Fatty (change of) liver, not elsewhere classified, R11.2 - Nausea with vomiting, unspecified, R14.0 - Abdominal distension (gaseous) CRP Today K21.9 - Gastro-esophageal reflux disease without esophagitis, K76.0 - Fatty (change of) liver, not elsewhere classified, R11.2 - Nausea with vomiting,unspecified, R14.0 - Abdominal distension (gaseous) Erythrocyte Sed Rate Today K21.9 - Gastro-esophageal reflux disease without esophagitis, K76.0 - Fatty (change of) liver, not elsewhere classified, R11.2 - Nausea with vomiting, unspecified, R14.0 - Abdominal distension (gaseous) Celiac Disease Profile Today K21.9 - Gastro-esophageal reflux disease without esophagitis, K76.0 - Fatty (change of) liver, not elsewhere classified, R11.2 - Nausea with vomiting, unspecified, R14.0 - Abdominal distension (gaseous) DOLLY Comprehensive Panel Today K21.9 - Gastro-esophageal reflux disease without esophagitis, K76.0 - Fatty (change of) liver, not elsewhere classified, R11.2 - Nausea with vomiting, unspecified, R14.0 - Abdominal distension (gaseous) ANCA Today K21.9 - Gastro-esophageal reflux disease without esophagitis, K76.0 - Fatty (change of) liver, not elsewhere classified, R11.2 - Nausea with vomiting,unspecified, R14.0 - Abdominal distension (gaseous) Pancreatic Elastase, Fecal Today R10.10 - Upper abdominal pain, unspecified, R11.2 - Nausea with vomiting, unspecified Medications: New doxycycline hyclate 100 mg PO BID 14 caps 0RF Discontinued oxycodone Discontinued Reason: Pt no longer taking 5 mg PO Q6H 7 days PRN 14 caps 0RFpain N20.0 - Calculus of kidney oxycodone-acetaminophen 5-325 mg (Endocet) Discontinued Reason: Order Completed 1 TAB PO Q6H 7 days PRN 20 tabs 0RF pain N20.0 - Calculus of kidney I have examined the patient and the H&P has been reviewed. There are no clinicalchanges since date of exam. 04/27/23 0808 <Electronically signed by Mehdi Mcwilliams DO> Cosigner Signature (if applicable): CC: Dr. Pollo Bobo MD; Mehdi Mcwilliams DO~ Signed [facility] Work Phone: Hospital Discharge instructions Additional Instructions Please keep a food diary to see if you are sensitive any foods. Please follow-up with your PCP. Follow-up with surgery.[facility] Work Phone: Hospital Discharge instructions Additional Instructions Implant Used?: [facility] Work Phone: Reason for referral (narrative)No reason for referral information [facility] [place] Work Phone: Chief Complaint and Reason for Visit Chief Complaint ABD PAIN Chief Complaint ABD PAIN UMBILICAL HERNIA LEFT ESWL Reason for Visit Diastasis of rectus abdominis Chief Complaint ABD PAIN UMBILICAL HERNIA LEFT ESWL Consult E-ORDER E-ORDER FATTY LIVER Reason for Visit Diastasis of rectus abdominis Bloating Fatty liver Gastric reflux Nausea and vomiting Upper abdominal pain Chief Complaint UMBILICAL HERNIA LEFT ESWL Consult E-ORDER E-ORDER FATTY LIVER E ORDERS Reason for Visit Diastasis of rectus abdominis Bloating Fatty liver Gastric reflux Nausea and vomiting Upper abdominal pain Chief Complaint LEFT ESWL Consult E-ORDER E-ORDER FATTY LIVER E ORDERS Reason for Visit Bloating Fatty liver Gastric reflux Nausea and vomiting Upper abdominal pain Chief Complaint Consult E-ORDER E-ORDER FATTY LIVER E ORDERS Reason for Visit Bloating Fatty liver Gastric reflux Nausea and vomiting Upper abdominal pain Chief Complaint Consult E-ORDER E-ORDER FATTY LIVER E ORDERS POSSIBLE UTI LABSPEC RETAINED FOOD ON ENDOSCOPY Reason for Visit Bloating Fatty liver Gastric reflux Nausea and vomiting Upper abdominal pain UTI (urinary tract infection) Chief Complaint Consult E-ORDER E-ORDER FATTY LIVER E ORDERS POSSIBLE UTI LABSPEC RETAINED FOOD ON ENDOSCOPY EORDERS Reason for Visit Bloating Fatty liver Gastric reflux Nausea and vomiting Upper abdominal pain UTI (urinary tract infection) Chief Complaint POSSIBLE UTI LABSPEC RETAINED FOOD ON ENDOSCOPY EORDERS 2 WK FU FATTY LIVER Reason for Visit UTI (urinary tract i nfection) Fatty liver Nausea and vomiting Chief Complaint Admit Date Go over results October 10, 2024 3 :14pm CONGESTION/COUGH February 04, 2025 11:20 am Reason for Visit Admit Date Eosinophilic esophagitis October 10, 2 025 3:14pm Bloating October 10, 2024 3 :14pm Fatty liver October 10, 2024 3 :14pm Gastric reflux October 10, 2024 3 :14pm Nausea and vomiting October 10, 2024 3 :14pm Family History Relationship Condition Age at Onset Recorded Date/T rick Not Specified Diabetes mellitus Unknown Cardiac disease Unknown Relationship Condition Age at Onset Recorded Date/T rick father Diabetes mellitus Unknown Cardiac disease Unknown Hypertension Unknown Kidney disorder Unknown Cerebrovascular accident (CVA) Unknown mother Malignant neoplasm Unknown Disorder of thyroid Unknown brother Hypertension Unknown Arthritis Status:Active Comments:Mother. Father. bladder cancer Status:Active Comments:Mother. Cerebrovascular Accident Status:Active Comment s:Father. Coronary Artery Disease Status:Active Comments :Mother. Father. Father Status:Active Comments: d. Hypertension Status:Active Comments:Father. Hypothyroidism Status:Active Comments:Father. kidney failure Status:Active Comments:Father. on dialysis Mother Status:Active Comments:[facility] Vascular Disease Status:Active Comments:father Arthritis Status:Active Comments:Mother. Father. bladder cancer Status:Active Comments:Mother. Cerebrovascular Accident Status:Active Comment s:Father. Coronary Artery Disease Status:Active Comments :Mother. Father. Father Status:Active Comments: d. Hypertension Status:Active Comments:Father. Hypothyroidism Status:Active Comments:Father. kidney failure Status:Active Comments:Father. on dialysis Mother Status:Active Comments:[facility] Vascular Disease Status:Active Comments:father Arthritis Status:Active Comments:Mother. Father. bladder cancer Status:Active Comments:Mother. Cerebrovascular Accident Status:Active Comment s:Father. Coronary Artery Disease Status:Active Comments :Mother. Father. Father Status:Active Comments: d. Hypertension Status:Active Comments:Father. Hypothyroidism Status:Active Comments:Father. kidney failure Status:Active Comments:Father. on dialysis Mother Status:Active Comments:[facility] Vascular Disease Status:Active Comments:father Arthritis Status:Active Comments:Mother. Father. bladder cancer Status:Active Comments:Mother. Cerebrovascular Accident Status:Active Comment s:Father. Coronary Artery Disease Status:Active Comments :Mother. Father. Father Status:Active Comments: d. Hypertension Status:Active Comments:Father. Hypothyroidism Status:Active Comments:Father. kidney failure Status:Active Comments:Father. on dialysis Mother Status:Active Comments:[facility] Vascular Disease Status:Active Comments:father Arthritis Status:Active Comments:Mother. Father. bladder cancer Status:Active Comments:Mother. Cerebrovascular Accident Status:Active Comment s:Father. Coronary Artery Disease Status:Active Comments :Mother. Father. Father Status:Active Comments: d. Hypertension Status:Active Comments:Father. Hypothyroidism Status:Active Comments:Father. kidney failure Status:Active Comments:Father. on dialysis Mother Status:Active Comments:[facility] Vascular Disease Status:Active Comments:father Arthritis Status:Active Comments:Mother. Father. bladder cancer Status:Active Comments:Mother. Cerebrovascular Accident Status:Active Comment s:Father. Coronary Artery Disease Status:Active Comments :Mother. Father. Father Status:Active Comments: d. Hypertension Status:Active Comments:Father. Hypothyroidism Status:Active Comments:Father. kidney failure Status:Active Comments:Father. on dialysis Mother Status:Active Comments:[facility] Vascular Disease Status:Active Comments:father Arthritis Status:Active Comments:Mother. Father. bladder cancer Status:Active Comments:Mother. Cerebrovascular Accident Status:Active Comment s:Father. Coronary Artery Disease Status:Active Comments :Mother. Father. Father Status:Active Comments: d. Hypertension Status:Active Comments:Father. Hypothyroidism Status:Active Comments:Father. kidney failure Status:Active Comments:Father. on dialysis Mother Status:Active Comments:[facility]. Vascular Disease Status:Active Comments:father Arthritis Status:Active Comments:Mother. Father. bladder cancer Status:Active Comments:Mother. Cerebrovascular Accident Status:Active Comment s:Father. Coronary Artery Disease Status:Active Comments :Mother. Father. Father Status:Active Comments: d. Hypertension Status:Active Comments:Father. Hypothyroidism Status:Active Comments:Father. kidney failure Status:Active Comments:Father. on dialysis Mother Status:Active Comments:[facility]. Vascular Disease Status:Active Comments:father Arthritis Status:Active Comments:Mother. Father. bladder cancer Status:Active Comments:Mother. Cerebrovascular Accident Status:Active Comment s:Father. Coronary Artery Disease Status:Active Comments :Mother. Father. Father Status:Active Comments: d. Hypertension Status:Active Comments:Father. Hypothyroidism Status:Active Comments:Father. kidney failure Status:Active Comments:Father. on dialysis Mother Status:Active Comments:[facility]. Vascular Disease Status:Active Comments:father Arthritis Status:Active Comments:Mother. Father. bladder cancer Status:Active Comments:Mother. Cerebrovascular Accident Status:Active Comment s:Father. Coronary Artery Disease Status:Active Comments :Mother. Father. Father Status:Active Comments: d. Hypertension Status:Active Comments:Father. Hypothyroidism Status:Active Comments:Father. kidney failure Status:Active Comments:Father. on dialysis Mother Status:Active Comments:[facility]. Vascular Disease Status:Active Comments:father Arthritis Status:Active Comments:Mother. Father. bladder cancer Status:Active Comments:Mother. Cerebrovascular Accident Status:Active Comment s:Father. Coronary Artery Disease Status:Active Comments :Mother. Father. Father Status:Active Comments: d. Hypertension Status:Active Comments:Father. Hypothyroidism Status:Active Comments:Father. kidney failure Status:Active Comments:Father. on dialysis Mother Status:Active Comments:[facility]. Vascular Disease Status:Active Comments:father Arthritis Status:Active Comments:Mother. Father. bladder cancer Status:Active Comments:Mother. Cerebrovascular Accident Status:Active Comment s:Father. Coronary Artery Disease Status:Active Comments :Mother. Father. Father Status:Active Comments: d. Hypertension Status:Active Comments:Father. Hypothyroidism Status:Active Comments:Father. kidney failure Status:Active Comments:Father. on dialysis Mother Status:Active Comments:[facility] Vascular Disease Status:Active Comments:father Arthritis Status:Active Comments:Mother. Father. bladder cancer Status:Active Comments:Mother. Cerebrovascular Accident Status:Active Comment s:Father. Coronary Artery Disease Status:Active Comments :Mother. Father. Father Status:Active Comments: d. Hypertension Status:Active Comments:Father. Hypothyroidism Status:Active Comments:Father. kidney failure Status:Active Comments:Father. on dialysis Mother Status:Active Comments:[facility] Vascular Disease Status:Active Comments:father Arthritis Status:Active Comments:Mother. Father. bladder cancer Status:Active Comments:Mother. Cerebrovascular Accident Status:Active Comment s:Father. Coronary Artery Disease Status:Active Comments :Mother. Father. Father Status:Active Comments: d. Hypertension Status:Active Comments:Father. Hypothyroidism Status:Active Comments:Father. kidney failure Status:Active Comments:Father. on dialysis [facility] Status:[facility] Comments[facility] Vascular Disease Status:Active Comments:father Arthritis Status:Active Comments:Mother. Father. bladder cancer Status:Active Comments:Mother. Cerebrovascular Accident Status:Active Comment s:Father. Coronary Artery Disease Status:Active Comments :Mother. Father. Father Status:Active Comments: d. Hypertension Status:Active Comments:Father. Hypothyroidism Status:Active Comments:Father. kidney failure Status:Active Comments:Father. on dialysis Mother Status:Active Comments:[facility] Vascular Disease Status:Active Comments:father Arthritis Status:Active Comments:Mother. Father. bladder cancer Status:Active Comments:Mother. Cerebrovascular Accident Status:Active Comment s:Father. Coronary Artery Disease Status:Active Comments :Mother. Father. Father Status:Active Comments: d. Hypertension Status:Active Comments:Father. Hypothyroidism Status:Active Comments:Father. kidney failure Status:Active Comments:Father. on dialysis Mother Status:Active Comments:In [facility]. Vascular Disease Status:Active Comments:father Arthritis Status:Active Comments:Mother. Father. bladder cancer Status:Active Comments:Mother. Cerebrovascular Accident Status:Active Comment s:Father. Coronary Artery Disease Status:Active Comments :Mother. Father. Father Status:Active Comments: d. Hypertension Status:Active Comments:Father. Hypothyroidism Status:Active Comments:Father. kidney failure Status:Active Comments:Father. on dialysis Mother Status:Active Comments:[facility]. Vascular Disease Status:Active Comments:father Arthritis Status:Active Comments:Mother. Father. bladder cancer Status:Active Comments:Mother. Cerebrovascular Accident Status:Active Comment s:Father. Coronary Artery Disease Status:Active Comments :Mother. Father. Father Status:Active Comments: d. Hypertension Status:Active Comments:Father. Hypothyroidism Status:Active Comments:Father. kidney failure Status:Active Comments:Father. on dialysis Mother Status:Active Comments:[facility]. Vascular Disease Status:Active Comments:father Arthritis Status:Active Comments:Mother. Father. bladder cancer Status:Active Comments:Mother. Cerebrovascular Accident Status:Active Comment s:Father. Coronary Artery Disease Status:Active Comments :Mother. Father. Father Status:Active Comments: d. Hypertension Status:Active Comments:Father. Hypothyroidism Status:Active Comments:Father. kidney failure Status:Active Comments:Father. on dialysis Mother Status:Active Comments:[facility]. Vascular Disease Status:Active Comments:father Arthritis Status:Active Comments:Mother. Father. bladder cancer Status:Active Comments:Mother. Cerebrovascular Accident Status:Active Comment s:Father. Coronary Artery Disease Status:Active Comments :Mother. Father. Father Status:Active Comments: d. Hypertension Status:Active Comments:Father. Hypothyroidism Status:Active Comments:Father. kidney failure Status:Active Comments:Father. on dialysis Mother Status:Active Comments:[facility]. Vascular Disease Status:Active Comments:father Arthritis Status:Active Comments:Mother. Father. bladder cancer Status:Active Comments:Mother. Cerebrovascular Accident Status:Active Comment s:Father. Coronary Artery Disease Status:Active Comments :Mother. Father. Father Status:Active Comments: d. Hypertension Status:Active Comments:Father. Hypothyroidism Status:Active Comments:Father. kidney failure Status:Active Comments:Father. on dialysis Mother Status:Active Comments:[facility]. Vascular Disease Status:Active Comments:father Arthritis Status:Active Comments:Mother. Father. bladder cancer Status:Active Comments:Mother. Cerebrovascular Accident Status:Active Comment s:Father. Coronary Artery Disease Status:Active Comments :Mother. Father. Father Status:Active Comments: d. Hypertension Status:Active Comments:Father. Hypothyroidism Status:Active Comments:Father. kidney failure Status:Active Comments:Father. on dialysis Mother Status:Active Comments:[facility]. Vascular Disease Status:Active Comments:father Arthritis Status:Active Comments:Mother. Father. bladder cancer Status:Active Comments:Mother. Cerebrovascular Accident Status:Active Comment s:Father. Coronary Artery Disease Status:Active Comments :Mother. Father. Father Status:Active Comments: d. Hypertension Status:Active Comments:Father. Hypothyroidism Status:Active Comments:Father. kidney failure Status:Active Comments:Father. on dialysis Mother Status:Active Comments:[facility]. Vascular Disease Status:Active Comments:father Arthritis Status:Active Comments:Mother. Father. bladder cancer Status:Active Comments:Mother. Cerebrovascular Accident Status:Active Comment s:Father. Coronary Artery Disease Status:Active Comments :Mother. Father. Father Status:Active Comments: d. Hypertension Status:Active Comments:Father. Hypothyroidism Status:Active Comments:Father. kidney failure Status:Active Comments:Father. on dialysis Mother Status:Active Comments:[facility]. Vascular Disease Status:Active Comments:father Arthritis Status:Active Comments:Mother. Father. bladder cancer Status:Active Comments:Mother. Cerebrovascular Accident Status:Active Comment s:Father. Coronary Artery Disease Status:Active Comments :Mother. Father. Father Status:Active Comments: d. Hypertension Status:Active Comments:Father. Hypothyroidism Status:Active Comments:Father. kidney failure Status:Active Comments:Father. on dialysis Mother Status:Active Comments:[facility]. Vascular Disease Status:Active Comments:father Arthritis Status:Active Comments:Mother. Father. bladder cancer Status:Active Comments:Mother. Cerebrovascular Accident Status:Active Comment s:Father. Coronary Artery Disease Status:Active Comments :Mother. Father. Father Status:Active Comments: d. Hypertension Status:Active Comments:Father. Hypothyroidism Status:Active Comments:Father. kidney failure Status:Active Comments:Father. on dialysis Mother Status:Active Comments:[facility]. Vascular Disease Status:Active Comments:father Arthritis Status:Active Comments:Mother. Father. bladder cancer Status:Active Comments:Mother. Cerebrovascular Accident Status:Active Comment s:Father. Coronary Artery Disease Status:Active Comments :Mother. Father. Father Status:Active Comments: d. Hypertension Status:Active Comments:Father. Hypothyroidism Status:Active Comments:Father. kidney failure Status:Active Comments:Father. on dialysis Mother Status:Active Comments:[facility]. Vascular Disease Status:Active Comments:father Arthritis Status:Active Comments:Mother. Father. bladder cancer Status:Active Comments:Mother. Cerebrovascular Accident Status:Active Comment s:Father. Coronary Artery Disease Status:Active Comments :Mother. Father. Father Status:Active Comments: d. Hypertension Status:Active Comments:Father. Hypothyroidism Status:Active Comments:Father. kidney failure Status:Active Comments:Father. on dialysis Mother Status:Active Comments:[facility]. Vascular Disease Status:Active Comments:father Arthritis Status:Active Comments:Mother. Father. bladder cancer Status:Active Comments:Mother. Cerebrovascular Accident Status:Active Comment s:Father. Coronary Artery Disease Status:Active Comments :Mother. Father. Father Status:Active Comments: d. Hypertension Status:Active Comments:Father. Hypothyroidism Status:Active Comments:Father. kidney failure Status:Active Comments:Father. on dialysis Mother Status:Active Comments:[facility]. Vascular Disease Status:Active Comments:father Arthritis Status:Active Comments:Mother. Father. bladder cancer Status:Active Comments:Mother. Cerebrovascular Accident Status:Active Comment s:Father. Coronary Artery Disease Status:Active Comments :Mother. Father. Father Status:Active Comments: d. Hypertension Status:Active Comments:Father. Hypothyroidism Status:Active Comments:Father. kidney failure Status:Active Comments:Father. on dialysis Mother Status:Active Comments:[facility]. Vascular Disease Status:Active Comments:father Arthritis Status:Active Comments:Mother. Father. bladder cancer Status:Active Comments:Mother. Cerebrovascular Accident Status:Active Comment s:Father. Coronary Artery Disease Status:Active Comments :Mother. Father. Father Status:Active Comments: d. Hypertension Status:Active Comments:Father. Hypothyroidism Status:Active Comments:Father. kidney failure Status:Active Comments:Father. on dialysis Mother Status:Active Comments:[facility]. Vascular Disease Status:Active Comments:father Arthritis Status:Active Comments:Mother. Father. bladder cancer Status:Active Comments:Mother. Cerebrovascular Accident Status:Active Comment s:Father. Coronary Artery Disease Status:Active Comments :Mother. Father. Father Status:Active Comments: d. Hypertension Status:Active Comments:Father. Hypothyroidism Status:Active Comments:Father. kidney failure Status:Active Comments:Father. on dialysis Mother Status:Active Comments:[facility]. Vascular Disease Status:Active Comments:father Arthritis Status:Active Comments:Mother. Father. bladder cancer Status:Active Comments:Mother. Cerebrovascular Accident Status:Active Comment s:Father. Coronary Artery Disease Status:Active Comments :Mother. Father. Father Status:Active Comments: d. Hypertension Status:Active Comments:Father. Hypothyroidism Status:Active Comments:Father. kidney failure Status:Active Comments:Father. on dialysis Mother Status:Active Comments:[facility]. Vascular Disease Status:Active Comments:father Arthritis Status:Active Comments:Mother. Father. bladder cancer Status:Active Comments:Mother. Cerebrovascular Accident Status:Active Comment s:Father. Coronary Artery Disease Status:Active Comments :Mother. Father. Father Status:Active Comments: d. Hypertension Status:Active Comments:Father. Hypothyroidism Status:Active Comments:Father. kidney failure Status:Active Comments:Father. on dialysis Mother Status:Active Comments:[facility]. Vascular Disease Status:Active Comments:father Arthritis Status:Active Comments:Mother. Father. bladder cancer Status:Active Comments:Mother. Cerebrovascular Accident Status:Active Comment s:Father. Coronary Artery Disease Status:Active Comments :Mother. Father. Father Status:Active Comments: d. Hypertension Status:Active Comments:Father. Hypothyroidism Status:Active Comments:Father. kidney failure Status:Active Comments:Father. on dialysis Mother Status:Active Comments:[facility]. Vascular Disease Status:Active Comments:father Arthritis Status:Active Comments:Mother. Father. bladder cancer Status:Active Comments:Mother. Cerebrovascular Accident Status:Active Comment s:Father. Coronary Artery Disease Status:Active Comments :Mother. Father. Father Status:Active Comments: d. Hypertension Status:Active Comments:Father. Hypothyroidism Status:Active Comments:Father. kidney failure Status:Active Comments:Father. on dialysis Mother Status:Active Comments:[facility]. Vascular Disease Status:Active Comments:father Arthritis Status:Active Comments:Mother. Father. bladder cancer Status:Active Comments:Mother. Cerebrovascular Accident Status:Active Comment s:Father. Coronary Artery Disease Status:Active Comments :Mother. Father. Father Status:Active Comments: d. Hypertension Status:Active Comments:Father. Hypothyroidism Status:Active Comments:Father. kidney failure Status:Active Comments:Father. on dialysis Mother Status:Active Comments:[facility]. Vascular Disease Status:Active Comments:father Arthritis Status:Active Comments:Mother. Father. bladder cancer Status:Active Comments:Mother. Cerebrovascular Accident Status:Active Comment s:Father. Coronary Artery Disease Status:Active Comments :Mother. Father. Father Status:Active Comments: d. Hypertension Status:Active Comments:Father. Hypothyroidism Status:Active Comments:Father. kidney failure Status:Active Comments:Father. on dialysis Mother Status:Active Comments:[facility]. Vascular Disease Status:Active Comments:father Arthritis Status:Active Comments:Mother. Father. bladder cancer Status:Active Comments:Mother. Cerebrovascular Accident Status:Active Comment s:Father. Coronary Artery Disease Status:Active Comments :Mother. Father. Father Status:Active Comments: d. Hypertension Status:Active Comments:Father. Hypothyroidism Status:Active Comments:Father. kidney failure Status:Active Comments:Father. on dialysis Mother Status:Active Comments:In [facility]. Vascular Disease Status:Active Comments:father Arthritis Status:Active Comments:Mother. Father. bladder cancer Status:Active Comments:Mother. Cerebrovascular Accident Status:Active Comment s:Father. Coronary Artery Disease Status:Active Comments :Mother. Father. Father Status:Active Comments: d. Hypertension Status:Active Comments:Father. Hypothyroidism Status:Active Comments:Father. kidney failure Status:Active Comments:Father. on dialysis Mother Status:Active Comments:In [facility]. Vascular Disease Status:Active Comments:father Arthritis Status:Active Comments:Mother. Father. bladder cancer Status:Active Comments:Mother. Cerebrovascular Accident Status:Active Comment s:Father. Coronary Artery Disease Status:Active Comments :Mother. Father. Father Status:Active Comments: d. Hypertension Status:Active Comments:Father. Hypothyroidism Status:Active Comments:Father. kidney failure Status:Active Comments:Father. on dialysis Mother Status:Active Comments:In [facility]. Vascular Disease Status:Active Comments:father Advance Directives Advance Directive Response Recorded Date/ Time Living Will No November 05 1:56pm Power of Vp Medical No November 05, 2022 1:56pm Advance Directive Response Recorded Date/ Time Living Will No December 16, 2022 10:49am Power of Vp Medical No December 16 10:49am Advance Directive Response Recorded Date/ Time Living Will No April 24, 2023 1:28pm Power of Vp Medical No April 24 1:28pm Summary Purpose Additional Source Comments Care Teams (unrecognized sec tion and content) Team Status: Active Member Role Status Dates Dr. Pollo Bobo MD Family Provider Active Dr. Pollo Bobo MD Primary Care Provider Active Team Status: Inactive Member Role Status Dates Dr. Pollo Bobo MD Primary Care Provider Active Dr. Red Castrejon MD Emergency Provider Active Team Status: Inactive Member Role Status Dates Dr. Pollo Bobo MD Primary Care Provider, Refer ring Provider Active Dr. Inocente Saab MD Attending Provider Active Team Status: Inactive Member Role Status Dates Dr. Pollo Bobo MD Primary Care Provider Active Dr. Red Castrejon MD Attending Provider, Emergency Pro vider Active Team Status: Inactive Member Role Status Dates Dr. Pollo Bobo MD Primary Care Provider Active Dr. Jose Luis Cheung MD Attending Provider, Referr ing Provider Active Team Status: Inactive Member Role Status Dates Dr. Pollo Bobo MD Primary Care Provider, Refer ring Provider Active Zoraida Gutierrez BLISTER PACK OPERATOR, BLISTER PACK OPERATOR-C Attending Provider Active Team Status: Active Member Role Status Dates Dr. Pollo Bobo MD Primary Care Provider Active Zoraida Gutierrez BLISTER PACK OPERATOR, BLISTER PACK OPERATOR-C Attending Provider, Referrin g Provider Active Team Status: Inactive Member Role Status Dates Dr. Pollo Bobo MD Primary Care Provider Active Zoraida Gutierrez BLISTER PACK OPERATOR, BLISTER PACK OPERATOR-C Attending Provider, Referrin g Provider Active Team Status: Active Member Role Status Dates Dr. Pollo Bobo MD Primary Care Provider Active Dr. Mehdi Mcwilliams DO Attending Provid er, Referring Provider, Other Provider Active Team Status: Inactive Member Role Status Dates Dr. Pollo Bobo MD Primary Care Provider Active Dr. Mehdi Mcwilliams DO Attending Provider, Referring Provider Active Team Status: Inactive Member Role Status Dates Dr. Pollo Bobo MD Primary Care Provider, Refer ring Provider Active Pollo Bah BLISTER PACK OPERATOR, BLISTER PACK OPERATOR-C Attending Provider Active Team Status: Active Member Role Status Dates Dr. Pollo Bobo MD Primary Care Provider Active Dr. Mehdi Mcwilliams DO Attending Provider, Referring Provider Active Team Status: Inactive Member Role Status Dates Dr. Pollo Bobo MD Primary Care Provider Active Pollo Bah BLISTER PACK OPERATOR, BLISTER PACK OPERATOR-C Attending Provider, Referring Pro vider Active Team Status: Inactive Member Role Status Dates Dr. Pollo Bobo MD Primary Care Provider, Refer ring Provider Active Dr. Mehdi Mcwilliams DO Attending Provider Active Team Status: Inactive Member Role Status Dates Dr. Pollo Bobo MD Primary Care Provider Active Start: October 10, 2024 End: October 10, 2024 Dr. Pollo Bobo MD Referring Provider Active Start: October 10, 2024 End: October 10, 2024 Dr. Mehdi Mcwilliams DO Attending Provider Active Start: October 10, 2024 End: October 10, 2024 Team Status: Inactive Member Role Status Dates Dr. Pollo Bobo MD Primary Care Provider Active Start: February 04, 2025 End: February 04, 2025 Dr. Pollo Bobo MD Referring Provider Active Start: February 04, 2025 End: February 04, 2025 Ramon MICHAEL, PA Attending Provider Active Start: February 04, 2025 End: February 04, 2025 Goals (unrecognized section and content) Goals may be documented in a n alternate sectionGoals may be documented in an alternate section INFORMATION SOURCE (unrecogn ized section and content) DATE CREATED AUTHOR 08/29/2023 [facility] DATE CREATED AUTHOR AUTHOR'S ORGANIZ ATION 12/07/2023 [facility] DATE CREATED AUTHOR AUTHOR'S ORGANIZ ATION 02/05/2025 [facility] FOR RECORDS PERTAINING TO PATIENTS WHO ARE OR HAVE BEEN ENROLLED IN A CHEMICAL DEPENDENCY/SUBSTANCEABUSE PROGRAM, SOME INFORMATION MAY BE OMITTED. This clinical summary was aggregated from multiple sources. Caution should be exercised in using it in the provision of clinical care. This summary normalizes information from multiple sources, and as a consequence, information in this document may materially change the coding, format and clinical context of patient data. In addition, data may be omitted in some cases. CLINICAL DECISIONS SHOULD BE BASED ON THE PRIMARY CLINICAL RECORDS. [facility]. provides no warranty or guarantee of the accuracy or completeness of information in this document.
[2025-03-05 22:48] LABS: Lipase 36 U/L (13-75)
[2025-03-05 23:24] LABS: Bedside Glucose 95 mg/dL (74-106)
[2025-03-05] MEDS: Meclizine HCl 25 MG Tablet PO (23:43)
[2025-03-05] MEDS: Ondansetron 4 MG/2 ML Vial IV (23:44)
[2025-03-06] VITALS: BP 131/83; PULSE 85; RESP 15; O2SAT 100
[2025-03-06 00:20] VITALS: O2SAT 99
--- NOTE | 2025-03-06 00:31 | CT_ITS ---
PROCEDURE: BRAIN/HEAD WITHOUT CONTRAST 03/06/2025 REASON FOR EXAM: DIZZINESS, HEADACHE TECHNIQUE: Head CT without intravenous contrast. Coronal and Sagittal reconstruction series were provided. One or more dose reduction techniques were used (e.g., Automated exposure control, adjustment of the mA and/or kV according to patient size, use of iterative reconstruction technique. RADIATION DOSE SUMMARY: CTDlvol: 44.9 mGy DLP: 779 mGycm COMPARISON: None. FINDINGS: Mild chronic mucosal inflammatory changes of the ethmoid air cells. Normal size of the ventricles and extra-axial spaces for the patient's age. Normal white matter tracts of the supratentorial brain. Normal basal ganglia and thalami. Normal brainstem. Normal cerebellum. There is no demonstrated extra-axial, intraparenchymal, or intraventricular hemorrhage. There are no findings of an acute ischemic infarction. Normal calvarium. There is no demonstrated fracture. Normal soft tissue structures. Normal remaining visualized paranasal sinuses. CT/Brain/Head without Contrast IMPRESSION: Normal unenhanced CT scan of the brain. Mild chronic mucosal inflammatory changes of the ethmoid air cells. Reading [facility]
[2025-03-06] MEDS: 0.9% Normal Saline (500mL Bag) 500 ML 999 ML IV (00:35)
[2025-03-06] MEDS: Ketorolac 30 MG/ML Syringe IV (01:59)
[2025-03-06 02:00] VITALS: BP 123/76; PULSE 79; RESP 18; TEMP 36.8; O2SAT 99
== END 2025-03-06 02:04 | disposition home or self-care (01) ==
PROVIDERS: Emergency Provider Emergency Medicine; PCP Family Medicine; Visit Provider Emergency Medicine
DX: R42 Dizziness and giddiness (principal); E11.9 Type 2 diabetes mellitus without complications; R51.9 Headache, unspecified; R11.2 Nausea with vomiting, unspecified; I10 Essential (primary) hypertension; E78.00 Pure hypercholesterolemia, unspecified; Z79.84 Long term (current) use of oral hypoglycemic drugs; Z79.85 Long-term (current) use of injectable non-insulin antidiabetic drugs; Z79.899 Other long term (current) drug therapy
CPT/HCPCS: 70450; 80048; 82962; 83690; 85025; 93005; 96361; 96374; 96375; 96376; 99285; A4216; J2405

== ENCOUNTER → 2025-04-08 | Outpatient (CLI) | payer OTHER, SELFPAY ==
--- NOTE | 2025-04-08 09:07 | US_ITS ---
PROCEDURE: ABD LIMITED W/ ELASTOGRAPHY REASON FOR EXAM: NAFLD COMPARISON: Prior study dated August 28, 2024. TECHNIQUE: Right upper quadrant abdominal ultrasound. [facility] ElastQ Imaging shear wave elastography for non-invasive assessment of liver tissue stiffness. [facility] EPIQ Elite. FINDINGS: LIVER: Size: Mild hepatomegaly Length: 18 cm Echotexture: Diffusely echogenic suggesting fatty infiltration Contour: Normal Lesions: None identified Elastography: EQI Med: 9.9 kPa EQI Med Ancelmo: 1.8 m/s IQR/Med: 26.5 %* GALLBLADDER: Surgically absent. COMMON BILE DUCT: Dilated measuring up to 8 mm . PANCREAS: Normal Visualized portions of the right kidney are unremarkable. No right upper quadrant ascites. US/ABD Limited w/ Elastography IMPRESSION: Moderate hepatic fibrosis. Mild hepatomegaly and fatty infiltration of the liver. Reference Values: SRU <1.37 m/s (5.7kPa): No to mild fibrosis 1.37 m/s - 2.2 m/s: Moderate to severe fibrosis >2.2 m/s (15kPa): Significant fibrosis / cirrhosis METAVIR Score F2 or higher: 1.34 m/s (5.7kPa) F3 or higher: 1.55 m/s (7.3kPa) F4: 1.80 m/s (10kPa) * If the IQR/Med is >30%, the variance in the measurements is a large and the a ccuracy of the measurement may be in question. Reading Location: [id number]
== END | disposition home or self-care (01) ==
PROVIDERS: PCP Family Medicine; Referring Provider Family Medicine; Visit Provider Internal Medicine Gastroenterology
DX: K76.0 Fatty (change of) liver, not elsewhere classified (principal)
CPT/HCPCS: 76705; 76981